=== PATIENT | female | born 1950 | race Caucasian/White ===

== ENCOUNTER 2020-12-17 08:43 | Emergency (ER) | payer MEDICARE, OTHER, SELFPAY ==
--- NOTE | 2020-12-17 | ECG_ITS ---
Test Reason : CP Blood Pressure : / mmHG Vent. Rate : 058 BPM Atrial Rate : 058 BPM P-R Int : 172 ms QRS Dur : 094 ms QT Int : 406 ms P-R-T Axes : 025 -59 -10 degrees QTc Int : 398 ms Sinus bradycardia Left axis deviation Nonspecific ST abnormality Abnormal ECG When compared with ECG of 24-FEB-2020 13:06, No significant change was found Referred By: Generic ED Physician Electronically Signed By:PAULINE CARLIN
--- NOTE | ~2020-12-17 | XR_ITS ---
EXAMINATION: XR CHEST CLINICAL INFORMATION: Chest pain. COMPARISON: Chest done on 02/24/2020. TECHNIQUE: Frontal view of the chest was obtained. FINDINGS: Previously documented suprahilar linear airspace disease within the right hemithorax and linear airspace disease at left lung base appear stable likely represent pleural parenchymal scar. No significant abnormality is noted involving the heart, lungs, mediastinum, bony thorax or soft tissues. XR/XR chest 1V IMPRESSION: Presumed right suprahilar and left lung base pleural parenchymal scar, unchanged since 02/24/2020.
[2020-12-17 08:47] VITALS: BP 1700/74; PULSE 64; RESP 20; TEMP 36.7; O2SAT 95; BMI 31.4
[2020-12-17 09:24] VITALS: BP 153/89; PULSE 58; PULSE 62; RESP 16; O2SAT 95
[2020-12-17] MEDS: Famotidine/PF 20 MG/2 ML VIAL IVPUSH (10:22)
[2020-12-17] MEDS: Lidocaine HCl Viscous 2 % 15 ML SOLUTION MUCOUS MEM (10:22)
[2020-12-17] MEDS: Magnesium Hydrox/Alum Hydrox 30 ML ORAL.SUSP PO (10:22)
[2020-12-17 10:50] LABS: MANUAL DIFF FLAG NO
[2020-12-17 10:52] LABS: Basophils Percent Auto 0.5 % (0-2); Eosinophils Absolute Auto 0.1 X10*3/uL (0.0-0.4); Hematocrit 41.3 % (37-47); Hemoglobin 13.7 g/dl (12.0-16.0); Imm Gran Abs Auto 0.01 X10*3/uL (0.00-0.03); Imm Gran Pct Auto 0.2 % (0.0-0.4); Lymphocytes Absolute Auto 1.4 X10*3/uL (1.2-4.9); Lymphocytes Percent Auto 21.5 % (20-40); Mean Corpuscular HGB Conc 33.2 g/dl (31.0-35.0); Mean Corpuscular Hemoglobin 30.4 pg (27.0-33.0); Mean Corpuscular Volume 91.6 fL (80-98); Mean Platelet Volume 11.6 fL (9.4-12.3); Monocytes Absolute Auto 0.5 X10*3/uL (0.1-1.2); Neutrophils Absolute Auto 4.5 X10*3/uL (2.0-8.3); Neutrophils Percent Auto 67.8 % (45-73); Platelet Count 207 X10*3/uL (160-400); Red Blood Count 4.51 X10*6/uL (4.20-5.50); Red Cell Distribution Width 12.8 % (11.0-16.0); White Blood Count 6.7 X10*3/uL (4.8-10.8)
[2020-12-17 11:01] LABS: INTERNATIONAL NORM RATIO 1.1 (0.9-1.1); Prothrombin Time 13.3 SEC (10.8-13.0)
[2020-12-17 11:04] LABS: Partial Thromboplastin Time 44.1 SEC (24.1-38.0)
[2020-12-17 11:22] LABS: Alanine Aminotransferase 18 U/L (0-31); Albumin Level 3.9 g/dL (3.5-5.0); Alkaline Phosphatase 83 U/L (39-117); Anion Gap 11 (12-20); Aspartate Amino Transferase 17 U/L (5-31); Bilirubin Direct 0.2 mg/dL (0.0-0.5); Bilirubin Total 0.5 mg/dL (0.0-1.0); Blood Urea Nitrogen 15 mg/dL (9-16); Calcium 8.9 mg/dL (8.4-10.2); Carbon Dioxide 29 mmol/L (22-29); Chloride 107 mmol/L (96-108); Creatinine Clr Calc Pharmacy 62.3; Estimated Glomerular Filt Rate > 60; Glucose Random 106 mg/dL (60-115); Potassium 4.7 mmol/L (3.3-5.1); Sodium 142 mmol/L (135-145); Total Protein 6.3 g/dL (6.5-8.0)
[2020-12-17 11:23] LABS: Lipase 14 U/L (8-78)
[2020-12-17 11:25] LABS: B Type Natriuretic Peptide 58 pg/mL (<100)
[2020-12-17 11:26] LABS: Troponin-I High Sensitivity < 3.5 ng/L (<3.5-17.0)
--- NOTE | 2020-12-17 11:56 | PC.NURSE ---
pt had arrived for mid sternal chest pain, she was medicated and states sx have improved. pt given a warm blanket and awaits further eval.
--- NOTE | 2020-12-17 11:56 | ED.CHESTPAIN ---
HPI - Chest Pain General Chief Complaint: Chest Pain Stated Complaint: CHEST PAIN Time Seen by Provider: 12/17/20 09:46 Source: patient Mode of arrival: ambulatory History of Present Illness HPI narrative: 70-year-old female with a past medical history of hypothyroid, IBS, vertigo, GERD, hypertension, presenting to the ED complaining of left-sided chest pain since last night with associated tingling in left arm. Admits pain has been persistent since onset, thought it was her GERD took her prescribed GERD medications without relief. Also reports taking ASA at home. Denies shortness of breath, LE edema, calf pain, history of blood clots, recent, abdominal pain, nausea/vomiting, weakness, trauma/falls or injury MD complaint: chest pain Related Data Home Medications Medication Instructions Recorded Confirmed levothyroxine 1 tab PO DAILY 12/17/20 12/17/20 venlafaxine 1 cap PO DAILY 12/17/20 12/17/20 zolpidem 1 tab PO BEDTIME 12/17/20 12/17/20 Previous Rx's Medication Instructions Recorded dexlansoprazole 60 mg 60 mg PO DAILY 30 Days #30 cap 08/17/20 capsule,biphase delayed release linaclotide 145 mcg capsule 145 mcg PO QAM #30 cap 09/18/20 lidocaine [Lidoderm] 1 patch TOPICAL DAILY PRN #30 ea 12/17/20 MDD remove after 12 hours Allergies Allergy/AdvReac Type Severity Reaction Status Date / Time bupropion [From WELLBUTRIN] Allergy Unknown UNKNOWN Unverified 06/29/20 15:44 esomeprazole [From NEXIUM] Allergy Unknown UNKNOWN Unverified 06/29/20 15:44 naproxen [From ALEVE] Allergy Unknown UNKNOWN Unverified 06/29/20 15:44 nitrofurantoin Allergy Unknown UNKNOWN Unverified 06/29/20 15:44 [NITROFURANTOIN] polyethylene glycol 3350 Allergy Unknown UNKNOWN Unverified 06/29/20 15:44 [From MIRALAX] pramipexole [From MIRAPEX] Allergy Unknown GENESIS SUNSHINE Unverified 06/29/20 15:44 ING Sulfa (Sulfonamide Allergy Unknown BLANCHE PEREZ Unverified 06/29/20 15:44 Antibiotics) NG [SULFA (SULFONAMIDE ANTIBIOTICS)] Avelox Allergy Unknown Uncoded 06/02/20 00:00 Wellbutrin Allergy Unknown Uncoded 06/02/20 00:00 Review of Systems Review of Systems: Constitutional: No Fever, No Chills Cardiovascular: + Chest Pain, No SOB, No Orthopnea, No Edema, No Palpitations Respiratory: +dry Cough, No Dyspnea Gastrointestinal: No Nausea, No Vomiting, No Diarrhea, No Abdominal pain Genitourinary: No irregular bleeding, No Dysuria, No Flank Pain Musculoskeletal: No joint pain, No Myalgias, No Joint Swelling Skin: No Skin Lesions, No rash Neuro: No Weakness, No Numbness, +Paresthesias, No Dizziness, No Headache Yes all other systems are reviewed and are negative [facility] Past Medical History Attestation statement: The following information was validated with the patient. Medical History (Updated 12/17/20 @ 12:06 by CARMELLA Holden) GERD (gastroesophageal reflux disease) HTN (hypertension) Hypothyroid IBS (irritable bowel syndrome) Vertigo Surgical History (Updated 12/17/20 @ 08:54 by Bg Mayes) H/O eye surgery H/O: hysterectomy Social History Social History Alcohol intake: never Smoking Status: Never smoker Use of substances other than those prescribed or required for medical reasons: No Advance Directives: No Advance Directives Information Provided: No Physical Exam Vital Signs: Vital Signs: Last Vital Signs Temp 98.0 F 12/17/20 08:47 Pulse 54 12/17/20 11:58 Resp 16 12/17/20 11:58 BP 157/76 H 12/17/20 11:58 Pulse Ox 96 12/17/20 11:58 Body Mass Index 31.4 Const: General: cooperative, healthy appearing, comfortable and no acute distress Orientation/consciousness: patient oriented x3 Limitations: no limitations HENMT: Head: Yes normal to inspection Ears: hearing grossly normal bilaterally General nose exam: Normal external nose present Face and sinus: Yes normal facial exam Eyes: General: appearance normal, both eyes and all related structures EOM: EOMs intact bilaterally Neck: Neck: Yes normal visual inspection and Yes no meningeal signs Chest: Chest palpation & inspection: normal inspection of the chest, no crepitus and tenderness (Left anterolateral chest wall reproducing subjective complaint) Resp: Effort & Inspection: normal respiratory effort Auscultation: clear to auscultation bilaterally, no rales, no rhonchi and no wheezes Cardio: Rate: regular rate Heart sounds: S1 normal heart sound present and S2 normal heart sound present Peripheral pulses: radial pulses present GI: Inspection: Yes normal to inspection Palpation (GI): Soft to palpation, nontender, no guarding and not rigid Skin: Rashes: no rashes Wounds: no wounds Neuro: General: patient oriented x3 and no meningeal signs Gait exam (Neuro): Normal gait present Extrem: General: Yes normal to inspection, Yes no pedal edema and Yes no calf tenderness Course Course Course Narrative: -labs unremarkable. Troponin negative XR chest 1V IMPRESSION: Presumed right suprahilar and left lung base pleural parenchymal scar, unchanged since 02/24/2020. >> results discussed with patient including worrisome signs and symptoms and strict return precautions. She verbalized understanding feel safe for discharge home MDM - Chest Pain MDM Narrative Medical decision making narrative: 70-year-old female with a past medical history of hypothyroid, IBS, vertigo, GERD, hypertension, presenting to the ED complaining of left-sided chest pain since last night with associated tingling in left arm. On exam VSS, NAD/well-appearing, lungs CTA, chest pain reproducible on exam. Concern for atypical ACS vs ?PNA. Unlikely PE/CHF Plan: EKG,labs, CXR, re-evaluate Medical Records Data Attestation: I reviewed the patient's medical records. Lab Data Attestation: I reviewed the patient's lab results. Result diagrams: 12/17/20 10:21 12/17/20 10:21 Labs: Lab Results 12/17/20 12/17/20 12/17/20 Range/Units 10:21 10:21 10:21 WBC 6.7 (4.8-10.8) X10*3/uL RBC 4.51 (4.20-5.50) X10*6/uL Hgb 13.7 (12.0-16.0) g/dl Hct 41.3 (37-47) % MCV 91.6 (80-98) fL MCH 30.4 (27.0-33.0) pg MCHC 33.2 (31.0-35.0) g/dl RDW 12.8 (11.0-16.0) % Plt Count 207 (160-400) X10*3/uL MPV 11.6 (9.4-12.3) fL Immature Gran % (Auto) 0.2 (0.0-0.4) % Neut % (Auto) 67.8 (45-73) % Lymph % (Auto) 21.5 (20-40) % Nelson % (Auto) 8.0 (2-11) % Eos % (Auto) 2.0 (0-4) % Baso % (Auto) 0.5 (0-2) % Lymph # (Auto) 1.4 (1.2-4.9) X10*3/uL Nelson # (Auto) 0.5 (0.1-1.2) X10*3/uL Eos # (Auto) 0.1 (0.0-0.4) X10*3/uL Baso # (Auto) 0.0 (0.0-0.2) X10*3/uL Abs Immat Gran (auto) 0.01 (0.00-0.03) X10*3/uL Absolute Neuts (auto) 4.5 (2.0-8.3) X10*3/uL Absolute Nucleated RBC 0.000 (0.0-0.012) X10*3/uL Nucleated RBC % (auto) 0.0 (0.0-0.2) /100WBC PT (10.8-13.0) SEC INR (0.9-1.1) APTT (24.1-38.0) SEC Sodium 142 (135-145) mmol/L Potassium 4.7 (3.3-5.1) mmol/L Chloride 107 (96-108) mmol/L Carbon Dioxide 29 (22-29) mmol/L Anion Gap 11 L (12-20) BUN 15 (9-16) mg/dL Creatinine 0.80 (0.5-1.4) mg/dL Estim Creat Clear Calc 62.3 Estimated GFR > 60 Random Glucose 106 (60-115) mg/dL Calcium 8.9 (8.4-10.2) mg/dL Magnesium 2.0 (1.6-2.6) mg/dL Total Bilirubin 0.5 (0.0-1.0) mg/dL Direct Bilirubin 0.2 (0.0-0.5) mg/dL AST 17 (5-31) U/L ALT 18 (0-31) U/L Alkaline Phosphatase 83 (39-117) U/L Troponin I High Sens < 3.5 (<3.5-17.0) ng/L B-Natriuretic Peptide (<100) pg/mL Total Protein 6.3 L (6.5-8.0) g/dL Albumin 3.9 (3.5-5.0) g/dL Lipase (8-78) U/L 12/17/20 12/17/20 12/17/20 Range/Units 10:21 10:21 10:21 WBC (4.8-10.8) X10*3/uL RBC (4.20-5.50) X10*6/uL Hgb (12.0-16.0) g/dl Hct (37-47) % MCV (80-98) fL MCH (27.0-33.0) pg MCHC (31.0-35.0) g/dl RDW (11.0-16.0) % Plt Count (160-400) X10*3/uL MPV (9.4-12.3) fL Immature Gran % (Auto) (0.0-0.4) % Neut % (Auto) (45-73) % Lymph % (Auto) (20-40) % Nelson % (Auto) (2-11) % Eos % (Auto) (0-4) % Baso % (Auto) (0-2) % Lymph # (Auto) (1.2-4.9) X10*3/uL Nelson # (Auto) (0.1-1.2) X10*3/uL Eos # (Auto) (0.0-0.4) X10*3/uL Baso # (Auto) (0.0-0.2) X10*3/uL Abs Immat Gran (auto) (0.00-0.03) X10*3/uL Absolute Neuts (auto) (2.0-8.3) X10*3/uL Absolute Nucleated RBC (0.0-0.012) X10*3/uL Nucleated RBC % (auto) (0.0-0.2) /100WBC PT 13.3 H (10.8-13.0) SEC INR 1.1 (0.9-1.1) APTT 44.1 H (24.1-38.0) SEC Sodium (135-145) mmol/L Potassium (3.3-5.1) mmol/L Chloride (96-108) mmol/L Carbon Dioxide (22-29) mmol/L Anion Gap (12-20) BUN (9-16) mg/dL Creatinine (0.5-1.4) mg/dL Estim Creat Clear Calc Estimated GFR Random Glucose (60-115) mg/dL Calcium (8.4-10.2) mg/dL Magnesium (1.6-2.6) mg/dL Total Bilirubin (0.0-1.0) mg/dL Direct Bilirubin (0.0-0.5) mg/dL AST (5-31) U/L ALT (0-31) U/L Alkaline Phosphatase (39-117) U/L Troponin I High Sens (<3.5-17.0) ng/L B-Natriuretic Peptide 58 (<100) pg/mL Total Protein (6.5-8.0) g/dL Albumin (3.5-5.0) g/dL Lipase 14 (8-78) U/L ECG Data ECG #1: ECG interpretation date: 12/17/20 ECG interpretation time: 09:13 Prior ECG tracings: available for review Interpretation: EKG sinus bradycardia with a rate of 58. Artifact present. No STEMI. Nonischemic Discharge Plan Discharge Clinical Impression: Atypical chest pain Patient Disposition: Home, Self-Care Instructions: Chest Pain (ED) Additional Instructions: Your blood work and heart enzyme/chest x-ray were reassuring today in the ED It is important that you follow-up with her primary care doctor as well as Cardiology If her symptoms persist or worsen, become more constant/intense, you have shortness of breath, fever, or weakness/swelling in her legs return to the ED immediately Apply Lidoderm patches to painful area Prescriptions: New lidocaine [Lidoderm] 5 % adhesive patch,medicated 1 patch topical DAILY MDD remove after 12 hours PRN (Reason: pain) Qty: 30 RF: 0 No Action Dexilant 60 mg capsule,biphase delayed releas 60 mg PO DAILY 30 Days Qty: 30 RF: 5 Linzess 145 mcg capsule 145 mcg PO QAM Qty: 30 RF: 4 venlafaxine 37.5 mg capsule,extended release 24hr 1 cap PO DAILY RF: 0 levothyroxine 100 mcg tablet 1 tab PO DAILY RF: 0 zolpidem 5 mg tablet 1 tab PO BEDTIME RF: 0 Referrals: Pk Hoyt MD [Primary Care Provider] - 2 days Jeff Mason MD [Physician] - 1 week
[2020-12-17 11:58] VITALS: BP 157/76; PULSE 54; RESP 16; O2SAT 96
== END 2020-12-17 12:40 | disposition home or self-care (01) ==
PROVIDERS: Physician Assistant; Emergency Provider Emergency Medicine; PCP Internal Medicine
DX: R07.89 Other chest pain (principal); I10 Essential (primary) hypertension
CPT/HCPCS: 36415; 71045; 80048; 80076; 83690; 83735; 83880; 84484; 85025; 85610; 85730; 93005; 96374; 99284; 99285

== ENCOUNTER → 2021-01-02 09:40 | Outpatient (BNVA) | payer MEDICARE, OTHER, SELFPAY | PROVIDERS: PCP Internal Medicine; Visit Provider Nurse Practitioner | DX: Z13.89 Encounter for screening for other disorder (principal) | CPT/HCPCS: 99212 ==

== ENCOUNTER → 2021-01-23 12:51 | Outpatient (BNVA) | payer MEDICARE, OTHER, SELFPAY | PROVIDERS: PCP Internal Medicine; Visit Provider Nurse Practitioner | DX: Z13.89 Encounter for screening for other disorder (principal) | CPT/HCPCS: Q3014 ==

== ENCOUNTER → 2021-02-07 09:28 | Outpatient (BNVA) | payer MEDICARE, MEDICAID, OTHER, SELFPAY | PROVIDERS: PCP Internal Medicine; Visit Provider Nurse Practitioner Family | DX: R07.89 Other chest pain (principal); I10 Essential (primary) hypertension; K21.9 Gastro-esophageal reflux disease without esophagitis | CPT/HCPCS: 93005; 99202 ==

== ENCOUNTER → 2021-02-16 09:01 | Outpatient (REF) | payer MEDICARE, OTHER, SELFPAY ==
--- NOTE | ~2021-02-16 | NM_ITS ---
Exercise Myocardial perfusion study Indication: Atypical chest pain to evaluate for myocardial ischemia Technique: The patient was brought in for an exercise perfusion study on 02/16/2021. Patient performed exercise as per Jn protocol and was injected 25 mCi of sestamibi was given intravenously one target HR was achieved. Images were obtained using the SPECT gamma camera interlaced with the gating device. Images were obtained in supine position. Resting perfusion study was performed on 02/19/2021. Patient was administered 25 mCi of sestamibi intravenously at rest. Images were then obtained in supine position. Images obtained with and without CT attenuation. Total DLP 89 mGy-cm. Images were processed with the software and compared side to side in short axis, horizontal long axis and vertical long axis views. Findings: The stress perfusion study showed non attenuated images showed normal uptake of radiotracer in all segments of LV myocardium. Attenuation corrected images show mildly reduced uptake in the septum and apex of the LV myocardium.. The gated study shows normal LV systolic function with calculated LVEF of 71%. LV cavity is normal in size. The gated study shows normal systolic wall thickening and contraction of all segments. There is no transient ischemic dilation. Resting study shows no change in perfusion pattern compared to stress perfusion study. Gating at rest reveals normal systolic wall motion with ejection fraction at 64%. The findings are consistent with normal myocardial perfusion. NM/NM cardiolite stress test Impression: 1. Normal myocardial perfusion 2. Gated LVEF is 71% 3. Transient ischemic dilatation not present Stress EKG is negative for ischemia
--- NOTE | 2021-02-16 09:30 | CA_ITS ---
Acquisition Time: 2021-02-16 09:39:22 Total Exercise Time: 00:05:30 Test Indications: CP Medications: SEE CHART Protocol: PEDRO Max HR: 127 BPM 85% of Pred: 149 BPM Max BP: 210/060 mmHG Max Work Load: 5.2 METS Exercise stress nuclear using Pedro protocol, total of 5 min 30 sec. Pt tolerated well, denies any anginal sx. EKG with PVC's, no ischemic changes seen during exercise or in recovery. Nuclear images to follow. Hypertensive response to exercise. Test reviewed with Dr. Mason. Referred By: Faiza Govea Overread By: Radha Garcia NP
== END ==
LOC: HO.CARD 09:01
PROVIDERS: PCP Internal Medicine; Visit Provider Nurse Practitioner Family
DX: R07.89 Other chest pain (principal); I10 Essential (primary) hypertension
CPT/HCPCS: 78452; 93016; 93017; 93018; A9500; J0280; J2785

== ENCOUNTER 2021-03-23 12:49 | Emergency (ER) | payer MEDICARE, OTHER, SELFPAY ==
--- NOTE | ~2021-03-23 | XR_ITS ---
EXAMINATION: XR CHEST CLINICAL INFORMATION: Near syncope COMPARISON: Previous chest x-ray most recent December 2020 TECHNIQUE: Frontal view of the chest was obtained. FINDINGS: The cardiac and mediastinal contours are stable. There is linear scarring or chronic subsegmental atelectasis in the right superior hilar region and at the left lung base that is stable. The lungs are otherwise clear. There is no pleural effusion or pneumothorax. There are degenerative changes of the spine. There are surgical clips in the left neck. XR/XR chest 1V IMPRESSION: No evidence for acute disease in the chest.
--- NOTE | ~2021-03-23 | US_ITS ---
EXAMINATION: US VENOUS ULTRASOUND WITH DOPPLER LOWER EXTREMITY, RIGHT CLINICAL INFORMATION: Pain. Patient states fell one month ago. COMPARISON: None TECHNIQUE: Ultrasound of the deep veins is performed from the hip to the calf with compression sonography and color and pulse Doppler assessment. Spectral analysis with color-flow imaging is performed. FINDINGS: There is normal venous compression and respiratory variation and augmented flow. The visualized common femoral vein, superficial femoral vein, profunda femoral vein, popliteal vein, and the trifurcation region shows no evidence of deep venous thrombosis. There is no significant popliteal fossa cyst. If the patient's symptoms persist, followup ultrasound in 5 days 7 days might be of value to exclude proximal propagation from a non-visualized calf vein. US/US venous duplex LE RT IMPRESSION: No DVT demonstrated in the right lower extremity.
[2021-03-23 13:00] VITALS: BP 107/62; PULSE 72; RESP 18; TEMP 37.3; O2SAT 95; BMI 30.4
--- NOTE | 2021-03-23 13:08 | ECG_ITS ---
Test Reason : RIGHT LEG PAIN Blood Pressure : / mmHG Vent. Rate : 063 BPM Atrial Rate : 063 BPM P-R Int : 166 ms QRS Dur : 102 ms QT Int : 410 ms P-R-T Axes : 029 -59 040 degrees QTc Int : 419 ms Normal sinus rhythm Incomplete right bundle branch block Left anterior fascicular block Septal infarct , age undetermined Abnormal ECG When compared with ECG of 17-DEC-2020 09:13, Incomplete right bundle branch block is now Present Septal infarct is now Present Referred By: Generic ED Physician Electronically Signed By:BRISA HUTTON MD
[2021-03-23 13:47] LABS: MANUAL DIFF FLAG NO
[2021-03-23 13:54] LABS: Basophils Absolute Auto 0.1 X10*3/uL (0.0-0.2); Basophils Percent Auto 0.7 % (0-2); Eosinophils Absolute Auto 0.1 X10*3/uL (0.0-0.4); Eosinophils Percent Auto 1.6 % (0-4); Hemoglobin 13.8 g/dl (12.0-16.0); Imm Gran Abs Auto 0.01 X10*3/uL (0.00-0.03); Imm Gran Pct Auto 0.1 % (0.0-0.4); Lymphocytes Absolute Auto 1.7 X10*3/uL (1.2-4.9); Mean Corpuscular HGB Conc 34.5 g/dl (31.0-35.0); Mean Corpuscular Hemoglobin 31.3 pg (27.0-33.0); Mean Corpuscular Volume 90.7 fL (80-98); Monocytes Absolute Auto 0.6 X10*3/uL (0.1-1.2); Monocytes Percent Auto 8.1 % (2-11); Neutrophils Absolute Auto 4.6 X10*3/uL (2.0-8.3); Neutrophils Percent Auto 65.5 % (45-73); Platelet Count 208 X10*3/uL (160-400); Red Blood Count 4.41 X10*6/uL (4.20-5.50)
[2021-03-23 14:03] LABS: D Dimer < 200 NG/ML
[2021-03-23 14:15] LABS: Troponin-I High Sensitivity < 3.5 ng/L (<3.5-17.0)
[2021-03-23 14:24] LABS: Anion Gap 9 (12-20); Blood Urea Nitrogen 18 mg/dL (9-16); Calcium 8.8 mg/dL (8.4-10.2); Carbon Dioxide 30 mmol/L (22-29); Chloride 106 mmol/L (96-108); Creatinine Clr Calc Pharmacy 54.2; Estimated Glomerular Filt Rate 59; Glucose Random 111 mg/dL (60-115); Potassium 3.9 mmol/L (3.3-5.1); Sodium 141 mmol/L (135-145)
[2021-03-23 16:25] VITALS: BP 174/64; PULSE 64; RESP 16; O2SAT 97
--- NOTE | 2021-03-23 16:26 | ED.LOWEXIN ---
HPI - Extremity Injury (Lower) General Chief Complaint: Extremity Injury, Lower Stated Complaint: fall 1 month ago - rt calf pain and cold Time Seen by Provider: 03/23/21 16:23 Source: patient Mode of arrival: ambulatory Limitations: no limitations History of Present Illness HPI Narrative: patient withHistory of anxiety hypothyroidism hypertension had a mechanical fall 4 weeks ago , since then complaining of cold feeling in the right leg feels off and on pain also specially in the calf area without any significant swelling no pain on ambulation or shortness of breath last night patient was sitting planning to go to bed and all of a sudden she felt near-syncope episode with abreu of blood from the head to 2 lasted for few minutes Related Data Home Medications Medication Instructions Recorded Confirmed levothyroxine 1 tab PO DAILY 12/17/20 02/07/21 zolpidem 1 tab PO BEDTIME 12/17/20 02/07/21 venlafaxine 37.5 mg 37.5 mg PO DAILY 01/23/21 02/07/21 capsule,extended release 24 hr Previous Rx's Medication Instructions Recorded dexlansoprazole 60 mg 60 mg PO DAILY 30 Days #30 cap 02/28/21 capsule,biphase delayed release Allergies Allergy/AdvReac Type Severity Reaction Status Date / Time bupropion [From WELLBUTRIN] Allergy Unknown UNKNOWN Verified 03/23/21 13:00 esomeprazole [From NEXIUM] Allergy Unknown UNKNOWN Verified 03/23/21 13:00 naproxen [From ALEVE] Allergy Unknown UNKNOWN Verified 03/23/21 13:00 nitrofurantoin Allergy Unknown UNKNOWN Verified 03/23/21 13:00 [NITROFURANTOIN] polyethylene glycol 3350 Allergy Unknown UNKNOWN Verified 03/23/21 13:00 [From MIRALAX] pramipexole [From MIRAPEX] Allergy Unknown GENESIS SUNSHINE Verified 03/23/21 13:00 ING Sulfa (Sulfonamide Allergy Unknown BLANCHE PEREZ Verified 03/23/21 13:00 Antibiotics) NG [SULFA (SULFONAMIDE ANTIBIOTICS)] Avelox Allergy Unknown panic Uncoded 02/07/21 10:05 Review of Systems Review of Systems: Constitutional : No Weight loss, No Fever, No Chills ENT/Mouth : No sore throat, No Rhinorrhea Eyes: No Eye Pain, No Swelling Cardiovascular : No Chest Pain, no palpitations Respiratory : No Cough, No Sputum, no shortness of breath Gastrointestinal : no Nausea, No Vomiting, No Diarrhea, No abdominal Pain, no black stools Genitourinary : No Dysuria, No Urinary Frequency Musculoskeletal : No joint pain, No Myalgias, No Joint Swelling Skin : No Skin Lesions, No rash Neuro : No Weakness, No Numbness, No Dizziness, No Headache Psych : No Anxiety/Panic, No Depression Heme/Lymph: No Bruising, No Lymphadenopathy Endocrine : No Polyuria, No Polydipsia All other systems reviewed and are negative [facility] Past Medical History Medical History GERD (gastroesophageal reflux disease) HTN (hypertension) Hypothyroid IBS (irritable bowel syndrome) Vertigo Surgical History H/O eye surgery H/O: hysterectomy History of esophagogastroduodenoscopy (EGD) Hx of colonoscopy Family History Family History Father Family history of heart disease Mother Family history of hypertension Family history of heart disease Sister Lung cancer Social History Social History (Updated 02/07/21 @ 13:59 by Faiza Govea NP-C) Alcohol intake: never Patient Tobacco Use Status: Former Tobacco user Years Smoked: Smoked 1 pack a day for 15-20 years, quit 30 years ago Physical Exam Vital Signs: Vital Signs: Last Vital Signs Temp 99.1 F 03/23/21 13:00 Pulse 59 03/23/21 18:39 Resp 16 03/23/21 18:39 BP 176/71 H 03/23/21 18:39 Pulse Ox 95 03/23/21 18:39 Body Mass Index 30.4 Appearance: Alert. Oriented X3. No acute distress. Eyes: PERRLA, No Nystagmus ENT: Pharynx normal. Oral Mucosa moist Neck: Normal inspection. Neck supple. CVS: Normal heart rate and rhythm. Pulses normal. Respiratory: No respiratory distress. Equal air entry bilateral, no wheezing/rales/rhonchi Abdomen: Soft and nontender. Bowel sounds are present, no mass palpable, no CVA tenderness Skin: Skin warm and dry. Normal skin color. Normal skin turgor. Extremities: No lower extremity edema. No calf tenderness Neuro: Oriented X 3. No motor deficit. No sensory deficit.No cerebellar signs , cranial nerves II-XII intact MDM - Extremity Injury (Lower) MDM Narrative Medical decision making narrative: Patient nonspecific complaints of right leg neurovascular intact no calf tenderness often tested negative D-dimer negative EKG and troponin also negative. Patient has good blood flow in the right lower extremity although still complaining of weak feeling will do venous Doppler Venous Doppler negative for DVT will discharge patient home Lab Data Attestation: I reviewed the patient's lab results. Result diagrams: 03/23/21 13:40 03/23/21 13:40 Labs: Lab Results 03/23/21 03/23/21 03/23/21 Range/Units 13:40 13:40 13:40 WBC 7.0 (4.8-10.8) X10*3/uL RBC 4.41 (4.20-5.50) X10*6/uL Hgb 13.8 (12.0-16.0) g/dl Hct 40.0 (37-47) % MCV 90.7 (80-98) fL MCH 31.3 (27.0-33.0) pg MCHC 34.5 (31.0-35.0) g/dl RDW 13.0 (11.0-16.0) % Plt Count 208 (160-400) X10*3/uL MPV 11.0 (9.4-12.3) fL Immature Gran % (Auto) 0.1 (0.0-0.4) % Neut % (Auto) 65.5 (45-73) % Lymph % (Auto) 24.0 (20-40) % Hamlin % (Auto) 8.1 (2-11) % Eos % (Auto) 1.6 (0-4) % Baso % (Auto) 0.7 (0-2) % Lymph # (Auto) 1.7 (1.2-4.9) X10*3/uL Hamlin # (Auto) 0.6 (0.1-1.2) X10*3/uL Eos # (Auto) 0.1 (0.0-0.4) X10*3/uL Baso # (Auto) 0.1 (0.0-0.2) X10*3/uL Abs Immat Gran (auto) 0.01 (0.00-0.03) X10*3/uL Absolute Neuts (auto) 4.6 (2.0-8.3) X10*3/uL Absolute Nucleated RBC 0.000 (0.0-0.012) X10*3/uL Nucleated RBC % (auto) 0.0 (0.0-0.2) /100WBC D-Dimer NG/ML Sodium 141 (135-145) mmol/L Potassium 3.9 (3.3-5.1) mmol/L Chloride 106 (96-108) mmol/L Carbon Dioxide 30 H (22-29) mmol/L Anion Gap 9 L (12-20) BUN 18 H (9-16) mg/dL Creatinine 0.94 (0.5-1.4) mg/dL Estim Creat Clear Calc 54.2 Estimated GFR 59 Random Glucose 111 (60-115) mg/dL Calcium 8.8 (8.4-10.2) mg/dL Troponin I High Sens < 3.5 (<3.5-17.0) ng/L 03/23/21 Range/Units 13:40 WBC (4.8-10.8) X10*3/uL RBC (4.20-5.50) X10*6/uL Hgb (12.0-16.0) g/dl Hct (37-47) % MCV (80-98) fL MCH (27.0-33.0) pg MCHC (31.0-35.0) g/dl RDW (11.0-16.0) % Plt Count (160-400) X10*3/uL MPV (9.4-12.3) fL Immature Gran % (Auto) (0.0-0.4) % Neut % (Auto) (45-73) % Lymph % (Auto) (20-40) % Hamlin % (Auto) (2-11) % Eos % (Auto) (0-4) % Baso % (Auto) (0-2) % Lymph # (Auto) (1.2-4.9) X10*3/uL Hamlin # (Auto) (0.1-1.2) X10*3/uL Eos # (Auto) (0.0-0.4) X10*3/uL Baso # (Auto) (0.0-0.2) X10*3/uL Abs Immat Gran (auto) (0.00-0.03) X10*3/uL Absolute Neuts (auto) (2.0-8.3) X10*3/uL Absolute Nucleated RBC (0.0-0.012) X10*3/uL Nucleated RBC % (auto) (0.0-0.2) /100WBC D-Dimer < 200 NG/ML Sodium (135-145) mmol/L Potassium (3.3-5.1) mmol/L Chloride (96-108) mmol/L Carbon Dioxide (22-29) mmol/L Anion Gap (12-20) BUN (9-16) mg/dL Creatinine (0.5-1.4) mg/dL Estim Creat Clear Calc Estimated GFR Random Glucose (60-115) mg/dL Calcium (8.4-10.2) mg/dL Troponin I High Sens (<3.5-17.0) ng/L Discharge Plan Discharge Clinical Impression: Leg pain, right Patient Disposition: Home, Self-Care Instructions: Leg Pain (ED) Additional Instructions: Your Doppler for blood clot is negative in right leg, Take Tylenol for pain Prescriptions: No Action Dexilant 60 mg capsule,biphase delayed releas 60 mg PO DAILY 30 Days Qty: 30 RF: 6 levothyroxine 100 mcg tablet 1 tab PO DAILY RF: 0 zolpidem 5 mg tablet 1 tab PO BEDTIME RF: 0 venlafaxine 37.5 mg capsule,extended release 24hr 37.5 mg PO DAILY RF: 0 Interventions: ED Discharge Assessment Last Done: 03/23/21 18:41 Discharge Date/Time: 03/23/21 18:53
[2021-03-23 18:39] VITALS: BP 176/71; PULSE 59; RESP 16; O2SAT 95
== END 2021-03-23 18:53 | disposition home or self-care (01) ==
PROVIDERS: Emergency Provider Internal Medicine; PCP Internal Medicine
DX: M79.661 Pain in right lower leg (principal); R55 Syncope and collapse; I45.2 Bifascicular block; I10 Essential (primary) hypertension; E03.9 Hypothyroidism, unspecified; Z91.81 History of falling
CPT/HCPCS: 36415; 71045; 80048; 84484; 85025; 85379; 93005; 93971; 99284

== ENCOUNTER → 2021-03-29 09:33 | Outpatient (REF) | payer MEDICARE, OTHER, SELFPAY ==
--- NOTE | 2021-03-29 09:38 | CA_ITS ---
Transthoracic Echocardiogram Patient (Last, First, Middle): Franny Tejeda M Gender: Female Date of : 1950 Age: 70 Procedure Date: 03/29/2021 Procedure Type: Transthoracic Echocardiogram Location: OP Height: 157.48 cm Weight: 77.11 kg BSA: 1.78 m2 Heart Rate: bpm BP: 142 / 68 mmHg Tobacco Baler: DSG Referring MD: Faiza Govea [employer]NAGER [employer] Symptoms: I10 - Essential (primary) hypertension Study Quality: Good ECG Rhythm: Sinus Conclusions: - The left ventricular systolic function is normal. The visually estimated ejection fraction is between 65-70%. - No obvious valvular pathology seen on this study. Findings Left Ventricle Normal left ventricular cavity size. There is normal left ventricular wall thickness. The left ventricular systolic function is normal. The visually estimated ejection fraction is between 65-70%. There is no evidence of regional wall motion abnormalities. Diastolic function is normal for age. Right Ventricle Normal right ventricular cavity size and systolic function. Atria Both atria are normal in size. Aortic Valve There is a normal trileaflet aortic valve. There is no aortic valve stenosis. There is no aortic valve regurgitation. Mitral Valve The mitral valve appears normal. There is trace mitral valve regurgitation. There is no mitral valve stenosis. Pulmonic Valve The pulmonic valve was not well visualized. There is trace pulmonic valve regurgitation. Tricuspid Valve Normal tricuspid valve structure. There is mild tricuspid valve regurgitation. The pulmonary artery systolic pressure is normal. Great Vessels The aortic annulus, sinuses of valsalva, and asc aorta are normal in size. Venous The inferior vena cava is normal in size and collapses greater than 50% with inspiration. Pericardium/Pleural There is no evidence of pericardial effusion. Prior Study Comparison No prior study available for comparison. Recommendations, Care & Conclusions No obvious valvular pathology seen on this study. Measurements 2D Linear Measurements IVSd: 0.81 0.6-0.9/0.6-1.0 cm LVIDd: 4.17 3.9-5.3/4.2-5.9 cm LVIDd Index: 2.34 2.4-3.2/2.2-3.1 cm/m2 LVIDs: 2.56 2.0-3.6 cm LVPWd: 1.04 0.7-1.1 cm Ao Root: 2.10 2.1-3.5 cm LA Diam: 4.00 2.7-3.8/3.0-4.0 cm LAIDs Index: 2.25 1.5-2.3 cm/m2 LV Mass: 151.59 67-162/88-224 g LV Mass Index: 85.17 43-95/49-115 g/m2 LVOT Diam: 1.90 3.0+(-)1.3 cm 2D Systolic Function EF 4C: 63.60 >55% EF 2C: 73.80 >55% EF BiP: 67.90 >55% Mitral Valve MV Pk E: 0.71 MV PK A: 0.60 MV Decel Time: 289.00 E/A: 1.20 E'Lateral: 7.40 E'Medial: 6.53 E/E' Med: 10.80 E/E' Lat: 9.60 PHT: 85.00 MVA PHT: 2.59 Decel Mclean: 2.45 Aortic Valve AoV Pk Jerrell: 1.29 AoV Pk Grad: 7.00 LVOT LVOT Pk Jerrell: 1.17 LVOT Mn Jerrell: 0.74 LVOT VTI: 0.25 LVOT Pk Grad: 5.00 LVOT Mn Grad: 3.00 LVOT Diam: 1.90 LVOT Area: 2.84 Diastolic Function MV Pk E: 0.71 MV Pk A: 0.60 E/A: 1.20 E'Medial: 6.53 E/E' Med: 10.80 E' Laterial: 7.40 E/E' Lat: 9.60 Tricuspid Valve TR Pk Jerrell: 2.70 TR Pk Grad: 29.00 RA Press: 3.00 RVSP: 34.00 Great Vessels Aorta Ao Root-2D: 2.10 2.0-3.7 cm Ao Asc: 3.00 2.1-3.4 cm Updated in Other Vendor System with Status of Final Jeff Mason MD electronically signed on 03/30/2021 1:55:59 PM with status of Final
== END ==
LOC: HO.CARD 09:33
PROVIDERS: Visit Provider Nurse Practitioner Family
DX: R07.89 Other chest pain (principal); I10 Essential (primary) hypertension
CPT/HCPCS: 93306

== ENCOUNTER → 2021-04-03 12:48 | Outpatient (BNVA) | payer MEDICARE, OTHER, SELFPAY | PROVIDERS: Referring Provider Internal Medicine; Visit Provider Nurse Practitioner Family | DX: K21.9 Gastro-esophageal reflux disease without esophagitis (principal); I10 Essential (primary) hypertension; R07.89 Other chest pain | CPT/HCPCS: 99212 ==

== ENCOUNTER 2021-04-14 14:52 | Emergency (ER) | payer MEDICARE, OTHER, SELFPAY ==
[2021-04-14 14:59] VITALS: BP 146/64; PULSE 60; RESP 18; TEMP 36.7; O2SAT 95; BMI 30.4
--- NOTE | 2021-04-14 16:10 | ED_ITS ---
HPI - Dental/Oral General Chief complaint: Dental/Oral Stated complaint: dental pain Time Seen by Provider: 04/14/21 15:40 History of Present Illness HPI Narrative: patient complains of left lower rear dental pain developing over past 2 days, no fever no drooling no swelling Review of systems is positive for left-sided dental pain Negatives are no fever no chills no dizziness no headache no earache no sore throat no difficulty breathing or swallowing no drooling no swelling under the tongue no rashes Related Data Home Medications Medication Instructions Recorded Confirmed levothyroxine 1 tab PO DAILY 12/17/20 04/03/21 zolpidem 1 tab PO BEDTIME 12/17/20 04/03/21 venlafaxine 37.5 mg 37.5 mg PO DAILY 01/23/21 04/03/21 capsule,extended release 24 hr losartan 25 mg tablet 25 mg PO DAILY 04/03/21 04/03/21 Previous Rx's Medication Instructions Recorded dexlansoprazole 60 mg 60 mg PO DAILY 30 Days #30 cap 04/11/21 capsule,biphase delayed release oxycodone 5 mg PO Q6H PRN #14 tab 04/14/21 penicillin V potassium 500 mg PO QID 7 Days #28 tab 04/14/21 Allergies Allergy/AdvReac Type Severity Reaction Status Date / Time bupropion [From WELLBUTRIN] Allergy Unknown UNKNOWN Verified 04/03/21 13:05 esomeprazole [From NEXIUM] Allergy Unknown UNKNOWN Verified 04/03/21 13:05 naproxen [From ALEVE] Allergy Unknown UNKNOWN Verified 04/03/21 13:05 nitrofurantoin Allergy Unknown UNKNOWN Verified 04/03/21 13:05 [NITROFURANTOIN] polyethylene glycol 3350 Allergy Unknown UNKNOWN Verified 04/03/21 13:05 [From MIRALAX] pramipexole [From MIRAPEX] Allergy Unknown GENESIS SUNSHINE Verified 04/03/21 13:05 ING Sulfa (Sulfonamide Allergy Unknown BLANCHE PEREZ Verified 04/03/21 13:05 Antibiotics) NG [SULFA (SULFONAMIDE ANTIBIOTICS)] Avelox Allergy Unknown panic Uncoded 04/03/21 13:05 [facility] Past Medical History Source: nursing notes reviewed Medical History GERD (gastroesophageal reflux disease) HTN (hypertension) Hypothyroid IBS (irritable bowel syndrome) Vertigo Surgical History H/O eye surgery H/O: hysterectomy History of esophagogastroduodenoscopy (EGD) Hx of colonoscopy Family History Family History Father Family history of heart disease Mother Family history of hypertension Family history of heart disease Sister Lung cancer Social History Social History Alcohol intake: never Patient Tobacco Use Status: Former Tobacco user Years Smoked: Smoked 1 pack a day for 15-20 years, quit 30 years ago Physical Exam Vital Signs: Vital Signs: Last Vital Signs Temp 98.0 F 04/14/21 14:59 Pulse 60 04/14/21 14:59 Resp 18 04/14/21 14:59 BP 146/64 H 04/14/21 14:59 Pulse Ox 95 04/14/21 14:59 Body Mass Index 30.4 General appearance no acute distress The tympanic membranes are normal with no swelling of canal, no redness of tympanic membranes The eyes are clear with no redness or discharge The pharynx is clear with no redness swelling or exudate, well-hydrated, voice is normal, no trismus Dental exam there is left lower molar dental tenderness and decay, no fluctuant abscess no swelling under the tongue Neck is supple Respiratory no distress Skin no rashes Course Course Course Narrative: Patient was treated with analgesics and antibiotic and has a dentist and she will follow up Discharge Plan Discharge Clinical Impression: Dental caries Patient Disposition: Home, Self-Care Additional Instructions: follow with dentist as soon as possible Return any time for worse swelling fever any worse condition or any concerns Prescriptions: New penicillin V potassium 500 mg tablet 500 mg PO QID 7 Days Qty: 28 RF: 0 oxycodone 5 mg tablet 5 mg PO Q6H PRN (Reason: pain) Qty: 14 RF: 0 No Action Dexilant 60 mg capsule,biphase delayed releas 60 mg PO DAILY 30 Days Qty: 30 RF: 6 levothyroxine 100 mcg tablet 1 tab PO DAILY RF: 0 zolpidem 5 mg tablet 1 tab PO BEDTIME RF: 0 venlafaxine 37.5 mg capsule,extended release 24hr 37.5 mg PO DAILY RF: 0 losartan 25 mg tablet 25 mg PO DAILY RF: 0 Interventions: ED Discharge Assessment Last Done: 04/14/21 16:25 Discharge Date/Time: 04/14/21 16:25
== END 2021-04-14 16:25 | disposition home or self-care (01) ==
PROVIDERS: Emergency Provider Internal Medicine; PCP Internal Medicine
DX: K02.9 Dental caries, unspecified (principal); I10 Essential (primary) hypertension; Z79.899 Other long term (current) drug therapy
CPT/HCPCS: 99283

== ENCOUNTER 2021-04-27 08:31 | Outpatient (REF) | payer MEDICARE, OTHER, SELFPAY ==
--- NOTE | ~2021-04-27 | MM_ITS ---
EXAMINATION: MM SCREENING DIGITAL BREAST TOMOSYNTHESIS, BILATERAL CLINICAL INFORMATION: Screening. Asymptomatic. The lifetime risk of breast cancer based on the Tyrer-Cuzick Model is 2%. COMPARISON: Mammography: 04/08/2020, 01/15/2019, 01/13/2018 TECHNIQUE: Digital breast tomosynthesis is performed in both the craniocaudal and mediolateral oblique views along with computer-aided detection (CAD). Synthesized 2D images are generated from the tomosynthesis. FINDINGS: There are scattered areas of fibroglandular density (ACR BI-RADS breast composition Category b). There are no significant masses, abnormal calcifications, or other abnormalities. There is biopsy clip marker again noted anterior 11:00 right breast. The axilla and skin contours are unremarkable. MM/MM tomosynthesis screening BI IMPRESSION: No mammographic evidence of malignancy. ASSESSMENT: BI-RADS 1: Negative RECOMMENDATION: Routine annual mammography screening. This patient's information was entered into a reminder system with a target due date for their next mammogram.
== END 2021-04-27 08:32 | disposition home or self-care (01) ==
LOC: HO.MAMMO 08:31
PROVIDERS: Visit Provider Internal Medicine
DX: Z12.31 Encounter for screening mammogram for malignant neoplasm of breast (principal)
CPT/HCPCS: 77063; 77067

== ENCOUNTER 2021-05-21 13:23 | Emergency (ER) | payer MEDICARE, OTHER, SELFPAY ==
--- NOTE | ~2021-05-21 | XR_ITS ---
EXAMINATION: XR CHEST CLINICAL INFORMATION: Fatigue, possible pneumonia COMPARISON: Chest radiographs 03/23/2021, 12/17/2020 TECHNIQUE: Frontal view of the chest was obtained. FINDINGS: There is fine linear scar left lateral base similar to prior studies. The lungs otherwise clear and there is no vascular congestion, infiltrate, groundglass opacity, or effusion. The heart is normal in size. The hilar and mediastinal contours are stable. No visible acute bony abnormality. Surgical clips overlying the neck left of midline are again noted. XR/XR chest 1V IMPRESSION: No acute intrathoracic disease.
[2021-05-21 13:43] VITALS: BP 182/59; PULSE 63; RESP 18; TEMP 36.8; O2SAT 94; BMI 31.1
--- NOTE | 2021-05-21 13:48 | ED.WEAKNESS ---
HPI - Weakness General Chief complaint: Weakness Stated complaint: not feeling too good Time Seen by Provider: 05/21/21 13:44 Related Data Home Medications Medication Instructions Recorded Confirmed levothyroxine 100 mcg tablet 1 tab PO DAILY 12/17/20 04/03/21 zolpidem 5 mg tablet 1 tab PO BEDTIME 12/17/20 04/03/21 venlafaxine 37.5 mg 37.5 mg PO DAILY 01/23/21 04/03/21 capsule,extended release 24 hr losartan 25 mg tablet 25 mg PO DAILY 04/03/21 04/03/21 Previous Rx's Medication Instructions Recorded dexlansoprazole 60 mg 60 mg PO DAILY 30 Days #30 cap 04/11/21 capsule,biphase delayed release (Dexilant) oxycodone 5 mg tablet 5 mg PO Q6H PRN #14 tab 04/14/21 penicillin V potassium 500 mg 500 mg PO QID 7 Days #28 tab 04/14/21 tablet Allergies Allergy/AdvReac Type Severity Reaction Status Date / Time bupropion [From WELLBUTRIN] Allergy Unknown UNKNOWN Verified 05/21/21 13:43 esomeprazole [From NEXIUM] Allergy Unknown UNKNOWN Verified 05/21/21 13:43 naproxen [From ALEVE] Allergy Unknown UNKNOWN Verified 05/21/21 13:43 nitrofurantoin Allergy Unknown UNKNOWN Verified 05/21/21 13:43 [NITROFURANTOIN] polyethylene glycol 3350 Allergy Unknown UNKNOWN Verified 05/21/21 13:43 [From MIRALAX] pramipexole [From MIRAPEX] Allergy Unknown GENESIS SUNSHINE Verified 05/21/21 13:43 ING Sulfa (Sulfonamide Allergy Unknown PANICBLANCHE Verified 05/21/21 13:43 Antibiotics) NG [SULFA (SULFONAMIDE ANTIBIOTICS)] Avelox Allergy Unknown panic Uncoded 04/03/21 13:05 [facility] Past Medical History Medical History GERD (gastroesophageal reflux disease) HTN (hypertension) Hypothyroid IBS (irritable bowel syndrome) Vertigo Surgical History H/O eye surgery H/O: hysterectomy History of esophagogastroduodenoscopy (EGD) Hx of colonoscopy Family History Family History Father Family history of heart disease Mother Family history of hypertension Family history of heart disease Sister Lung cancer Social History Social History Alcohol intake: never Patient Tobacco Use Status: Former Tobacco user Years Smoked: Smoked 1 pack a day for 15-20 years, quit 30 years ago Advance Directives: Yes Advance Directives Information Provided: Yes Advance Directives on File: No Physical Exam Vital Signs: Vital Signs: Last Vital Signs Temp 98.3 F 05/21/21 13:43 Pulse 63 05/21/21 13:43 Resp 18 05/21/21 13:43 BP 182/59 H 05/21/21 13:43 Pulse Ox 94 05/21/21 13:43 Body Mass Index 31.1 Course Course Course Narrative: Patient presents to the ED for muscle cramps, fatigue, and generlazied weakness for one week. patient does not not have any neuro deficit. THis is Rapid Medical Screening. labs and ekg ordered. Chest xray ordered Discharge Plan Discharge Clinical Impression: Fatigue Patient Disposition: Left Without Being Seen Interventions: LWBS Worksheet Last Done: 05/21/21 15:44 Discharge Date/Time: 05/21/21 15:03
== END 2021-05-21 15:03 | disposition left against medical advice (07) ==
PROVIDERS: Emergency Provider Emergency Medicine
DX: R53.83 Other fatigue (principal); I10 Essential (primary) hypertension; Z87.891 Personal history of nicotine dependence; Z79.899 Other long term (current) drug therapy
CPT/HCPCS: 71045; 99282; 99283

== ENCOUNTER → 2021-08-02 10:59 | Outpatient (BNVA) | payer MEDICARE, OTHER, SELFPAY | PROVIDERS: Referring Provider Internal Medicine; Visit Provider Nurse Practitioner | DX: Z12.11 Encounter for screening for malignant neoplasm of colon (principal); K59.04 Chronic idiopathic constipation; K21.9 Gastro-esophageal reflux disease without esophagitis; R14.0 Abdominal distension (gaseous); R13.14 Dysphagia, pharyngoesophageal phase | CPT/HCPCS: 99212 ==

== ENCOUNTER 2021-10-16 12:42 | Emergency (ER) | payer MEDICARE, OTHER, SELFPAY ==
[2021-10-16 12:48] VITALS: BP 143/61; PULSE 69; RESP 18; TEMP 36.8; O2SAT 99; BMI 31.1
--- NOTE | 2021-10-16 12:52 | ECG_ITS ---
Test Reason : dizziness Blood Pressure : / mmHG Vent. Rate : 062 BPM Atrial Rate : 062 BPM P-R Int : 140 ms QRS Dur : 084 ms QT Int : 406 ms P-R-T Axes : 070 -55 035 degrees QTc Int : 412 ms Normal sinus rhythm Left axis deviation Septal infarct (cited on or before 23-MAR-2021) Abnormal ECG When compared with ECG of 23-MAR-2021 13:33, Incomplete right bundle branch block is no longer Present Questionable change in initial forces of Septal leads Referred By: Generic ED Physician Electronically Signed By:BRISA HUTTON MD
[2021-10-16 13:23] LABS: MANUAL DIFF FLAG NO
[2021-10-16 13:25] LABS: Basophils Absolute Auto 0.1 X10*3/uL (0.0-0.2); Basophils Percent Auto 0.5 % (0-2); Eosinophils Absolute Auto 0.1 X10*3/uL (0.0-0.4); Hematocrit 43.1 % (37.0-47.0); Hemoglobin 14.6 g/dl (12.0-16.0); Imm Gran Abs Auto 0.03 X10*3/uL (0.00-0.03); Imm Gran Pct Auto 0.3 % (0.0-0.4); Lymphocytes Absolute Auto 2.4 X10*3/uL (1.2-4.9); Lymphocytes Percent Auto 24.5 % (20-40); Mean Corpuscular HGB Conc 33.9 g/dl (31.0-35.0); Mean Corpuscular Hemoglobin 31.2 pg (27.0-33.0); Mean Corpuscular Volume 92.1 fL (80.0-98.0); Mean Platelet Volume 11.1 fL (9.4-12.3); Monocytes Absolute Auto 0.8 X10*3/uL (0.1-1.2); Monocytes Percent Auto 8.4 % (2-11); Neutrophils Absolute Auto 6.5 x10*3/uL (2.0-8.3); Neutrophils Percent Auto 65.3 % (45-73); Platelet Count 270 X10*3/uL (160-400); Red Blood Count 4.68 X10*6/uL (4.20-5.50); Red Cell Distribution Width 12.7 % (11.0-16.0); White Blood Count 9.9 X10*3/uL (4.8-10.8)
[2021-10-16 13:41] LABS: Alanine Aminotransferase 19 U/L (0-31); Albumin Level 4.1 g/dL (3.5-5.0); Alkaline Phosphatase 78 U/L (39-117); Anion Gap 11 (12-20); Aspartate Amino Transferase 14 U/L (5-31); Bilirubin Total 0.5 mg/dL (0.0-1.0); Blood Urea Nitrogen 20 mg/dL (9-16); Calcium 9.8 mg/dL (8.4-10.2); Carbon Dioxide 30 mmol/L (22-29); Chloride 104 mmol/L (96-108); Creatinine Clr Calc Pharmacy 46.5; Estimated Glomerular Filt Rate 52; Glucose Random 114 mg/dL (60-115); Sodium 141 mmol/L (135-145); Total Protein 6.8 g/dL (6.5-8.0)
[2021-10-16 13:42] LABS: Appearance Urine CLEAR; Color Urine YELLOW; Glucose Urine UA NEG (NEG); Leukocyte Esterase Urine 1+ (NEG); Nitrite Urine NEG (NEG); UACC Culture Trigger YES; Urine Blood NEG (NEG); Urine Ketones 5 MG/DL (NEG); Urine Protein NEG (NEG-TRACE)
[2021-10-16 13:46] LABS: Troponin-I High Sensitivity < 3.5 ng/L (<3.5-17.0)
[2021-10-16 13:48] LABS: COVID-19 Test Negative (Negative); IDNOW Serial# 9DD0AD1C
[2021-10-16 13:56] LABS: Bacteria Urine TRACE /LPF; Squamous Epithelial Cell Urine 1+ /LPF
== END 2021-10-16 18:45 | disposition left against medical advice (07) ==
PROVIDERS: Emergency Provider Emergency Medicine; PCP Internal Medicine
DX: R42 Dizziness and giddiness (principal); Z20.822 Contact with and (suspected) exposure to COVID-19; I10 Essential (primary) hypertension
CPT/HCPCS: 80053; 81001; 84484; 85025; 87086; 87635; 93005; 99283

== ENCOUNTER 2021-10-31 10:20 | Outpatient (REF) | payer MEDICARE, OTHER, SELFPAY ==
--- NOTE | ~2021-10-31 | MR_ITS ---
EXAMINATION: MR BRAIN WITHOUT CONTRAST CLINICAL INFORMATION: Acute onset of ataxia and vertigo. Rule out cerebellar infarcts/stroke. COMPARISON: Head CT 03/24/2020. Brain MRI 08/16/2019. TECHNIQUE: Multiplanar, multisequence imaging of the brain was performed without intravenous contrast. FINDINGS: There is no acute infarction, mass, hemorrhage, or extra-axial collection. The ventricles, sulci, and basilar cisterns are normal in size and configuration. A few minimal nonspecific foci of T2/FLAIR hyperintensity are seen within the cerebral white matter without significant change or progression compared with 08/16/2019. The posterior fossa structures are unremarkable. There is no cerebellopontine angle lesion. The flow voids of the major intracranial arteries appear intact. The bones and extracranial soft tissues are unremarkable. The orbital contents appear normal. MR/MR head/brain wo con IMPRESSION: No acute or chronic infarct with special attention to the posterior fossa. Minimal nonspecific foci of T2/FLAIR hyperintensity in the cerebral white matter is nonspecific and without significant change since 2018.
== END 2021-10-31 10:21 | disposition home or self-care (01) ==
LOC: HO.MRI 10:20
PROVIDERS: Visit Provider Psychiatry & Neurology Neurology
DX: I63.9 Cerebral infarction, unspecified (principal)
CPT/HCPCS: 70551

== ENCOUNTER → 2022-02-12 08:02 | Outpatient (BNVA) | payer MEDICARE, MEDICAID, SELFPAY | PROVIDERS: PCP Internal Medicine; Referring Provider Internal Medicine; Visit Provider Nurse Practitioner | DX: K59.04 Chronic idiopathic constipation (principal); K21.9 Gastro-esophageal reflux disease without esophagitis; R14.0 Abdominal distension (gaseous) | CPT/HCPCS: 99212 ==

== ENCOUNTER → 2022-03-12 09:51 | Outpatient (BNVA) | payer MEDICARE, MEDICAID, SELFPAY | PROVIDERS: PCP Internal Medicine; Referring Provider Internal Medicine; Visit Provider Nurse Practitioner | DX: K59.04 Chronic idiopathic constipation (principal); K21.9 Gastro-esophageal reflux disease without esophagitis | CPT/HCPCS: 99212 ==

== ENCOUNTER 2022-04-29 08:43 | Outpatient (REF) | payer MEDICARE, MEDICAID, SELFPAY ==
--- NOTE | ~2022-04-29 | MM_ITS ---
EXAMINATION: MM SCREENING DIGITAL BREAST TOMOSYNTHESIS, BILATERAL CLINICAL INFORMATION: Screening. Asymptomatic. The lifetime risk of breast cancer based on the Tyrer-Cuzick Model is 4%. COMPARISON: Mammography: 04/27/2021, 2720, 01/15/2019 TECHNIQUE: Digital breast tomosynthesis is performed in both the craniocaudal and mediolateral oblique views along with computer-aided detection (CAD). Synthesized 2D images are generated from the tomosynthesis. FINDINGS: There are scattered areas of fibroglandular density (ACR BI-RADS breast composition Category b). There are no significant masses, abnormal calcifications, or other abnormalities. Parenchymal pattern is similar to prior studies. There is a biopsy clip marker again noted anterior 11:00 right breast. MM/MM tomosynthesis screening BI IMPRESSION: No mammographic evidence of malignancy. ASSESSMENT: BI-RADS 1: Negative RECOMMENDATION: Routine annual mammography screening. This patient's information was entered into a reminder system with a target due date for their next mammogram.
== END 2022-04-29 08:44 | disposition home or self-care (01) ==
LOC: HO.MAMMO 08:43
PROVIDERS: Visit Provider Internal Medicine
DX: Z12.31 Encounter for screening mammogram for malignant neoplasm of breast (principal)
CPT/HCPCS: 77063; 77067

== ENCOUNTER → 2022-08-15 14:27 | Outpatient (BNVA) | payer MEDICARE, MEDICAID, SELFPAY | PROVIDERS: PCP Internal Medicine; Visit Provider Nurse Practitioner | DX: K59.04 Chronic idiopathic constipation (principal); K21.9 Gastro-esophageal reflux disease without esophagitis; D64.9 Anemia, unspecified | CPT/HCPCS: 99212 ==

== ENCOUNTER → 2022-09-11 13:32 | Outpatient (BNVA) | payer MEDICARE, MEDICAID, SELFPAY | PROVIDERS: PCP Internal Medicine; Visit Provider Nurse Practitioner | DX: K59.04 Chronic idiopathic constipation (principal) | CPT/HCPCS: 99212 ==

== ENCOUNTER 2023-02-24 10:01 | Outpatient (REF) | payer MEDICARE, MEDICAID, SELFPAY ==
[2023-02-24 10:14] LABS: MANUAL DIFF FLAG NO
[2023-02-24 10:48] LABS: Basophils Absolute Auto 0.1 X10*3/uL (0.0-0.2); Basophils Percent Auto 0.6 % (0-2); Eosinophils Absolute Auto 0.1 X10*3/uL (0.0-0.4); Imm Gran Abs Auto 0.02 X10*3/uL (0.00-0.03); Imm Gran Pct Auto 0.3 % (0.0-0.4); Lymphocytes Absolute Auto 1.9 X10*3/uL (1.2-4.9); Mean Corpuscular HGB Conc 34.1 g/dl (31.0-35.0); Mean Corpuscular Hemoglobin 31.5 pg (27.0-33.0); Mean Corpuscular Volume 92.1 fL (80.0-98.0); Mean Platelet Volume 11.8 fL (9.4-12.3); Monocytes Absolute Auto 0.5 X10*3/uL (0.1-1.2); Monocytes Percent Auto 6.9 % (2-11); Neutrophils Absolute Auto 5.2 x10*3/uL (2.0-8.3); Neutrophils Percent Auto 67.2 % (45-73); Platelet Count 219 X10*3/uL (160-400); Red Blood Count 4.45 X10*6/uL (4.20-5.50); Red Cell Distribution Width 12.8 % (11.0-16.0); White Blood Count 7.7 X10*3/uL (4.8-10.8)
[2023-02-24 11:42] LABS: Erythrocyte Sedimentation Rate 7 MM/HR (0-20)
== END 2023-02-24 10:02 | disposition home or self-care (01) ==
LOC: HO.LAB 10:01
PROVIDERS: PCP Internal Medicine; Visit Provider Psychiatry & Neurology Neurology
DX: M31.6 Other giant cell arteritis (principal)
CPT/HCPCS: 36415; 85025; 85652

== ENCOUNTER → 2023-03-05 11:21 | Outpatient (BNVA) | payer MEDICARE, MEDICAID, SELFPAY | PROVIDERS: PCP Internal Medicine; Visit Provider Nurse Practitioner | DX: K59.04 Chronic idiopathic constipation (principal) | CPT/HCPCS: 99212 ==

== ENCOUNTER 2023-05-05 08:26 | Outpatient (REF) | payer MEDICARE, MEDICAID, SELFPAY ==
--- NOTE | ~2023-05-05 | MM_ITS ---
EXAMINATION: MM SCREENING DIGITAL BREAST TOMOSYNTHESIS, BILATERAL CLINICAL INFORMATION: Screening. Asymptomatic. The lifetime risk of breast cancer based on the Tyrer-Cuzick Model is 3.4%. COMPARISON: Mammography: This study is compared with prior exams dating back to 2018. TECHNIQUE: Digital breast tomosynthesis is performed in both the craniocaudal and mediolateral oblique views along with computer-aided detection (CAD). Synthesized 2D images are generated from the tomosynthesis. FINDINGS: There are scattered areas of fibroglandular density (ACR BI-RADS breast composition Category b). There are no significant masses, abnormal calcifications, or other abnormalities. There is tissue marker present in the right breast from prior benign percutaneous biopsy. MM/MM tomosynthesis screening BI IMPRESSION: No mammographic evidence of malignancy. ASSESSMENT: BI-RADS BI-RADS 2 - Benign Findings RECOMMENDATION: Routine annual mammography screening. 1 year F/U This examination should not preclude the clinical evaluation of a suspicious palpable abnormality. This patient's information was entered into a reminder system with a target due date for their next mammogram.
== END 2023-05-05 08:27 | disposition home or self-care (01) ==
LOC: HO.MAMMO 08:26
PROVIDERS: PCP Internal Medicine; Visit Provider Internal Medicine
DX: Z12.31 Encounter for screening mammogram for malignant neoplasm of breast (principal)
CPT/HCPCS: 77063; 77067

== ENCOUNTER → 2023-05-05 08:45 | Outpatient (BNV) | payer MEDICARE, MEDICAID, SELFPAY | PROVIDERS: PCP Internal Medicine; Visit Provider Radiology Diagnostic Radiology | DX: Z12.31 Encounter for screening mammogram for malignant neoplasm of breast (principal) | CPT/HCPCS: 77063; 77067 ==

== ENCOUNTER 2023-07-28 16:41 | Outpatient (REF) | payer MEDICARE, MEDICAID, SELFPAY | END 2023-07-28 16:42 | disposition home or self-care (01) | LOC: HO.CHCLNP 16:41 | PROVIDERS: Visit Provider Internal Medicine | DX: R30.0 Dysuria (principal) | CPT/HCPCS: 87086; 87088; 87186 ==

== ENCOUNTER 2023-09-10 08:04 | Outpatient (AMB) | payer MEDICARE, MEDICAID, SELFPAY ==
--- NOTE | 2023-09-10 08:07 | MHC.OFFVIS ---
Intake Vital Signs 09/10/23 08:37 Height 5 ft 2.5 in Weight 148 lb BMI 26.6 BP 163/70 H Blood Pressure Location Rt brachial Position Sitting Pulse 71 Intake Visit Reasons: 6 month fu Intake Note: Patient presents to in office visit today in 6 months f/u of CIC, and GERD. CC: Patient reports doing well and denies having any GI symptoms today. Non Food Receiving Clerk Required: No Accompanied by: Self / Same As Patient Allergies bupropion [From WELLBUTRIN] Allergy (Intermediate, Verified 09/10/23 08:39) panic attack, shaking esomeprazole [From NEXIUM] Allergy (Intermediate, Verified 09/10/23 08:39) panic attack, shaking naproxen [From ALEVE] Allergy (Intermediate, Verified 09/10/23 08:39) panic attack, shaking nitrofurantoin [NITROFURANTOIN] Allergy (Intermediate, Verified 09/10/23 08:39) panic attack shaking polyethylene glycol 3350 [From MIRALAX] Allergy (Intermediate, Verified 09/10/23 08:39) panic attack, shaking pramipexole [From MIRAPEX] Allergy (Intermediate, Verified 09/10/23 08:39) panic attack, shaking Sulfa (Sulfonamide Antibiotics) [SULFA (SULFONAMIDE ANTIBIOTICS)] Allergy (Intermediate, Verified 09/10/23 08:39) panic attack, shaking latex Allergy (Verified 09/10/23 08:39) Unknown Avelox Allergy (Intermediate, Uncoded 03/12/22 09:56) panic attack, shaking HPI 6 month fu HPI Details Assessment & Plan (1) Chronic idiopathic constipation: Code(s): K59.04 - Chronic idiopathic constipation Plan: She continues to do well on her Linzess 145mcg and is moving her bowels well. She has lost a couple of lbs, she is exercising portion control - as she does not want health problems such as NIDDM. She is having an EMG for her RLS and general gait imbalance. She also finds that when her balance is off she will have a wave of nausea. ROV 6 mos TODAY'S VISIT She continues to do well on her LInzess and would like to change to 1 year follow ups. THis is fine. ROV 1 years. [facility] Medical History Ataxia GERD (gastroesophageal reflux disease) GERD (gastroesophageal reflux disease) HTN (hypertension) Hypothyroid IBS (irritable bowel syndrome) Pharyngoesophageal dysphagia Vertigo Surgical History H/O eye surgery H/O: hysterectomy History of esophagogastroduodenoscopy (EGD) History of pubovaginal sling Hx of blepharoplasty Hx of colonoscopy Hx of parotidectomy Family History Father Family history of heart disease Mother Family history of hypertension Family history of heart disease Sister Lung cancer Social History Alcohol intake: never Patient Tobacco Use Status: Former Tobacco user Quit Date: Years Smoked: Smoked 1 pack a day for 15-20 years, quit 30 years ago Review of Systems Const Denies fatigue, Denies fever(s), Denies night sweats, Denies poor appetite and Denies weight loss Eyes Details: glasses Reports requires corrective lenses ENT Reports Normal hearing present, Denies dental pain, Denies dysphagia, Denies hearing loss, Denies mouth pain, Denies odynophagia, Denies throat swelling, Denies tongue swelling and Reports other (Dentition adequate) Card Reports no additional complaints Resp Reports no additional complaints GI Denies abdominal pain, Denies melena, Denies bloating, Denies hematochezia, Reports constipation, Denies GI cramping, Denies dysphagia, Denies excessive flatus, Denies early satiety, Denies heartburn, Denies diarrhea, Denies nausea, Denies odynophagia, Denies vomiting and Denies hematemesis Skin/Breast Denies pruritus, Denies lesions, Denies rash and Denies jaundice Neuro Reports Normal hearing present and Denies Abnormal speech present Endo Denies fatigue Aller/Immun Denies throat swelling and Denies tongue swelling Physical Exam Vital Signs: Last Vital Signs Pulse 71 09/10/23 08:37 BP 163/70 H 09/10/23 08:37 BMI result Body Mass Index 26.6 Const General: cooperative, no acute distress, well developed and well groomed Nutritional Appearance: average body habitus and well nourished Orientation/consciousness: oriented to person, oriented to place and oriented to time Limitations: No language barrier HEENT Head: Yes normocephalic and Yes atraumatic Eyes General: appearance normal, both eyes and all related structures Pupils: Equal, round and reactive pupils present Neck Neck: Yes normal visual inspection and Yes no lymphadenopathy Thyroid: Thyroid normal Resp Effort & Inspection: normal respiratory effort and able to speak in complete sentences Auscultation: clear to auscultation bilaterally Cardio Rate: regular rate Rhythm: regular rhythm Heart sounds: Normal, physiologic split S2 sound present Peripheral pulses: radial pulses present and posterior tibial pulses present GI Inspection: No distended and No Abdominal panniculus present Palpation (GI): Soft to palpation, nontender, no guarding, not rigid and No hepatosplenomegaly present Percussion: Yes normal to percussion Auscultation: normal bowel sounds Rectal Exam - Female: deferred Skin General skin exam: no rashes or lesions noted, turgor normal, skin not dry, no jaundice, No spider nevi and no striae Rashes: no rashes Nails: normal Neuro General: oriented to person, oriented to place and oriented to time Cranial nerves: Yes Equal, round and reactive pupils present and Yes Normal hearing present Speech: No Abnormal speech present Extrem General: Yes normal to inspection, No clubbing, No cyanosis and No edema Psych Appearance: grossly normal and well kempt Mental Status: mental status grossly normal Speech and movement: Normal speech and movement present Affect: normal affect Attitude: cooperative Thought process: Normal thought process present and not confabulating Thought content: Normal thought content present Insight: Fair insight present (Psych) Judgement: Fair judgement present (Psych) Assessment & Plan Assessment & Plan (1) Chronic idiopathic constipation: Code(s): K59.04 - Chronic idiopathic constipation Plan: She continues to do well on her LInzess and would like to change to 1 year follow ups. THis is fine. ROV 1 years. (2) Abdominal bloating: Code(s): R14.0 - Abdominal distension (gaseous) Medications: Discontinued bisacodyl (Dulcolax (bisacodyl)) Discontinued Reason: Doctor's Order 10 mg (2 x 5 mg) PO BEDTIME 30 days 60 tabs 3RF K59.04 - Chronic idiopathic constipation Coding Level of Care Code Est Pt Level 3 (80255) Diagnoses Chronic idiopathic constipation K59.04 Abdominal bloating R14.0
[2023-09-10 08:37] VITALS: BP 163/70; PULSE 71; BMI 26.6
== END 2023-09-10 08:50 | disposition home or self-care (01) ==
PROVIDERS: Visit Provider Nurse Practitioner
DX: K59.04 Chronic idiopathic constipation (principal); R14.0 Abdominal distension (gaseous)
CPT/HCPCS: 99213

== ENCOUNTER → 2023-09-10 08:04 | Outpatient (BNVA) | payer MEDICARE, MEDICAID, SELFPAY | PROVIDERS: Visit Provider Nurse Practitioner | DX: K59.04 Chronic idiopathic constipation (principal); R14.0 Abdominal distension (gaseous) | CPT/HCPCS: 99212 ==

== ENCOUNTER 2023-11-03 09:31 | Outpatient (REF) | payer MEDICARE, MEDICAID, SELFPAY ==
[2023-11-03 14:12] LABS: MANUAL DIFF FLAG NO
[2023-11-03 14:21] LABS: Basophils Absolute Auto 0.1 X10*3/uL (0.0-0.2); Eosinophils Absolute Auto 0.1 X10*3/uL (0.0-0.4); Eosinophils Percent Auto 1.1 % (0-4); Hematocrit 43.3 % (37.0-47.0); Hemoglobin 14.2 g/dl (12.0-16.0); Imm Gran Abs Auto 0.07 X10*3/uL (0.00-0.03); Imm Gran Pct Auto 0.8 % (0.0-0.4); Lymphocytes Absolute Auto 2.2 X10*3/uL (1.2-4.9); Lymphocytes Percent Auto 23.6 % (20-40); Mean Corpuscular HGB Conc 32.8 g/dl (31.0-35.0); Mean Corpuscular Hemoglobin 30.9 pg (27.0-33.0); Mean Corpuscular Volume 94.3 fL (80.0-98.0); Monocytes Absolute Auto 0.7 X10*3/uL (0.1-1.2); Monocytes Percent Auto 7.4 % (2-11); Neutrophils Absolute Auto 6.1 x10*3/uL (2.0-8.3); Neutrophils Percent Auto 66.1 % (45-73); Platelet Count 239 X10*3/uL (160-400); Red Blood Count 4.59 X10*6/uL (4.20-5.50); Red Cell Distribution Width 12.7 % (11.0-16.0); White Blood Count 9.2 X10*3/uL (4.8-10.8)
[2023-11-03 15:43] LABS: Alanine Aminotransferase 17 U/L (0-31); Albumin Level 4.2 g/dL (3.5-5.0); Alkaline Phosphatase 72 U/L (39-117); Anion Gap 12 (12-20); Aspartate Amino Transferase 15 U/L (5-31); Bilirubin Total 0.6 mg/dL (0.0-1.0); Blood Urea Nitrogen 24 mg/dL (9-16); Calcium 9.4 mg/dL (8.4-10.2); Carbon Dioxide 29 mmol/L (22-29); Chloride 104 mmol/L (96-108); Cholesterol 163 mg/dL (<200); Estimated Glomerular Filt Rate > 60; Glucose Random 66 mg/dL (60-115); HDL Cholesterol 61 mg/dL (>40); LDL Cholesterol Calculated 88 mg/dL (<100); Potassium 3.8 mmol/L (3.3-5.1); Sodium 141 mmol/L (135-145); Total Protein 6.8 g/dL (6.5-8.0); Triglycerides 71 mg/dL (<150)
== END 2023-11-03 09:32 | disposition home or self-care (01) ==
LOC: HO.CHCLDS 09:31
PROVIDERS: Visit Provider Internal Medicine
DX: I10 Essential (primary) hypertension (principal)
CPT/HCPCS: 36415; 80053; 80061; 84443; 85025

== ENCOUNTER 2023-11-10 09:12 | Outpatient (REF) | payer MEDICARE, MEDICAID, SELFPAY ==
--- NOTE | ~2023-11-10 | CT_ITS ---
EXAMINATION: CT HEAD WITHOUT CONTRAST CLINICAL INFORMATION: Worsening headaches. COMPARISON: Head CT from 03/24/2020 and brain MRI dated 10/31/2021. TECHNIQUE: Contiguous axial imaging was performed from the skullbase to vertex without intravenous administration of contrast. This CT examination was performed using dose optimization techniques as appropriate, variously including the following: *Automated exposure control *Adjustment of mA and/or kV according to patient size (this includes techniques or standardized protocols for targeted exams where dose is matched to indication/reason for exam; i.e. extremities or head) *Use of iterative reconstruction technique DLP: 663 mGy-cm. FINDINGS: There is no evidence of acute intracranial hemorrhage or territorial infarction. No abnormal mass effect or midline shift is seen. Sanderson to white matter differentiation is well preserved. No extra-axial fluid collections are identified. The ventricles are normal in size. Mild scattered low-density white matter changes, as on prior MR imaging. The osseous structures and soft tissues are normal. The mastoid air cells and visualized portions of the paranasal sinuses are well aerated. 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 Large defect in the nasal septum of indeterminate etiology. CT/CT head/brain wo IV con IMPRESSION: No acute intracranial pathology.
== END 2023-11-10 09:13 | disposition home or self-care (01) ==
LOC: HO.CT 09:12
PROVIDERS: PCP Internal Medicine; Visit Provider Internal Medicine
DX: G43.009 Migraine without aura, not intractable, without status migrainosus (principal)
CPT/HCPCS: 70450

== ENCOUNTER 2023-11-25 09:10 | Outpatient (REF) | payer MEDICARE, MEDICAID, SELFPAY ==
[2023-11-25 10:45] LABS: Erythrocyte Sedimentation Rate 6 MM/HR (0-20)
== END 2023-11-25 09:11 | disposition home or self-care (01) ==
LOC: HO.LAB 09:10
PROVIDERS: PCP Internal Medicine; Visit Provider Registered Nurse
DX: G43.909 Migraine, unspecified, not intractable, without status migrainosus (principal)
CPT/HCPCS: 36415; 82550; 85652

== ENCOUNTER 2024-05-03 17:41 | Outpatient (REF) | payer MEDICARE, MEDICAID, SELFPAY | END 2024-05-03 17:42 | disposition home or self-care (01) | LOC: HO.HHCLNP 17:41 | PROVIDERS: Visit Provider Internal Medicine | DX: N30.01 Acute cystitis with hematuria (principal) | CPT/HCPCS: 87086; 87088; 87186 ==

== ENCOUNTER 2024-05-06 07:48 | Outpatient (REF) | payer MEDICARE, MEDICAID, SELFPAY ==
--- NOTE | ~2024-05-06 | MM_ITS ---
EXAMINATION: MM SCREENING DIGITAL BREAST TOMOSYNTHESIS, BILATERAL CLINICAL INFORMATION: Screening. Asymptomatic. COMPARISON: Mammography: This study is compared with prior exams dating back to 2019. TECHNIQUE: Digital breast tomosynthesis is performed in both the craniocaudal and mediolateral oblique views along with computer-aided detection (CAD). Synthesized 2D images are generated from the tomosynthesis. FINDINGS: There are scattered areas of fibroglandular density (ACR BI-RADS breast composition Category b). There are no significant masses, abnormal calcifications, or other abnormalities. There is a biopsy tissue marker in the superior aspect of the right breast. MM/MM tomosynthesis screening BI IMPRESSION: No mammographic evidence of malignancy. ASSESSMENT: BI-RADS BI-RADS 2 - Benign Findings RECOMMENDATION: Routine annual mammography screening. 1 year F/U This examination should not preclude the clinical evaluation of a suspicious palpable abnormality. This patient's information was entered into a reminder system with a target due date for their next mammogram.
--- NOTE | ~2024-05-06 | MM_ITS ---
EXAMINATION: BONE DENSITOMETRY CLINICAL INDICATION: Other osteoporosis without current pathological fracture. COMPARISON: Baseline BD dated 11/02/2007. TECHNIQUE: Using a [employer] DXA System (software version: 13.1) manufactured by [employer], dual-energy x-ray absorptiometry was performed of the lumbar spine and left hip. The images are of good technical quality. Summary results are attached. FINDINGS: LEFT FEMUR, NECK: Current: BMD 0.594 g/cm2, Z-score -1.4, T-score -3.2, osteoporosis. Baseline: BMD 0.733 g/cm2. LEFT FEMUR, TOTAL: Current: BMD 0.717 g/cm2, Z-score -0.7, T-score -2.3, osteopenia, 12.9% decrease from baseline (<5% change is not significant). Baseline: BMD 0.823 g/cm2. AP SPINE L1-L4 (excluding L3): The data of L1-L4 has been changed to exclude the L3 vertebral body, because degenerative sclerosis at this level may cause overestimation of lumbar spine density. Current: BMD 1.239 g/cm2, Z-score 2.1, T-score 0.6, normal, 8.8% increase from baseline (<5% change is not significant). Baseline: BMD 1.139 g/cm2. IDENTIFIED RISK FACTORS: Menopause, hysterectomy, height loss, bilateral oophorectomy. HISTORY OF FRACTURE: None listed. MEDICATIONS: None listed. MM/XR DEXA axial skeleton IMPRESSION: 1. DIAGNOSIS: Osteoporosis based on the lowest T-score value of -3.2 in the femoral neck applying World Health Organization criteria. 2. 10-YEAR FRACTURE RISK PREDICTION, FRAX: According to the guidelines, FRAX calculation should only be performed on patients in the osteopenia bone density category. Therefore, FRAX was not performed on this patient. 3. Treatment Recommendations: NOF guidelines recommend consideration for treatment in postmenopausal women and men age 50 and older presenting with the following: -A hip or vertebral (clinical or morphometric) fracture. -T-score less than or equal to -2.5 at the femoral neck or spine after appropriate evaluation to exclude secondary causes. -Low bone mass at the hip or spine and a 10-year fracture probability by FRAX of greater than or equal to 3% for hip fracture or greater than or equal to 20% for major osteoporotic fracture based on the [place] adapted WHO algorithm. 4. Other Recommendations: All treatment decisions require clinical judgment and consideration of individual patient factors, including patient preferences, comorbidities, previous drug use, risk factors not captured in the FRAX model (e.g. frailty, falls, vitamin D deficiency, increased bone turnover, interval significant decline in bone density) and possible under or overestimation of fracture risk by FRAX. Additional medical evaluation for secondary cause of low bone mineral density may be appropriate. FUTURE SCAN RECOMMENDATION: People with diagnosed cases of osteoporosis or at high risk for fracture should have regular bone mineral density tests. For patients eligible for Medicare, routine testing is allowed once every 2 years. The testing frequency can be increased to one year for patients who have rapidly progressing disease, those who are receiving or discontinuing medical therapy to restore bone mass, or have additional risk factors.
== END 2024-05-06 07:49 | disposition home or self-care (01) ==
LOC: HO.MAMMO 07:48
PROVIDERS: PCP Internal Medicine; Visit Provider Internal Medicine
DX: Z12.31 Encounter for screening mammogram for malignant neoplasm of breast (principal); Z13.820 Encounter for screening for osteoporosis; M81.8 Other osteoporosis without current pathological fracture; Z78.0 Asymptomatic menopausal state
CPT/HCPCS: 77063; 77067; 77080

== ENCOUNTER → 2024-05-06 08:15 | Outpatient (BNV) | payer MEDICARE, MEDICAID, SELFPAY | PROVIDERS: PCP Internal Medicine; Visit Provider Radiology Diagnostic Radiology | DX: Z12.31 Encounter for screening mammogram for malignant neoplasm of breast (principal) | CPT/HCPCS: 77063; 77067 ==

== ENCOUNTER 2024-06-10 10:50 | Outpatient (REF) | payer MEDICARE, MEDICAID, SELFPAY ==
[2024-06-10 14:18] LABS: Appearance Urine Clear; Color Urine Yellow; Glucose Urine UA Negative (Negative); Leukocyte Esterase Urine Trace (Negative); Nitrite Urine Negative (Negative); UMIC TRIGGER UACC YES; Urine Blood Negative (Negative); Urine Ketones Negative (Negative); Urine Protein Negative (Neg-Trace)
[2024-06-10 14:20] LABS: Bacteria Urine None Seen (None Seen); Hyaline Casts Urine 0-2 /LPF (0-2); RBC Urine 0-2 /HPF (0-2); Squamous Epithelial Cell Urine 0-2 /HPF (0-2); WBC Urine 0-5 /HPF (0-5)
== END 2024-06-10 10:51 | disposition home or self-care (01) ==
LOC: HO.CHCLDS 10:50
PROVIDERS: Visit Provider Internal Medicine
DX: N39.46 Mixed incontinence (principal)
CPT/HCPCS: 81001

== ENCOUNTER 2024-07-21 12:15 | Outpatient (REF) | payer MEDICARE, MEDICAID, SELFPAY ==
[2024-07-21 14:39] LABS: C Reactive Protein 0.12 mg/dL (< or = 0.50)
[2024-07-21 14:40] LABS: Rheumatoid Factor < 13.0 IU/mL (<15.0)
[2024-07-21 15:14] LABS: Erythrocyte Sedimentation Rate 10 MM/HR (0-20)
[2024-07-26 11:18] LABS: Anti Nuclear Antibody Pattern Nuclear, Homogeneous; Anti Nuclear Antibody Screen POSITIVE (NEGATIVE)
== END 2024-07-21 12:16 | disposition home or self-care (01) ==
LOC: HO.CHCLDS 12:15
PROVIDERS: Visit Provider Internal Medicine
DX: R52 Pain, unspecified (principal)
CPT/HCPCS: 36415; 85652; 86038; 86039; 86140; 86431

== ENCOUNTER 2024-08-04 10:35 | Outpatient (AMB) | payer MEDICARE, MEDICAID, SELFPAY ==
--- NOTE | 2024-08-04 10:37 | A.OFFVIS_ITS ---
Vital Signs 08/04/24 10:38 Height 5 ft 2 in Weight 167 lb 8.821 oz BMI 30.6 BP 130/64 Blood Pressure Location Lt brachial Position Sitting Pulse 65 Pulse Source Pulse Oximeter Intake Visit Reasons: Osteoporosis Intake Note: Patient present today for Osteoporosis follow up visit. Rn Bone Marrow Transplant Required: No Accompanied by: Self / Same As Patient Allergies bupropion [From WELLBUTRIN] Allergy (Intermediate, Verified 08/04/24 10:43) panic attack, shaking esomeprazole [From NEXIUM] Allergy (Intermediate, Verified 08/04/24 10:43) panic attack, shaking naproxen [From ALEVE] Allergy (Intermediate, Verified 08/04/24 10:43) panic attack, shaking nitrofurantoin [NITROFURANTOIN] Allergy (Intermediate, Verified 08/04/24 10:43) panic attack shaking polyethylene glycol 3350 [From MIRALAX] Allergy (Intermediate, Verified 08/04/24 10:43) panic attack, shaking pramipexole [From MIRAPEX] Allergy (Intermediate, Verified 08/04/24 10:43) panic attack, shaking Sulfa (Sulfonamide Antibiotics) [SULFA (SULFONAMIDE ANTIBIOTICS)] Allergy (Intermediate, Verified 08/04/24 10:43) panic attack, shaking latex Allergy (Verified 08/04/24 10:43) Unknown Avelox Allergy (Intermediate, Uncoded 08/04/24 10:43) panic attack, shaking Medication List - Last Reconciled 08/04/24 by Tunde Brizuela MD celecoxib 200 mg PO DAILY PRN levothyroxine 1 tab PO DAILY linaclotide (Linzess) 145 mcg PO QAM 90 days losartan 50 mg PO DAILY ropinirole 1 mg PO BEDTIME simvastatin (Zocor) 40 mg PO BEDTIME venlafaxine ER 37.5 mg PO DAILY HPI Comments Details: 73 YO Female with is seen in consultation at the request of PCP for Osteoporosis. First diagnosed in recently . Received treatment in the past with alendronate , from April 2024 to May 2024 . Not Tolerated treatment well felt rigid and nauseated No history of pathologic fracture or ONJ. Has several servings of dietary calcium per day in the form of milk, broccoli , yogurt . Takes Calcium supplement ? mg daily in divided doses. Takes ? IU of Vitamin D daily since recently . Denies ever using PPI, anticoagulant, antiepileptic or glucocorticoid medication. Does weight bearing exercise 7 days per week in the form of weight lifting . 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 Mother and sisters - mother fx a hip UTD on dental cleanings and sees dentist every 6 months. No planned upcoming dental work or extractions. DXA dated : 05/06/24 FINDINGS: LEFT FEMUR, NECK: Current: BMD 0.594 g/cm2, Z-score -1.4, T-score -3.2, osteoporosis. Baseline: BMD 0.733 g/cm2. LEFT FEMUR, TOTAL: Current: BMD 0.717 g/cm2, Z-score -0.7, T-score -2.3, osteopenia, 12.9% decrease from baseline (<5% change is not significant). Baseline: BMD 0.823 g/cm2. AP SPINE L1-L4 (excluding L3): The data of L1-L4 has been changed to exclude the L3 vertebral body, because degenerative sclerosis at this level may cause overestimation of lumbar spine density. Current: BMD 1.239 g/cm2, Z-score 2.1, T-score 0.6, normal, 8.8% increase from baseline (<5% change is not significant). Baseline: BMD 1.139 g/cm2. IDENTIFIED RISK FACTORS: Menopause, hysterectomy, height loss, bilateral oophorectomy. HISTORY OF FRACTURE: None listed. MEDICATIONS: None listed. MM/XR DEXA axial skeleton IMPRESSION: 1. DIAGNOSIS: Osteoporosis based on the lowest T-score value of -3.2 in the femoral neck applying World Health Organization criteria. Labs: COUNTS INCLUDE 234 BEDS AT THE [facility] Medical History Ataxia GERD (gastroesophageal reflux disease) GERD (gastroesophageal reflux disease) HTN (hypertension) Hypothyroid IBS (irritable bowel syndrome) Pharyngoesophageal dysphagia Vertigo Surgical History H/O eye surgery H/O: hysterectomy History of esophagogastroduodenoscopy (EGD) History of pubovaginal sling Hx of blepharoplasty Hx of colonoscopy Hx of parotidectomy Family History Father Family history of heart disease Mother Family history of hypertension Family history of heart disease Sister Lung cancer Social History Alcohol intake: never Patient Tobacco Use Status: Former Tobacco user Years Smoked: Smoked 1 pack a day for 15-20 years, quit 30 years ago Physical Exam Vital Signs: Last Vital Signs Pulse 65 08/04/24 10:38 BP 130/64 08/04/24 10:38 BMI result Body Mass Index 30.6 There are no Cushingoid features. Absence of blue sclera. Absence of kyphosis. Thyroid gland is of nl size and weighs 15 gms. There are no thyroid nodules palpated. Lungs CTA. Heart S1 S2 Reg R/R Abdominal exam benign. Muscle strength 5/5 . Examination of spine reveals absence of tenderness on palpation Assessment & Plan Assessment & Plan (1) Osteoporosis: Code(s): M81.0 - Age-related osteoporosis without current pathological fracture Category: Medical Plan: 73-year-old white female with a history of osteoporosis. Will out secondary causes Plan is to check a 25 hydroxy vitamin-D, phosphorus, SPEP, urine immunofixation, 24 hour urine for calcium and creatinine. Will ensure 1200 mg of calcium as well as 2000 IU of vitamin D3. Assuming secondary workup is negative would strongly consider use of anabolic agent initially proceeded by an anti resorptive agent considering patient has very low bone density this is a very high risk for fracture Orders: Orders Vitamin D 25-OH Total Today M81.0 - Age-related osteoporosis without current pathological fracture Phosphorus Today M81.0 - Age-related osteoporosis without current pathological fracture Protein Electrophoresis, Serum Today M81.0 - Age-related osteoporosis without current pathological fracture Immunofixation, Random Urine Today M81.0 - Age-related osteoporosis without current pathological fracture Calcium, 24 Hr Ur Today M81.0 - Age-related osteoporosis without current pathological fracture Creatinine, 24 Hr Group Today M81.0 - Age-related osteoporosis without current pathological fracture Coding Level of Care Code New Pt Level 4 (74619) Diagnoses Osteoporosis M81.0
[2024-08-04 10:38] VITALS: BP 130/64; PULSE 65; BMI 30.6
== END 2024-08-04 11:28 | disposition home or self-care (01) ==
PROVIDERS: PCP Internal Medicine; Visit Provider Internal Medicine Endocrinology, Diabetes & Metabolism
DX: M81.0 Age-related osteoporosis without current pathological fracture (principal)
CPT/HCPCS: 99204

== ENCOUNTER 2024-08-04 10:35 | Outpatient (REF) | payer MEDICARE, MEDICAID, SELFPAY ==
[2024-08-04 13:30] LABS: Phosphorus 3.5 mg/dL (2.7-4.5)
[2024-08-06 09:09] LABS: Prot Elec - Albumin 3.8 g/dL (3.8-4.8); Prot Elec - Alpha1 0.3 g/dL (0.2-0.3); Prot Elec - Alpha2 0.5 g/dL (0.5-0.9); Prot Elec - Beta 1 0.4 g/dL (0.4-0.6); Prot Elec - Beta 2 0.3 g/dL (0.2-0.5); Prot Elec - Gamma 0.8 g/dL (0.8-1.7)
== END 2024-08-04 10:36 | disposition home or self-care (01) ==
LOC: HO.LAB 10:35
PROVIDERS: PCP Internal Medicine; Visit Provider Internal Medicine Endocrinology, Diabetes & Metabolism
DX: M81.0 Age-related osteoporosis without current pathological fracture (principal)
CPT/HCPCS: 82306; 84100; 84165; 86335; 99202

== ENCOUNTER 2024-08-06 11:20 | Outpatient (REF) | payer MEDICARE, MEDICAID, SELFPAY ==
[2024-08-06 12:30] LABS: Creatinine, mg/dL 63.91
[2024-08-06 12:40] LABS: Creatinine, 24Hr Urine 1.2 G/Day (1.0-2.0); Total Volume 24 Hour Urine 1850 mL
[2024-08-09 16:13] LABS: Calcium, 24 Hr Urine 189 mg/24 h; Calcium/Creatinine Ratio 157 mg/g creat (30-275)
== END 2024-08-06 11:21 | disposition home or self-care (01) ==
LOC: HO.LNP 11:20
PROVIDERS: Visit Provider Internal Medicine Endocrinology, Diabetes & Metabolism
DX: M81.0 Age-related osteoporosis without current pathological fracture (principal)
CPT/HCPCS: 82340; 82570

== ENCOUNTER 2024-12-06 10:42 | Outpatient (AMB) | payer MEDICARE, MEDICAID, SELFPAY ==
--- NOTE | 2024-12-06 10:52 | A.OFFVIS_ITS ---
Vital Signs 12/06/24 10:54 Height 5 ft 2.2 in Weight 165 lb 5.547 oz BMI 30.0 BP 160/80 H Blood Pressure Location Lt brachial Position Sitting Pulse 69 Pulse Source Pulse Oximeter Pulse Oximetry (%) 93 Oxygen Delivery Method Room Air Intake Visit Reasons: f/u osteoporosis Intake Note: Patient present today for Osteoporosis follow up visit. Salt Lifter Required: No Accompanied by: Self / Same As Patient Allergies bupropion [From WELLBUTRIN] Allergy (Intermediate, Verified 12/06/24 10:55) panic attack, shaking esomeprazole [From NEXIUM] Allergy (Intermediate, Verified 12/06/24 10:55) panic attack, shaking naproxen [From ALEVE] Allergy (Intermediate, Verified 12/06/24 10:55) panic attack, shaking nitrofurantoin [NITROFURANTOIN] Allergy (Intermediate, Verified 12/06/24 10:55) panic attack shaking polyethylene glycol 3350 [From MIRALAX] Allergy (Intermediate, Verified 12/06/24 10:55) panic attack, shaking pramipexole [From MIRAPEX] Allergy (Intermediate, Verified 12/06/24 10:55) panic attack, shaking Sulfa (Sulfonamide Antibiotics) [SULFA (SULFONAMIDE ANTIBIOTICS)] Allergy (Intermediate, Verified 12/06/24 10:55) panic attack, shaking latex Allergy (Verified 12/06/24 10:55) Unknown Avelox Allergy (Intermediate, Uncoded 12/06/24 10:55) panic attack, shaking Medication List - Last Reviewed 12/06/24 by Abi Ferguson, THAO calcium citrate 200 mg PO DAILY celecoxib 200 mg PO DAILY PRN cholecalciferol (vitamin D3) 25 mcg PO DAILY levothyroxine 1 tab PO DAILY linaclotide (Linzess) 145 mcg PO QAM 90 days losartan 50 mg PO DAILY ropinirole 1 mg PO BEDTIME simvastatin (Zocor) 40 mg PO BEDTIME tramadol mg PO Q8H venlafaxine 37.5 mg PO DAILY venlafaxine ER 37.5 mg PO DAILY HPI Comments Details: 74 YO Female with is seen in consultation at the request of PCP for Osteoporosis. First diagnosed in recently . Received treatment in the past with alendronate , from April 2024 to May 2024 . Not Tolerated treatment well felt rigid and nauseated No history of pathologic fracture or ONJ. Has several servings of dietary calcium per day in the form of milk, broccoli , yogurt . Takes Calcium supplement ? mg daily in divided doses. Takes ? IU of Vitamin D daily since recently . Denies ever using PPI, anticoagulant, antiepileptic or glucocorticoid medication. Does weight bearing exercise 7 days per week in the form of weight lifting . 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 Mother and sisters - mother fx a hip UTD on dental cleanings and sees dentist every 6 months. No planned upcoming de ntal work or extractions. DXA dated : 05/06/24 FINDINGS: LEFT FEMUR, NECK: Current: BMD 0.594 g/cm2, Z-score -1.4, T-score -3.2, osteoporosis. Baseline: BMD 0.733 g/cm2. LEFT FEMUR, TOTAL: Current: BMD 0.717 g/cm2, Z-score -0.7, T-score -2.3, osteopenia, 12.9% decrease from baseline (<5% change is not significant). Baseline: BMD 0.823 g/cm2. AP SPINE L1-L4 (excluding L3): The data of L1-L4 has been changed to exclude the L3 vertebral body, because degenerative sclerosis at this level may cause overestimation of lumbar spine density. Current: BMD 1.239 g/cm2, Z-score 2.1, T-score 0.6, normal, 8.8% increase from baseline (<5% change is not significant). Baseline: BMD 1.139 g/cm2. IDENTIFIED RISK FACTORS: Menopause, hysterectomy, height loss, bilateral oophorectomy. HISTORY OF FRACTURE: None listed. MEDICATIONS: None listed. MM/XR DEXA axial skeleton IMPRESSION: 1. DIAGNOSIS: Osteoporosis based on the lowest T-score value of -3.2 in the femoral neck applying World Health Organization criteria. Labs: [facility] Medical History (Updated 08/04/24 @ 10:47 by Tunde Brizuela MD) Osteoporosis Ataxia GERD (gastroesophageal reflux disease) Pharyngoesophageal dysphagia Hypothyroid HTN (hypertension) GERD (gastroesophageal reflux disease) IBS (irritable bowel syndrome) Vertigo Surgical History History of pubovaginal sling Hx of blepharoplasty Hx of parotidectomy History of esophagogastroduodenoscopy (EGD) Hx of colonoscopy H/O: hysterectomy H/O eye surgery Family History Father Family history of heart disease Mother Family history of hypertension Family history of heart disease Sister Lung cancer Social History Alcohol intake: never Patient Tobacco Use Status: Former Tobacco user Years Smoked: Smoked 1 pack a day for 15-20 years, quit 30 years ago Physical Exam Vital Signs: Last Vital Signs Pulse 69 12/06/24 10:54 BP 160/80 H 12/06/24 10:54 Pulse Ox 93 12/06/24 10:54 Oxygen Delivery Method Room Air 12/06/24 10:54 BMI result Body Mass Index 30.0 Assessment & Plan Assessment & Plan (1) Osteoporosis: Code(s): M81.0 - Age-related osteoporosis without current pathological fracture Category: Medical Plan: 73-year-old white female with a history of osteoporosis. secondary causes have been ruled out Plan is to talk to pt about initiating Anabolic therapy like Evenity or Tymlos or Forteo considering pt has very low bone density and is at very high risk of fracture . she is somewhat reluctant to inject Tymlos or Forteo and prefers to take Evenity once a month in the office if insurance approves Medications: New romosozumab-aqqg (Evenity) 210 mg (2.34 mL) subcut .q monthly 2.34 mL 11RF Coding Level of Care Code Est Pt Level 3 (65845) Diagnoses Osteoporosis M81.0
[2024-12-06 10:54] VITALS: BP 160/80; PULSE 69; O2SAT 93
--- OUTSIDE RECORDS SUMMARY | 2024-12-06 12:06 | XMS_ITS | Encounter Summary ---
Author Organization [employer] Address [address] [place] [address] [address] [place] [address] Care Team Providers Care Dietetics Director Name Role Phone Janett Hoyt MD Primary Care Provider [phone] Reason for Visit * Reason Comments Med Refill Encounter Details Date Type Department Care Team (Late Contact Info) Description 04/08/2023 Refill [facility] [address] [place], [place] [phone] Janett Hoyt MD [address] [place] [address] Social History Tobacco Use Types Packs/Day Years Used Date Smoking Tobacco: Never Passive Smoke Exposure: Never Smokeless Tobacco: Never Alcohol Use Standard Drinks/Week Comments Never 0 (1 standard drink = 0.6 oz pur e alcohol) Depression Answer Date Recorded Patient Health Questionnaire-9 Score 0 12/03/2022 Depression Answer Date Recorded Patient Health Questionnaire-2 Score 0 12/03/2022 Comments Unknown Sex and Gender Information Value Date Recorded Sex Assigned at Female 08/12/2022 10:18 AM EDT Legal Sex Female 10:18 AM EDT Gender Identity Choose not to disclose 10:18 AM EDT Sexual Orientation Choose not to disclose 2021 10:18 AM EDT COVID-19 Exposure Response Date Recorded In the last 10 days, have yo u been in contact with someone who was confirmed or suspected to have Coronavirus/COVID-19? No / Unsure 03/24/2023 11:07 AM EDT documented as of this encounter Plan of Treatment Upcoming Encounters Date Type Department Care Team (Late Contact Info) Description 12/22/2024 11:00 AM EDT Clinical Support [facility] [address] [place] [address] Kaylen Townsend, RN [address] [place] [address] 01/24/2025 11:00 AM EDT Office Visit [facility] [address] [place] [address] Janett Hoyt MD [address] [place] [address] documented as of this encounter Visit Diagnoses Not on filedocumented in this encounter Additional Health Concerns Assessment Noted Time PHQ-9 Depression Total Score: 0 12/03/19 23 9:31 AM EST documented as of this encounter Care Teams Dietetics Director Relationship Specialty Start Date End Date Janett Hoyt MD [address] [place] [address] PCP - General Internal Medicine 02/26/19 documented as of this encounter
--- OUTSIDE RECORDS SUMMARY | 2024-12-06 12:06 | XMS_ITS | Clinical Summary ---
Author Organization [employer] Address [address] [facility] [address] [place] [address] Care Team Providers Care Cage Fighter Name Role Phone Janett Hoyt MD Primary Care Provider [phone] Allergies Active Allergy Reactions Criticality Noted Date Comments Nitrofurantoin Other Low 09/30/2022 Panic attack Sulfa Antibiotics Other Low 09/30/2022 anxiety Medications Calcium-Vitamin D-Vitamin K 500-100-40 MG-UNT-MCG chewable tablet Chew. Acti ve Linzess 145 MCG capsule Take 145 mcg by mouth in the morning. 023 Active methocarbamol (Robaxin) 500 MG tablet TAKE 1 TABLET BY MOUTH 4 TIMES A DAY NEEDED FOR SPASM *NC NON FORMULARY* 023 Active Elastic Bandages & Supports (Medical Compression Stockings) miscIndications:V enous insufficiency 15-20 mm/Hg. Knee high. Dx : venous insufficiency ( Toe less please ) 1 each 023 Active nortriptyline (Pamelor) 25 MG capsuleIndication s:Adjustment insomnia Take 1 capsule (25 mg) by mouth at bedtime. 30 capsule 11 023 Active venlafaxine XR (Effexor XR) 37.5 MG 24 hr capsule TAKE ONE CAPSULE BY MOUTH EVERY MORNING 90 capsule 3 024 Active losartan (Cozaar) 100 MG tabletIndications :Primary hypertension Take 1 tablet (100 mg) by mouth Once per day. 30 tablet 11 024 2024 Active dilTIAZem SR (Cardizem SR) 60 MG 12 hr capsuleIndication s:Primary hypertension Take 1 capsule (60 mg) by mouth 2 times daily. 60 capsule 11 024 2024 Active rosuvastatin (Crestor) 20 MG tabletIndications :Primary hypertension Take 1 tablet (20 mg) by mouth Once per day. 30 tablet 11 024 2024 Active cholecalciferol (Vitamin D-3) 25 MCG (1000 UT) tabletIndications :Other osteoporosis, unspecified pathological fracture presence Take 1 tablet (25 mcg) by mouth Once per day. 30 tablet 11 024 Active DULoxetine (Cymbalta) [address] capsuleIndication s:Body aches Take 1 capsule (20 mg) by mouth 2 times daily. Do not crush or chew. 60 capsule 11 024 2024 Active levothyroxine (Synthroid, Levoxyl) 100 MCG tabletIndications :Other specified hypothyroidism TAKE ONE TABLET EVERY MORNING 30 tablet 5 024 Active meclizine (Antivert) 25 MG tabletIndications :Vertigo TAKE ONE TABLET AT BEDTIME 40 tablet 3 024 Active celecoxib (CeleBREX) 200 MG capsuleIndication s:Right upper quadrant pain TAKE ONE CAPSULE BY MOUTH EVERY MORNING 30 capsule 3 025 Active traMADol (Ultram) 50 MG tabletIndications :Multiple joint pain Take 1 tablet (50 mg) by mouth every 8 (eight) hours if needed for severe pain. 30 tablet 025 Active celecoxib (CeleBREX) 200 MG capsuleIndication s:Right upper quadrant pain TAKE ONE CAPSULE EVERY MORNING 30 capsule 3 024 2024 Discontinued amoxicillin-clavu lanate (Augmentin) 875-125 MG tabletIndications :Recurrent sinus infections Take 1 tablet by mouth 2 times daily for 10 days. 20 tablet 025 2024 traMADol (Ultram) 50 MG tabletIndications :Multiple joint pain Take 1 tablet (50 mg) by mouth every 8 (eight) hours if needed for severe pain. 30 tablet 025 2024 Discontinued(R eorder (will not trigger notification to Pharmacy)) Active Problems Problem Noted Date Diagnosed Date Anxiety 12/20/2022 COVID-19 12/20/2022 Migraine 12/20/2022 Vertigo 12/20/2022 Hypertension 09/30/2022 Hypercholesterolemia 09/30/2022 Insomnia 09/30/2022 Hypothyroid 09/30/2022 IBS (irritable bowel syndrome) 09/30/2022 GERD (gastroesophageal reflux disease) Multiple joint pain 11/02/2019 Overview (12/20/2022): Seeing Dr. Laurie Orozco ([facility] [place]). Inflammatory labs 10/19/19 negative. 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 Osteoporosis 10/17/2014 History of partial thyroidectomy 10/15/2012 Encounters Date Type Department Care Team Description 12/01/2024 Refill [facility] [address] [place] [address] Janett Hoyt MD Multiple joint pain 11/11/2024 Telephone [facility] [address] [place] [address] Janett Hoyt MD Referral 11/08/2024 Refill [facility] [address] [place] [address] Janett Hoyt MD Right upper quadrant pain 11/02/2024 Refill [facility] [address] [place] [address] Janett Hoyt MD Multiple joint pain 10/27/2024 2:15 PM EST Office Visit [facility] [address] [place] [address] Janett Hoyt MD Recurrent sinus infections (Primary Dx); Primary hypertension 10/27/2024 Travel 10/26/2024 Telephone [facility] [address] [place] [address] Janett Hoyt MD Chart Prep 10/26/2024 Telephone [facility] [address] [place] [address] Janett Hoyt MD triage 10/19/2024 Travel 09/29/2024 Telephone [facility] [address] [place] [address] Janett Hoyt MD Medication 09/28/2024 Refill [facility] [address] [place] [address] Airam Britton MD Vertigo 09/22/2024 11:00 AM EST Clinical Support [facility] [address] [place] [address] Kaylen Townsend, KENISHA Multiple joint pain 09/22/2024 Refill [facility] [address] [place] [address] Kaylen Townsend, KENISHA Multiple joint pain 09/22/2024 Telephone [facility] [address] [place] [address] Kaylen Townsend, RN 09/22/2024 Travel from Last 3 Months Immunizations Name Administration Dates Next Due Influenza High-dose Quadriva lent Preservative Free 07/08/2022,06/08/2021 Influenza Quadrivalent Adjuvanted 06/30/2023, Influenza injectable quadriv alent IIV4 with preservative 06/28/2019 Influenza, High Dose Seasona l, Preservative Free 07/05/2024,06/28/2018,06/29/2017,07/04,07/06/2015 Influenza, IIV3, injectable 07/21/2014, 3 Pfizer Covid-19 Vaccine 12+ 07/21/2024 Pneumococcal Conjugate PCV 20 03/04/2022 Pneumococcal Polysaccharide PPSV23 09/28/2014 RSV Bivalent 08/10/2024 Tdap 06/28/2019,12/21/2012 Zoster, Recombinant 09/21/2021,07/20/2021 Family History Medical History Relation Name Comments Schizophrenia Father Suicidality Father Arthritis Mother COPD Mother Heart attack Mother Relation Name Status Comments Father Mother Social History Tobacco Use Types Packs/Day Years Used Date Smoking Tobacco: Never Passive Smoke Exposure: Never Smokeless Tobacco: Never Tobacco Cessation:Counseling Given: Not Answered Alcohol Use Standard Drinks/Week Comments Never 0 (1 standard drink = 0.6 oz pur e alcohol) Depression Answer Date Recorded Patient Health Questionnaire-9 Score 0 10/27/2024 Patient Health Questionnaire-9 Score 0 10/27/2024 Last PHQ-9: Questionnaire Data Not on file 0 10/27/2024 Housing Stability Answer Date Recorded What is your housing situation today? I have [address] 06/02/[address] you li ve. Do you have problems with any of the following? None of the above 06/02/2024 Food Insecurity Answer Date Recorded Within the past 12 months, y ou worried that your food would run out before you got money to buy more: Never True 06/02/2024 Within the past 12 months,th e food you bought just didn't last and you didn't have enough money to get more: Never True Transportation Answer Date Recorded In the past 12 months, has l ack of transportation kept you from medical appts, meetings, work or from getting things needed for daily living? No 06/02/2024 Utilities Answer Date Recorded In the past 12 months, has t he electric, gas, oil or water company threatened to shut off services in your home? No 06/02/2024 Depression Answer Date Recorded Patient Health Questionnaire-2 Score 0 10/27/2024 Internet Access Answer Date Recorded Internet Access Q1 Yes 06/14/2024 Internet Access Q2 Not on file 06/14/2024 Comments No Sex and Gender Information Value Date Recorded Sex Assigned at Female 08/12/2022 10:18 AM EDT Legal Sex Female 10:18 AM EDT Gender Identity Choose not to disclose 10:18 AM EDT Sexual Orientation Choose not to disclose 2021 10:18 AM EDT Last Filed Vital Signs Vital Sign Reading Time Taken Comments Blood Pressure 142/62 10/27/2024 2:24 PM EST Pulse 61 10/27/2024 2:24 PM EST Temperature 36.7 ??C (98 ??F) 10/27/2024 2:24 PM EST Respiratory Rate 20 10/27/2024 2:24 PM EST Oxygen Saturation 97% 10/27/2024 2:24 PM EST Inhaled Oxygen Concentration - - Weight 76.2 kg (168 lb) 10/27/2024 2:24 PM EST Height 152.4 cm (5') 10/27/2024 2:24 PM EST Body Mass Index 32.81 10/27/2024 2:24 PM EST Plan of Treatment Upcoming Encounters Date Type Department Care Team (Late st Contact Info) Description 12/22/2024 11:00 AM EDT Clinical Support [facility] [address] [place] [address] Kaylen Townsend, KENISHA [address] [place] [address] 01/24/2025 11:00 AM EDT Office Visit [facility] [address] [place] [address] Janett Hoyt MD [address] [place] [address] Health Maintenance Due Date Last Done Comments CT Colonography 1949 FIT DNA/Cologuard 1949 FIT 1949 FOBT 1949 Sigmoidoscopy 1949 Alcohol/Substance Use Screening 1961 Hepatitis C Screening 1967 SDOH Screening 06/02/2025 06/02/2024 Depression Screening 10/27/2025 10/27/2024, 10/27/19 25 Tobacco Screening 10/27/2025 10/27/2024 Lipid Panel 11/03/2028 11/03/2023, 11/14, 02/08/2022, Additional history exists DTaP/Tdap/Td Vaccines (3 - Td or Tdap) 06/28/2029 06/28/2019, 12/21/2012 Colonoscopy 01/02/2030 Colorectal Cancer Screening 01/02/2030 Zoster Vaccines Completed 09/21/2021, 07/20/2021 Pneumococcal Vaccine: 50+ Years Completed 03/04/2022, 09/28/2014 Influenza Vaccine Completed 07/05/2024, , 07/08/2022, Additional history exists COVID-19 Vaccine Completed 07/21/2024, , 07/12/2022, Additional history exists RSV Patients and Patients Aged 60 years or older Completed 08/10/2024 HIB Vaccines Aged Out No longer eligi ble based on patient's age to complete this topic HPV Vaccines Aged Out No longer eligi ble based on patient's age to complete this topic Hepatitis A Vaccines Aged Out No long er eligible based on patient's age to complete this topic Hepatitis B Vaccines Aged Out No long er eligible based on patient's age to complete this topic IPV Vaccines Aged Out No longer eligi ble based on patient's age to complete this topic Meningococcal Vaccine Aged Out No lew godfrey eligible based on patient's age to complete this topic RSV under 20 months Aged Out No longe r eligible based on patient's age to complete this topic Rotavirus Vaccines Aged Out No longer eligible based on patient's age to complete this topic Procedures Procedure Name Priority Date/Time Associated Diagnosis Comments POCT YVETTE-14 URINE DRUG SCREEN Routine 09/22/2024 11:09 AM EST Multiple joint pain LIPID PANEL, STANDARD Routine 11/03/2023 9:33 AM EST Primary hypertension from Last 3 Months or Most Recently Relevant to Health Maintenance Results * POCT YVETTE-14 Urine Drug Screen (09/22/2024 11:09 AM EST) Urine Urine specimen obtained by clean catch procedure / Unknown 09/22/2024 11:09 AM EST Narrative Kaylen Townsend RN - 09/22/2024 11:09 AM EST negative for THC, MOP, OXY, CHRISTINA, MET, AMP, BZO, BAR, MTD, BUPG, TCA, MDMA, PCP, PPX. Lot# [id number] Exp: 09-18-25 us Thevenin Beauzile MD POINT OF CARE TEST ENTER/ED IT ORDERABLES Final Result * Lipid Panel, Standard (11/03/2023 9:33 AM EST) Triglycerides 71 <150 mg/dL [facility] Comment:Desirable Triglyceri de: less than 150 mg/dLBorderline High Triglyceride 150-199 mg/dLHigh Triglyceride: 200-499 mg/dLVery High Triglyceride: greater than or equal to 5OO mg/dL Cholesterol 163 <200 mg/dL [facility] Comment:Desirable Cholestero l: less than 200 mg/dLBorderline High Cholesterol: 200-239 mg/dLHigh Cholesterol: greater than 239 mg/dL LDL Cholesterol Calculated 88 <100 mg/dL [facility] Comment:Desirable LDL: less than 100 mg/dLNear Optimal/Above Optimal LDL: 110- 129 mg/dLBorderline High LDL: 130-159 mg/dLHigh LDL: 160-189 mg/dLVery High LDL: greater than or equal to 190 mg/dL HDL Cholesterol 61 >40 mg/dL [facility] Comment:Desirable HDL: great er than 40 mg/dL Note: This HDL assay may give artificially low results in patients with liver disease. Blood Venous blood specimen / Unknown 11/03/2023 9:33 AM EST 11/03/2023 2:26 PM EST us Janett Hoyt MD LAB BLOOD ORDERABLES Final Result Performing Organization Address City/State/[facility] Co de Phone Number [facility] [address] [place] [phone] from Last 3 Months or Most Recently Relevant to Health Maintenance Insurance MEDICARE [facility] [place] [id number] [place] [id number] [address] [id number] Care Teams Cage Fighter Relationship Specialty Start Date End Date Janett Hoyt MD [address] [place] [address] [place] [phone] PCP - General Internal Medicine 02/26/19
--- OUTSIDE RECORDS SUMMARY | 2024-12-06 12:06 | XMS_ITS | Encounter Summary ---
Author Organization [employer] Address [address] [facility] [address] [place] [address] Care Team Providers Care Director Report Name Role Phone Janett Hoyt MD Primary Care Provider [phone] Encounter Details Date Type Department Care Team ([facility] st Contact Info) Description 06/28/2024 Orders Only [facility] [address] [place], [place] [phone] Janett Hoyt MD [address] [place], [place] [id number] Social History Tobacco Use Types Packs/Day Years Used Date Smoking Tobacco: Never Passive Smoke Exposure: Never Smokeless Tobacco: Never Alcohol Use Standard Drinks/Week Comments Never 0 (1 standard drink = 0.6 oz pur e alcohol) Depression Answer Date Recorded Patient Health Questionnaire-9 Score 0 12/03/2022 Housing Stability Answer Date Recorded What is your housing situation today? I have [address] 06/02/[address] you [...] Recorded Patient Health Questionnaire-2 Score 0 12/03/2022 Internet Access Answer Date Recorded Internet Access Q1 Yes 06/14/2024 Internet Access Q2 Not on file 06/14/2024 Comments Unknown Sex and Gender Information Value Date Recorded Sex Assigned at Female 08/12/2022 10:18 AM EDT Legal Sex Female 10:18 AM EDT Gender Identity Choose not to disclose 10:18 AM EDT Sexual Orientation Choose not to disclose 2021 10:18 AM EDT documented as of this encounter Plan of Treatment Upcoming Encounters Date Type Department Care Team (Late st Contact Info) Description 12/22/2024 11:00 AM EDT Clinical Support [facility] [address] [place] [address] Kaylen Townsend RN [address] [place] [address] 01/24/2025 11:00 AM EDT Office Visit [facility] [address] [place] [address] Janett Hoyt MD [address] [place] [address] documented as of this encounter Visit Diagnoses Not on filedocumented in this encounter Additional Health Concerns Assessment Noted Time PHQ-9 Depression Total Score: 0 12/03/19 23 9:31 AM EST documented as of this encounter Care Teams Director Report Relationship Specialty Start Date End Date Janett Hoyt MD [address] [place] [address] PCP - General Internal Medicine 02/26/19 documented as of this encounter
--- OUTSIDE RECORDS SUMMARY | 2024-12-06 12:06 | XMS_ITS | Clinical Summary ---
Author Organization [facility] Address [address] [place] [address] Care Team Providers Care Intervention Specialist Name Role Phone Janett Hoyt MD Primary Care Provider [phone] [phone] Surgical History Surgery Date Site/Laterality Comments BLADDER SUSPENSION PROCEDURE: HISTORICAL BLADDER SUSPENSION OTHER SURGICAL HISTORY PROCEDURE: NH STAB PHLEBT VARICOSE VEINS 1 XTR 10-20 STAB INCS EYE SURGERY PROCEDURE: HISTORICAL EYE SURGERY; COMMENT: starbismus OTHER SURGICAL HISTORY PROCEDURE: NH RHINOPLASTY PRIMARY W/MAJOR SEPTAL REPAIR OTHER SURGICAL HISTORY PROCEDURE: HISTORICAL SUPRACERVICAL HYSTERECTOMY WITH BSO; COMMENT: BSO, fibroid uterus OTHER SURGICAL HISTORY 08/18/2002 PROCEDURE: (UGI) CONTRAST X-RAY OF UPPER GI TRACT; COMMENT: Normal COLONOSCOPY 12/04/2009 PROCEDURE: HISTORICAL COLONOSCOPY; COMMENT: Dr Stanley - normal colon to cecum. Repeat colonoscopy in 10 years. OTHER SURGICAL HISTORY 1982 PROCEDURE: NH PRTL THYROID LOBECTOMY UNI W/WO ISTHMUSECTOMY; COMMENT: left side - due to recurrent cysts EYE SURGERY 08/05/2014 PROCEDURE: NH TRABECULOPLASTY BY LASER SURGERY; COMMENT: right eye; iridotomy EYE SURGERY 08/19/2014 PROCEDURE: NH TRABECULOPLASTY BY LASER SURGERY; COMMENT: left eye OTHER SURGICAL HISTORY Right PROCEDURE: HISTORY OTHER; COMMENT: surgery for ptosis, [facility] VARICOSE VEIN SURGERY 2010 PROCEDURE: NH LIGJ DIVJ &/EXCJ VARICOSE VEIN CLUSTER 1 LEG; COMMENT: laser surgery; Dr. Ernandez BREAST BIOPSY Right PROCEDURE: BX BREAST; PERC NEEDLE CORE W/IMAG GUID; COMMENT: benign UPPER GASTROINTESTINAL ENDOSCOPY 06/16/2018 PROCEDURE: NH UPPER GI ENDOSCOPY PERFORMED; COMMENT: normal on PPI rx. 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 DX:Parotid mass Hypothyroidism DX:Hypothyroidis m Hypertension DX:Hypertension Osteoarthritis of knees, bilateral DX:Osteoarthritis of knees, bilateral Umbilical hernia without obs truction and without gangrene 08/14/2018 DX:Umbilical hernia without obstruction and without gangrene Family History Medical History Relation Name Comments COPD Brother Suicide Attempts Father 46 Heart attack Mother smoker Heart failure Mother 76 Lung cancer Mother Other cancer Mother's side Aunt, brain ca ncer Hypertension Sister 1 Lung cancer Sister 2 Lung cancer Sister 3 Breast cancer Neg Hx Colon cancer Neg Hx Relation Name Status Comments Brother Father 49yo suicide Mother [place], lung cancer , ulcers Mother's side Sister 1 Sister 2 Sister 3 Social History Tobacco Use Types Packs/Day Years Used Date Smoking Tobacco: Former Cigarettes 1 24.1 1 11/04/1962 - 10/13/1987 Smokeless Tobacco: Never Alcohol Use Standard Drinks/Week Comments No 0 (1 standard drink = 0.6 oz pur e alcohol) Comments Unknown Sex and Gender Information Value Date Recorded Sex Assigned at Not on file Legal Sex Female 10:30 PM EST Gender Identity Not on file Sexual Orientation Not on file Obstetrics History Plan of Treatment Health Maintenance Due Date Last Done Comments Zoster Vaccines (1 of 2) 1999 Pneumococcal Vaccine: 50+ Years (2 of 2 - PCV) 09/28/2015 09/28/2014 Cholesterol Screening (Lipid Panel) 09/15/2022 Colorectal Cancer Screening: Colonoscopy 09/15/2022 Depression Screening 09/15/2022 Falls Risk Assessment 09/15/2022 Hepatitis C Screening 09/15/2022 Social Influencers of Health Screening 09/15/2022 DTaP,Tdap,and Td Vaccines (2 - Td or Tdap) 12/21/2022 12/21/2012 COVID-19 Vaccine ( - season) 2024 Influenza Vaccine (#1) 2024 8, 06/29/2017, 07/04/2016, Additional history exists RSV Immunization Patients 60+ Years Old (1 - 1-dose 75+ series) 2024 Osteoporosis Screening (Bone Density Screening) 08/12/2027 08/12/2017 Breast Cancer Screening Discontinued 01/16/20 19, 01/13/2018, 01/09/2017 HIB Vaccines Aged Out No longer eligi [...] on patient's age to complete this topic MMR Vaccines Aged Out No longer eligi ble based on patient's age to complete this topic Meningococcal ACWY Vaccine Aged Out N o longer eligible based on patient's age to complete this topic Meningococcal B Vacine Aged Out No lo nger eligible based on patient's age to complete this topic RSV Immunization Patients Under 20 months Aged Out No longer eligible based on patient's age to complete this topic Varicella Vaccines Aged Out No longer eligible based on patient's age to complete this topic Procedures Procedure Name Priority Date/Time Associated Diagnosis Comments SCR MAMMO BI INCL CAD Routine 01/15/2019 9:40 AM EDT Encounter for screening mammogram for malignant neoplasm of breast DXA BONE DENSITY STUDY 1+ SITS AXIAL SKEL Routine 08/12/2017 10:29 AM EDT Age-related osteoporosis without current pathological fracture from Last 3 Months or Most Recently Relevant to Health Maintenance Results * SCR MAMMO BI INCL CAD (01/15/2019 9:40 AM EDT) Anatomical Region Laterality Modality Radiographic Abigail ging 01/13/2018 1:48 PM EDT Narrative 01/15/2019 12:13 PM EDT This is a summary report. The complete report is available in the patient's medical record. If you cannot access the medical record, please contact the sending organization for a detailed fax or copy. Full field digital screening mammography, reviewed with CAD and compared to previous. ??The breasts are composed of fatty and fibroglandular tissue. ??Small metallic biopsy clip is stable in position at the anterior one third of the superolateral right breast. Stable patchy and nodular bilateral parenchymal pattern. No new suspicious mass, architectural distortion or suspicious calcifications are identified. IMPRESSION: : No mammographic evidence of malignancy. BI-RADS 2-benign. 5 year breast cancer risk assessment 2.3 % Lifetime breast cancer risk assessment 6.9 % Breast cancer risk category Low (<15%) Procedure Note Vanessa Packer, DO - 10/01/2022 This is a summary report. The complete report is available in thepatient's medical record. If you cannot access the medical record, pleasecontact the sending organization for a detailed fax or copy. Full field digital screening mammography, reviewed with CAD and comparedto previous. The breasts are composed of fatty and fibroglandular tissue.Small metallic biopsy clip is stable in position at the anterior onethird of the superolateral right breast. Stable patchy and nodularbilateral parenchymal pattern. No new suspicious mass, architecturaldistortion or suspicious calcifications are identified. IMPRESSION: : No mammographic evidence of malignancy. BI-RADS 2-benign. 5 year breast cancer risk assessment 2.3 % Lifetime breast cancer risk assessment 6.9 % Breast cancer risk category Low (<15%) us Sammie Hardin MD IMG XR PROCEDURES Final Resu lt * DXA BONE DENSITY STUDY 1+ SITS AXIAL SKEL (08/12/2017 10:29 AM EDT) Anatomical Region Laterality Modality Bone Densitometr y 07/07/2017 10:2 5 AM EDT Narrative 08/12/2017 10:54 AM EDT DEXA SCAN: Lumbar Spine T-score is 0.3. ?? (SD relative to 20-29 y/o adult) Z-score is 2.3. ??(SD relative to age matched peers) This is considered normal by WHO criteria. Left Hip T-score is -2.4. Z-score is - 0.7. This is considered osteopenia by WHO criteria. Comparison exam(s): Compared with 08/10/2014 left hip bone mineral density has increased 6.5% and lumbar spine bone mineral density is unchanged. IMPRESSION: Osteopenia by WHO criteria. This patient has a 21% risk of major osteoporotic fracture and a 3.9% risk of hip fracture over the next 10 years. (World Health Organization Fracture Risk Assessment) [facility] Department of Internal Medicine recommends using National Osteoporosis Foundation (NOF) guidelines in treatment decisions related to osteoporosis. NOF guidelines suggest considering treatment for postmenopausal women and men aged 50 or older presenting with the following: History of hip or vertebral fracture. T-score = -2.5 (DXA) at the femoral neck, total hip, or spine, after appropriate evaluation to exclude secondary causes. Low bone mass (T-score between -1.0 and -2.5 at the femoral neck or spine) AND a 10-year probability of a hip fracture = 3% OR a 10-year probability of a major osteoporosis-related fracture = 20% based on the [place]-adapted WHO algorithm Please note that all treatment decisions require clinical judgment and consideration of individual patient factors, including patient preferences, co-morbidities, previous drug use, risk factors not captured in the FRAX model (e.g., frailty, falls, vitamin D deficiency, increased bone turnover, interval significant decline in bone density) and possible under- or over-estimation of fracture risk by FRAX. Optional alternative screening schedule based on mary Lui., [facility] October 31, 2011 for patients with osteopenia (based on hip BMD T-score) is as follows: * ??advanced osteopenia (T scores -2.00 to -2.49), BMD testing every year * ??moderate osteopenia (T scores -1.50 to -1.99), BMD testing every 5 years mild osteopenia or normal BMD (T scores -1.50 and higher), BMD testing every 15 years Procedure Note Chris Mendoza MD - 11/14/2023 DEXA SCAN: Lumbar Spine T-score is 0.3. (SD relative to 20-29 y/o adult) Z-score is 2.3. (SD relative to age matched peers) This is considered normal by WHO criteria. Left Hip T-score is -2.4. Z-score is - 0.7. This is considered osteopenia by WHO criteria. Comparison exam(s): Compared with 08/10/2014 left hip bone mineral densityhas increased 6.5% and lumbar spine bone mineral density is unchanged. IMPRESSION: Osteopenia by WHO criteria. This patient has a 21% risk of majorosteoporotic fracture and a 3.9% risk of hip fracture over the next 10 years. (WorldHealth Organization Fracture Risk Assessment) The [facility] Department of Internal Medicine recommendsusing National Osteoporosis Foundation (NOF) guidelines in treatment decisions related toosteoporosis. NOF guidelines suggest considering treatment for postmenopausal women and menaged 50 or older presenting with the following: History of hip or vertebral fracture. T-score = -2.5 (DXA) at the femoral neck, total hip, or spine, afterappropriate evaluation to exclude secondary causes. Low bone mass (T-score between -1.0 and -2.5 at the femoral neck or spine)AND a 10-year probability of a hip fracture = 3% OR a 10-year probability of a majorosteoporosis-related fracture = 20% based on the [place]-adapted WHO algorithm Please note that all treatment decisions require clinical judgment andconsideration of individual patient factors, including patient preferences, co- morbidities,previous drug use, risk factors not captured in the FRAX model (e.g., frailty, falls, vitaminD deficiency, increased bone turnover, interval significant decline in bone density) andpossible under- or over-estimation of fracture risk by FRAX. Optional alternative screening schedule based on m[facility] Lui., [facility] for patients with osteopenia (based on hip BMD T-score) is as follows: * advanced osteopenia (T scores -2.00 to -2.49), BMD testing every year * moderate osteopenia (T scores -1.50 to -1.99), BMD testing every 5years mild osteopenia or normal BMD (T scores -1.50 and higher), BMD testingevery 15 years Bambi WEIR Jorge DXA PROCEDURES Final Result from Last 3 Months or Most Recently Relevant to Health Maintenance Advance Directives Documents on File Type Date Recorded Patient Informatics Coordinator Expl anation Health Care Decision (hx) 05/13/2019 AD CACERES DIRECTIVE Health Care Decision (hx) 05/13/2019 AD CACERES DIRECTIVE Health Care Decision (hx) 05/13/2019 AD CACERES DIRECTIVE Health Care Decision (hx) 05/13/2019 AD CACERES DIRECTIVE Health Care Decision (hx) 05/13/2019 AD CACERES DIRECTIVE Health Care Decision (hx) 05/13/2019 AD NICKI DIRECTIVE Care Teams Intervention Specialist Relationship Specialty Start Date End Date Janett Hoyt MD [address] [place] [address] PCP - General Internal Medicine 05/31/21
--- OUTSIDE RECORDS SUMMARY | 2024-12-06 12:06 | XMS_ITS | Encounter Summary ---
Author Organization [employer] Address [address] [facility] 7t [place] [address] Care Team Providers Care Paraprofessional Education Assistant Name Role Phone Janett Hoyt MD Primary Care Provider [phone] Reason for Visit * Reason Comments Med Refill Encounter Details Date Type Department Care Team ([facility] st Contact Info) Description 11/08/2024 Refill [facility] MED & PEDS [address] [place], [place] [phone] Janett Hoyt MD [address] [place], [place] [phone] Right upper quadrant pain Social History Tobacco Use Types Packs/Day Years [...] Description 12/22/2024 11:00 AM EDT Clinical Support [facility] MED & PEDS [address] [place] [address] Kaylen Townsend, KENISHA [address] [place] [address] 01/24/2025 11:00 AM EDT Office Visit [facility] MED & PEDS [address] [place] [address] Janett Hoyt MD [address] [place] [address] documented as of this encounter Visit Diagnoses Diagnosis Right upper quadrant pain Abdominal pain, right upper quadrant documented in this encounter Additional Health Concerns Assessment Noted Time PHQ-9 Depression Total Score: 0 10/27/19 25 2:31 PM EST documented as of this encounter Care Teams Paraprofessional Education Assistant Relationship Specialty Start Date End Date Janett Hoyt MD [address] [place] [address] PCP - General Internal Medicine 02/26/19 documented as of this encounter
--- OUTSIDE RECORDS SUMMARY | 2024-12-06 12:06 | XMS_ITS | Encounter Summary ---
Author Organization [employer] Address [address] [facility] 7[address] [place] [address] Care Team Providers Care Assistant Grocery Name Role Phone Janett Hoyt MD Primary Care Provider [phone] Encounter Details Date Type Department Care Team ([facility] st Contact Info) Description 04/14/2024 Orders Only [facility] CHC MED & PEDS [address] [place], [place] [phone] Janett Hoyt MD [address] [place], [place] [phone] Primary hypertension (Primary Dx) Social History Tobacco Use Types Packs/Day Years Used Date Smoking Tobacco: Never Passive Smoke Exposure: Never Smokeless Tobacco: Never Alcohol Use Standard Drinks/Week Comments Never 0 (1 standard drink = 0.6 oz pur e alcohol) Depression Answer Date Recorded Patient Health Questionnaire-9 Score 0 12/03/2022 Housing Stability Answer Date Recorded What is your housing situation today? I have [address] 07/28/[address] you li ve. Do you have problems with any of the following? None of the above 07/28/2023 Food Insecurity Answer Date Recorded Within the past 12 months, y ou worried that your food would run out before you got money to buy more: Never True 07/28/2023 Within the past 12 months,th e food you bought just didn't last and you didn't have enough money to get more: Never True Transportation Answer Date Recorded In the past 12 months, has l ack of transportation kept you from medical appts, meetings, work or from getting things needed for daily living? No 07/28/2023 Utilities Answer Date Recorded In the past 12 months, has t he electric, gas, oil or water company threatened to shut off services in your home? No 07/28/2023 Depression Answer Date Recorded Patient Health Questionnaire-2 [...] Description 12/22/2024 11:00 AM EDT Clinical Support [facility] MED & PEDS [address] [place] [address] Kaylen Townsend RN [address] [place] [address] 01/24/2025 11:00 AM EDT Office Visit [facility] MED & PEDS [address] [place] [address] Janett Hoyt MD [address] [place] [address] documented as of this encounter Visit Diagnoses Diagnosis Primary hypertension- Primary Unspecified essential hypertension documented in this encounter Additional Health Concerns Assessment Noted Time PHQ-9 Depression Total Score: 0 12/03/19 23 9:31 AM EST documented as of this encounter Care Teams Assistant Grocery Relationship Specialty Start Date End Date Janett Hoyt MD [address] [place] [address] PCP - General Internal Medicine 02/26/19 documented as of this encounter
--- OUTSIDE RECORDS SUMMARY | 2024-12-06 12:06 | XMS_ITS | Encounter Summary ---
Author Organization [employer] Address [address] [facility] [address]t [place] [address] Care Team Providers Care Roller Picker Name Role Phone Janett Hoyt MD Primary Care Provider [phone] Encounter Details Date Type Department Care Team ([facility] st Contact Info) Description 03/30/2024 Orders Only [facility] CHC MED & PEDS [address] [place], [place] [phone] Janett Hoyt MD [address] [place], [place] [phone] Social History Tobacco Use Types Packs/Day Years Used Date Smoking Tobacco: Never Passive Smoke Exposure: Never Smokeless Tobacco: Never Alcohol Use Standard Drinks/Week Comments Never 0 (1 standard drink = 0.6 oz pur e alcohol) Depression Answer Date Recorded Patient Health Questionnaire-9 Score 0 12/03/2022 Housing Stability Answer Date Recorded What is your housing situation today? I have [address] 07/28/[address] you [...] Description 12/22/2024 11:00 AM EDT Clinical Support [facility] MED & PEDS [address] [place] [address] Kaylen Townsend RN [address] [place] [address] 01/24/2025 11:00 AM EDT Office Visit [facility] MED & PEDS [address] [place] [address] Janett Hoyt MD [address] [place] [address] documented as of this encounter Visit Diagnoses Not on filedocumented in this encounter Additional Health Concerns Assessment Noted Time PHQ-9 Depression Total Score: 0 12/03/19 23 9:31 AM EST documented as of this encounter Care Teams Roller Picker Relationship Specialty Start Date End Date Janett Hoyt MD [address] [place] [address] PCP - General Internal Medicine 02/26/19 documented as of this encounter
--- OUTSIDE RECORDS SUMMARY | 2024-12-06 12:06 | XMS_ITS | Encounter Summary ---
Author Organization [employer] Address [address] [facility] 7t [place] [address] Care Team Providers Care Editor Producer Name Role Phone Janett Hoyt MD Primary Care Provider [phone] Reason for Visit * Reason Onset Date Comments Med Refill 12/01/2024 Encounter Details Date Type Department Care Team ([facility] st Contact Info) Description 12/01/2024 Refill [facility] CHC MED & PEDS [address] [place], [place] [phone] Janett Hoyt MD [address] [place] [address] Multiple joint pain Social History Tobacco Use Types Packs/Day [...] AM EDT documented as of this encounter Miscellaneous Notes * Telephone Encounter - Bolivar Sampson - 12/01/2024 10:49 AM EST Pt walked in requesting the following med refills: Tramadol 50 mg tab documented in this encounter Plan of Treatment Upcoming Encounters Date Type Department Care Team ([facility] st Contact Info) Description 12/22/2024 11:00 AM EDT Clinical Support [facility] MED & PEDS [address] [place] [address] Kaylen Townsend RN [address] [place] [address] 01/24/2025 11:00 AM EDT Office Visit [facility] MED & PEDS [address] [place] [address] Janett Hoyt MD [address] [place] [address] documented as of this encounter Visit Diagnoses Diagnosis Multiple joint pain Pain in joint, multiple sites documented in this encounter Additional Health Concerns Assessment Noted Time PHQ-9 Depression Total Score: 0 10/27/19 25 2:31 PM EST documented as of this encounter Care Teams Editor Producer Relationship Specialty Start Date End Date Janett Hoyt MD [address] [place] [address] PCP - General Internal Medicine 02/26/19 documented as of this encounter
--- OUTSIDE RECORDS SUMMARY | 2024-12-06 12:06 | XMS_ITS | Encounter Summary ---
Author Organization [employer] Address [address] [facility] [address] [place] [address] Care Team Providers Care Machine Adjuster Leader Name Role Phone Janett Hoyt MD Primary Care Provider [phone] [phone] Encounter Details Date Type Department Care Team ([facility] st Contact Info) Description 04/29/2024 Orders Only [facility] CHC MED & PEDS [address] [place], [place] [phone] Janett Hoyt MD [address] [place], [place] [phone] Primary hypertension (Primary Dx); Other osteoporosis without current pathological fracture Social History Tobacco Use Types Packs/Day Years [...] Description 12/22/2024 11:00 AM EDT Clinical Support [facility] MED & PEDS [address] [place] [address] Kaylen Townsend RN [address] [place] [address] 01/24/2025 11:00 AM EDT Office Visit [facility] MED & PEDS [address] [place] [address] Janett Hoyt MD [address] [place] [address] documented as of this encounter Visit Diagnoses Diagnosis Primary hypertension- Primary Unspecified essential hypertension Other osteoporosis without current pathological fracture documented in this encounter Additional Health Concerns Assessment Noted Time PHQ-9 Depression Total Score: 0 12/03/19 23 9:31 AM EST documented as of this encounter Care Teams Machine Adjuster Leader Relationship Specialty Start Date End Date Janett Hoyt MD [address] [place] [address] PCP - General Internal Medicine 02/26/19 documented as of this encounter
--- OUTSIDE RECORDS SUMMARY | 2024-12-06 12:06 | XMS_ITS | Encounter Summary ---
Author Organization [employer] Address [address] [facility] [address] [place] [address] Care Team Providers Care Respiratory Physician Name Role Phone Janett Hoyt MD Primary Care Provider [phone] Reason for Visit * Reason Onset Date Comments Referral 11/11/2024 Encounter Details Date Type Department Care Team ([facility] Contact Info) Description 11/11/2024 Telephone [facility] CHC MED & PEDS [address] [place] [address] Janett Hoyt MD [address] [place] [address] Referral Social History Tobacco Use Types Packs/Day Years [...] encounter Miscellaneous Notes * Telephone Encounter - Mansi Baker RN - 11/12/2024 10:34 AM EST TC to patient x 2. No answer and unable to leave message. * Telephone Encounter - Bolivar Sampson - 11/11/2024 12:21 PM EST Pt walked in requesting a referral to see casino supervisor mentioned she was seeing one but has now retired. documented in this encounter Plan of Treatment Upcoming Encounters Date Type Department Care Team ([facility] st Contact Info) Description 12/22/2024 11:00 AM EDT Clinical Support [facility] MED & PEDS [address] [place] [address] Kaylen Townsend, KENISHA [address] [place] [address] 01/24/2025 11:00 AM EDT Office Visit [facility] MED & PEDS [address] [place] [address] Janett Hoyt MD [address] [place] [address] documented as of this encounter Visit Diagnoses Not on filedocumented in this encounter Additional Health Concerns Assessment Noted Time PHQ-9 Depression Total Score: 0 10/27/19 25 2:31 PM EST documented as of this encounter Care Teams Respiratory Physician Relationship Specialty Start Date End Date Janett Hoyt MD [address] [place] [address] PCP - General Internal Medicine 02/26/19 documented as of this encounter
--- OUTSIDE RECORDS SUMMARY | 2024-12-06 12:06 | XMS_ITS | Encounter Summary ---
Author Organization [employer] Address 75 [facility] 7t [place] [address] Care Team Providers Care Bilingual Counter Sales Retail Name Role Phone Janett Hoyt MD Primary Care Provider [phone] Encounter Details Date Type Department Care Team ([facility] st Contact Info) Description 07/28/2023 Orders Only [facility] CHC MED & PEDS [address] [place], [place] [phone] Janett Hoyt MD 505 [place], [place] [phone] Social History Tobacco Use Types Packs/Day Years [...] Upcoming Encounters Date Type Department Care Team ([facility] st Contact Info) Description 12/22/2024 11:00 AM EDT Clinical Support [facility] MED & PEDS 505 [place] [address] Kaylen Townsend RN 505 [place] [address] 01/24/2025 11:00 AM EDT Office Visit [facility] MED & PEDS [address] [place] [address] Janett Hoyt MD 505 [place] [address] documented as of this encounter Procedures Procedure Name Priority Date/Time Associated Diagnosis Comments CULTURE, URINE, ROUTINE Routine 07/28/2023 10:15 AM EDT documented in this encounter Results * Culture, Urine, Routine (07/28/2023 10:15 AM EDT) Urine Urine specimen obtained by clean catch procedure / Unknown 07/28/2023 10:15 AM EDT 07/28/2023 5:45 PM EDT Comment:[facility] - 07/30/2023 7:42 AM EDT Klebsiella pneumoniae Quant > 100,000 cfu/mL Klebsiella pneumoniae: Ampicillin >=32(R) Klebsiella pneumoniae: Ceftriaxone <=0.25(S) Klebsiella pneumoniae: Gentamicin <=1(S) Klebsiella pneumoniae: Levofloxacin <=0.12(S) Klebsiella pneumoniae: Nitrofurantoin 64(I) Klebsiella pneumoniae: Trimethoprim/Sulfamethoxazole <=20(S) Specimen Source: Urine clean catch us Anabelle Larose MD LAB MICROBIOLOGY - GENERAL OR DERABLES Final Result [facility] [address] [place] [address] [phone] documented in this encounter Visit Diagnoses Not on filedocumented in this encounter Additional Health Concerns Assessment Noted Time PHQ-9 Depression Total Score: 0 12/03/19 23 9:31 AM EST documented as of this encounter Care Teams Bilingual Counter Sales Retail Relationship Specialty Start Date End Date Janett Hoyt MD [address] [place] [address] PCP - General Internal Medicine 02/26/19 documented as of this encounter
== END 2024-12-06 11:22 | disposition home or self-care (01) ==
PROVIDERS: PCP Internal Medicine; Visit Provider Internal Medicine Endocrinology, Diabetes & Metabolism
DX: M81.0 Age-related osteoporosis without current pathological fracture (principal)
CPT/HCPCS: 99213

== ENCOUNTER → 2024-12-06 10:42 | Outpatient (BNVA) | payer MEDICARE, MEDICAID, SELFPAY | PROVIDERS: PCP Internal Medicine; Visit Provider Internal Medicine Endocrinology, Diabetes & Metabolism | DX: M81.0 Age-related osteoporosis without current pathological fracture (principal); Z78.0 Asymptomatic menopausal state; Z90.722 Acquired absence of ovaries, bilateral | CPT/HCPCS: 99212 ==

== ENCOUNTER 2024-12-14 13:00 | Outpatient (REF) | payer MEDICARE, MEDICAID, SELFPAY ==
[2024-12-14 13:23] LABS: MANUAL DIFF FLAG NO
[2024-12-14 13:58] LABS: Basophils Absolute Auto 0.1 X10*3/uL (0.0-0.2); Basophils Percent Auto 0.9 % (0-2); Eosinophils Absolute Auto 0.2 X10*3/uL (0.0-0.4); Eosinophils Percent Auto 2.7 % (0-4); Hematocrit 39.1 % (37.0-47.0); Hemoglobin 13.3 g/dl (12.0-16.0); Imm Gran Abs Auto 0.02 X10*3/uL (0.00-0.03); Imm Gran Pct Auto 0.3 % (0.0-0.4); Lymphocytes Absolute Auto 2.5 X10*3/uL (1.2-4.9); Lymphocytes Percent Auto 31.5 % (20-40); Mean Corpuscular Hemoglobin 30.6 pg (27.0-33.0); Mean Corpuscular Volume 90.1 fL (80.0-98.0); Mean Platelet Volume 12.3 fL (9.4-12.3); Monocytes Absolute Auto 0.7 X10*3/uL (0.1-1.2); Monocytes Percent Auto 8.3 % (2-11); Neutrophils Absolute Auto 4.4 x10*3/uL (2.0-8.3); Neutrophils Percent Auto 56.3 % (45-73); Platelet Count 190 X10*3/uL (160-400); Red Blood Count 4.34 X10*6/uL (4.20-5.50); Red Cell Distribution Width 13.2 % (11.0-16.0); White Blood Count 7.9 X10*3/uL (4.8-10.8)
[2024-12-14 14:36] LABS: C Reactive Protein 0.13 mg/dL (< or = 0.50)
[2024-12-14 14:40] LABS: Erythrocyte Sedimentation Rate 9 MM/HR (0-20)
--- OUTSIDE RECORDS SUMMARY | 2024-12-14 16:11 | XMS_ITS | Encounter Summary ---
Author Organization [employer] Address 75 [facility] 7t [place] [address] Care Team Providers Care Caustic Operator Name Role Phone Janett Hoyt MD Primary Care Provider [phone] Encounter Details Date Type Department Care Team ([facility] st Contact Info) Description 04/14/2024 Orders Only [facility] CHC MED & PEDS [address] [place], [place] [phone] Janett Hoyt MD 505 [place], [place] [phone] Primary hypertension (Primary Dx) Social History Tobacco [...] Description 12/22/2024 11:00 AM EDT Clinical Support [facility] MED & PEDS [address] [place] [address] Kaylen Townsend RN 505 [place] [address] 01/24/2025 11:00 AM EDT Office Visit [facility] MED & PEDS [address] [place] [address] Janett Hoyt MD 505 [place] [address] documented as of this encounter Visit Diagnoses Diagnosis Primary hypertension- Primary Unspecified essential hypertension documented in this encounter Additional Health Concerns Assessment Noted Time PHQ-9 Depression Total Score: 0 12/03/19 23 9:31 AM EST documented as of this encounter Care Teams Caustic Operator Relationship Specialty Start Date End Date Janett Hoyt MD 505 [place] [address] PCP - General Internal Medicine 02/26/19 documented as of this encounter
--- OUTSIDE RECORDS SUMMARY | 2024-12-14 16:11 | XMS_ITS | Encounter Summary ---
Author Organization [employer] Address [address] [place] [address] 7t [place] [address] Care Team Providers Care Hull And Deck Remover Name Role Phone Janett Hoyt MD Primary Care Provider [phone] Reason for Visit * Reason Comments Med Refill Encounter Details Date Type Department Care Team (Late Contact Info) Description 04/08/2023 Refill [facility] CHC MED & PEDS 505 [place], [place] [phone] Janett Hoyt MD 505 [place] [address] Social History Tobacco Use Types Packs/Day Years [...] Description 12/22/2024 11:00 AM EDT Clinical Support [facility] MED & PEDS 505 [place] [address] Kaylen Townsend, RN 505 [place] [address] 01/24/2025 11:00 AM EDT Office Visit [facility] MED & PEDS 505 [place] [address] Janett Hoyt MD 505 [place] [address] documented as of this encounter Visit Diagnoses Not on filedocumented in this encounter Additional Health Concerns Assessment Noted Time PHQ-9 Depression Total Score: 0 12/03/19 23 9:31 AM EST documented as of this encounter Care Teams Hull And Deck Remover Relationship Specialty Start Date End Date Janett Hoyt MD 505 [place] [address] PCP - General Internal Medicine 02/26/19 documented as of this encounter
--- OUTSIDE RECORDS SUMMARY | 2024-12-14 16:11 | XMS_ITS | Clinical Summary ---
Author Organization [employer] Address 75 [facility] 7t [place] [address] Care Team Providers Care Framing And Hanging Name Role Phone Janett Hoyt MD Primary Care Provider [phone] Allergies Active Allergy Reactions Criticality Noted Date [...] for severe pain. 30 tablet 025 Active traMADol (Ultram) 50 MG tabletIndications [...] 11/02/2019 Overview (12/20/2022): Seeing Dr. Laurie Orozco (rheum - [place]). Inflammatory labs 10/19/19 negative. 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/2018 [...] Encounters Date Type Department Care Team Description 12/06/2024 Telephone [facility] MED & PEDS [address] [place] [address] Janett Hoyt MD Medication Question 12/01/2024 Refill [facility] MED & PEDS [address] [place] [address] Janett Cano MD Multiple joint pain 11/11/2024 Telephone [facility] MED & PEDS [address] [place] [address] Janett Quintana MD Referral 11/08/2024 Refill [facility] MED & PEDS [address] [place] [address] Janett Quintana MD Right upper quadrant pain 11/02/2024 Refill [facility] MED & PEDS [address] [place] [address] Janett Cano MD Multiple joint pain 10/27/2024 2:15 PM EST Office Visit [facility] MED & PEDS [address] [place] [address] Janett Hoyt MD Recurrent sinus infections (Primary Dx); Primary hypertension 10/27/2024 Travel 10/26/2024 Telephone [facility] MED & PEDS [address] [place] [address] Janett Hoyt MD Chart Prep 10/26/2024 Telephone [facility] MED & PEDS [address] [place] [address] Janett Hoyt MD triage 10/19/2024 Travel 09/29/2024 Telephone [facility] MED & PEDS [address] [place] [address] Janett Hoyt MD Medication 09/28/2024 Refill [facility] MED & PEDS [address] [place] [address] Airam Britton MD Vertigo 09/22/2024 11:00 AM EST Clinical Support [facility] MED & PEDS [address] [place] [address] Kaylen Townsend, KENISHA Multiple joint pain 09/22/2024 Refill [facility] MED & PEDS [address] [place] [address] Kaylen Townsend, KENISHA Multiple joint pain 09/22/2024 Telephone [facility] MED & PEDS [address] [place] [address] Kaylen Townsend, KENISHA 09/22/2024 Travel from Last 3 Months Immunizations [...] [facility] [address] [place] [address] Kaylen Townsend RN [address] [place] [address] 01/24/2025 11:00 AM EDT Office Visit [facility] MED & PEDS [address] [place] [address] Janett Hoyt MD 505 [place] [address] Health Maintenance Due Date Last Done Comments [...] Unknown 09/22/2024 11:09 AM EST Narrative Kaylen Townsend, KENISHA - 09/22/2024 11:09 AM EST negative for THC, MOP, OXY, CHRISTINA, MET, AMP, BZO, BAR, MTD, BUPG, TCA, MDMA, PCP, PPX. Lot# [id number] Exp: 09-18-25 us Janett Hoyt MD POINT OF CARE TEST ENTER/ED IT ORDERABLES Final Result * Lipid Panel, Standard (11/03/2023 9:33 AM EST) Triglycerides 71 <150 mg/dL [facility] Comment:Desirable Triglyceri de: less than 150 mg/dLBorderline High Triglyceride 150-199 mg/dLHigh Triglyceride: 200-499 mg/dLVery High Triglyceride: greater than or equal to 5OO mg/dL Cholesterol 163 <200 mg/dL [facility] Comment:Desirable Cholestero l: less than 200 mg/dLBorderline High Cholesterol: 200-239 mg/dLHigh Cholesterol: greater than 239 mg/dL LDL Cholesterol Calculated 88 <100 mg/dL [facility] Comment:Desirable LDL: less than 100 mg/dLNear Optimal/Above Optimal LDL: 110- 129 mg/dLBorderline High LDL: 130-159 mg/dLHigh LDL: 160-189 mg/dLVery High LDL: greater than or equal to 190 mg/dL HDL Cholesterol 61 >40 mg/dL [facility] Comment:Desirable HDL: great er than 40 mg/dL Note: This HDL assay may give artificially low results in patients with liver disease. Blood Venous blood specimen / Unknown 11/03/2023 9:33 AM EST 11/03/2023 2:26 PM EST Janett Hoyt MD LAB BLOOD ORDERABLES Final Result [facility] [address] [place] [address] [phone] from Last 3 Months or Most Recently Relevant to Health Maintenance Insurance MEDICARE [facility] [id number] Care Teams Framing And Hanging Relationship Specialty Start Date End Date Janett Hoyt MD [address] [place] [address] [place] [address] PCP - General Internal Medicine 02/26/19
--- OUTSIDE RECORDS SUMMARY | 2024-12-14 16:11 | XMS_ITS | Encounter Summary ---
Author Organization [employer] Address 75 [facility] 7t [place] [address] Care Team Providers Care Sole Leveler Name Role Phone Janett Hoyt MD Primary Care Provider [phone] Reason for Visit * Reason Onset Date Comments Med Refill 12/01/2024 Encounter Details Date Type Department Care Team ([facility] st Contact Info) Description 12/01/2024 Refill [facility] CHC MED & PEDS [address] [place], [place] [phone] Janett Hoyt MD 505 [place] [address] Multiple joint pain Social History Tobacco Use [...] Upcoming Encounters Date Type Department Care Team ([facility] st Contact Info) Description 12/22/2024 11:00 AM EDT Clinical Support [facility] MED & PEDS [address] [place] [address] Kaylen Townsend RN 505 [place] [address] 01/24/2025 11:00 AM EDT Office Visit [facility] MED & PEDS [address] [place] [address] Janett Hoyt MD [address] [place] [address] documented as of this encounter Visit Diagnoses Diagnosis Multiple joint pain Pain in joint, multiple sites documented in this encounter Additional Health Concerns Assessment Noted Time PHQ-9 Depression Total Score: 0 10/27/19 25 2:31 PM EST documented as of this encounter Care Teams Sole Leveler Relationship Specialty Start Date End Date Janett Hoyt MD [address] [place] [address] PCP - General Internal Medicine 02/26/19 documented as of this encounter
--- OUTSIDE RECORDS SUMMARY | 2024-12-14 16:11 | XMS_ITS | Clinical Summary ---
Author Organization [facility] Address [address] [place] [address] Care Team Providers Care Network Cable Installer Name Role Phone Janett Hoyt MD Primary Care Provider [phone] Surgical History Surgery Date Site/Laterality Comments BLADDER SUSPENSION PROCEDURE: HISTORICAL BLADDER SUSPENSION OTHER SURGICAL HISTORY PROCEDURE: MS STAB PHLEBT VARICOSE VEINS 1 XTR 10-20 STAB INCS EYE SURGERY PROCEDURE: HISTORICAL EYE SURGERY; COMMENT: starbismus OTHER SURGICAL HISTORY PROCEDURE: MS RHINOPLASTY PRIMARY W/MAJOR SEPTAL REPAIR OTHER SURGICAL HISTORY PROCEDURE: HISTORICAL SUPRACERVICAL HYSTERECTOMY WITH BSO; COMMENT: BSO, fibroid uterus OTHER SURGICAL HISTORY 08/18/2002 PROCEDURE: (UGI) CONTRAST X-RAY OF UPPER GI TRACT; COMMENT: Normal COLONOSCOPY 12/04/2009 PROCEDURE: HISTORICAL COLONOSCOPY; COMMENT: Dr Stanley - normal colon to cecum. Repeat colonoscopy in 10 years. OTHER SURGICAL HISTORY 1982 PROCEDURE: MS PRTL THYROID LOBECTOMY UNI W/WO ISTHMUSECTOMY; COMMENT: left side - due to recurrent cysts EYE SURGERY 08/05/2014 PROCEDURE: MS TRABECULOPLASTY BY LASER SURGERY; COMMENT: right eye; iridotomy EYE SURGERY 08/19/2014 PROCEDURE: MS TRABECULOPLASTY BY LASER SURGERY; COMMENT: left eye OTHER SURGICAL HISTORY Right PROCEDURE: HISTORY OTHER; COMMENT: surgery for ptosis, [facility] VARICOSE VEIN SURGERY 2010 PROCEDURE: MS LIGJ DIVJ &/EXCJ VARICOSE VEIN CLUSTER 1 LEG; COMMENT: laser surgery; Dr. Ernandez BREAST BIOPSY Right PROCEDURE: BX BREAST; PERC NEEDLE CORE W/IMAG GUID; COMMENT: benign UPPER GASTROINTESTINAL ENDOSCOPY 06/16/2018 PROCEDURE: MS UPPER GI ENDOSCOPY PERFORMED; COMMENT: normal on PPI rx. UPPER GASTROINTESTINAL ENDOSCOPY 04/03/2015 PROCEDURE: MS UPPER GI ENDOSCOPY PERFORMED; COMMENT: normal Medical [...] Status Comments Brother Father 49yo suicide Mother [place], lung cancer , ulcers Mother's side Sister [...] (World Health Organization Fracture Risk Assessment) [facility] Department of Internal Medicine recommends using [...] alternative screening schedule based on mary Lui., [facility] October 31, 2011 for patients [...] years. (WorldHealth Organization Fracture Risk Assessment) [facility] Department of Internal Medicine recommendsusing National [...] alternative screening schedule based on mary Lui., [facility] for patients with osteopenia [...] Documents on File Type Date Recorded Patient Manufacturing Industrial Engineer Expl anation Health Care Decision (hx) 05/13/2019 AD CACERES DIRECTIVE Health Care Decision (hx) 05/13/2019 AD CACERES DIRECTIVE Health Care Decision (hx) 05/13/2019 AD CACERES DIRECTIVE Health Care Decision (hx) 05/13/2019 AD CACERES DIRECTIVE Health Care Decision (hx) 05/13/2019 AD CACERES DIRECTIVE Health Care Decision (hx) 05/13/2019 AD NICKI DIRECTIVE Care Teams Network Cable Installer Relationship Specialty Start Date End Date Janett Hoyt MD [address] [place] [address] PCP - General Internal Medicine 05/31/21
--- OUTSIDE RECORDS SUMMARY | 2024-12-14 16:11 | XMS_ITS | Encounter Summary ---
Author Organization [employer] Address 75 [facility] 7t [place] [address] Care Team Providers Care Stockroom Worker Name Role Phone Janett Hoyt MD Primary Care Provider [phone] Encounter Details Date Type Department Care Team ([facility] st Contact Info) Description 07/28/2023 Orders Only [facility] CHC MED & PEDS [address] [place], [place] [phone] Janett Hoyt MD [address] [place], [place] [phone] Social History Tobacco Use Types Packs/Day Years [...] Upcoming Encounters Date Type Department Care Team ([facility] st Contact Info) Description 12/22/2024 11:00 AM EDT Clinical Support [facility] MED & PEDS [address] [place] [address] Kaylen Townsend RN 505 [place] [address] 01/24/2025 11:00 AM EDT Office Visit [facility] MED & PEDS [address] [place] [address] Janett Hoyt MD [address] [place] [address] documented as of this encounter Procedures Procedure Name Priority Date/Time Associated Diagnosis Comments CULTURE, URINE, ROUTINE Routine 07/28/2023 10:15 AM EDT documented in this encounter Results * Culture, Urine, Routine (07/28/2023 10:15 AM EDT) Urine Urine specimen obtained by clean catch procedure / Unknown 07/28/2023 10:15 AM EDT 07/28/2023 5:45 PM EDT Comment:[facility] - 07/30/2023 7:42 AM EDT Klebsiella pneumoniae Quant > 100,000 cfu/mL Klebsiella pneumoniae: Ampicillin >=32(R) Klebsiella pneumoniae: Ceftriaxone <=0.25(S) Klebsiella pneumoniae: Gentamicin <=1(S) Klebsiella pneumoniae: Levofloxacin <=0.12(S) Klebsiella pneumoniae: Nitrofurantoin 64(I) Klebsiella pneumoniae: Trimethoprim/Sulfamethoxazole <=20(S) Specimen Source: Urine clean catch us Anabelle Larose MD LAB MICROBIOLOGY - GENERAL OR DERABLES Final Result [facility] [address] [place] [address] [phone] documented in this encounter Visit Diagnoses Not on filedocumented in this encounter Additional Health Concerns Assessment Noted Time PHQ-9 Depression Total Score: 0 12/03/19 23 9:31 AM EST documented as of this encounter Care Teams Stockroom Worker Relationship Specialty Start Date End Date Janett Hoyt MD [address] [place] [address] PCP - General Internal Medicine 02/26/19 documented as of this encounter
--- OUTSIDE RECORDS SUMMARY | 2024-12-14 16:11 | XMS_ITS | Encounter Summary ---
Author Organization [employer] Address 75 [facility] 7t [place] [address] Care Team Providers Care Fire Fighting Equipment Specialist Name Role Phone Janett Hoyt MD Primary Care Provider [phone] Encounter Details Date Type Department Care Team ([facility] st Contact Info) Description 04/29/2024 Orders Only [facility] CHC MED & PEDS [address] [place], [place] [phone] Janett Hoyt MD 505 [place], [place] [phone] Primary hypertension (Primary Dx); Other osteoporosis without [...] 11:00 AM EDT Clinical Support [facility] MED & PEDS [address] [place] [address] Kaylen Townsend RN 505 [place] [address] 01/24/2025 11:00 AM EDT Office Visit [facility] MED & PEDS [address] [place] [address] Janett Hoyt MD 505 [place] [address] documented as of this encounter Visit Diagnoses Diagnosis Primary hypertension- Primary Unspecified essential hypertension Other osteoporosis without current pathological fracture documented in this encounter Additional Health Concerns Assessment Noted Time PHQ-9 Depression Total Score: 0 12/03/19 23 9:31 AM EST documented as of this encounter Care Teams Fire Fighting Equipment Specialist Relationship Specialty Start Date End Date Janett Hoyt MD [address] [place] [address] PCP - General Internal Medicine 02/26/19 documented as of this encounter
--- OUTSIDE RECORDS SUMMARY | 2024-12-14 16:11 | XMS_ITS | Encounter Summary ---
Author Organization [employer] Address 75 [facility] 7t [place] [address] Care Team Providers Care Beauty Director Name Role Phone Janett Hoyt MD Primary Care Provider [phone] Encounter Details Date Type Department Care Team ([facility] st Contact Info) Description 06/28/2024 Orders Only [facility] CHC MED & PEDS [address] [place], [place] [phone] Janett Hoyt MD 505 [place], [place] [phone] Social History Tobacco Use Types Packs/Day Years [...] Description 12/22/2024 11:00 AM EDT Clinical Support [facility] MED & PEDS [address] [place] [address] Kaylen Townsend RN 505 [place] [address] 01/24/2025 11:00 AM EDT Office Visit [facility] MED & PEDS [address] [place] [address] Janett Hoyt MD 505 [place] [address] documented as of this encounter Visit Diagnoses Not on filedocumented in this encounter Additional Health Concerns Assessment Noted Time PHQ-9 Depression Total Score: 0 12/03/19 23 9:31 AM EST documented as of this encounter Care Teams Beauty Director Relationship Specialty Start Date End Date Janett Hoyt MD [address] [place] [address] PCP - General Internal Medicine 02/26/19 documented as of this encounter
--- OUTSIDE RECORDS SUMMARY | 2024-12-14 16:11 | XMS_ITS | Encounter Summary ---
Author Organization [employer] Address 75 [facility] 7t [place] [address] Care Team Providers Care Automotive Engineering Technician Name Role Phone Janett Hoyt MD Primary Care Provider [phone] Encounter Details Date Type Department Care Team ([facility] st Contact Info) Description 03/30/2024 Orders Only [facility] CHC MED & PEDS [address] [place], [place] [phone] Janett Hoyt MD 505 [place], [place] [phone] Social History Tobacco Use Types Packs/Day Years [...] 12/22/2024 11:00 AM EDT Clinical Support [facility] MED & PEDS [address] [place] [address] Kaylen Townsend RN 505 [place] [address] 01/24/2025 11:00 AM EDT Office Visit [facility] MED & PEDS [address] [place] [address] Janett Hoyt MD [address] [place] [address] documented as of this encounter Visit Diagnoses Not on filedocumented in this encounter Additional Health Concerns Assessment Noted Time PHQ-9 Depression Total Score: 0 12/03/19 23 9:31 AM EST documented as of this encounter Care Teams Automotive Engineering Technician Relationship Specialty Start Date End Date Janett Hoyt MD [address] [place] [address] PCP - General Internal Medicine 02/26/19 documented as of this encounter
--- OUTSIDE RECORDS SUMMARY | 2024-12-14 16:11 | XMS_ITS | Encounter Summary ---
Author Organization [employer] Address 75 [facility] 7t [place] [address] Care Team Providers Care Hvac Residential Service Technician Name Role Phone Janett Hoyt MD Primary Care Provider [phone] Reason for Visit * Reason Onset Date Comments Medication Question 12/06/2024 Encounter Details Date Type Department Care Team ([facility] Contact Info) Description 12/06/2024 Telephone [facility] CHC MED & PEDS [address] [place] [address] Janett Hoyt MD [address] [place] [address] Medication Question Social History Tobacco Use Types Packs/Day Years [...] encounter Miscellaneous Notes * Telephone Encounter - Delmi Randolph - 12/06/2024 12:44 PM EST Pt requesting to discontinue vitamin d3 25 mcg tabs. States its cheaper over the counter documented in this encounter Plan of Treatment Upcoming Encounters Date Type Department Care Team (Late st Contact Info) Description 12/22/2024 11:00 AM EDT Clinical Support [facility] MED & PEDS [address] [place] [address] Kaylen Townsend, KENISHA [address] [place] [address] 01/24/2025 11:00 AM EDT Office Visit [facility] MED & PEDS [address] [place] [address] Janett Hoyt MD [address] [place] [address] documented as of this encounter Visit Diagnoses Not on filedocumented in this encounter Additional Health Concerns Assessment Noted Time PHQ-9 Depression Total Score: 0 10/27/19 25 2:31 PM EST documented as of this encounter Care Teams Hvac Residential Service Technician Relationship Specialty Start Date End Date Janett Hoyt MD [address] [place] [address] PCP - General Internal Medicine 02/26/19 documented as of this encounter
== END 2024-12-14 13:01 | disposition home or self-care (01) ==
LOC: HO.LAB 13:00
PROVIDERS: PCP Internal Medicine; Visit Provider Registered Nurse
DX: G43.909 Migraine, unspecified, not intractable, without status migrainosus (principal)
CPT/HCPCS: 36415; 85025; 85652; 86140

== ENCOUNTER 2024-12-20 13:36 | Outpatient (REF) | payer MEDICARE, MEDICAID, SELFPAY ==
[2024-12-20 14:51] LABS: Albumin Level 3.9 g/dL (3.5-5.0); Anion Gap 11 (12-20); Blood Urea Nitrogen 20 mg/dL (9-16); Calcium 9.7 mg/dL (8.4-10.2); Carbon Dioxide 27 mmol/L (22-29); Chloride 108 mmol/L (96-108); Estimated Glomerular Filt Rate > 60; Glucose Random 108 mg/dL (60-115); Potassium 4.1 mmol/L (3.3-5.1); Sodium 142 mmol/L (135-145)
--- OUTSIDE RECORDS SUMMARY | 2024-12-20 15:22 | XMS_ITS | Encounter Summary ---
Author Organization [employer] Address [address] [facility] 7t [place] [address] Care Team Providers Care Computer Systems Engineer Name Role Phone Janett Hoyt MD Primary Care Provider [phone] Encounter Details Date Type Department Care Team (Late st Contact Info) Description 12/20/2024 Orders Only GENERIC EXTERNAL DATA DEPARTMENT Provider, Generic External Data Social History Tobacco Use Types Packs/Day Years [...] Upcoming Encounters Date Type Department Care Team ([facility] st Contact Info) Description 12/22/2024 11:00 AM EDT Clinical Support [facility] MED & PEDS [address] [place] [address] Kaylen Townsend RN 505 [place], [place] [phone] 01/24/2025 11:00 AM EDT Office Visit [facility] MED & PEDS [address] [place], [place] [phone] Janett Hoyt MD [address] [place] [address] documented as of this encounter Procedures Procedure Name Priority Date/Time Associated Diagnosis Comments ALBUMIN Routine 12/20/2024 1:49 PM EDT BASIC METABOLIC PANEL Routine 12/20/2024 1:49 PM EDT documented in this encounter Results * Albumin (12/20/2024 1:49 PM EDT) Albumin Level 3.9 3.5 - 5.0 g/dL [facility] 12/20/2024 1:49 PM EDT 12/20/2024 1:49 PM EDT us Generic External Data Provider LAB BLOOD ORDERAB LES Final Result [facility] [address] [place] [address] [phone] * (ABNORMAL) Basic Metabolic Panel (12/20/2024 1:49 PM EDT) Sodium 142 135 - 145 mmol/L [facility] Potassium 4.1 3.3 - 5.1 mmol/L [facility] Chloride 108 96 - 108 mmol/L [facility] Carbon Dioxide 27 22 - 29 mmol/L [facility] Anion Gap 11(L) 12 - 20 [facility] Urea Nitrogen (BUN) 20(H) 9 - 16 mg/dL [facility] Creatinine, Serum 0.77 0.5 - 1.4 mg/dL [facility] Estimated Glomerular Filt Rate >60 [facility] Comment:Chronic Kidney Disea se: Estimated GFR < 60 mL/min/[id number] Kidney Disease: Estimated GFR < 15 mL/min/1.73m2 Glucose 108 60 - 115 mg/dL [facility] Calcium 9.7 8.4 - 10.2 mg/dL [facility] 12/20/2024 1:4 9 PM EDT 12/20/2024 1:49 PM EDT us Generic External Data Provider LAB BLOOD ORDERAB LES Final Result [facility] [address] [place] [address] [phone] documented in this encounter Visit Diagnoses Not on filedocumented in this encounter Additional Health Concerns Assessment Noted Time PHQ-9 Depression Total Score: 0 10/27/19 25 2:31 PM EST documented as of this encounter Care Teams Computer Systems Engineer Relationship Specialty Start Date End Date Janett Hoyt MD [address] [place] [phone] PCP - General Internal Medicine 02/26/19 documented as of this encounter
--- OUTSIDE RECORDS SUMMARY | 2024-12-20 15:22 | XMS_ITS | Encounter Summary ---
Author Organization [employer] Address [address] [facility] 7t [place] [address] Care Team Providers Care Baler Name Role Phone Janett Hoyt MD Primary Care Provider [phone] Reason for Visit * Reason Onset Date Comments Med Refill 12/01/2024 Encounter Details Date Type Department Care Team ([facility] st Contact Info) Description 12/01/2024 Refill [facility] MED & PEDS [address] [place], [place] [phone] Janett Hoyt MD [address] [place] [address] Multiple joint pain Social History Tobacco Use [...] Upcoming Encounters Date Type Department Care Team ([facility] st Contact Info) Description 12/22/2024 11:00 AM EDT Clinical Support [facility] MED & PEDS [address] [place] [address] Kaylen Townsend RN [address] [place] [address] 01/24/2025 11:00 AM EDT Office Visit [facility] MED & PEDS [address] [place] [address] Janett Hoyt MD 505 [place] [address] documented as of this encounter Visit Diagnoses Diagnosis Multiple joint pain Pain in joint, multiple sites documented in this encounter Additional Health Concerns Assessment Noted Time PHQ-9 Depression Total Score: 0 10/27/19 25 2:31 PM EST documented as of this encounter Care Teams Baler Relationship Specialty Start Date End Date Janett Hoyt MD [address] [place] [phone] PCP - General Internal Medicine 02/26/19 documented as of this encounter
--- OUTSIDE RECORDS SUMMARY | 2024-12-20 15:22 | XMS_ITS | Encounter Summary ---
Author Organization [id number] Address [address] [facility] 7t [place] [address] Care Team Providers Care Social Work Professor Name Role Phone Janett Hoyt MD Primary Care Provider [phone] Encounter Details Date Type Department Care Team ([facility] st Contact Info) Description 04/14/2024 Orders Only [facility] CH[facility] MED & PEDS [address] [place], [place] [phone] Janett Hoyt MD 505 [place], [place] [phone] Primary hypertension (Primary Dx) Social History Tobacco [...] 11:00 AM EDT Clinical Support [facility] MED & PEDS [address] [place] [address] Kaylen Townsend RN [address] [place] [address] 01/24/2025 11:00 AM EDT Office Visit [facility] MED & PEDS [address] [place] [address] Janett Hoyt MD 505 [place] [address] documented as of this encounter Visit Diagnoses Diagnosis Primary hypertension- Primary Unspecified essential hypertension documented in this encounter Additional Health Concerns Assessment Noted Time PHQ-9 Depression Total Score: 0 12/03/19 23 9:31 AM EST documented as of this encounter Care Teams Social Work Professor Relationship Specialty Start Date End Date Janett Hoyt MD 505 [place] [address] PCP - General Internal Medicine 02/26/19 documented as of this encounter
--- OUTSIDE RECORDS SUMMARY | 2024-12-20 15:22 | XMS_ITS | Encounter Summary ---
Author Organization [employer] Address [address] [facility] 7t [place] [address] Care Team Providers Care Chief Of Police Name Role Phone Janett Hoyt MD Primary Care Provider [phone] Reason for Visit * Reason Onset Date Comments Medication Question 12/06/2024 Encounter Details Date Type Department Care Team ([facility] Contact Info) Description 12/06/2024 Telephone [facility] MED & PEDS [address] [place] [address] Janett Hoyt MD 505 [place] [address] Medication Question Social History Tobacco Use Types [...] [facility] [address] [place] [address] Kaylen Townsend, KENISHA 505 [place] [address] 01/24/2025 11:00 AM EDT Office Visit [facility] MED & PEDS [address] [place] [address] Janett Hoyt MD [address] [place] [address] documented as of this encounter Visit Diagnoses Not on filedocumented in this encounter Additional Health Concerns Assessment Noted Time PHQ-9 Depression Total Score: 0 10/27/19 25 2:31 PM EST documented as of this encounter Care Teams Chief Of Police Relationship Specialty Start Date End Date Janett Hoyt MD [address] [place] [address] PCP - General Internal Medicine 02/26/19 documented as of this encounter
--- OUTSIDE RECORDS SUMMARY | 2024-12-20 15:22 | XMS_ITS | Encounter Summary ---
Author Organization [employer] Address [address] [facility] 7t [place] [address] Care Team Providers Care Supervisor Cloth Winding Name Role Phone Janett Hoyt MD Primary Care Provider [phone] Encounter Details Date Type Department Care Team ([facility] st Contact Info) Description 03/30/2024 Orders Only [facility] CHC MED & PEDS [address] [place], [place] [phone] Janett Hoyt MD [address] [place], [place] [phone] Social History Tobacco Use Types Packs/Day Years [...] Description 12/22/2024 11:00 AM EDT Clinical Support [facility] MED & PEDS [address] [place] [address] Kaylen Townsend RN 505 [place] [address] 01/24/2025 11:00 AM EDT Office Visit [facility] MED & PEDS [address] [place] [address] Janett Hoyt MD [address] [place] [address] documented as of this encounter Visit Diagnoses Not on filedocumented in this encounter Additional Health Concerns Assessment Noted Time PHQ-9 Depression Total Score: 0 12/03/19 23 9:31 AM EST documented as of this encounter Care Teams Supervisor Cloth Winding Relationship Specialty Start Date End Date Janett Hoyt MD [address] [place] [address] PCP - General Internal Medicine 02/26/19 documented as of this encounter
--- OUTSIDE RECORDS SUMMARY | 2024-12-20 15:22 | XMS_ITS | Encounter Summary ---
Author Organization [employer] Address [address] [facility] 7t [place] [address] Care Team Providers Care Child Care Associate Name Role Phone Janett Hoyt MD Primary Care Provider [phone] Encounter Details Date Type Department Care Team ([facility] st Contact Info) Description 06/28/2024 Orders Only [facility] CHC MED & PEDS [address] [place], [place] [phone] Janett Hoyt MD [address] [place], [place] [phone] Social History Tobacco Use Types Packs/Day Years [...] Description 12/22/2024 11:00 AM EDT Clinical Support [facility] MED & PEDS [address] [place] [address] Kaylen Townsend RN 505 [place] [address] 01/24/2025 11:00 AM EDT Office Visit [facility] MED & PEDS [address] [place] [address] Janett Hoyt MD [address] [place] [address] documented as of this encounter Visit Diagnoses Not on filedocumented in this encounter Additional Health Concerns Assessment Noted Time PHQ-9 Depression Total Score: 0 12/03/19 23 9:31 AM EST documented as of this encounter Care Teams Child Care Associate Relationship Specialty Start Date End Date Janett Hoyt MD [address] [place] [address] PCP - General Internal Medicine 02/26/19 documented as of this encounter
--- OUTSIDE RECORDS SUMMARY | 2024-12-20 15:22 | XMS_ITS | Encounter Summary ---
Author Organization [email or web address] Address [address] [facility] 7t [place] [address] Care Team Providers Care Abrasive Sawyer Name Role Phone Janett Hoyt MD Primary Care Provider [phone] Encounter Details Date Type Department Care Team ([facility] st Contact Info) Description 04/29/2024 Orders Only [facility] CHC MED & PEDS [address] [place], [place] [phone] Janett Hoyt MD 505 [place], [place] [phone] Primary hypertension (Primary Dx); Other osteoporosis without [...] Description 12/22/2024 11:00 AM EDT Clinical Support [facility] MED & PEDS [address] [place] [address] Kaylen Townsend RN 505 [place] [address] 01/24/2025 11:00 AM EDT Office Visit [facility] MED & PEDS [address] [place] [address] Janett Hoyt MD [address] [place] [address] documented as of this encounter Visit Diagnoses Diagnosis Primary hypertension- Primary Unspecified essential hypertension Other osteoporosis without current pathological fracture documented in this encounter Additional Health Concerns Assessment Noted Time PHQ-9 Depression Total Score: 0 12/03/19 23 9:31 AM EST documented as of this encounter Care Teams Abrasive Sawyer Relationship Specialty Start Date End Date Janett Hoyt MD [address] [place] [address] PCP - General Internal Medicine 02/26/19 documented as of this encounter
--- OUTSIDE RECORDS SUMMARY | 2024-12-20 15:22 | XMS_ITS | Encounter Summary ---
Author Organization [email or web address] Address [address] [facility] 7t [place] [address] Care Team Providers Care Cesspool Cleaner Name Role Phone Janett Hoyt MD Primary Care Provider [phone] Encounter Details Date Type Department Care Team ([facility] st Contact Info) Description 07/28/2023 Orders Only [facility] CHC MED & PEDS [address] [place], [place] [phone] Janett Hoyt MD [address] [place], [place] [phone] Social History Tobacco Use Types Packs/Day Years [...] Upcoming Encounters Date Type Department Care Team ([facility] st Contact Info) Description 12/22/2024 11:00 AM EDT Clinical Support [facility] MED & PEDS [address] [place] [address] Kaylen Townsend RN [address] [place] [address] 01/24/2025 11:00 AM EDT Office Visit [facility] MED & PEDS [address] [place] [address] Janett Hoyt MD [address] [place] [address] documented as of this encounter Procedures Procedure Name Priority Date/Time Associated Diagnosis Comments CULTURE, URINE, ROUTINE Routine 07/28/2023 10:15 AM EDT documented in this encounter Results * Culture, Urine, Routine (07/28/2023 10:15 AM EDT) Urine Urine specimen obtained by clean catch procedure / Unknown 07/28/2023 10:15 AM EDT 07/28/2023 5:45 PM EDT Comment:[facility] - 07/30/2023 7:42 AM EDT Klebsiella pneumoniae Quant > 100,000 cfu/mL Klebsiella pneumoniae: Ampicillin >=32(R) Klebsiella pneumoniae: Ceftriaxone <=0.25(S) Klebsiella pneumoniae: Gentamicin <=1(S) Klebsiella pneumoniae: Levofloxacin <=0.12(S) Klebsiella pneumoniae: Nitrofurantoin 64(I) Klebsiella pneumoniae: Trimethoprim/Sulfamethoxazole <=20(S) Specimen Source: Urine clean catch us Anabelle Larose MD LAB MICROBIOLOGY - GENERAL OR DERABLES Final Result [facility] [address] [place] [address] [phone] documented in this encounter Visit Diagnoses Not on filedocumented in this encounter Additional Health Concerns Assessment Noted Time PHQ-9 Depression Total Score: 0 12/03/19 23 9:31 AM EST documented as of this encounter Care Teams Cesspool Cleaner Relationship Specialty Start Date End Date Janett Hoyt MD [address] [place] [address] PCP - General Internal Medicine 02/26/19 documented as of this encounter
--- OUTSIDE RECORDS SUMMARY | 2024-12-20 15:22 | XMS_ITS | Clinical Summary ---
Author Organization [employer] Address [address] [facility] 7t [place] [address] Care Team Providers Care Cleaning Attendant Name Role Phone Janett Hoyt MD Primary Care Provider [phone] Allergies Active Allergy Reactions Criticality Noted Date [...] (12/20/2022): Seeing Dr. Laurie Orozco (rheum - [place]). Inflammatory labs 10/19/19 negative. 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/2018 [...] Encounters Date Type Department Care Team Description 12/20/2024 Orders Only GENERIC EXTERNAL DATA DEPARTMENT Provider, Generic External Data 12/06/[address] [facility] MED & PEDS [address] [place] [address] Janett Hoyt MD Medication Question 12/01/[address] [facility] & PEDS [address] [place] [address] Janett Cano MD Multiple joint pain 11/11/[address] [facility] & PEDS [address] [place] [address] Janett Cano MD Referral 11/08/[address] [facility] & PEDS [address] [place] [address] Janett Cano MD Right upper quadrant pain 11/02/[address] [facility] PEDS [address] [place] [address] Janett Quintana MD Multiple joint pain 10/27/2024 2:15 PM EST Office Visit [facility] MED & PEDS [address] [place] [address] Janett Cano MD Recurrent sinus infections (Primary Dx); Primary hypertension 10/27/2024 Travel 10/26/[address] [facility] MED & PEDS 505 [place] [address] Janett Hoyt MD Chart Prep 10/26/[address] [facility] PEDS [address] [place] [address] Janett Hoyt MD triage 10/19/2024 Travel 09/29/[address] [facility] PEDS [address] [place] [address] Janett Hoyt MD Medication 09/28/[address] [facility] & PEDS [address] [place] [address] Airam Britton MD Vertigo 09/22/2024 11:00 AM EST Clinical Support [facility] MED & PEDS [address] [place] [address] Kaylen Townsend, KENISHA Multiple joint pain 09/22/[address] [facility] & PEDS [address] [place] [address] Kaylen Townsend, KENISHA Multiple joint pain 09/22/[address] [facility] MED & PEDS [address] [place] [address] Kaylen Townsend, RN 09/22/2024 Travel from Last [...] [facility] [address] [place] [address] Kaylen Townsend, KENISHA [address] [place] [address] 01/24/2025 11:00 AM EDT Office Visit [facility] MED & PEDS [address] [place] [address] Janett Hoyt MD 505 [place] [address] Health Maintenance Due Date Last Done Comments [...] METABOLIC PANEL Routine 12/20/2024 1:49 PM EDT POCT YVETTE-14 URINE DRUG SCREEN Routine 09/22/2024 11:09 AM EST Multiple joint pain LIPID PANEL, STANDARD Routine 11/03/2023 9:33 AM EST Primary hypertension from Last 3 Months or Most Recently Relevant to Health Maintenance Results * Albumin (12/20/2024 1:49 PM EDT) Albumin Level 3.9 3.5 - 5.0 g/dL [facility] 12/20/2024 1:49 PM EDT 12/20/2024 1:49 PM EDT us Generic External Data Provider LAB BLOOD ORDERAB LES Final Result Performing Organization Address City/[facility] de Phone Number [facility] [address] [place] [address] [phone] * (ABNORMAL) Basic Metabolic Panel (12/20/2024 1:49 PM EDT) Sodium 142 135 - 145 mmol/L [facility] Potassium 4.1 3.3 - 5.1 mmol/L [facility] Chloride 108 96 - 108 mmol/L [facility] Carbon Dioxide 27 22 - 29 mmol/L [facility] Anion Gap 11(L) 12 - 20 [facility] Urea Nitrogen (BUN) 20(H) 9 - 16 mg/dL [facility] Creatinine, Serum 0.77 0.5 - 1.4 mg/dL [facility] Estimated Glomerular Filt Rate >60 [facility] Comment:Chronic Kidney Disea se: Estimated GFR < 60 mL/min/[id number] Kidney Disease: Estimated GFR < 15 mL/min/1.73m2 Glucose 108 60 - 115 mg/dL [facility] Calcium 9.7 8.4 - 10.2 mg/dL [facility] 12/20/2024 1:49 PM EDT 12/20/2024 1:49 PM EDT us Generic External Data Provider LAB BLOOD ORDERAB LES Final Result Performing Organization Address [facility] de Phone Number [facility] [address] [place] [phone] * POCT YVETTE-14 Urine Drug Screen (09/22/2024 11:09 AM EST) Urine Urine specimen obtained by clean catch procedure / Unknown 09/22/2024 11:09 AM EST Narrative Kaylen Townsend RN - 09/22/2024 11:09 AM EST negative for THC, MOP, OXY, CHRISTINA, MET, AMP, BZO, BAR, MTD, BUPG, TCA, MDMA, PCP, PPX. Lot# [id number] Exp: 09-18-25 us Janett Hoyt MD POINT OF CARE TEST ENTER/ED IT ORDERABLES Final Result * Lipid Panel, Standard (11/03/2023 9:33 AM EST) Triglycerides 71 <150 mg/dL [facility] Comment:Desirable Triglyceri de: less than 150 mg/dLBorderline High Triglyceride 150-199 mg/dLHigh Triglyceride: 200-499 mg/dLVery High Triglyceride: greater than or equal to 5OO mg/dL Cholesterol 163 <200 mg/dL [facility] Comment:Desirable Cholestero l: less than 200 mg/dLBorderline High Cholesterol: 200-239 mg/dLHigh Cholesterol: greater than 239 mg/dL LDL Cholesterol Calculated 88 <100 mg/dL [facility] Comment:Desirable LDL: less than 100 mg/dLNear Optimal/Above Optimal LDL: 110- 129 mg/dLBorderline High LDL: 130-159 mg/dLHigh LDL: 160-189 mg/dLVery High LDL: greater than or equal to 190 mg/dL HDL Cholesterol 61 >40 mg/dL [facility] Comment:Desirable HDL: great er than 40 mg/dL Note: This HDL assay may give artificially low results in patients with liver disease. Blood Venous blood specimen / Unknown 11/03/2023 9:33 AM EST 11/03/2023 2:26 PM EST us Janett Hoyt MD LAB BLOOD ORDERABLES Final Result [facility] [address] [place] [phone] from Last 3 Months or Most Recently Relevant to Health Maintenance Insurance [place] [phone] [place] [id number] [place] [id number] [place] [id number] Care Teams Cleaning Attendant Relationship Specialty Start Date End Date Janett Hoyt MD [address] [place] [address] [place] [address] PCP - General Internal Medicine 02/26/19
--- OUTSIDE RECORDS SUMMARY | 2024-12-20 15:22 | XMS_ITS | Clinical Summary ---
Author Organization [facility] Address [address] [place] [address] Care Team Providers Care Associate Counsel Name Role Phone Janett Hoyt MD Primary Care Provider [phone] Surgical History Surgery Date Site/Laterality Comments BLADDER SUSPENSION PROCEDURE: HISTORICAL BLADDER SUSPENSION OTHER SURGICAL HISTORY PROCEDURE: HI STAB PHLEBT VARICOSE VEINS 1 XTR 10-20 STAB INCS EYE SURGERY PROCEDURE: HISTORICAL EYE SURGERY; COMMENT: starbismus OTHER SURGICAL HISTORY PROCEDURE: HI RHINOPLASTY PRIMARY W/MAJOR SEPTAL REPAIR OTHER SURGICAL HISTORY PROCEDURE: HISTORICAL SUPRACERVICAL HYSTERECTOMY WITH BSO; COMMENT: BSO, fibroid uterus OTHER SURGICAL HISTORY 08/18/2002 PROCEDURE: (UGI) CONTRAST X-RAY OF UPPER GI TRACT; COMMENT: Normal COLONOSCOPY 12/04/2009 PROCEDURE: HISTORICAL COLONOSCOPY; COMMENT: Dr Stanley - normal colon to cecum. Repeat colonoscopy in 10 years. OTHER SURGICAL HISTORY 1982 PROCEDURE: HI PRTL THYROID LOBECTOMY UNI W/WO ISTHMUSECTOMY; COMMENT: left side - due to recurrent cysts EYE SURGERY 08/05/2014 PROCEDURE: HI TRABECULOPLASTY BY LASER SURGERY; COMMENT: right eye; iridotomy EYE SURGERY 08/19/2014 PROCEDURE: HI TRABECULOPLASTY BY LASER SURGERY; COMMENT: left eye OTHER SURGICAL HISTORY Right PROCEDURE: HISTORY OTHER; COMMENT: surgery for ptosis, [facility] VARICOSE VEIN SURGERY 2010 PROCEDURE: HI LIGJ DIVJ &/EXCJ VARICOSE VEIN CLUSTER 1 LEG; COMMENT: laser surgery; Dr. Ernandez BREAST BIOPSY Right PROCEDURE: BX BREAST; PERC NEEDLE CORE W/IMAG GUID; COMMENT: benign UPPER GASTROINTESTINAL ENDOSCOPY 06/16/2018 PROCEDURE: HI UPPER GI ENDOSCOPY PERFORMED; COMMENT: normal on PPI rx. UPPER GASTROINTESTINAL ENDOSCOPY 04/03/2015 PROCEDURE: HI UPPER GI ENDOSCOPY PERFORMED; COMMENT: normal Medical [...] Status Comments Brother Father 49yo suicide Mother ID, lung cancer , ulcers Mother's side Sister [...] (World Health Organization Fracture Risk Assessment) [facility] Department of Internal Medicine recommends using [...] alternative screening schedule based on mary Lui., [facility] October 31, 2011 for patients with osteopenia [...] years. (WorldHealth Organization Fracture Risk Assessment) [facility] Department of Internal Medicine recommendsusing National [...] alternative screening schedule based on mary Lui., [facility] for patients with osteopenia (based on [...] Documents on File Type Date Recorded Patient Channel Business Manager Expl anation Health Care Decision (hx) 05/13/2019 AD CACERES DIRECTIVE Health Care Decision (hx) 05/13/2019 AD CACERES DIRECTIVE Health Care Decision (hx) 05/13/2019 AD CACERES DIRECTIVE Health Care Decision (hx) 05/13/2019 AD CACERES DIRECTIVE Health Care Decision (hx) 05/13/2019 AD CACERES DIRECTIVE Health Care Decision (hx) 05/13/2019 AD NICKI DIRECTIVE Care Teams Associate Counsel Relationship Specialty Start Date End Date Janett Hoyt MD [address] [place] [address] PCP - General Internal Medicine 05/31/21
--- OUTSIDE RECORDS SUMMARY | 2024-12-20 15:22 | XMS_ITS | Encounter Summary ---
Author Organization [employer] Address [address] [place] [address] 7t [place] [address] Care Team Providers Care Grain Loader Name Role Phone Janett Hoyt MD Primary Care Provider [phone] Reason for Visit * Reason Comments Med Refill Encounter Details Date Type Department Care Team (Late Contact Info) Description 04/08/2023 Refill [facility] MED & PEDS [address] [place], [place] [phone] Janett Hoyt MD 505 [place] [address] Social History Tobacco Use Types Packs/Day Years [...] 11:00 AM EDT Clinical Support [facility] MED & PEDS 505 [place] [address] Kaylen Townsend, RN 505 [place] [address] 01/24/2025 11:00 AM EDT Office Visit [facility] MED [facility] P[facility] [address] [place] [address] Janett Hoyt MD 505 [place] [address] documented as of this encounter Visit Diagnoses Not on filedocumented in this encounter Additional Health Concerns Assessment Noted Time PHQ-9 Depression Total Score: 0 12/03/19 23 9:31 AM EST documented as of this encounter Care Teams Grain Loader Relationship Specialty Start Date End Date Janett Hoyt MD 505 [place] [address] PCP - General Internal Medicine 02/26/19 documented as of this encounter
== END 2024-12-20 13:37 | disposition home or self-care (01) ==
LOC: HO.LAB 13:36
PROVIDERS: PCP Internal Medicine; Visit Provider Internal Medicine Endocrinology, Diabetes & Metabolism
DX: M81.0 Age-related osteoporosis without current pathological fracture (principal)
CPT/HCPCS: 36415; 80048; 82040

== ENCOUNTER 2024-12-24 08:36 | Outpatient (AMB) | payer MEDICARE, MEDICAID, SELFPAY ==
--- OUTSIDE RECORDS SUMMARY | 2024-12-24 08:51 | XMS_ITS | Encounter Summary ---
Author Organization [employer] Address [address] [place] [address] 7t [place] [address] Care Team Providers Care Pss Delivery Professional Name Role Phone Janett Hoyt MD Primary Care Provider [phone] Reason for Visit * Reason Comments Med Refill Encounter Details Date Type Department Care Team (Late Contact Info) Description 04/08/2023 Refill [facility] MED & PEDS 505 [place], [place] [phone] Janett Hoyt MD 505 [place] [address] Social History Tobacco Use Types Packs/Day Years [...] Department Care Team (Late Contact Info) Description 01/24/2025 11:00 AM EDT Office Visit [facility] MED & PEDS 505 [place] [address] Janett Hoyt MD 505 [place] [address] 04/06/2025 9:00 AM EDT Clinical Support [facility] MED & PEDS 505 [place] [address] Kaylen Townsend, KENISHA 505 [place] [address] documented as of this encounter Visit Diagnoses Not on filedocumented in this encounter Additional Health Concerns Assessment Noted Time PHQ-9 Depression Total Score: 0 12/03/19 23 9:31 AM EST documented as of this encounter Care Teams Pss Delivery Professional Relationship Specialty Start Date End Date Janett Hoyt MD [address] [place] [address] PCP - General Internal Medicine 02/26/19 documented as of this encounter
--- OUTSIDE RECORDS SUMMARY | 2024-12-24 08:51 | XMS_ITS | Encounter Summary ---
Author Organization [email or web address] Address [address] 7t [place] [address] Care Team Providers Care Gardener Florist Name Role Phone Janett Hoyt MD Primary Care Provider [phone] Encounter Details Date Type Department Care Team (Latest Contact Info) Description 12/22/2024 Travel Social History Tobacco Use Types Packs/Day Years [...] Care Team (Late st Contact Info) Description 01/24/2025 11:00 AM EDT Office Visit [facility] MED & PEDS [address] [place] [address] Janett Hoyt MD 505 [place] [address] 04/06/2025 9:00 AM EDT Clinical Support [facility] MED & PEDS [address] [place] [address] Kaylen Townsend, KENISHA 505 [place] [address] documented as of this encounter Visit Diagnoses Not on filedocumented in this encounter Additional Health Concerns Assessment Noted Time PHQ-9 Depression Total Score: 0 10/27/19 25 2:31 PM EST documented as of this encounter Care Teams Gardener Florist Relationship Specialty Start Date End Date Janett Hoyt MD 505 [place] [address] PCP - General Internal Medicine 02/26/19 documented as of this encounter
--- OUTSIDE RECORDS SUMMARY | 2024-12-24 08:51 | XMS_ITS | Encounter Summary ---
Author Organization [employer] Address [address] [facility] 7t [place] [address] Care Team Providers Care Music Store Manager Name Role Phone Janett Hoyt MD Primary Care Provider [phone] Encounter Details Date Type Department Care Team ([facility] st Contact Info) Description 06/28/2024 Orders Only [facility] CHC MED & PEDS 505 [place], [place] [phone] Janett Hoyt MD 505 [place], [place] [phone] Social History Tobacco Use Types Packs/Day Years [...] 01/24/2025 11:00 AM EDT Office Visit [facility] MED & PEDS 505 [place] [address] Janett Hoyt MD 505 [place] [address] 04/06/2025 9:00 AM EDT Clinical Support [facility] MED & PEDS [address] [place] [address] Kaylen Townsend RN 505 [place] [address] documented as of this encounter Visit Diagnoses Not on filedocumented in this encounter Additional Health Concerns Assessment Noted Time PHQ-9 Depression Total Score: 0 12/03/19 23 9:31 AM EST documented as of this encounter Care Teams Music Store Manager Relationship Specialty Start Date End Date Janett Hoyt MD 505 [place] [address] PCP - General Internal Medicine 02/26/19 documented as of this encounter
--- OUTSIDE RECORDS SUMMARY | 2024-12-24 08:51 | XMS_ITS | Encounter Summary ---
Author Organization [email or web address] Address [address] [facility] 7t [place] [address] Care Team Providers Care Vault Manager Name Role Phone Janett Hoyt MD Primary Care Provider [phone] Encounter Details Date Type Department Care Team ([facility] st Contact Info) Description 07/28/2023 Orders Only [facility] CHC MED & PEDS 505 [place], [place] [phone] Janett Hoyt MD 505 [place], [place] [phone] Social History Tobacco Use Types Packs/Day Years [...] EDT Office Visit [facility] MED & PEDS [address] [place] [address] Janett Hoyt MD 505 [place] [address] 04/06/2025 9:00 AM EDT Clinical Support [facility] MED & PEDS [address] [place] [address] Kaylen Townsend RN 505 [place], [place] [phone] documented as of this encounter Procedures Procedure Name Priority Date/Time Associated Diagnosis Comments CULTURE, URINE, ROUTINE Routine 07/28/2023 10:15 AM EDT documented in this encounter Results * Culture, Urine, Routine (07/28/2023 10:15 AM EDT) Urine Urine specimen obtained by clean catch procedure / Unknown 07/28/2023 10:15 AM EDT 07/28/2023 5:45 PM EDT Comment:[facility] - 07/30/2023 7:42 AM EDT Klebsiella pneumoniae Quant > 100,000 cfu/mL Klebsiella pneumoniae: Ampicillin >=32(R) Klebsiella pneumoniae: Ceftriaxone <=0.25(S) Klebsiella pneumoniae: Gentamicin <=1(S) Klebsiella pneumoniae: Levofloxacin <=0.12(S) Klebsiella pneumoniae: Nitrofurantoin 64(I) Klebsiella pneumoniae: Trimethoprim/Sulfamethoxazole <=20(S) Specimen Source: Urine clean catch us Anabelle Larose MD LAB MICROBIOLOGY - GENERAL OR DERABLES Final Result [facility] [address] [place] [address] [phone] documented in this encounter Visit Diagnoses Not on filedocumented in this encounter Additional Health Concerns Assessment Noted Time PHQ-9 Depression Total Score: 0 12/03/19 23 9:31 AM EST documented as of this encounter Care Teams Vault Manager Relationship Specialty Start Date End Date Janett Hoyt MD [address] [place] [address] PCP - General Internal Medicine 02/26/19 documented as of this encounter
--- OUTSIDE RECORDS SUMMARY | 2024-12-24 08:51 | XMS_ITS | Encounter Summary ---
Author Organization [employer] Address [address] [facility] 7t [place] [address] Care Team Providers Care Toy Consultant Name Role Phone Janett Hoyt MD Primary Care Provider [phone] Encounter Details Date Type Department Care Team ([facility] st Contact Info) Description 04/29/2024 Orders Only [facility] CHC MED & PEDS [address] [place], [place] [phone] Janett Hoty MD 505 [place], [place] [phone] Primary hypertension (Primary Dx); Other osteoporosis without [...] AM EDT Office Visit [facility] MED & PEDS 505 [place] [address] Janett Hoyt MD 505 [place] [address] 04/06/2025 9:00 AM EDT Clinical Support [facility] & PEDS [address] [place] [address] Kaylen Townsend, KENISHA 505 [place] [address] documented as of this encounter Visit Diagnoses Diagnosis Primary hypertension- Primary Unspecified essential hypertension Other osteoporosis without current pathological fracture documented in this encounter Additional Health Concerns Assessment Noted Time PHQ-9 Depression Total Score: 0 12/03/19 23 9:31 AM EST documented as of this encounter Care Teams Toy Consultant Relationship Specialty Start Date End Date Janett Hoyt MD 505 [place] [address] PCP - General Internal Medicine 02/26/19 documented as of this encounter
--- OUTSIDE RECORDS SUMMARY | 2024-12-24 08:51 | XMS_ITS | Encounter Summary ---
Author Organization [employer] Address [address] [facility] 7t [place] [address] Care Team Providers Care Commercial Title Examiner Name Role Phone Janett Hoyt MD Primary Care Provider [phone] Encounter Details Date Type Department Care Team ([facility] st Contact Info) Description 04/14/[address] [facility] CHC MED & PEDS 505 [place], [place] [phone] Janett Hoyt MD 505 [place], [place] [phone] Primary hypertension (Primary Dx) Social History Tobacco [...] 11:00 AM EDT Office Visit [facility] MED & PEDS 505 [place] [address] Janett Hoyt MD 505 [place] [address] 04/06/2025 9:00 AM EDT Clinical Support [facility] MED & PEDS [address] [place] [address] Kaylen Townsend, KENISHA 505 [place] [address] documented as of this encounter Visit Diagnoses Diagnosis Primary hypertension- Primary Unspecified essential hypertension documented in this encounter Additional Health Concerns Assessment Noted Time PHQ-9 Depression Total Score: 0 12/03/19 23 9:31 AM EST documented as of this encounter Care Teams Commercial Title Examiner Relationship Specialty Start Date End Date Janett Hoyt MD [address] [place] [address] PCP - General Internal Medicine 02/26/19 documented as of this encounter
--- OUTSIDE RECORDS SUMMARY | 2024-12-24 08:51 | XMS_ITS | Encounter Summary ---
Author Organization [employer] Address [address] [facility] 7t [place] [address] Care Team Providers Care Private Advisor Name Role Phone Janett Hoyt MD Primary Care Provider [phone] Reason for Visit * Reason Onset Date Comments Med Refill 12/01/2024 Encounter Details Date Type Department Care Team ([facility] st Contact Info) Description 12/01/2024 Refill [facility] MED & PEDS 505 [place], [place] [phone] Janett Hoyt MD 505 [place] [address] Multiple joint pain Social History Tobacco Use [...] Description 01/24/2025 11:00 AM EDT Office Visit [facility] MED & PEDS 505 [place] [address] Janett Hoyt MD 505 [place] [address] 04/06/2025 9:00 AM EDT Clinical Support [facility] MED & PEDS 505 [place] [address] Kaylen Townsend RN 505 [place] [address] documented as of this encounter Visit Diagnoses Diagnosis Multiple joint pain Pain in joint, multiple sites documented in this encounter Additional Health Concerns Assessment Noted Time PHQ-9 Depression Total Score: 0 10/27/19 25 2:31 PM EST documented as of this encounter Care Teams Private Advisor Relationship Specialty Start Date End Date Janett Hoyt MD [address] [place] [address] PCP - General Internal Medicine 02/26/19 documented as of this encounter
--- OUTSIDE RECORDS SUMMARY | 2024-12-24 08:51 | XMS_ITS | Encounter Summary ---
Author Organization [employer] Address [address] [facility] 7t [place] [address] Care Team Providers Care Stretcher Helper Name Role Phone Janett Hoyt MD Primary Care Provider [phone] Encounter Details Date Type Department Care Team [...] Upcoming Encounters Date Type Department Care Team ([facility] st Contact Info) Description 01/24/2025 11:00 AM EDT Office Visit [facility] MED & PEDS [address] [place] [address] Janett Hoyt MD 505 [place] [address] 04/06/2025 9:00 AM EDT Clinical Support [facility] MED & PEDS [address] [place] [address] Kaylen Townsend RN 505 [place], [place] [phone] documented as of this encounter Procedures Procedure Name Priority Date/Time Associated Diagnosis Comments ALBUMIN Routine 12/20/2024 1:49 PM EDT BASIC METABOLIC PANEL Routine 12/20/2024 1:49 PM EDT documented in this encounter Results * Albumin (12/20/2024 1:49 PM EDT) Albumin Level 3.9 3.5 - 5.0 g/dL [facility] 12/20/2024 1:49 PM EDT 12/20/2024 1:49 PM EDT us Generic External Data Provider LAB BLOOD ORDERAB LES Final Result [facility] [address] [place] [address] [phone] * (ABNORMAL) Basic Metabolic Panel (12/20/2024 1:49 PM EDT) Sodium 142 135 - 145 mmol/L [facility] Potassium 4.1 3.3 - 5.1 mmol/L [facility] Chloride 108 96 - 108 mmol/L [facility] Carbon Dioxide 27 22 - 29 mmol/L [facility] Anion Gap 11(L) 12 - 20 [facility] Urea Nitrogen (BUN) 20(H) 9 - 16 mg/dL [facility] Creatinine, Serum 0.77 0.5 - 1.4 mg/dL [facility] Estimated Glomerular Filt Rate >60 [facility] Comment:Chronic Kidney Disea se: Estimated GFR < 60 mL/min/1.66w9Hnihcl Kidney Disease: Estimated GFR < 15 mL/min/1.73m2 Glucose 108 60 - 115 mg/dL [facility] Calcium 9.7 8.4 - 10.2 mg/dL [facility] 12/20/2024 1:4 9 PM EDT 12/20/2024 1:49 PM EDT us Generic External Data Provider LAB BLOOD ORDERAB LES Final Result [facility] [address] [place] [address] [phone] documented in this encounter Visit Diagnoses Not on filedocumented in this encounter Additional Health Concerns Assessment Noted Time PHQ-9 Depression Total Score: 0 10/27/19 25 2:31 PM EST documented as of this encounter Care Teams Stretcher Helper Relationship Specialty Start Date End Date Janett Hoyt MD [address] [place] [phone] PCP - General Internal Medicine 02/26/19 documented as of this encounter
--- OUTSIDE RECORDS SUMMARY | 2024-12-24 08:51 | XMS_ITS | Encounter Summary ---
Author Organization [employer] Address [address] [facility] 7t [place] [address] Care Team Providers Care Taping Foreman Name Role Phone Janett Hoyt MD Primary Care Provider [phone] Encounter Details Date Type Department Care Team ([facility] st Contact Info) Description 03/30/2024 Orders Only [facility] MED & PEDS [address] [place], [place] [phone] Janett Hoyt MD [address] [place], [place] [phone] Social History Tobacco Use Types Packs/Day Years [...] 01/24/2025 11:00 AM EDT Office Visit [facility] MED & PEDS [address] [place] [address] Janett Hoyt MD 505 [place] [address] 04/06/2025 9:00 AM EDT Clinical Support [facility] MED & PEDS [address] [place] [address] Kaylen Townsend, KENISHA [address] [place] [address] documented as of this encounter Visit Diagnoses Not on filedocumented in this encounter Additional Health Concerns Assessment Noted Time PHQ-9 Depression Total Score: 0 12/03/19 23 9:31 AM EST documented as of this encounter Care Teams Taping Foreman Relationship Specialty Start Date End Date Janett Hoyt MD [address] [place] [address] PCP - General Internal Medicine 02/26/19 documented as of this encounter
--- OUTSIDE RECORDS SUMMARY | 2024-12-24 08:51 | XMS_ITS | Encounter Summary ---
Author Organization [employer] Address [address] [facility] 7t [place] [address] Care Team Providers Care Mule Driver Name Role Phone Janett Hoyt MD Primary Care Provider [phone] Reason for Visit * Reason Onset Date Comments Med Refill 12/22/2024 Encounter Details Date Type Department Care Team ([facility] st Contact Info) Description 12/22/2024 Refill [facility] CHC MED & PEDS [address] [place], [place] [phone] Kaylen Townsend, KENISHA 505 [place], [place] [phone] Multiple joint pain Social History Tobacco Use [...] Description 01/24/2025 11:00 AM EDT Office Visit [facility] MED & PEDS [address] [place] [address] Janett Hoyt MD [address] [place] [address] 04/06/2025 9:00 AM EDT Clinical Support [facility] MED & PEDS [address] [place] [address] Kaylen Townsend, KENISHA [address] [place] [address] documented as of this encounter Visit Diagnoses Diagnosis Multiple joint pain Pain in joint, multiple sites documented in this encounter Additional Health Concerns Assessment Noted Time PHQ-9 Depression Total Score: 0 10/27/19 25 2:31 PM EST documented as of this encounter Care Teams Mule Driver Relationship Specialty Start Date End Date Janett Hoyt MD [address] [place] [address] PCP - General Internal Medicine 02/26/19 documented as of this encounter
--- OUTSIDE RECORDS SUMMARY | 2024-12-24 08:51 | XMS_ITS | Clinical Summary ---
Author Organization [employer] Address [address] [facility] 7t [place] [address] Care Team Providers Care Curtain Stitcher Name Role Phone Janett Hoyt MD Primary Care Provider [phone] Allergies Active Allergy Reactions Criticality Noted Date [...] eorder (will not trigger notification to Pharmacy)) traMADol (Ultram) 50 MG tabletIndications :Multiple joint pain Take 1 tablet (50 mg) by mouth every 8 (eight) hours if needed for severe pain. 30 tablet 025 2024 Discontinued(R eorder (will not trigger notification to Pharmacy)) Active Problems Problem Noted Date Diagnosed Date Long-term current use of opiate analgesic 2024 Anxiety 12/20/2022 COVID-19 12/20/2022 Migraine 12/20/2022 Vertigo 12/20/2022 Hypertension 09/30/2022 Hypercholesterolemia 09/30/2022 Insomnia 09/30/2022 Hypothyroid 09/30/2022 IBS (irritable bowel syndrome) 09/30/2022 GERD (gastroesophageal reflux disease) Multiple joint pain 11/02/2019 Overview (12/20/2022): Seeing Dr. Laurie Orozco ([facility] [place]). Inflammatory labs 10/19/19 negative. 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/2018 [...] Encounters Date Type Department Care Team Description 12/22/2024 11:00 AM EDT Clinical Support [facility] [address] [place] [address] Kaylen Townsend, RN petroleum terminal plant operator (current) use of opiate analgesic; Multiple joint pain; Long-term current use of opiate analgesic 12/22/2024 Refill [facility] [address] [place] [address] Kaylen Townsend, RN Multiple joint pain 12/22/2024 Travel 12/20/2024 Orders Only GENERIC EXTERNAL DATA DEPARTMENT Provider, Generic External Data 12/06/2024 Telephone [facility] [address] [place] [address] Janett Hoyt MD Medication Question 12/01/2024 Refill [facility] [address] [place] [address] Janett Hoyt MD Multiple joint pain 11/11/2024 Telephone [facility] [address] [place] [address] Janett Hoyt MD Referral 11/08/2024 Refill [facility] [address] [place] [address] Janett Hoyt MD Right upper quadrant pain 11/02/2024 Refill [facility] [address] [place] [address] Janett Hoyt MD Multiple joint pain 10/27/2024 2:15 PM EST Office Visit [facility] [address] [place] [address] Janett Hoyt MD Recurrent sinus infections (Primary Dx); Primary hypertension 10/27/2024 Travel 10/26/2024 Telephone [facility] [address] [place] [address] Janett Hoyt MD Chart Prep 10/26/2024 Telephone [facility] [address] [place] [address] Janett Hoyt MD triage 10/19/2024 Travel 09/29/2024 Telephone [facility] [address] [place] [address] Janett Hoyt MD Medication 09/28/2024 Refill [facility] [address] [place] [address] Airam Britton MD Vertigo from Last 3 Months Immunizations Name Administration [...] 01/24/2025 11:00 AM EDT Office Visit [facility] [address] [place] [address] Janett Hoyt MD [address] [place] [address] 04/06/2025 9:00 AM EDT Clinical Support [facility] [address] [place] [address] Kaylen Townsend, KENISHA [address] [place] [address] Health Maintenance Due Date Last Done Comments CT Colonography 1949 FIT DNA/Cologuard 1949 FIT 1949 FOBT 1949 Sigmoidoscopy 1949 Alcohol/Substance Use Screening 1961 Hepatitis C Screening 1967 SDOH Screening 06/02/2025 06/02/2024 Depression Screening 10/27/2025 10/27/2024, 10/27/19 Tobacco Screening 10/27/2025 10/27/2024 Lipid Panel 11/03/2028 11/03/2023, 02/2 10/2022, 02/08/2022, Additional history exists DTaP/Tdap/Td Vaccines (3 [...] Comments POCT YVETTE-14 URINE DRUG SCREEN Routine 12/22/2024 11:27 AM EDT [facility] (current) use of opiate analgesic Multiple joint pain ALBUMIN Routine 12/20/2024 1:49 PM EDT BASIC METABOLIC PANEL Routine 12/20/2024 1:49 PM EDT LIPID PANEL, STANDARD Routine 11/03/2023 9:33 AM EST Primary hypertension from Last 3 Months or Most Recently Relevant to Health Maintenance Results * POCT YVETTE-14 Urine Drug Screen (12/22/2024 11:27 AM EDT) Urine Urine specimen obtained by clean catch procedure / Unknown 12/22/2024 11:27 AM EDT Narrative Kaylen Townsend RN - 12/22/2024 11:27 AM EDT negative AMP, BAR, BUP, BZO, CHRISTINA, FTY, MDMA, MET, MOP, MTD, OXY, PCP, TCA, THC. Lot# [id number] Exp: 06-01-26 Janett Hoyt MD POINT OF CARE TEST ENTER/ED IT ORDERABLES Final Result * Albumin (12/20/2024 1:49 PM EDT) Pathologist [facility] [place] Albumin Level 3.9 3.5 - 5.0 g/dL [facility] 12/20/2024 1:49 PM EDT 12/20/2024 1:49 PM EDT Generic External Data Provider LAB BLOOD ORDERAB LES Final Result [facility] [address] [place] [phone] * (ABNORMAL) Basic Metabolic Panel (12/20/2024 1:49 PM EDT) Pathologist [facility] [place] Sodium 142 135 - 145 mmol/L [facility] Potassium 4.1 3.3 - 5.1 mmol/L [facility] Chloride 108 96 - 108 mmol/L [facility] Carbon Dioxide 27 22 - 29 mmol/L [facility] Anion Gap 11(L) 12 - 20 [facility] Urea Nitrogen (BUN) 20(H) 9 - 16 mg/dL [facility] Creatinine, Serum 0.77 0.5 - 1.4 mg/dL [facility] Estimated Glomerular Filt Rate >60 [facility] Comment:Chronic Kidney Disea se: Estimated GFR < 60 mL/min/1.97e5Tykrxu Kidney Disease: Estimated GFR < 15 mL/min/1.73m2 Glucose 108 60 - 115 mg/dL [facility] Calcium 9.7 8.4 - 10.2 mg/dL [facility] 12/20/2024 1:49 PM EDT 12/20/2024 1:49 PM EDT us Generic External Data Provider LAB BLOOD ORDERAB LES Final Result Performing Organization Address [facility]/ZIP Co de Phone Number [facility] [address] [place] [address] [phone] * Lipid Panel, Standard (11/03/2023 9:33 AM EST) Triglycerides 71 <150 mg/dL [facility] Comment:Desirable Triglyceri de: less than 150 mg/dLBorderline High Triglyceride 150-199 mg/dLHigh Triglyceride: 200-499 mg/dLVery High Triglyceride: greater than or equal to 5OO mg/dL Cholesterol 163 <200 mg/dL [facility] Comment:Desirable Cholestero l: less than 200 mg/dLBorderline High Cholesterol: 200-239 mg/dLHigh Cholesterol: greater than 239 mg/dL LDL Cholesterol Calculated 88 <100 mg/dL [facility] Comment:Desirable LDL: less than 100 mg/dLNear Optimal/Above Optimal LDL: 110- 129 mg/dLBorderline High LDL: 130-159 mg/dLHigh LDL: 160-189 mg/dLVery High LDL: greater than or equal to 190 mg/dL HDL Cholesterol 61 >40 mg/dL [facility] Comment:Desirable HDL: great er than 40 mg/dL Note: This HDL assay may give artificially low results in patients with liver disease. Blood Venous blood specimen / Unknown 11/03/2023 9:33 AM EST 11/03/2023 2:26 PM EST us Janett Hoyt MD LAB BLOOD ORDERABLES Final Result Performing Organization Address City/[facility]/ZIP Co de Phone Number [facility] [address] [place] [address] [phone] from Last 3 Months or Most Recently Relevant to Health [place] [id number] MEDICARE [facility] [place] [id number] [place] [id number] [place] [id number] Care Teams Curtain Stitcher Relationship Specialty Start Date End Date Janett Hoyt MD [address] [place] [address] [place] [address] PCP - General Internal Medicine 02/26/19
--- OUTSIDE RECORDS SUMMARY | 2024-12-24 08:51 | XMS_ITS | Clinical Summary ---
Author Organization [facility] Address [address] [place] [address] Care Team Providers Care Hydraulic Controls Technician Name Role Phone Janett Hoyt MD Primary Care Provider [phone] Surgical History Surgery Date Site/Laterality Comments BLADDER SUSPENSION PROCEDURE: HISTORICAL BLADDER SUSPENSION OTHER SURGICAL HISTORY PROCEDURE: ME STAB PHLEBT VARICOSE VEINS 1 XTR 10-20 STAB INCS EYE SURGERY PROCEDURE: HISTORICAL EYE SURGERY; COMMENT: starbismus OTHER SURGICAL HISTORY PROCEDURE: ME RHINOPLASTY PRIMARY W/MAJOR SEPTAL REPAIR OTHER SURGICAL HISTORY PROCEDURE: HISTORICAL SUPRACERVICAL HYSTERECTOMY WITH BSO; COMMENT: BSO, fibroid uterus OTHER SURGICAL HISTORY 08/18/2002 PROCEDURE: (UGI) CONTRAST X-RAY OF UPPER GI TRACT; COMMENT: Normal COLONOSCOPY 12/04/2009 PROCEDURE: HISTORICAL COLONOSCOPY; COMMENT: Dr Stanley - normal colon to cecum. Repeat colonoscopy in 10 years. OTHER SURGICAL HISTORY 1982 PROCEDURE: ME PRTL THYROID LOBECTOMY UNI W/WO ISTHMUSECTOMY; COMMENT: left side - due to recurrent cysts EYE SURGERY 08/05/2014 PROCEDURE: ME TRABECULOPLASTY BY LASER SURGERY; COMMENT: right eye; iridotomy EYE SURGERY 08/19/2014 PROCEDURE: ME TRABECULOPLASTY BY LASER SURGERY; COMMENT: left eye OTHER SURGICAL HISTORY Right PROCEDURE: HISTORY OTHER; COMMENT: surgery for ptosis, [facility] VARICOSE VEIN SURGERY 2010 PROCEDURE: ME LIGJ DIVJ &/EXCJ VARICOSE VEIN CLUSTER 1 LEG; COMMENT: laser surgery; Dr. Ernandez BREAST BIOPSY Right PROCEDURE: BX BREAST; PERC NEEDLE CORE W/IMAG GUID; COMMENT: benign UPPER GASTROINTESTINAL ENDOSCOPY 06/16/2018 PROCEDURE: ME UPPER GI ENDOSCOPY PERFORMED; COMMENT: normal on PPI rx. UPPER GASTROINTESTINAL ENDOSCOPY 04/03/2015 PROCEDURE: ME UPPER GI ENDOSCOPY PERFORMED; COMMENT: normal Medical [...] Status Comments Brother Father 49yo suicide Mother [place], lung cancer , ulcers Mother's side Sister [...] (World Health Organization Fracture Risk Assessment) [facility] Department of Internal Medicine recommends using National [...] alternative screening schedule based on mary Lui., [facility] October 31, 2011 for patients with osteopenia [...] years. (WorldHealth Organization Fracture Risk Assessment) [facility] Department of Internal Medicine recommendsusing National Osteoporosis [...] alternative screening schedule based on mary Lui., [facility] for patients with osteopenia (based on [...] Documents on File Type Date Recorded Patient Supervisor Printing Shop Expl anation Health Care Decision (hx) 05/13/2019 AD CACERES DIRECTIVE Health Care Decision (hx) 05/13/2019 AD CACERES DIRECTIVE Health Care Decision (hx) 05/13/2019 AD CACERES DIRECTIVE Health Care Decision (hx) 05/13/2019 AD CACERES DIRECTIVE Health Care Decision (hx) 05/13/2019 AD CACERES DIRECTIVE Health Care Decision (hx) 05/13/2019 AD NICKI DIRECTIVE Care Teams Hydraulic Controls Technician Relationship Specialty Start Date End Date Janett Hoyt MD [address] [place] [address] PCP - General Internal Medicine 05/31/21
--- OUTSIDE RECORDS SUMMARY | 2024-12-24 08:51 | XMS_ITS | Encounter Summary ---
Author Organization 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 Patient is prescribed Tramadol 50mg Q 8 hrs PRN for joint pain. Patient states takes medonly as prescribed, only prn, sometimes 1/2 pill. Denies any adverse reactions. Patient denies ETOH, smoking cigarettes or illicit drugs use. Tylenol PRN. Current pain level 7/10. Last PCP f/u was on10/27/24, no changes in pain med. management. .Chronic pain group pamphlet given, patient not interested at this time. No questions/ concerns at this time. 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 No discrepancies noted. Pill count performed, patient has 8 pills left, 0 expected. utox performed, negative for all tested substances, as expected. A: Chronic opioid use r/t chronic pain. P: Patient to cont. with current pain medication regimen as needed and take medication only as directed. Next WAD BLANKING PRESS ADJUSTER NV scheduled for 04/06/25 @9am. PCP f/u 01/24/25. Reminder slip given. f/u PRN. Patientverbalized understanding and agreed to plan. 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 Lot# [id number] Exp: 06-01-26 Janett Hoyt MD POINT OF CARE TEST ENTER/ED IT ORDERABLES Final Result documented in this encounter Visit Diagnoses Diagnosis jail (current) use of opiate analgesic Multiple joint pain Pain in joint, multiple sites Long-term current use of opiate analgesic Encounter for long-term (current) use of other medications documented in this encounter Additional Health Concerns Assessment Noted Time PHQ-9 Depression Total Score: 0 10/27/19 25 2:31 PM EST documented as of this encounter Care Teams Furnace Room Supervisor Relationship Specialty Start Date End Date Janett Hoyt MD [address] [place] [phone] PCP - General Internal Medicine 02/26/19 documented as of this encounter
--- OUTSIDE RECORDS SUMMARY | 2024-12-24 08:51 | XMS_ITS | Encounter Summary ---
Author Organization [employer] Address [address] [facility] 7[address] [place] [address] Care Team Providers Care Site Safety Manager Name Role Phone Janett Hoyt MD Primary Care Provider [phone] Reason for Visit * Reason Onset Date Comments Medication Question 12/06/2024 Encounter Details Date Type Department Care Team ([facility] Contact Info) Description 12/06/2024 Telephone [facility] [address] [place] [address] Janett Hoyt MD [address] [place] [address] Medication Question Social History Tobacco Use Types [...] 11:00 AM EDT Office Visit [facility] [address] [place] [address] Janett Hoyt MD [address] [place] [address] 04/06/2025 9:00 AM EDT Clinical Support [facility] [address] [place] [address] Kaylen Townsend, KENISHA [address] [place] [address] documented as of this encounter Visit Diagnoses Not on filedocumented in this encounter Additional Health Concerns Assessment Noted Time PHQ-9 Depression Total Score: 0 10/27/19 25 2:31 PM EST documented as of this encounter Care Teams Site Safety Manager Relationship Specialty Start Date End Date Janett Hoyt MD [address] [place] [address] PCP - General Internal Medicine 02/26/19 documented as of this encounter
--- NOTE | 2024-12-24 09:26 | AM.OFFVISNUR ---
Intake Visit Reasons: Prolia #1 Allergies bupropion [From WELLBUTRIN] Allergy (Intermediate, Verified 12/06/24 10:55) panic attack, shaking esomeprazole [From NEXIUM] Allergy (Intermediate, Verified 12/06/24 10:55) panic attack, shaking naproxen [From ALEVE] Allergy (Intermediate, Verified 12/06/24 10:55) panic attack, shaking nitrofurantoin [NITROFURANTOIN] Allergy (Intermediate, Verified 12/06/24 10:55) panic attack shaking polyethylene glycol 3350 [From MIRALAX] Allergy (Intermediate, Verified 12/06/24 10:55) panic attack, shaking pramipexole [From MIRAPEX] Allergy (Intermediate, Verified 12/06/24 10:55) panic attack, shaking Sulfa (Sulfonamide Antibiotics) [SULFA (SULFONAMIDE ANTIBIOTICS)] Allergy (Intermediate, Verified 12/06/24 10:55) panic attack, shaking latex Allergy (Verified 12/06/24 10:55) Unknown Avelox Allergy (Intermediate, Uncoded 12/06/24 10:55) panic attack, shaking Office Meds Prolia 60 mg/mL subcutaneous syringe Performing Provider: Tunde Brizuela MD Performing Location[place] [facility] Administered by: Sherri Ho RN on 12/24/24 09:26 Dose Route Admin Location Dispensed Lot Number Expiration Date [facility] Analytical Data Miner 60 mg subcut Left upper extremitiy 1 mL [id number] 05/12/27 90127-640-39 AMGEN Comments: Consent form signed by patient. Pt tolerated injection well. Pt was observed for 15 minutes following injection without any signs or symptoms of adverse reaction. Pt aware to watch for any site reactions such as redness or warmth and to call the office if these were to develop. No further questions or concerns at this time. Pt booked for f/u with Dr. Brizuela and for prolia injeciton. Assessment & Plan Assessment & Plan Orders: Orders AMB Denosumab Injection Practice Supplied Today M81.0 - Age-related osteoporosis without current pathological fracture Medications: New Prolia (denosumab) 60 mg subcut ONCE 1 mL 0RF NS M81.0 - Age-related osteoporosis without current pathological fracture Coding
== END 2024-12-24 09:24 | disposition home or self-care (01) ==
LOC: HO.ENCR 08:37
PROVIDERS: PCP Internal Medicine; Visit Provider Internal Medicine Endocrinology, Diabetes & Metabolism
DX: M81.0 Age-related osteoporosis without current pathological fracture (principal)

== ENCOUNTER → 2024-12-24 08:36 | Outpatient (BNVA) | payer MEDICARE, MEDICAID, SELFPAY | PROVIDERS: PCP Internal Medicine; Visit Provider Internal Medicine Endocrinology, Diabetes & Metabolism | DX: M81.0 Age-related osteoporosis without current pathological fracture (principal) | CPT/HCPCS: 96372; J0897 ==

== ENCOUNTER 2025-01-10 14:24 | Outpatient (REF) | payer MEDICARE, MEDICAID, SELFPAY ==
--- NOTE | ~2025-01-10 | XR_ITS ---
CLINICAL HISTORY: RT ANKLE PAIN 3 view right ankle Comparison: None Findings: Bones intact. No dislocations. Calcaneal spurring. No ankle effusion. No radiopaque foreign body. IMPRESSION: 1. No acute findings. This document has been electronically signed by: Lambert Chavez MD on 01/11/2025 13:39:12
--- OUTSIDE RECORDS SUMMARY | 2025-01-10 16:20 | XMS_ITS | Encounter Summary ---
Author Organization [employer] Address [address] [facility] [address] [place] [address] Care Team Providers Care Manager It Security Name Role Phone Janett Hoyt MD Primary Care Provider [phone] Encounter Details Date Type Department Care Team (Latest Contact Info) Description 01/10/2025 Travel Social History Tobacco Use Types Packs/Day [...] Care Team (Late st Contact Info) Description 04/06/2025 9:00 AM EDT Clinical Support [facility] [address] [place] [address] Kaylen Townsend RN [address] [place] [address] 04/13/2025 10:30 AM EDT Office Visit [facility] [address] [place] [address] Janett Hoyt MD [address] [place] [address] documented as of this encounter Visit Diagnoses Not on filedocumented in this encounter Additional Health Concerns Assessment Noted Time PHQ-9 Depression Total Score: 0 10/27/19 25 2:31 PM EST documented as of this encounter Care Teams Manager It Security Relationship Specialty Start Date End Date Janett Hoyt MD [address] [place] [address] PCP - General Internal Medicine 02/26/19 documented as of this encounter
--- OUTSIDE RECORDS SUMMARY | 2025-01-10 16:20 | XMS_ITS | Encounter Summary ---
Author Organization [employer] Address [address] [facility] [address] [place] [address] Care Team Providers Care Label Sewer Name Role Phone Janett Hoyt MD Primary Care Provider [phone] Encounter Details Date Type Department Care Team ([facility] st Contact Info) Description 03/30/2024 Orders Only [facility] MED & PEDS [address] [place], [place] [phone] Janett Hoyt MD [address] [place], [place] [phone] Social History Tobacco Use Types Packs/Day Years [...] Description 04/06/2025 9:00 AM EDT Clinical Support [facility] MED [facility] P[facility] [address] [place] [address] Kaylen Townsend RN [address] [place] [address] 04/13/2025 10:30 AM EDT Office Visit [facility] [address] [place] [address] Janett Hoyt MD [address] [place] [address] documented as of this encounter Visit Diagnoses Not on filedocumented in this encounter Additional Health Concerns Assessment Noted Time PHQ-9 Depression Total Score: 0 12/03/19 23 9:31 AM EST documented as of this encounter Care Teams Label Sewer Relationship Specialty Start Date End Date Janett Hoyt MD [address] [place] [address] PCP - General Internal Medicine 02/26/19 documented as of this encounter
--- OUTSIDE RECORDS SUMMARY | 2025-01-10 16:20 | XMS_ITS | Encounter Summary ---
Author Organization [employer] Address [address] [facility] [address] [place] [address] Care Team Providers Care Chronic Manager Name Role Phone Janett Hoyt MD Primary Care Provider [phone] Encounter Details Date Type Department Care Team ([facility] st Contact Info) Description 07/28/2023 Orders Only [facility] MED [facility] PEDS [address] [place], [place] [phone] Janett Hoyt MD [address] [place], [place] [phone] Social History Tobacco Use Types Packs/Day Years [...] Upcoming Encounters Date Type Department Care Team ([facility] st Contact Info) Description 04/06/2025 9:00 AM EDT Clinical Support [facility] [address] [place] [address] Kaylen Townsend RN [address] [place] [address] 04/13/2025 10:30 AM EDT Office Visit [facility] MED [facility] PED[facility] [address] [place] [address] Jantet Hoyt MD [address] [place] [address] documented as of this encounter Procedures Procedure Name Priority Date/Time Associated Diagnosis Comments CULTURE, URINE, ROUTINE Routine 07/28/2023 10:15 AM EDT documented in this encounter Results * Culture, Urine, Routine (07/28/2023 10:15 AM EDT) Urine Urine specimen obtained by clean catch procedure / Unknown 07/28/2023 10:15 AM EDT 07/28/2023 5:45 PM EDT Comment:[facility] - 07/30/2023 7:42 AM EDT Klebsiella pneumoniae Quant > 100,000 cfu/mL Klebsiella pneumoniae: Ampicillin >=32(R) Klebsiella pneumoniae: Ceftriaxone <=0.25(S) Klebsiella pneumoniae: Gentamicin <=1(S) Klebsiella pneumoniae: Levofloxacin <=0.12(S) Klebsiella pneumoniae: Nitrofurantoin 64(I) Klebsiella pneumoniae: Trimethoprim/Sulfamethoxazole <=20(S) Specimen Source: Urine clean catch us Anabelle Larose MD LAB MICROBIOLOGY - GENERAL OR DERABLES Final Result [facility] [address] [place] [address] [phone] documented in this encounter Visit Diagnoses Not on filedocumented in this encounter Additional Health Concerns Assessment Noted Time PHQ-9 Depression Total Score: 0 12/03/19 23 9:31 AM EST documented as of this encounter Care Teams Chronic Manager Relationship Specialty Start Date End Date Janett Hoyt MD [address] [place] [phone] PCP - General Internal Medicine 02/26/19 documented as of this encounter
--- OUTSIDE RECORDS SUMMARY | 2025-01-10 16:20 | XMS_ITS | Encounter Summary ---
Author Organization [employer] Address [address] [place] [address] 7t [place] [address] Care Team Providers Care Deputy Fire Marshal Name Role Phone Janett Hoyt MD Primary Care Provider [phone] Reason for Visit * Reason Comments Med Refill Encounter Details Date Type Department Care Team (Late Contact Info) Description 04/08/2023 Refill [facility] MED & PEDS [address] [place], [place] [phone] Janett Hoyt MD 505 [place] [address] Social History Tobacco Use Types Packs/Day Years [...] Department Care Team (Late Contact Info) Description 04/06/2025 9:00 AM EDT Clinical Support [facility] MED & PEDS [address] [place] [address] Kaylen Townsend, KENISHA 505 [place] [address] 04/13/2025 10:30 AM EDT Office Visit [facility] MED & PEDS [address] [place] [address] Janett Hoyt MD 505 [place] [address] documented as of this encounter Visit Diagnoses Not on filedocumented in this encounter Additional Health Concerns Assessment Noted Time PHQ-9 Depression Total Score: 0 12/03/19 23 9:31 AM EST documented as of this encounter Care Teams Deputy Fire Marshal Relationship Specialty Start Date End Date Janett Hoyt MD 505 [place] [address] PCP - General Internal Medicine 02/26/19 documented as of this encounter
--- OUTSIDE RECORDS SUMMARY | 2025-01-10 16:20 | XMS_ITS | Clinical Summary ---
Author Organization [employer] Address [address] [facility] 7t [place] [address] Care Team Providers Care Destaticizer Feeder Name Role Phone Janett Hoyt MD Primary Care Provider [phone]- [phone] Allergies Active Allergy Reactions Criticality Noted Date [...] for severe pain. 30 tablet 025 Active Diclofenac Sodium 1 % gelIndications:Ac [place] right ankle pain To apply to the affected area 3 times a day 100 g 1 025 Active traMADol (Ultram) 50 MG tabletIndications [...] bowel syndrome) 09/30/2022 GERD (gastroesophageal reflux disease) 2 Multiple joint pain 11/02/2019 Overview (12/20/2022): Seeing Dr. Laurie Orozco (rheum - [place]). Inflammatory labs 10/19/19 negative. 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/2018 [...] Encounters Date Type Department Care Team Description 01/10/2025 1:20 PM EDT Office Visit [facility] MED & PEDS [address] [place] [address] Janett Hoyt MD Acute right ankle pain (Primary Dx); Dietary counseling; Exercise counseling; Class 1 obesity due to excess calories with serious comorbidity and body mass index (BMI) of 33.0 to 33.9 in adult; Primary hypertension 01/10/2025 Travel 12/22/2024 11:00 AM EDT Clinical Support [facility] MED & PEDS [address] [place] [address] Kaylen Townsend, KENISHA assisted (current) use of opiate analgesic; Multiple joint pain; Long-term current use of opiate analgesic 12/22/2024 Refill [facility] MED & PEDS [address] [place] [address] Kaylen Townsend, RN Multiple joint pain 12/22/2024 Travel 12/20/2024 Orders Only GENERIC EXTERNAL DATA DEPARTMENT Provider, Generic External Data 12/06/2024 Telephone [facility] MED & PEDS [address] [place] [address] Janett Hoyt MD Medication Question 12/01/2024 Refill [facility]ED[facility] [address] [place] [address] Janett Hoyt MD Multiple joint pain 11/11/2024 Telephone [facility] [address] [place] [address] Janett Hoyt MD Referral 11/08/2024 Refill [facility] PED[facility] [address] [place] [address] Janett Hoyt MD Right upper quadrant pain 11/02/2024 Refill [facility] & PEDS [address] [place] [address] Janett Hoty MD Multiple joint pain 10/27/2024 2:15 PM EST Office Visit [facility] MED & PEDS [address] [place] [address] Janett Hoyt MD Recurrent sinus infections (Primary Dx); Primary hypertension 10/27/2024 Travel 10/26/2024 Telephone [facility] [address] [place] [address] Janett Hoyt MD Chart Prep 10/26/2024 Telephone [facility] [address] [place] [address] Janett Hoyt MD triage 10/19/2024 Travel from Last 3 Months Immunizations Name [...] Sign Reading Time Taken Comments Blood Pressure 132/71 01/10/2025 1:22 PM EDT Pulse 67 01/10/2025 1:22 PM EDT Temperature 36.7 ??C (98 ??F) 01/10/2025 1:22 PM EDT Respiratory Rate 20 01/10/2025 1:22 PM EDT Oxygen Saturation 95% 01/10/2025 1:22 PM EDT Inhaled Oxygen Concentration - - Weight 76.7 kg (169 lb) 01/10/2025 1:22 PM EDT Height 152.4 cm (5') 01/10/2025 1:22 PM EDT Body Mass Index 33.01 01/10/2025 1:22 PM EDT Plan of Treatment Upcoming Encounters Date Type Department Care Team ([facility] st Contact Info) Description 04/06/2025 9:00 AM EDT Clinical Support [facility] MED & PEDS [address] [place] [address] Kaylen Townsend, KENISHA 505 [place] [address] 04/13/2025 10:30 AM EDT Office Visit [facility] MED & PEDS [address] [place] [address] Janett Hoyt MD 505 [place] [address] Health Maintenance Due Date Last Done Comments CT Colonography 1949 FIT DNA/Cologuard 1949 FIT 1949 FOBT 1949 Sigmoidoscopy 1949 Alcohol/Substance Use Screening 1961 Hepatitis C Screening 1967 SDOH Screening 06/02/2025 06/02/2024 Depression Screening 10/27/2025 10/27/2024, 10/27/19 25 Tobacco Screening 01/10/2026 01/10/2025 Lipid Panel 11/03/2028 11/03/2023, 11/14, 02/08/2022, Additional [...] DRUG SCREEN Routine 12/22/2024 11:27 AM EDT assisted (current) use of opiate analgesic Multiple joint [...] MOP, MTD, OXY, PCP, TCA, THC. Lot# [id number] Exp: 06-01-26 us Janett Hoyt MD POINT OF CARE TEST ENTER/ED IT ORDERABLES Final Result * Albumin (12/20/2024 1:49 PM EDT) Albumin Level 3.9 3.5 - 5.0 g/dL [facility] 12/20/2024 1:49 PM EDT 12/20/2024 1:49 PM EDT us Generic External Data Provider LAB BLOOD ORDERAB LES Final Result Performing Organization Address City/State/[facility] Co de Phone Number [facility] [address] [place] [phone] * (ABNORMAL) Basic Metabolic Panel (12/20/2024 1:49 PM EDT) Sodium 142 135 - 145 mmol/L [facility] Potassium 4.1 3.3 - 5.1 mmol/L [facility] Chloride 108 96 - 108 mmol/L [facility] Carbon Dioxide 27 22 - 29 mmol/L [facility] Anion Gap 11(L) 12 - 20 [facility] Urea Nitrogen (BUN) 20(H) 9 - 16 mg/dL [facility] Creatinine, Serum 0.77 0.5 - 1.4 mg/dL [facility] Estimated Glomerular Filt Rate >60 [facility] Comment:Chronic Kidney Disea se: Estimated GFR < 60 mL/min/1.79h6Leuejh Kidney Disease: Estimated GFR < 15 mL/min/1.73m2 Glucose 108 60 - 115 mg/dL [facility] Calcium 9.7 8.4 - 10.2 mg/dL [facility] 12/20/2024 1:49 PM EDT 12/20/2024 1:49 PM EDT us Generic External Data Provider LAB BLOOD ORDERAB LES Final Result Performing Organization Address [facility]/ZIP Co de Phone Number [facility] [address] [place] [phone] * Lipid Panel, Standard (11/03/2023 9:33 AM EST) Triglycerides 71 <150 mg/dL [facility] Comment:Desirable Triglyceri de: less than 150 mg/dLBorderline High Triglyceride 150-199 mg/dLHigh Triglyceride: 200-499 mg/dLVery High Triglyceride: greater than or equal to 5OO mg/dL Cholesterol 163 <200 mg/dL [facility] Comment:Desirable Cholestero l: less than 200 mg/dLBorderline High Cholesterol: 200-239 mg/dLHigh Cholesterol: greater than 239 mg/dL LDL Cholesterol Calculated 88 <100 mg/dL [facility] Comment:Desirable LDL: less than 100 mg/dLNear Optimal/Above Optimal LDL: 110- 129 mg/dLBorderline High LDL: 130-159 mg/dLHigh LDL: 160-189 mg/dLVery High LDL: greater than or equal to 190 mg/dL HDL Cholesterol 61 >40 mg/dL [facility] Comment:Desirable HDL: great er than 40 mg/dL Note: This HDL assay may give artificially low results in patients with liver disease. Blood Venous blood specimen / Unknown 11/03/2023 9:33 AM EST 11/03/2023 2:26 PM EST us Janett Hoyt MD LAB BLOOD ORDERABLES Final Result Performing Organization Address [facility]/ZIP Co de Phone Number [facility] [address] [place] [address] [phone] from Last 3 Months or Most Recently Relevant to [place] [id number] [place] [phone] [facility] [place] [id number] [place] [id number] [place] [id number] Care Teams Destaticizer Feeder Relationship Specialty Start Date End Date Janett Hoyt MD [address] [place] [address] [place] [phone] PCP - General Internal Medicine 02/26/19
--- OUTSIDE RECORDS SUMMARY | 2025-01-10 16:20 | XMS_ITS | Clinical Summary ---
Author Organization [facility] Address [address] [place] [address] Care Team Providers Care Director Religious Education Name Role Phone Janett Hoyt MD Primary Care Provider [phone] Surgical History Surgery Date Site/Laterality Comments BLADDER SUSPENSION PROCEDURE: HISTORICAL BLADDER SUSPENSION OTHER SURGICAL HISTORY PROCEDURE: CO STAB PHLEBT VARICOSE VEINS 1 XTR 10-20 STAB INCS EYE SURGERY PROCEDURE: HISTORICAL EYE SURGERY; COMMENT: starbismus OTHER SURGICAL HISTORY PROCEDURE: CO RHINOPLASTY PRIMARY W/MAJOR SEPTAL REPAIR OTHER SURGICAL HISTORY PROCEDURE: HISTORICAL SUPRACERVICAL HYSTERECTOMY WITH BSO; COMMENT: BSO, fibroid uterus OTHER SURGICAL HISTORY 08/18/2002 PROCEDURE: (UGI) CONTRAST X-RAY OF UPPER GI TRACT; COMMENT: Normal COLONOSCOPY 12/04/2009 PROCEDURE: HISTORICAL COLONOSCOPY; COMMENT: Dr Stanley - normal colon to cecum. Repeat colonoscopy in 10 years. OTHER SURGICAL HISTORY 1982 PROCEDURE: CO PRTL THYROID LOBECTOMY UNI W/WO ISTHMUSECTOMY; COMMENT: left side - due to recurrent cysts EYE SURGERY 08/05/2014 PROCEDURE: CO TRABECULOPLASTY BY LASER SURGERY; COMMENT: right eye; iridotomy EYE SURGERY 08/19/2014 PROCEDURE: CO TRABECULOPLASTY BY LASER SURGERY; COMMENT: left eye OTHER SURGICAL HISTORY Right PROCEDURE: HISTORY OTHER; COMMENT: surgery for ptosis, [facility] VARICOSE VEIN SURGERY 2010 PROCEDURE: CO LIGJ DIVJ &/EXCJ VARICOSE VEIN CLUSTER 1 LEG; COMMENT: laser surgery; Dr. Ernandez BREAST BIOPSY Right PROCEDURE: BX BREAST; PERC NEEDLE CORE W/IMAG GUID; COMMENT: benign UPPER GASTROINTESTINAL ENDOSCOPY 06/16/2018 PROCEDURE: CO UPPER GI ENDOSCOPY PERFORMED; COMMENT: normal on PPI rx. UPPER GASTROINTESTINAL ENDOSCOPY 04/03/2015 PROCEDURE: CO UPPER GI ENDOSCOPY PERFORMED; COMMENT: normal Medical [...] Status Comments Brother Father [address] Mother [address], lung cancer , ulcers Mother's side Sister [...] (World Health Organization Fracture Risk Assessment) [facility] Department of Internal Medicine recommends using National [...] alternative screening schedule based on mary Lui., [facility] October 31, 2011 for patients with [...] years. (WorldHealth Organization Fracture Risk Assessment) [facility] Department of Internal Medicine recommendsusing National Osteoporosis [...] alternative screening schedule based on [facility] Lui., [facility] for patients with osteopenia (based [...] Documents on File Type Date Recorded Patient Oil Pit Attendant Expl anation Health Care Decision (hx) 05/13/2019 AD CACERES DIRECTIVE Health Care Decision (hx) 05/13/2019 AD CACERES DIRECTIVE Health Care Decision (hx) 05/13/2019 AD CACERES DIRECTIVE Health Care Decision (hx) 05/13/2019 AD CACERES DIRECTIVE Health Care Decision (hx) 05/13/2019 AD CACERES DIRECTIVE Health Care Decision (hx) 05/13/2019 AD NICKI DIRECTIVE Care Teams Director Religious Education Relationship Specialty Start Date End Date Janett Hoyt MD [address] [place] [address] PCP - General Internal Medicine 05/31/21
--- OUTSIDE RECORDS SUMMARY | 2025-01-10 16:20 | XMS_ITS | Encounter Summary ---
Author Organization [employer] Address [address] [facility] 7t [place] [address] Care Team Providers Care Manager Sustainability Name Role Phone Janett Hoyt MD Primary Care Provider [phone] Encounter Details Date Type Department Care Team ([facility] st Contact Info) Description 04/14/2024 Orders Only [facility] MED & PEDS [address] [place], [place] [phone] Janett Hoyt MD 505 [place], [place] [phone] Primary hypertension (Primary Dx) Social History Tobacco [...] Description 04/06/2025 9:00 AM EDT Clinical Support [facility] PEDS [address] [place] [address] Kaylen Townsend RN 505 [place] [address] 04/13/2025 10:30 AM EDT Office Visit [facility] PED[facility] [address] [place] [address] Janett Hoyt MD [address] [place] [address] documented as of this encounter Visit Diagnoses Diagnosis Primary hypertension- Primary Unspecified essential hypertension documented in this encounter Additional Health Concerns Assessment Noted Time PHQ-9 Depression Total Score: 0 12/03/19 23 9:31 AM EST documented as of this encounter Care Teams Manager Sustainability Relationship Specialty Start Date End Date Janett Hoyt MD 505 [place] [address] PCP - General Internal Medicine 02/26/19 documented as of this encounter
--- OUTSIDE RECORDS SUMMARY | 2025-01-10 16:20 | XMS_ITS | Encounter Summary ---
Author Organization [email or web address] Address [address] [facility] 7t [place] [address] Care Team Providers Care Natural Science Curator Name Role Phone Janett Hoyt MD Primary Care Provider [phone]- [phone] Reason for Visit * Reason Comments Ankle Pain Encounter Details Date Type Department Care Team ([facility] st Contact Info) Description 01/10/2025 1:20 PM EDT Office Visit [facility] MED & PEDS [address] [place], [place] [phone] Janett Hoyt MD [address] [place] [address] Acute right ankle pain (Primary Dx); Dietary counseling; Exercise counseling; Class 1 obesity due to excess calories with serious comorbidity and body mass index (BMI) of 33.0 to 33.9 in adult; Primary hypertension Social History Tobacco Use Types Packs/Day Years [...] AM EDT documented as of this encounter Last Filed Vital Signs Vital Sign Reading [...] Mass Index 33.01 01/10/2025 1:22 PM EDT documented in this encounter Progress Notes * Janett Hoyt MD - 01/10/2025 1:20 PM EDT Subjective Patient ID: Franny Tejeda is a 74 y.o. adult who presents for Ankle Pain. Ankle Pain History of right ankle pain with swelling for the last 2 months. Patient reports that she slipped on ice in the beginning of October about 2-1/2 months ago and since then she has been experiencing pain of the right ankle exacerbated by standing and walking. She has not been able to exercise doing her regular walks since then. She has used ice on it and has been using an Iglesia bandage to wrap the ankle without significant improvement. Patient Active Problem List Diagnosis Hypertension Hypercholesterolemia Insomnia Hypothyroid IBS (irritable bowel syndrome) GERD (gastroesophageal reflux disease) Anxiety COVID-19 Dilated bile duct ETD (Eustachian tube dysfunction), bilateral History of partial thyroidectomy Migraine Multiple joint pain Obese Osteoporosis Parotid mass PND (post-nasal drip) Primary osteoarthritis of right knee Rathke's cleft cyst (CMS/HCC) Umbilical hernia without obstruction and without gangrene Vertigo Long-term current use of opiate analgesic Allergies Allergen Reactions Nitrofurantoin Other Panic attack Sulfa Antibiotics Other anxiety Current Outpatient Medications on File Prior to Visit Medication Sig Dispense Refill Calcium-Vitamin D-Vitamin K 500-100-40 MG-UNT-MCG chewable tablet Chew. celecoxib (CeleBREX) 200 MG capsule TAKE ONE CAPSULE BY MOUTH EVERY MORNING 30 capsule 3 cholecalciferol (Vitamin D-3) 25 MCG (1000 UT) tablet Take 1 tablet (25 mcg) by mouth Once per day.30 tablet 11 dilTIAZem SR (Cardizem SR) 60 MG 12 hr capsule Take 1 capsule (60 mg) by mouth 2 times daily. 60 capsule 11 DULoxetine (Cymbalta) [address] capsule Take 1 capsule (20 mg) by mouth 2 times daily. Do not crush or chew. 60 capsule 11 Elastic Bandages & Supports (Medical Compression Stockings) misc 15-20 mm/Hg. Knee high. Dx : venous insufficiency ( Toe less please ) 1 each 0 levothyroxine (Synthroid, Levoxyl) 100 MCG tablet TAKE ONE TABLET EVERY MORNING 30 tablet 5 Linzess 145 MCG capsule Take 145 mcg by mouth in the morning. losartan (Cozaar) 100 MG tablet Take 1 tablet (100 mg) by mouth Once per day. 30 tablet 11 meclizine (Antivert) 25 MG tablet TAKE ONE TABLET AT BEDTIME 40 tablet 3 methocarbamol (Robaxin) 500 MG tablet TAKE 1 TABLET BY MOUTH 4 TIMES A DAY NEEDED FOR SPASM *NC NON FORMULARY* nortriptyline (Pamelor) 25 MG capsule Take 1 capsule (25 mg) by mouth at bedtime. 30 capsule 11 rosuvastatin (Crestor) 20 MG tablet Take 1 tablet (20 mg) by mouth Once per day. 30 tablet 11 traMADol (Ultram) 50 MG tablet Take 1 tablet (50 mg) by mouth every 8 (eight) hours if needed for severe pain. 30 tablet 0 venlafaxine XR (Effexor XR) 37.5 MG 24 hr capsule TAKE ONE CAPSULE BY MOUTH EVERY MORNING 90 capsule 3 No current facility-administered medications on file prior to visit. Review of Systems Constitutional: Negative for appetite change, chills and diaphoresis. Respiratory: Negative for cough, choking and shortness of breath. Genitourinary: Negative for enuresis, flank pain and frequency. Musculoskeletal: Right ankle pain. Skin: Negative for rash and wound. Objective Physical Exam Constitutional: General: Franny is not in acute distress. Appearance: Normal appearance. Franny is obese. Franny is not ill-appearing, toxic-appearing or diaphoretic. Pulmonary: Effort: Pulmonary effort is normal. Musculoskeletal: Right ankle: Tenderness present over the medial malleolus. Decreased range of motion. Left ankle: Normal. Skin: General: Skin is warm. Neurological: Mental Status: Franny is alert. Assessment/Plan Diagnoses and all orders for this visit: Acute right ankle pain Comments: Moist heat to the area Ankle support Diclofenac gel 3-4 times a day Orders: - XR Ankle 3+ Views Right; Future - Diclofenac Sodium 1 % gel; To apply to the affected area 3 times a day Dietary counseling Exercise counseling Class 1 obesity due to excess calories with serious comorbidity and body mass index (BMI) of 33.0 to 33.9 in adult Dietary Recommendations: Fruits, vegetables, whole grains, protein foods, and fat-free or low-fat dairy products are healthychoices. Eat different types of protein foods in your diet. This can include seafood, lean meats, poultry, beans, peas, lentils, nuts, seeds, soy products, and eggs. Limit foods and beverages higher in added sugars, saturated fat, and sodium. Exercise Recommendations: At least 150 minutes of moderate-intensity physical activity per week, or an equivalent combinationof moderate- and vigorous-intensity activity Primary hypertension Comments: Controlled. DASH diet No change in medication. documented in this encounter Plan of Treatment Upcoming Encounters Date Type Department Care Team (Late st Contact Info) Description 04/06/2025 9:00 AM EDT Clinical Support [facility] MED & PEDS [address] [place] [address] Kaylen Townsend, RN [address] [place] [address] 04/13/2025 10:30 AM EDT Office Visit [facility] MED & PEDS [address] [place] [address] Janett Hoyt MD [address] [place] [address] Scheduled Orders Name Type Priority Associated Diagnoses Orde r Schedule XR Ankle 3+ Views Right Imaging Routine Acute right ankle pain Expected: 01/10/2025, Expires: 01/10/2026 documented as of this encounter Visit Diagnoses Diagnosis Acute right ankle pain- Primary Dietary counseling Dietary surveillance and counseling Exercise counseling Class 1 obesity due to excess calories with serious comorbidity and body mass index (BMI) of 33.0 to 33.9 in adult Primary hypertension Unspecified essential hypertension documented in this encounter Additional Health Concerns Assessment Noted Time PHQ-9 Depression Total Score: 0 10/27/19 25 2:31 PM EST documented as of this encounter Care Teams Natural Science Curator Relationship Specialty Start Date End Date Janett Hoyt MD [address] [place] [address] PCP - General Internal Medicine 02/26/19 documented as of this encounter
--- OUTSIDE RECORDS SUMMARY | 2025-01-10 16:21 | XMS_ITS | Encounter Summary ---
Author Organization [employer] Address [address] [facility] 7t [place] [address] Care Team Providers Care Stone Layout Marker Name Role Phone Janett Hoyt MD Primary Care Provider [phone] Encounter Details Date Type Department Care Team ([facility] st Contact Info) Description 06/28/2024 Orders Only [facility] MED [facility] PEDS [address] [place], [place] [phone] Janett Hoyt MD [address] [place], [place] [phone] Social History Tobacco Use Types Packs/Day Years [...] Description 04/06/2025 9:00 AM EDT Clinical Support [facility] MED & PEDS [address] [place] [address] Kaylen Townsend RN [address] [place] [address] 04/13/2025 10:30 AM EDT Office Visit [facility] MED & PEDS [address] [place] [address] Janett Hoyt MD [address] [place] [address] documented as of this encounter Visit Diagnoses Not on filedocumented in this encounter Additional Health Concerns Assessment Noted Time PHQ-9 Depression Total Score: 0 12/03/19 23 9:31 AM EST documented as of this encounter Care Teams Stone Layout Marker Relationship Specialty Start Date End Date Janett Hoyt MD [address] [place] [address] PCP - General Internal Medicine 02/26/19 documented as of this encounter
--- OUTSIDE RECORDS SUMMARY | 2025-01-10 16:21 | XMS_ITS | Encounter Summary ---
Author Organization [employer] Address [address] [facility] 7t [place] [address] Care Team Providers Care Putty Remover Name Role Phone Janett Hoyt MD Primary Care Provider [phone] Encounter Details Date Type Department Care Team ([facility] st Contact Info) Description 04/29/2024 Orders Only [facility] MED & PEDS [address] [place], [place] [phone] Janett Hoyt MD [address] [place], [place] [phone] Primary hypertension (Primary Dx); Other osteoporosis without [...] 04/06/2025 9:00 AM EDT Clinical Support [facility] MED [facility] PEDS [address] [place] [address] Kaylen Townsend RN [address] [place] [address] 04/13/2025 10:30 AM EDT Office Visit [facility] [address] [place] [address] Janett Hoyt MD [address] [place] [address] documented as of this encounter Visit Diagnoses Diagnosis Primary hypertension- Primary Unspecified essential hypertension Other osteoporosis without current pathological fracture documented in this encounter Additional Health Concerns Assessment Noted Time PHQ-9 Depression Total Score: 0 12/03/19 23 9:31 AM EST documented as of this encounter Care Teams Putty Remover Relationship Specialty Start Date End Date Janett Hoyt MD [address] [place] [address] PCP - General Internal Medicine 02/26/19 documented as of this encounter
== END 2025-01-10 14:25 | disposition home or self-care (01) ==
LOC: HO.XRAY 14:24
PROVIDERS: PCP Internal Medicine; Visit Provider Internal Medicine
DX: M25.571 Pain in right ankle and joints of right foot (principal)
CPT/HCPCS: 73610

== ENCOUNTER → 2025-01-10 15:08 | Outpatient (BNV) | payer MEDICARE, MEDICAID, SELFPAY | PROVIDERS: PCP Internal Medicine; Visit Provider Radiology Diagnostic Radiology | DX: M25.571 Pain in right ankle and joints of right foot (principal) | CPT/HCPCS: 73610 ==

== ENCOUNTER 2025-04-05 10:29 | Outpatient (AMB) | payer MEDICARE, MEDICAID, SELFPAY ==
--- NOTE | 2025-04-05 10:33 | MHC.OFFVIS ---
Vital Signs 04/05/25 11:03 Height 5 ft 2 in Weight 168 lb BMI 30.7 BP 150/72 H Blood Pressure Location Rt brachial Position Sitting Pulse 88 Pulse Source Pulse Oximeter Pulse Oximetry (%) 93 Oxygen Delivery Method Room Air Intake Visit Reasons: 1 yr f/u DON'T CANCEL. Intake Note: Est pt for [facility]IC + GERD mgmt. SHEYLA 2022. CC: C.O. GERD persistence w/o dysphagia. Pt states that their linzess still works OK for them. No lower GI sx at this time. Form Setter Steel Forms Required: No Accompanied by: Self / Same As Patient Allergies bupropion (From WELLBUTRIN) Allergy (Intermediate, Verified 04/05/25 10:52) panic attack, shaking esomeprazole (From NEXIUM) Allergy (Intermediate, Verified 04/05/25 10:52) panic attack, shaking naproxen (From ALEVE) Allergy (Intermediate, Verified 04/05/25 10:52) panic attack, shaking nitrofurantoin (NITROFURANTOIN) Allergy (Intermediate, Verified 04/05/25 10:52) panic attack shaking polyethylene glycol 3350 (From MIRALAX) Allergy (Intermediate, Verified 04/05/25 10:52) panic attack, shaking pramipexole (From MIRAPEX) Allergy (Intermediate, Verified 04/05/25 10:52) panic attack, shaking Sulfa (Sulfonamide Antibiotics) (SULFA (SULFONAMIDE ANTIBIOTICS)) Allergy (Intermediate, Verified 04/05/25 10:52) panic attack, shaking latex Allergy (Verified 04/05/25 10:52) Unknown moxifloxacin (From Avelox) Adverse Reaction (Severe, Verified 04/05/25 10:52) Anxiety HPI HPI 1 yr f/u DON'T CANCEL.: Details: Assessment & Plan (1) Chronic idiopathic constipation: Code(s): K59.04 - Chronic idiopathic constipation Plan: She continues to do well on her LInzess and would like to change to 1 year follow ups. THis is fine. ROV 1 years. (2) Abdominal bloating: Code(s): R14.0 - Abdominal distension (gaseous) Medications: Discontinued bisacodyl (Dulcolax (bisacodyl)) Discontinued Reason: Doctor's Order 10 mg (2 x 5 mg) PO BEDTIME 30 days 60 tabs 3RF K59.04 - Chronic idiopathic constipation TODAYS VISIT She continues to do well on the Linzess. She has a new problems of pain if she hits her BB on anything. I examine and there appears to be a hernia just superior to the umbilcus. It is painful with palpation, but not with eating or moving bowels. WIll get US to evaluate. ROV after US. PFSH Medical History Osteoporosis Ataxia GERD (gastroesophageal reflux disease) Pharyngoesophageal dysphagia Hypothyroid HTN (hypertension) GERD (gastroesophageal reflux disease) IBS (irritable bowel syndrome) Vertigo Surgical History History of pubovaginal sling Hx of blepharoplasty Hx of parotidectomy History of esophagogastroduodenoscopy (EGD) Hx of colonoscopy H/O: hysterectomy H/O eye surgery Family History Father Family history of heart disease Mother Family history of hypertension Family history of heart disease Sister Lung cancer Social History Alcohol intake: never Patient Tobacco Use Status: Former Tobacco user Years Smoked: Smoked 1 pack a day for 15-20 years, quit 30 years ago Review of Systems Const Denies fatigue, Denies fever(s), Denies night sweats, Denies poor appetite, Reports weight gain and Denies weight loss Eyes Details: glasses Reports requires corrective lenses ENT Reports Normal hearing present, Denies dental pain, Denies dysphagia, Reports vertigo, Reports dizziness, Denies hearing loss, Denies mouth pain, Denies odynophagia, Denies throat swelling, Denies tongue swelling and Reports other (Dentition adequate) Card Reports no additional complaints Resp Reports no additional complaints GI Details: Denies abdominal pain, Denies melena, Denies bloating, Denies hematochezia, Reports constipation, Denies GI cramping, Denies dysphagia, Denies excessive flatus, Denies early satiety, Denies heartburn, Denies diarrhea, Denies nausea, Denies odynophagia, Denies vomiting and Denies hematemesis Musc Reports back pain and Reports arthralgias Skin/Breast Denies pruritus, Denies lesions, Denies rash and Denies jaundice Neuro Reports Normal hearing present, Denies Abnormal speech present, Reports vertigo, Reports dizziness and Reports paresthesias Endo Denies fatigue Aller/Immun Denies throat swelling and Denies tongue swelling Physical Exam Vital Signs: Last Vital Signs Pulse 88 04/05/25 11:03 BP 150/72 H 04/05/25 11:03 Pulse Ox 93 04/05/25 11:03 Oxygen Delivery Method Room Air 04/05/25 11:03 BMI result Body Mass Index 30.7 Const General: cooperative, no acute distress, well developed and well groomed Nutritional Appearance: well nourished and obese Orientation/consciousness: oriented to person, oriented to place and oriented to time Limitations: No language barrier HEENT Head: Yes normocephalic and Yes atraumatic Eyes General: appearance normal, both eyes and all related structures Pupils: Equal, round and reactive pupils present Neck Neck: Yes normal visual inspection and Yes no lymphadenopathy Thyroid: Thyroid normal Resp Effort & Inspection: normal respiratory effort and able to speak in complete sentences Auscultation: clear to auscultation bilaterally Cardio Rate: regular rate Rhythm: regular rhythm Heart sounds: Normal, physiologic split S2 sound present Peripheral pulses: radial pulses present and posterior tibial pulses present GI Inspection: No distended, Yes Abdominal panniculus present, Yes obesity and Yes visible herniation Palpation (GI): Soft to palpation, nontender, no guarding, not rigid and No hepatosplenomegaly present Percussion: Yes normal to percussion Auscultation: normal bowel sounds Rectal Exam - Female: deferred Skin General skin exam: no rashes or lesions noted, turgor normal, skin not dry, no jaundice, No spider nevi and no striae Rashes: no rashes Nails: normal Neuro General: oriented to person, oriented to place and oriented to time Cranial nerves: Yes Equal, round and reactive pupils present and Yes Normal hearing present Speech: No Abnormal speech present Extrem General: Yes normal to inspection, No clubbing, No cyanosis and No edema Psych Appearance: grossly normal and well kempt Mental Status: mental status grossly normal Speech and movement: Normal speech and movement present Affect: normal affect Attitude: cooperative Thought process: Normal thought process present and not confabulating Thought content: Normal thought content present Insight: Good insight present (Psych) Judgement: Good judgement present (Psych) Assessment & Plan Assessment & Plan (1) Chronic idiopathic constipation: Code(s): K59.04 - Chronic idiopathic constipation Category: Medical (2) Umbilical pain: Code(s): R10.33 - Periumbilical pain Category: Medical Plan She continues to do well on the Linzess. She has a new problems of pain if she hits her BB on anything. I examine and there appears to be a hernia just superior to the umbilcus. It is painful with palpation, but not with eating or moving bowels. WIll get US to evaluate. ROV after US. Orders: Orders US abdomen limited Today R10.33 - Periumbilical pain Medications: Refilled linaclotide (Linzess) 145 mcg PO QAM 90 caps 3RF 90 days K59.04 - Chronic idiopathic constipation Coding Level of Care Code Est Pt Level 3 (67681) Diagnoses Chronic idiopathic constipation K59.04 Umbilical pain R10.33
[2025-04-05 11:03] VITALS: BP 150/72; PULSE 88; O2SAT 93; BMI 30.7
--- OUTSIDE RECORDS SUMMARY | 2025-04-05 11:43 | XMS_ITS | Encounter Summary ---
Author Organization [employer] Address [address] [facility] [address] [place] [address] Care Team Providers Care Assistant Softball Coach Name Role Phone Janett Hoyt MD Primary Care Provider [phone]- [phone] Encounter Details Date Type Department Care Team ([facility] st Contact Info) Description 02/02/2025 Orders Only [facility] MED & PEDS [address] [place] [address] Janett Hoyt MD [address] [place], [place] [phone] Primary hypertension (Primary Dx) Social History Tobacco [...] Upcoming Encounters Date Type Department Care Team ([facility] st Contact Info) Description 04/13/2025 11:00 AM EDT Clinical Support [facility] MED & PEDS [address] [place] [address] Kaylen Townsend, KENISHA [address] [place] [address] documented as of this encounter Visit Diagnoses Diagnosis Primary hypertension- Primary Unspecified essential hypertension documented in this encounter Additional Health Concerns Assessment Noted Time PHQ-9 Depression Total Score: 0 10/27/19 25 2:31 PM EST documented as of this encounter Care Teams Assistant Softball Coach Relationship Specialty Start Date End Date Janett Hoyt MD [address] [place] [address] PCP - General Internal Medicine 02/26/19 documented as of this encounter
== END 2025-04-05 11:47 | disposition home or self-care (01) ==
LOC: HO.HGI 10:29
PROVIDERS: PCP Internal Medicine; Visit Provider Nurse Practitioner
DX: K59.04 Chronic idiopathic constipation (principal); R10.33 Periumbilical pain
CPT/HCPCS: 99213

== ENCOUNTER → 2025-04-05 10:29 | Outpatient (BNVA) | payer MEDICARE, MEDICAID, SELFPAY | PROVIDERS: PCP Internal Medicine; Visit Provider Nurse Practitioner | DX: K59.04 Chronic idiopathic constipation (principal); R10.33 Periumbilical pain | CPT/HCPCS: 99212 ==

== ENCOUNTER 2025-04-06 08:32 | Outpatient (AMB) | payer MEDICARE, MEDICAID, SELFPAY ==
--- OUTSIDE RECORDS SUMMARY | 2025-04-06 08:51 | XMS_ITS | Encounter Summary ---
Author Organization [employer] Address [address] [facility] [address] [place] [address] Care Team Providers Care Account Strategist Name Role Phone Janett Hoyt MD Primary Care Provider [phone]- [phone] Encounter Details Date Type Department Care Team ([facility] st Contact Info) Description 02/02/2025 Orders Only [facility] CHC MED & PEDS [address] [place] [address] Janett Hoyt MD [address] [place], [place] [phone] Primary hypertension (Primary Dx) Social History Tobacco [...] Upcoming Encounters Date Type Department Care Team ([facility] st Contact Info) Description 04/13/2025 11:00 AM EDT Clinical Support [facility] MED & PEDS [address] [place] [address] Kaylen Townsend, KENISHA [address] [place] [address] documented as of this encounter Visit Diagnoses Diagnosis Primary hypertension- Primary Unspecified essential hypertension documented in this encounter Additional Health Concerns Assessment Noted Time PHQ-9 Depression Total Score: 0 10/27/19 25 2:31 PM EST documented as of this encounter Care Teams Account Strategist Relationship Specialty Start Date End Date Janett Hoyt MD [address] [place] [address] PCP - General Internal Medicine 02/26/19 documented as of this encounter
--- NOTE | 2025-04-06 08:52 | A.OFFVIS_ITS ---
Vital Signs 04/06/25 08:54 Height 5 ft 2.05 in Weight 171 lb 1.259 oz BMI 31.2 BP 126/64 Blood Pressure Location Rt brachial Position Sitting Pulse 86 Pulse Source Pulse Oximeter Pulse Oximetry (%) 94 Oxygen Delivery Method Room Air Intake Visit Reasons: Osteoporosis Intake Note: Patient present today for Osteoporosis follow up visit. Design Studio Consultant Required: No Accompanied by: Self / Same As Patient Allergies bupropion (From WELLBUTRIN) Allergy (Intermediate, Verified 04/06/25 08:54) panic attack, shaking esomeprazole (From NEXIUM) Allergy (Intermediate, Verified 04/06/25 08:54) panic attack, shaking naproxen (From ALEVE) Allergy (Intermediate, Verified 04/06/25 08:54) panic attack, shaking nitrofurantoin (NITROFURANTOIN) Allergy (Intermediate, Verified 04/06/25 08:54) panic attack shaking polyethylene glycol 3350 (From MIRALAX) Allergy (Intermediate, Verified 04/06/25 08:54) panic attack, shaking pramipexole (From MIRAPEX) Allergy (Intermediate, Verified 04/06/25 08:54) panic attack, shaking Sulfa (Sulfonamide Antibiotics) (SULFA (SULFONAMIDE ANTIBIOTICS)) Allergy (In termediate, Verified 04/06/25 08:54) panic attack, shaking latex Allergy (Verified 04/06/25 08:54) Unknown moxifloxacin (From Avelox) Adverse Reaction (Severe, Verified 04/06/25 08:54) Anxiety Medication List - Last Reconciled 04/06/25 by Tunde Brizuela MD amlodipine 5 mg PO DAILY calcium citrate 200 mg PO DAILY celecoxib 200 mg PO DAILY PRN cholecalciferol (vitamin D3) 25 mcg PO DAILY clonazepam 0.5 mg PO DAILY diltiazem HCl ER 60 mg PO BID levothyroxine 1 tab PO DAILY linaclotide (Linzess) 145 mcg PO QAM 90 days losartan 100 mg PO DAILY ropinirole 2 mg PO DAILY rosuvastatin 20 mg PO DAILY tramadol mg PO Q8H venlafaxine 37.5 mg PO DAILY HPI Comments Details: 74 YO Female with is seen in consultation at the request of PCP for Osteoporosis. First diagnosed in recently . Received treatment in the past with alendronate , from April 2024 to May 2024 . Not Tolerated treatment well felt rigid and nauseated No history of pathologic fracture or ONJ. Has several servings of dietary calcium per day in the form of milk, broccoli , yogurt . Takes Calcium supplement ? mg daily in divided doses. Takes ? IU of Vitamin D daily since recently . Denies ever using PPI, anticoagulant, antiepileptic or glucocorticoid medication. Does weight bearing exercise 7 days per week in the form of weight lifting . 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 Mother and sisters - mother fx a hip UTD on dental cleanings and sees dentist every 6 months. No planned upcoming dental work or extractions. DXA dated : 05/06/24 FINDINGS: LEFT FEMUR, NECK: Current: BMD 0.594 g/cm2, Z-score -1.4, T-score -3.2, osteoporosis. Baseline: BMD 0.733 g/cm2. LEFT FEMUR, TOTAL: Current: BMD 0.717 g/cm2, Z-score -0.7, T-score -2.3, osteopenia, 12.9% decrease from baseline (<5% change is not significant). Baseline: BMD 0.823 g/cm2. AP SPINE L1-L4 (excluding L3): The data of L1-L4 has been changed to exclude the L3 vertebral body, because degenerative sclerosis at this level may cause overestimation of lumbar spine density. Current: BMD 1.239 g/cm2, Z-score 2.1, T-score 0.6, normal, 8.8% increase from baseline (<5% change is not significant). Baseline: BMD 1.139 g/cm2. IDENTIFIED RISK FACTORS: Menopause, hysterectomy, height loss, bilateral oophorectomy. HISTORY OF FRACTURE: None listed. MEDICATIONS: None listed. MM/XR DEXA axial skeleton IMPRESSION: 1. DIAGNOSIS: Osteoporosis based on the lowest T-score value of -3.2 in the femoral neck applying World Health Organization criteria. Decided to start on Prolia and received 1st dose of Prolia 12/2024 The patient is a 74-year-old female presenting with osteoporosis management. She received her first Prolia injection in December after Evenity was denied by insurance. The patient tolerated the injection well without any adverse effects and is scheduled for her next injection in June. Preventative measures include calcium and vitamin D supplementation, as well as engaging in weightbearing exercises. The patient has not experienced any fractures or falls since her last visit. The patient engages in weightbearing exercises as part of her osteoporosis management plan. [facility] Medical History Osteoporosis Ataxia GERD (gastroesophageal reflux disease) Pharyngoesophageal dysphagia Hypothyroid HTN (hypertension) GERD (gastroesophageal reflux disease) IBS (irritable bowel syndrome) Vertigo Surgical History History of pubovaginal sling Hx of blepharoplasty Hx of parotidectomy History of esophagogastroduodenoscopy (EGD) Hx of colonoscopy H/O: hysterectomy H/O eye surgery Family History Father Family history of heart disease Mother Family history of hypertension Family history of heart disease Sister Lung cancer Social History Alcohol intake: never Patient Tobacco Use Status: Former Tobacco user Years Smoked: Smoked 1 pack a day for 15-20 years, quit 30 years ago Physical Exam Vital Signs: Last Vital Signs Pulse 94 04/06/25 08:54 BP 126/64 04/06/25 08:54 Pulse Ox 68 L 04/06/25 08:54 Oxygen Delivery Method Room Air 04/06/25 08:54 BMI result Body Mass Index 31.2 Assessment & Plan Assessment & Plan (1) Osteoporosis: Code(s): M81.0 - Age-related osteoporosis without current pathological fracture Category: Medical Plan: 73-year-old white female with a history of osteoporosis. secondary causes have been ruled out . Started on Prolia 12/2024 Plan is to continue the Prolia. 1. Osteoporosis The patient is currently on Prolia injections, with the first dose administered in December and the next scheduled for June. She has tolerated the treatment well without adverse effects. Preventative measures include calcium and vitamin D supplementation and weightbearing exercises. Follow-up is planned for nine months after the second injection to assess treatment efficacy and plan further management. During the visit, we discussed the patient's osteoporosis management plan, including the use of Prolia injections and the importance of calcium and vitamin D supplementation. We also emphasized the role of weightbearing exercises in maintaining bone health. The patient was advised to coordinate her follow-up appointments with her injection schedule to minimize visits. - Continue Prolia injections as scheduled. - Take calcium and vitamin D supplements daily. - Engage in regular weightbearing exercises. - Coordinate follow-up appointments with injection schedule. The patient had an opportunity to ask questions regarding treatment plan. The patient expressed understanding and agreement with the above treatment plan. Patient was informed and verbally consented to the use of an ambient scribe for clinic note documentation during this visit. Coding Level of Care Code Est Pt Level 3 (59272) Diagnoses Osteoporosis M81.0
[2025-04-06 08:54] VITALS: BP 126/64; PULSE 86; O2SAT 94; BMI 31.2
== END 2025-04-06 09:10 | disposition home or self-care (01) ==
LOC: HO.ENCR 08:32
PROVIDERS: PCP Internal Medicine; Visit Provider Internal Medicine Endocrinology, Diabetes & Metabolism
DX: M81.0 Age-related osteoporosis without current pathological fracture (principal)
CPT/HCPCS: 99213

== ENCOUNTER → 2025-04-06 08:32 | Outpatient (BNVA) | payer MEDICARE, MEDICAID, SELFPAY | PROVIDERS: PCP Internal Medicine; Visit Provider Internal Medicine Endocrinology, Diabetes & Metabolism | DX: M81.0 Age-related osteoporosis without current pathological fracture (principal) | CPT/HCPCS: 99212 ==

== ENCOUNTER 2025-05-04 14:50 | Outpatient (REF) | payer MEDICARE, MEDICAID, SELFPAY ==
--- NOTE | ~2025-05-04 | US_ITS ---
CLINICAL HISTORY: R10.33 - Periumbilical pain --- Additional Notes or Special Instructions: evaluate for possible hernia Ultrasound abdominal wall Comparison: None provided Findings: Small midline periumbilical ventral hernia. This contains fat with heterogeneous signal. Incarceration would not be excludable. Please correlate with physical exam. Impression: Small periumbilical ventral hernia containing heterogeneous fat Incarceration is not excludable, correlate with exam This document has been electronically signed by: Ahsan Meek MD on 05/04/2025 21:55:15
--- OUTSIDE RECORDS SUMMARY | 2025-05-04 15:25 | XMS_ITS | Clinical Summary ---
Author Organization [facility] Address [address] [place] [address] Care Team Providers Care Track Mechanic Name Role Phone Janett Hoyt MD Primary Care Provider [phone] Surgical History Surgery Date Site/Laterality Comments BLADDER SUSPENSION PROCEDURE: HISTORICAL BLADDER SUSPENSION OTHER SURGICAL HISTORY PROCEDURE: NC STAB PHLEBT VARICOSE VEINS 1 XTR 10-20 STAB INCS EYE SURGERY PROCEDURE: HISTORICAL EYE SURGERY; COMMENT: starbismus OTHER SURGICAL HISTORY PROCEDURE: NC RHINOPLASTY PRIMARY W/MAJOR SEPTAL REPAIR OTHER SURGICAL HISTORY PROCEDURE: HISTORICAL SUPRACERVICAL HYSTERECTOMY WITH BSO; COMMENT: BSO, fibroid uterus OTHER SURGICAL HISTORY 08/18/2002 PROCEDURE: (UGI) CONTRAST X-RAY OF UPPER GI TRACT; COMMENT: Normal COLONOSCOPY 12/04/2009 PROCEDURE: HISTORICAL COLONOSCOPY; COMMENT: Dr Stanley - normal colon to cecum. Repeat colonoscopy in 10 years. OTHER SURGICAL HISTORY 1982 PROCEDURE: NC PRTL THYROID LOBECTOMY UNI W/WO ISTHMUSECTOMY; COMMENT: left side - due to recurrent cysts EYE SURGERY 08/05/2014 PROCEDURE: NC TRABECULOPLASTY BY LASER SURGERY; COMMENT: right eye; iridotomy EYE SURGERY 08/19/2014 PROCEDURE: NC TRABECULOPLASTY BY LASER SURGERY; COMMENT: left eye OTHER SURGICAL HISTORY Right PROCEDURE: HISTORY OTHER; COMMENT: surgery for ptosis, [facility] VARICOSE VEIN SURGERY 2010 PROCEDURE: NC LIGJ DIVJ &/EXCJ VARICOSE VEIN CLUSTER 1 LEG; COMMENT: laser surgery; Dr. Ernandez BREAST BIOPSY Right PROCEDURE: BX BREAST; PERC NEEDLE CORE W/IMAG GUID; COMMENT: benign UPPER GASTROINTESTINAL ENDOSCOPY 06/16/2018 PROCEDURE: NC UPPER GI ENDOSCOPY PERFORMED; COMMENT: normal on PPI rx. UPPER GASTROINTESTINAL ENDOSCOPY 04/03/2015 PROCEDURE: NC UPPER GI ENDOSCOPY PERFORMED; COMMENT: normal Medical [...] Status Comments Brother Father 49yo suicide Mother [place], lung cancer , ulcers Mother's side Sister [...] Panel) 09/15/2022 Colorectal Cancer Screening: Colonoscopy 09/15/2022 Falls Risk Assessment 09/15/2022 Hepatitis C Screening 09/15/2022 Social Influencers of Health Screening 09/15/2022 DTaP,Tdap,and Td Vaccines (2 - Td or Tdap) 12/21/2022 12/21/2012 COVID-19 Vaccine ( - 2023- season) 2024 RSV Immunization Adult Patients (1 - 1-dose 75+ series) 2024 Depression Screening 10/13/2024 Influenza Vaccine (#1) 2025 8, 06/29/2017, 07/04/2016, Additional history exists Osteoporosis Screening (Bone Density Screening) 08/12/2027 08/12/2017 [...] age to complete this topic Meningococcal B Vaccine Aged Out No l onger eligible based on patient's age to complete [...] reviewed with CAD and compared to previous. The breasts are composed of fatty and fibroglandular tissue. Small metallic biopsy clip is stable in position [...] (World Health Organization Fracture Risk Assessment) The [facility] Department of Internal Medicine recommends [...] alternative screening schedule based on mary Lui., [facility] October 31, 2011 for patients with [...] years. (WorldHealth Organization Fracture Risk Assessment) [facility] Department of Internal Medicine recommendsusing [...] alternative screening schedule based on mary Lui., [facility] for patients with osteopenia (based [...] Documents on File Type Date Recorded Patient Receivable Manager Expl anation Health Care Decision (hx) 05/13/2019 AD CACERES DIRECTIVE Health Care Decision (hx) 05/13/2019 AD CACERES DIRECTIVE Health Care Decision (hx) 05/13/2019 AD CACERES DIRECTIVE Health Care Decision (hx) 05/13/2019 AD CACERES DIRECTIVE Health Care Decision (hx) 05/13/2019 AD CACERES DIRECTIVE Health Care Decision (hx) 05/13/2019 MICHELLE CACERES DIRECTIVE Care Teams Track Mechanic Relationship Specialty Start Date End Date Janett Hoyt MD [address] [place] [address] PCP - General Internal Medicine 05/31/21
--- OUTSIDE RECORDS SUMMARY | 2025-05-04 15:25 | XMS_ITS | Encounter Summary ---
Author Organization [employer] Address [address] [facility] [address] [place] [address] Care Team Providers Care Circuit Court Magistrate Name Role Phone Janett Hoyt MD Primary Care Provider [phone]- [phone] Encounter Details Date Type Department Care Team ([facility] st Contact Info) Description 02/02/2025 Orders Only [facility] CHC MED & PEDS [address] [place] [address] Janett Hoyt MD [address] [place], [place] [phone] Primary hypertension (Primary Dx) Social History Tobacco [...] Upcoming Encounters Date Type Department Care Team ([facility] st Contact Info) Description 08/16/2025 11:00 AM EST Clinical Support [facility] MED & PEDS [address] [place] [address] Kaylen Townsend, KENISHA [address] [place] [address] documented as of this encounter Visit Diagnoses Diagnosis Primary hypertension- Primary Unspecified essential hypertension documented in this encounter Additional Health Concerns Assessment Noted Time PHQ-9 Depression Total Score: 0 10/27/19 25 2:31 PM EST documented as of this encounter Care Teams Circuit Court Magistrate Relationship Specialty Start Date End Date Janett Hoyt MD [address] [place] [address] PCP - General Internal Medicine 02/26/19 documented as of this encounter
--- OUTSIDE RECORDS SUMMARY | 2025-05-04 15:25 | XMS_ITS | Clinical Summary ---
Author Organization [facility] Address [address] [facility] [address] [place] [phone] Phone Care Team Providers Care Fire Investigator Name Role Phone Sammie Hardin MD Primary Care Provide r Social History Tobacco Use Types Packs/Day Years Used Date Smoking Tobacco: Never Assessed Education Answer Date Recorded Are you interested in more education? Not on shivam e 02/07/2023 Are you concerned about learning? Not on file 02/07/2023 No 02/07/2023 No 02/07/2023 Digital Access Answer Date Recorded No 03/10/2023 No 03/10/2023 No 03/10/2023 Reliable internet access at home? Not on file 03/10/2023 Device with a working camera? Not on file Comments Unknown Sex and Gender Information Value Date Recorded Sex Assigned at Not on file Legal Sex Female 2:50 PM EST Gender Identity Not on file Sexual Orientation Not on file Plan of Treatment Health Maintenance Due Date Last Done Comments LIPID PANEL 1949 DEPRESSION SCREENING 1961 SMOKING Hx and SMOKELESS TOBACCO SCREENING 1962 HEPATITIS C SCREENING 1967 COLOGUARD 1994 COLONOSCOPY 1994 COLORECTAL CANCER SCREENING 1994 FIT TEST 1994 FOBT 1994 SIGMOIDOSCOPY 1994 VIRTUAL COLONOSCOPY 1994 ZOSTER VACCINES (1 of 2) 1999 OSTEOPOROSIS SCREENING INITI AL (ONE-TIME) 2014 PNEUMOCOCCAL VACCINES (50+ years) (2 of 2 - PCV) 09/28/2015 09/28/2014 COVID-19 VACCINE (2 - 2023-2 5 season) 2024 12/07/2020 RSV VACCINE (1 - 1-dose 75+ series) 2024 Adult Td,Tdap Booster 06/28/2029 06/28/2019 , 12/21/2012 HEPATITIS A VACCINES Aged Out No long er eligible based on patient's age to complete this topic HIB VACCINES Aged Out No longer eligi ble based on patient's age to complete this topic MENINGOCOCCAL VACCINES (ACWY) Aged Out No longer eligible based on patient's age to complete this topic MENINGOCOCCAL VACCINES (B) Aged Out N o longer eligible based on patient's age to complete this topic Medical Devices Not on file Insurance MEDICARE PART A & B [employer] MEDICARE PART A & B [employer] LIMITED MEDICARE PART A & B [employer] MEDICARE PART A & B [employer] MEDICARE PART A & B [employer] MEDICARE PART A & B [employer] MEDICARE PART A & B [employer] MEDICARE PART A & B Member Subscriber Plan / Payer (Ef fective 2014-Present) Name:Franny Tejeda Member ID:[id number] Relation to Subscriber:Self Name:Franny Tejeda Subscriber ID:[id number] Payer ID:[id number] Group ID:Not on file Type:Medicare Address: [employer] [address] [employer] MEDICARE PART A & B [employer] Care Teams Fire Investigator Relationship Specialty Start Date End Date Sammie Hardin MD [address] [place] [address] PCP - General 12/12/15 Additional Source Comments The information contained in this document represents components of the legal health record. It is not the complete legal health record.[facility]
== END 2025-05-04 14:51 | disposition home or self-care (01) ==
LOC: HO.HMGCX 14:50
PROVIDERS: PCP Internal Medicine; Visit Provider Nurse Practitioner
DX: R10.33 Periumbilical pain (principal)
CPT/HCPCS: 76705

== ENCOUNTER → 2025-05-04 15:02 | Outpatient (BNV) | payer MEDICARE, MEDICAID, SELFPAY | PROVIDERS: PCP Internal Medicine; Visit Provider Radiology Diagnostic Radiology | DX: K43.9 Ventral hernia without obstruction or gangrene (principal) | CPT/HCPCS: 76705 ==

== ENCOUNTER 2025-05-12 07:27 | Outpatient (REF) | payer MEDICARE, MEDICAID, SELFPAY ==
--- NOTE | ~2025-05-12 | MM_ITS ---
EXAMINATION: MM SCREENING DIGITAL BREAST TOMOSYNTHESIS, BILATERAL CLINICAL INFORMATION: Screening. Asymptomatic. COMPARISON: Mammography: Comparison is made with available priors TECHNIQUE: Digital breast mammography with tomosynthesis is performed in both the craniocaudal and mediolateral oblique views along with computer-aided detection (CAD). FINDINGS: There are scattered areas of fibroglandular density (ACR BI-RADS breast composition Category b). Right marker clip. There are no significant masses, abnormal calcifications, or other abnormalities. MM/MM tomosynthesis screening BI IMPRESSION: No mammographic evidence of malignancy. ASSESSMENT: BI-RADS BI-RADS 2 - Benign Findings RECOMMENDATION: Routine annual mammography screening. 1 year F/U This examination should not preclude the clinical evaluation of a suspicious palpable abnormality. This patient's information was entered into a reminder system with a target due date for their next mammogram. Electronically signed by: Tamara Dasilva DO 05/23/2025 11:04 AM EDT
--- OUTSIDE RECORDS SUMMARY | 2025-05-12 07:29 | XMS_ITS | Encounter Summary ---
Author Organization [employer] Address [address] [facility] 7[address] [place] [address] Care Team Providers Care Delivery And Installation Subcontractor Name Role Phone Janett Hoyt MD Primary Care Provider [phone]- [phone] Encounter Details Date Type Department Care Team ([facility] st Contact Info) Description 02/02/2025 Orders Only [facility] MED & PEDS [address] [place] [address] Janett Hoyt MD [address] [place], [place] [phone] Primary hypertension (Primary Dx) Social History Tobacco [...] Upcoming Encounters Date Type Department Care Team ([facility] st Contact Info) Description 08/16/2025 11:00 AM EST Clinical Support [facility] MED & PEDS [address] [place] [address] Kaylen Townsend, KENISHA [address] [place] [address] documented as of this encounter Visit Diagnoses Diagnosis Primary hypertension- Primary Unspecified essential hypertension documented in this encounter Additional Health Concerns Assessment Noted Time PHQ-9 Depression Total Score: 0 10/27/19 25 2:31 PM EST documented as of this encounter Care Teams Delivery And Installation Subcontractor Relationship Specialty Start Date End Date Janett Hoyt MD [address] [place] [address] PCP - General Internal Medicine 02/26/19 documented as of this encounter
--- OUTSIDE RECORDS SUMMARY | 2025-05-12 07:29 | XMS_ITS | Clinical Summary ---
Author Organization [email or web address] Address [address] [place] [address] Care Team Providers Care Instrument Lens Inspector Name Role Phone Janett Hoyt MD Primary Care Provider [phone] Surgical History Surgery Date Site/Laterality Comments BLADDER SUSPENSION PROCEDURE: HISTORICAL BLADDER SUSPENSION OTHER SURGICAL HISTORY PROCEDURE: UT STAB PHLEBT VARICOSE VEINS 1 XTR 10-20 STAB INCS EYE SURGERY PROCEDURE: HISTORICAL EYE SURGERY; COMMENT: starbismus OTHER SURGICAL HISTORY PROCEDURE: UT RHINOPLASTY PRIMARY W/MAJOR SEPTAL REPAIR OTHER SURGICAL HISTORY PROCEDURE: HISTORICAL SUPRACERVICAL HYSTERECTOMY WITH BSO; COMMENT: BSO, fibroid uterus OTHER SURGICAL HISTORY 08/18/2002 PROCEDURE: (UGI) CONTRAST X-RAY OF UPPER GI TRACT; COMMENT: Normal COLONOSCOPY 12/04/2009 PROCEDURE: HISTORICAL COLONOSCOPY; COMMENT: Dr Stanley - normal colon to cecum. Repeat colonoscopy in 10 years. OTHER SURGICAL HISTORY 1982 PROCEDURE: UT PRTL THYROID LOBECTOMY UNI W/WO ISTHMUSECTOMY; COMMENT: left side - due to recurrent cysts EYE SURGERY 08/05/2014 PROCEDURE: UT TRABECULOPLASTY BY LASER SURGERY; COMMENT: right eye; iridotomy EYE SURGERY 08/19/2014 PROCEDURE: UT TRABECULOPLASTY BY LASER SURGERY; COMMENT: left eye OTHER SURGICAL HISTORY Right PROCEDURE: HISTORY OTHER; COMMENT: surgery for ptosis, [facility] VARICOSE VEIN SURGERY 2010 PROCEDURE: UT LIGJ DIVJ &/EXCJ VARICOSE VEIN CLUSTER 1 LEG; COMMENT: laser surgery; Dr. Ernandez BREAST BIOPSY Right PROCEDURE: BX BREAST; PERC NEEDLE CORE W/IMAG GUID; COMMENT: benign UPPER GASTROINTESTINAL ENDOSCOPY 06/16/2018 PROCEDURE: UT UPPER GI ENDOSCOPY PERFORMED; COMMENT: normal on PPI rx. UPPER GASTROINTESTINAL ENDOSCOPY 04/03/2015 PROCEDURE: UT UPPER GI ENDOSCOPY PERFORMED; COMMENT: normal Medical [...] Status Comments Brother Father 49yo suicide Mother [place], lung cancer , ulcers Mother's side Sister [...] (World Health Organization Fracture Risk Assessment) [facility] Department of Internal Medicine recommends using [...] screening schedule based on mary Lui., [facility] October 31, 2011 for patients [...] years. (WorldHealth Organization Fracture Risk Assessment) [facility] Department of Internal Medicine recommendsusing National [...] screening schedule based on mary Lui., [facility] for patients with osteopenia [...] Documents on File Type Date Recorded Patient Oracle Reports Developer Expl anation Health Care Decision (hx) 05/13/2019 AD CACERES DIRECTIVE Health Care Decision (hx) 05/13/2019 AD CACERES DIRECTIVE Health Care Decision (hx) 05/13/2019 AD CACERES DIRECTIVE Health Care Decision (hx) 05/13/2019 AD CACERES DIRECTIVE Health Care Decision (hx) 05/13/2019 AD CACERES DIRECTIVE Health Care Decision (hx) 05/13/2019 MICHELLE CACERES DIRECTIVE Care Teams Instrument Lens Inspector Relationship Specialty Start Date End Date Janett Hoyt MD [address] [place] [address] PCP - General Internal Medicine 05/31/21
--- OUTSIDE RECORDS SUMMARY | 2025-05-12 07:29 | XMS_ITS | Clinical Summary ---
Author Organization [facility] Address [address] [facility] [address] [place] [address] Phone Care Team Providers Care Dope And Fabric Worker Name Role Phone Sammie Hardin MD Primary [...] file Insurance MEDICARE PART A & B [employer] MEDICARE PART A & B [employer] MEDICARE PART A & B [employer] MEDICARE PART A & B [employer] MEDICARE PART A & B [employer] MEDICARE PART A & B [employer] MEDICARE PART A & B [employer] MEDICARE PART A & B Member Subscriber Plan / Payer (Ef fective 2014-Present) Name:Franny Tejeda Member ID:[id number] Relation to Subscriber:Self Name:Franny Tejeda Subscriber ID:[id number] Payer ID:[id number] Group ID:Not on file Type:Medicare Address: [employer] [address] [employer] MEDICARE PART A & B [employer] Care Teams Dope And Fabric Worker Relationship Specialty Start Date End Date Sammie Hardin MD [address] [place] [address] PCP - General 12/12/15 Additional Source Comments The information contained in this document represents components of the legal health record. It is not the complete legal health record.[facility]
== END 2025-05-12 07:28 | disposition home or self-care (01) ==
LOC: HO.MAMMO 07:27
PROVIDERS: PCP Internal Medicine; Visit Provider Internal Medicine
DX: Z12.31 Encounter for screening mammogram for malignant neoplasm of breast (principal); K59.04 Chronic idiopathic constipation; K42.9 Umbilical hernia without obstruction or gangrene
CPT/HCPCS: 77063; 77067; 99212

== ENCOUNTER → 2025-05-12 07:45 | Outpatient (BNV) | payer MEDICARE, MEDICAID, SELFPAY | PROVIDERS: PCP Internal Medicine; Visit Provider Internal Medicine | DX: Z12.31 Encounter for screening mammogram for malignant neoplasm of breast (principal) | CPT/HCPCS: 77063; 77067 ==

== ENCOUNTER 2025-05-12 14:02 | Outpatient (AMB) | payer MEDICARE, MEDICAID, SELFPAY ==
--- NOTE | 2025-05-12 14:13 | A.OFFVIS_ITS ---
Vital Signs 05/12/25 14:15 Height 5 ft 2 in Weight 167 lb BMI 30.5 BP 142/68 H Blood Pressure Location Lt brachial Position Sitting Pulse 60 Pulse Source Pulse Oximeter Pulse Oximetry (%) 96 Oxygen Delivery Method Room Air Intake Visit Reasons: F/U Ultrasound Intake Note: Franny presents to in office follow up for US results. CC: Patient reports doing well and having regular BMs. Punch Finisher Required: No Accompanied by: Self / Same As Patient Allergies bupropion (From WELLBUTRIN) Allergy (Intermediate, Verified 05/12/25 14:28) panic attack, shaking esomeprazole (From NEXIUM) Allergy (Intermediate, Verified 05/12/25 14:28) panic attack, shaking naproxen (From ALEVE) Allergy (Intermediate, Verified 05/12/25 14:28) panic attack, shaking nitrofurantoin (NITROFURANTOIN) Allergy (Intermediate, Verified 05/12/25 14:28) panic attack shaking polyethylene glycol 3350 (From MIRALAX) Allergy (Intermediate, Verified 05/12/25 14:28) panic attack, shaking pramipexole (From MIRAPEX) Allergy (Intermediate, Verified 05/12/25 14:28) panic attack, shaking Sulfa (Sulfonamide Antibiotics) (SULFA (SULFONAMIDE ANTIBIOTICS)) Allergy (Intermediate, Verified 05/12/25 14:28) panic attack, shaking latex Allergy (Verified 05/12/25 14:28) Unknown moxifloxacin (From Avelox) Adverse Reaction (Severe, Verified 05/12/25 14:28) Anxiety HPI HPI F/U Ultrasound: Details: Assessment & Plan (1) Chronic idiopathic constipation: Code(s): K59.04 - Chronic idiopathic constipation Category: Medical (2) Umbilical pain: Code(s): R10.33 - Periumbilical pain Category: Medical Plan She continues to do well on the Linzess. She has a new problems of pain if she hits her BB on anything. I examine and there appears to be a hernia just superior to the umbilcus. It is painful with palpation, but not with eating or moving bowels. WIll get US to evaluate. ROV after US. Orders: Orders US abdomen limited Today R10.33 - Periumbilical pain Medications: Refilled linaclotide (Linzess) 145 mcg PO QAM 90 caps 3RF 90 days K59.04 - Chronic idiopathic constipation US OF ABDOMEN 05/04/2025 Findings: Small midline periumbilical ventral hernia. This contains fat with heterogeneous signal. Incarceration would not be excludable. Please correlate with physical exam. Impression: Small periumbilical ventral hernia containing heterogeneous fat Incarceration is not excludable, correlate with exam TODAYS VISIT I let her know that she does seem to have a small ventral to umbilical hernia. At this point she says the pain has decreased and she just wanted to make sure it was nothing ominous. I think it would be too soon to consider surgical intervention as it is fairly small in size and she likely would need to lose weight before it would be likely to heal properly without pressure from adipose tissue. She is in agreement about this. We did discuss alarm signs and symptoms that could represent entrapment of colon that would require presentation immediately to an emergency department. She continues to do well on her Linzess. Return office visit in 6 months [facility] Medical History Osteoporosis Ataxia GERD (gastroesophageal reflux disease) Pharyngoesophageal dysphagia Hypothyroid HTN (hypertension) GERD (gastroesophageal reflux disease) IBS (irritable bowel syndrome) Vertigo Surgical History History of pubovaginal sling Hx of blepharoplasty Hx of parotidectomy History of esophagogastroduodenoscopy (EGD) Hx of colonoscopy H/O: hysterectomy H/O eye surgery Family History Father Family history of heart disease Mother Family history of hypertension Family history of heart disease Sister Lung cancer Social History Alcohol intake: never Patient Tobacco Use Status: Former Tobacco user Years Smoked: Smoked 1 pack a day for 15-20 years, quit 30 years ago Review of Systems Const Denies fatigue, Denies fever(s), Denies night sweats, Denies poor appetite and Denies weight loss Eyes Details: glasses Reports requires corrective lenses ENT Reports Normal hearing present, Denies dental pain, Denies dysphagia, Denies hearing loss, Denies mouth pain, Denies odynophagia, Denies throat swelling, Denies tongue swelling and Reports other (Dentition adequate) Card Reports no additional complaints Resp Reports no additional complaints GI Details: Denies abdominal pain, Denies melena, Denies bloating, Denies hematochezia, Reports constipation, Denies GI cramping, Denies dysphagia, Denies excessive flatus, Denies early satiety, Denies heartburn, Denies diarrhea, Denies nausea, Denies odynophagia, Denies vomiting and Denies hematemesis Skin/Breast Denies pruritus, Denies lesions, Denies rash and Denies jaundice Neuro Reports Normal hearing present and Denies Abnormal speech present Endo Denies fatigue Aller/Immun Denies throat swelling and Denies tongue swelling Physical Exam Vital Signs: Last Vital Signs Pulse 60 05/12/25 14:15 BP 142/68 H 05/12/25 14:15 Pulse Ox 96 05/12/25 14:15 Oxygen Delivery Method Room Air 05/12/25 14:15 BMI result Body Mass Index 30.5 Const General: cooperative, no acute distress, well developed and well groomed Nutritional Appearance: well nourished and obese Orientation/consciousness: oriented to person, oriented to place and oriented to time Limitations: No language barrier HEENT Head: Yes normocephalic and Yes atraumatic Eyes General: appearance normal, both eyes and all related structures Pupils: Equal, round and reactive pupils present Neck Neck: Yes normal visual inspection and Yes no lymphadenopathy Thyroid: Thyroid normal Resp Effort & Inspection: normal respiratory effort and able to speak in complete sentences Auscultation: clear to auscultation bilaterally Cardio Rate: regular rate Rhythm: regular rhythm Heart sounds: Normal, physiologic split S2 sound present Peripheral pulses: radial pulses present and posterior tibial pulses present GI Inspection: No distended, Yes Abdominal panniculus present and Yes obesity Palpation (GI): Soft to palpation, nontender, no guarding, not rigid, No hepatosplenomegaly present and Hernia present Percussion: Yes normal to percussion Auscultation: normal bowel sounds Rectal Exam - Female: deferred Skin General skin exam: no rashes or lesions noted, turgor normal, skin not dry, no jaundice, No spider nevi and no striae Rashes: no rashes Nails: normal Neuro General: oriented to person, oriented to place and oriented to time Cranial nerves: Yes Equal, round and reactive pupils present and Yes Normal hearing present Speech: No Abnormal speech present Extrem General: Yes normal to inspection, No clubbing, No cyanosis and No edema Psych Appearance: grossly normal and well kempt Mental Status: mental status grossly normal Speech and movement: Normal speech and movement present Affect: normal affect Attitude: cooperative Thought process: Normal thought process present and not confabulating Thought content: Normal thought content present Insight: Good insight present (Psych) Judgement: Good judgement present (Psych) Assessment & Plan Assessment & Plan (1) Chronic idiopathic constipation: Code(s): K59.04 - Chronic idiopathic constipation Category: Medical (2) Umbilical hernia: Code(s): K42.9 - Umbilical hernia without obstruction or gangrene Category: Medical Plan I let her know that she does seem to have a small ventral to umbilical hernia. At this point she says the pain has decreased and she just wanted to make sure it was nothing ominous. I think it would be too soon to consider surgical intervention as it is fairly small in size and she likely would need to lose weight before it would be likely to heal properly without pressure from adipose tissue. She is in agreement about this. We did discuss alarm signs and symptoms that could represent entrapment of colon that would require presentati on immediately to an emergency department. She continues to do well on her Linzess. Return office visit in 6 months Coding Level of Care Code Est Pt Level 3 (46921) Diagnoses Chronic idiopathic constipation K59.04 Umbilical hernia K42.9
[2025-05-12 14:15] VITALS: BP 142/68; PULSE 60; O2SAT 96; BMI 30.5
== END 2025-05-12 14:37 | disposition home or self-care (01) ==
LOC: HO.HGI 14:03
PROVIDERS: PCP Internal Medicine; Visit Provider Nurse Practitioner
DX: K59.04 Chronic idiopathic constipation (principal); K42.9 Umbilical hernia without obstruction or gangrene
CPT/HCPCS: 99213

== ENCOUNTER 2025-06-09 11:50 | Outpatient (REF) | payer MEDICARE, MEDICAID, SELFPAY ==
[2025-06-09 12:55] LABS: Anion Gap 11 (12-20); Blood Urea Nitrogen 19 mg/dL (9-16); Calcium 9.1 mg/dL (8.4-10.2); Carbon Dioxide 27 mmol/L (22-29); Chloride 106 mmol/L (96-108); Estimated Glomerular Filt Rate > 60; Potassium 4.2 mmol/L (3.3-5.1); Sodium 140 mmol/L (135-145)
--- OUTSIDE RECORDS SUMMARY | 2025-06-09 13:00 | XMS_ITS | Encounter Summary ---
Author Organization [employer] Address [address] [facility] 7t [place] [address] Care Team Providers Care Math Specialist Name Role Phone Janett Hoyt MD Primary Care Provider [phone]- [phone] Encounter Details Date Type Department Care Team (Late st Contact Info) Description 04/14/2024 Orders Only [facility] CHC MED & PEDS [address] [place], [place] [phone] Janett Hoyt MD [address] [place], [place] [phone] Primary hypertension (Primary Dx) Social History Tobacco [...] the past 12 months, has t he [employer], gas, oil or water company threatened to [...] Care Team (Late st Contact Info) Description 07/14/2025 10:45 AM EDT Office Visit [facility] MED & PEDS [address] [place] [address] Janett Hoyt MD [address] [place] [address] 08/16/2025 11:00 AM EST Clinical Support [facility] MED & PEDS [address] [place] [address] Kaylen Townsend, KENISHA [address] [place] [address] documented as of this encounter Visit Diagnoses Diagnosis Primary hypertension- Primary Unspecified essential hypertension documented in this encounter Additional Health Concerns Assessment Noted Time PHQ-9 Depression Total Score: 0 12/03/19 23 9:31 AM EST documented as of this encounter Care Teams Math Specialist Relationship Specialty Start Date End Date Janett Hoyt MD [address] [place] [address] PCP - General Internal Medicine 02/26/19 documented as of this encounter
--- OUTSIDE RECORDS SUMMARY | 2025-06-09 13:00 | XMS_ITS | Encounter Summary ---
Author Organization [employer] Address [address] [facility] 7t [place] [address] Care Team Providers Care Medical Imaging Specialist Name Role Phone Janett Hoyt MD Primary Care Provider [phone]- [phone] Encounter Details Date Type Department Care Team (Late st Contact Info) Description 04/29/2024 Orders Only [facility] CHC MED & PEDS [address] [place], [place] [phone] Janett Hoyt MD [address] [place], [place] [phone] Primary hypertension (Primary Dx); Other osteoporosis without [...] Description 07/14/2025 10:45 AM EDT Office Visit [facility] MED & PEDS [address] [place] [address] Janett Hoyt MD [address] [place] [address] 08/16/2025 11:00 AM EST Clinical Support [facility] MED & PEDS [address] [place] [address] Kaylen Townsend, RN [address] [place] [address] documented as of this encounter Visit Diagnoses Diagnosis Primary hypertension- Primary Unspecified essential hypertension Other osteoporosis without current pathological fracture documented in this encounter Additional Health Concerns Assessment Noted Time PHQ-9 Depression Total Score: 0 12/03/19 23 9:31 AM EST documented as of this encounter Care Teams Medical Imaging Specialist Relationship Specialty Start Date End Date Janett Hoyt MD [address] [place] [address] PCP - General Internal Medicine 02/26/19 documented as of this encounter
--- OUTSIDE RECORDS SUMMARY | 2025-06-09 13:00 | XMS_ITS | Clinical Summary ---
Author Organization [facility] Address [address] [facility] [address] [place] [address] Phone Care Team Providers Care Lithostripper Name Role Phone Sammie Hardin MD Primary [...] file Insurance MEDICARE PART A & B [employer] MEDICARE PART A & B [employer] MEDICARE PART A & B [employer] MEDICARE PART A & B [employer] MEDICARE PART A & B [employer] MEDICARE PART A & B [employer] LIMITED MEDICARE PART A & B [employer] MEDICARE PART A & B Member Subscriber Plan / Payer (Ef fective 2014-Present) Name:Franny Tejeda Member ID:[id number] Relation to Subscriber:Self Name:Franny Tejeda Subscriber ID:[id number] Payer ID:[id number] Group ID:Not on file Type:Medicare Address: [employer] [address] [employer] MEDICARE PART A & B [employer] Care Teams Lithostripper Relationship Specialty Start Date End Date Sammie Hardin MD [address] [place] [id number] PCP - General 12/12/15 Additional Source Comments The information contained in this document represents components of the legal health record. It is not the complete legal health record.[facility]
--- OUTSIDE RECORDS SUMMARY | 2025-06-09 13:00 | XMS_ITS | Clinical Summary ---
Author Organization [employer] Address [address] [facility] 7[address] [place] [address] Care Team Providers Care Regional Sales Executive Name Role Phone Janett Hoyt MD Primary Care Provider Allergies Active Allergy Reactions Criticality Noted Date Comments Amlodipine Dizziness 02/24/2025 Nitrofurantoin Other Low 09/30/2022 Panic attack Sulfa [...] at bedtime. 30 capsule 11 023 Active cholecalciferol (Vitamin D-3) 25 MCG (1000 UT) tabletIndications :Other osteoporosis, unspecified pathological fracture presence Take 1 tablet (25 mcg) by mouth Once per day. 30 tablet 11 024 Active DULoxetine (Cymbalta) [address] capsuleIndication s:Body aches Take 1 capsule (20 mg) by mouth 2 times daily. Do not crush or chew. 60 capsule 11 024 2024 Active meclizine (Antivert) 25 MG tabletIndications :Vertigo TAKE ONE TABLET AT BEDTIME 40 tablet 3 024 Active levothyroxine (Synthroid, Levoxyl) 100 MCG tabletIndications :Other specified hypothyroidism TAKE ONE TABLET BY MOUTH EVERY MORNING 30 tablet 5 025 Active amLODIPine (Norvasc) 5 MG tabletIndications :Primary hypertension Take 1 tablet (5 mg) by mouth Once per day. 30 tablet 11 025 2025 Active Diclofenac Sodium 1 % gelIndications:Ac chito right ankle pain APPLY 2 GRAM'S TO AFFECTED AREA(s) THREE TIMES DAILY NEEDED 100 g 1 025 Active celecoxib (CeleBREX) 200 MG capsuleIndication s:Right upper quadrant pain TAKE ONE CAPSULE BY MOUTH EVERY MORNING 30 capsule 3 025 Active guaiFENesin (Mucinex) 600 MG 12 hr tabletIndications :Acute recurrent frontal sinusitis Take 2 tablets (1,200 mg) by mouth 2 times daily. Do not crush, chew, or split. 120 tablet 025 2025 Active losartan (Cozaar) 100 MG tabletIndications :Primary hypertension TAKE ONE TABLET DAILY 30 tablet 11 025 Active venlafaxine XR (Effexor XR) 37.5 MG 24 hr capsule TAKE ONE CAPSULE BY MOUTH EVERY MORNING 90 capsule 3 025 Active rosuvastatin (Crestor) 20 MG tabletIndications :Primary hypertension TAKE ONE TABLET DAILY 30 tablet 11 Active naloxone (Narcan) 4 mg/0.1 mL nasal spray Administer 1 spray (4 mg) into affected nostril(s) if needed for opioid reversal. May repeat every 2-3 minutes if needed, alternating nostrils, until medical assistance becomes available. 2 each 2 025 2025 Active traMADol (Ultram) 50 MG tabletIndications :Multiple joint pain Take 1 tablet (50 mg) by mouth every 8 (eight) hours if needed for severe pain. 30 tablet 025 Active dilTIAZem SR (Cardizem SR) 60 MG 12 hr capsuleIndication s:Primary hypertension TAKE ONE CAPSULE BY MOUTH TWICE DAILY 60 capsule 2 025 Active traMADol (Ultram) 50 MG tabletIndications :Multiple joint pain Take 1 tablet (50 mg) by mouth every 8 (eight) hours if needed for severe pain. 30 tablet 025 2024 Discontinued(R eorder (will not trigger notification to Pharmacy)) dilTIAZem SR (Cardizem SR) 60 MG 12 hr capsuleIndication s:Primary hypertension TAKE ONE CAPSULE TWICE DAILY 60 capsule 025 2024 Discontinued(R eorder (will not trigger notification to Pharmacy)) Active Problems Problem Noted Date Diagnosed Date Long-term current use of opiate analgesic 2024 Anxiety 12/20/2022 COVID-19 12/20/2022 Migraine 12/20/2022 Vertigo 12/20/2022 Hypertension 09/30/2022 Hypercholesterolemia 09/30/2022 Insomnia 09/30/2022 Hypothyroid 09/30/2022 IBS (irritable bowel syndrome) 09/30/2022 GERD (gastroesophageal reflux disease) Multiple joint pain 11/02/2019 Overview (12/20/2022): Seeing Dr. Laurie Orozco (rheum - [place]). Inflammatory labs 10/19/19 negative. 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/2018 [...] Encounters Date Type Department Care Team Description 06/09/2025 Orders Only GENERIC EXTERNAL DATA DEPARTMENT Provider, Generic External Data 05/26/2025 Refill [facility] [address] [place] [address] Jaentt Hoyt MD Primary hypertension 05/23/2025 Refill [facility] [address] [place] [address] Janett Hoyt MD Multiple joint pain 05/04/2025 Orders Only [facility] External Provider, [facility] 04/22/2025 Refill [facility] [address] [place] [address] Janett Hoyt MD Primary hypertension 04/18/2025 Refill [facility] [address] [place] [address] Janett Hoyt MD Multiple joint pain 04/13/2025 11:00 AM EDT Clinical Support [facility] [address] [place] [address] Kaylen Townsend, KENISHA snf (current) use of opiate analgesic 04/13/2025 Refill [facility] [address] [place] [address] Kaylen Townsend RN Multiple joint pain 04/13/2025 Travel 04/12/2025 Refill [facility] [address] [place] [address] Janett Hoyt MD Primary hypertension 03/30/2025 Telephone [facility] [address] [place] [address] Janett Hoyt MD Med Refill 03/28/2025 Refill [facility] [address] [place] [address] Janett Hoyt MD 03/21/2025 Refill [facility] [address] [place] [address] Janett Hoyt MD Primary hypertension 03/16/2025 11:15 AM EDT Office Visit [facility] [address] [place] [address] Janett Hoyt MD Acute recurrent frontal sinusitis (Primary Dx); Multiple joint pain 03/16/2025 Travel 03/14/2025 Telephone [facility] [address] [facility] [place] [address] Kaylen Townsend RN CLINICAL TRIALS NURSE 03/14/2025 Travel 03/14/2025 Telephone [facility] [address] [facility] [place] [facility] [place] [address] Janett Hoyt MD Walk-In from Last 3 Months Immunizations Immunization Administration Dates Next Due Influenza High-dose Quadriva [...] the past 12 months, has t he Invoiceable, gas, oil or water company threatened to [...] Sign Reading Time Taken Comments Blood Pressure 161/77 03/16/2025 11:24 AM EDT Pulse 67 03/16/2025 11:24 AM EDT Temperature 37.1 C (98.8 F) 03/16/2025 11:24 AM EDT Respiratory Rate 20 03/16/2025 11:24 AM EDT Oxygen Saturation 94% 03/16/2025 11:24 AM EDT Inhaled Oxygen Concentration - - Weight 73.9 kg (163 lb) 02/24/2025 11:13 AM EDT Height 152.4 cm (5') 02/24/2025 11:13 AM EDT Body Mass Index 31.83 02/24/2025 11:13 AM EDT Plan of Treatment Upcoming Encounters Date Type Department Care Team ([facility] st Contact Info) Description 07/14/2025 10:45 AM EDT Office Visit [facility] [address] [place] [address] Janett Hoyt MD [address] [place], [place] [phone] 08/16/2025 11:00 AM EST Clinical Support [facility] [address] [place] [address] Kaylen Townsend, RN [address] [place] [address] Health Maintenance Due Date Last Done Comments CT Colonography 1950 FIT DNA/Cologuard 1950 FIT 1950 FOBT 1950 Sigmoidoscopy 1950 Alcohol/Substance Use Screening 1961 Hepatitis C Screening 1967 COVID-19 Vaccine ( season) 2025 07/21/2024, 08/09/2023, 07/12/2022, Additional history exists SDOH Screening 06/02/2025 06/02/2024 Influenza Vaccine (#1) 2025 , 06/30/2023, 07/08/2022, Additional history exists Depression Screening 10/27/2025 10/27/2024, 10/27/19 25 Tobacco Screening 03/16/2026 03/16/2025 Lipid Panel 11/03/2028 11/03/2023, 11/14, 02/08/2022, Additional history exists DTaP/Tdap/Td Vaccines (3 - Td or Tdap) 06/28/2029 06/28/2019, 12/21/2012 Colonoscopy 01/02/2030 Colorectal Cancer Screening 01/02/2030 Zoster Vaccines Completed 09/21/2021, 07/20/2021 Pneumococcal Vaccine: 50+ Years Completed 03/04/2022, 09/28/2014 RSV Patients and Patients Aged 60 years [...] Procedure Name Priority Date/Time Associated Diagnosis Comments BASIC METABOLIC PANEL Routine 06/09/2025 12:15 PM EDT BI MAMMOGRAM SCREENING TOMOSYNTHESIS BILATERAL Routine 05/12/2025 7:45 AM EDT US ABDOMEN LIMITED Routine 05/04/2025 9: 55 PM EDT POCT YVETTE-14 URINE DRUG SCREEN Routine 04/13/2025 11:21 AM EDT 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 POCT RAPID COVID ANTIGEN Routine 03/16/2025 3:39 PM EDT Acute recurrent frontal sinusitis POCT INFLUENZA A Routine 03/16/2025 3:38 PM EDT Acute recurrent frontal sinusitis POCT INFLUENZA B Routine 03/16/2025 3:37 PM EDT Acute recurrent frontal sinusitis LIPID PANEL, STANDARD Routine 11/03/2023 9:33 AM EST Primary hypertension from Last 3 Months or Most Recently Relevant to Health Maintenance Results * (ABNORMAL) Basic Metabolic Panel (06/09/2025 12:15 PM EDT) Sodium 140 135 - 145 mmol/L [facility] Potassium 4.2 3.3 - 5.1 mmol/L [facility] Chloride 106 96 - 108 mmol/L [facility] Carbon Dioxide 27 22 - 29 mmol/L [facility] Anion Gap 11(L) 12 - 20 [facility] Urea Nitrogen (BUN) 19(H) 9 - 16 mg/dL [facility] Creatinine, Serum 0.88 0.5 - 1.4 mg/dL [facility] Estimated Glomerular Filt Rate >60 [facility] Comment:Chronic Kidney Disea se: Estimated GFR < 60 mL/min/1.21g2Tzdkmn Kidney Disease: Estimated GFR < 15 mL/min/1.73m2 Glucose 90 60 - 115 mg/dL [facility] Calcium 9.1 8.4 - 10.2 mg/dL [facility] 06/09/2025 12:1 5 PM EDT 06/09/2025 12:15 PM EDT us Generic External Data Provider LAB BLOOD ORDERAB LES Final Result Performing Organization Address City/State/[facility] Co de Phone Number [facility] [address] [place] [address] [phone] * BI Mammogram Screening Tomosynthesis Bilateral (05/12/2025 7:45 AM EDT) Anatomical Region Laterality Modality Breast Bilateral Mammography 05/12/2025 7:45 AM EDT Narrative 05/23/2025 11:06 AM EDT [facility] [address] [place] [address] Mammography Report Signed Patient: Franny Tejeda MR#: [id number] 84 : 1950 Acct:[id number] Age/Sex: 74 / F ADM Date: 05/12/25 Loc: HO.MAMMO Attending Dr: Janett Hoyt MD Ordering Physician: Janett Hoyt MD Results: 2 Benign Findings Date of Service: 05/12/25 Follow Up: 1 Year From [facility] Mammogram Procedure(s): MM tomosynthesis screening BI Accession Number(s): [id number] cc: Janett Hoyt MD EXAMINATION: MM SCREENING DIGITAL BREAST TOMOSYNTHESIS, BILATERAL CLINICAL INFORMATION: Screening. Asymptomatic. COMPARISON: Mammography: Comparison is made with available priors TECHNIQUE: Digital breast mammography with tomosynthesis is performed in both the craniocaudal and mediolateral oblique views along with computer-aided detection (CAD). FINDINGS: There are scattered areas of fibroglandular density (ACR BI-RADS breast composition Category b). Right marker clip. There are no significant masses, abnormal calcifications, or other abnormalities. MM/MM tomosynthesis screening BI IMPRESSION: No mammographic evidence of malignancy. ASSESSMENT: BI-RADS BI-RADS 2 - Benign Findings RECOMMENDATION: Routine annual mammography screening. 1 year F/U This examination should not preclude the clinical evaluation of a suspicious palpable abnormality. This patient's information was entered into a reminder system with a target due date for their next mammogram. Electronically signed by: Tamara Dasilva DO 05/23/2025 11:04 AM EDT Dictated By: Tamara Dasilva DO Signed By: <Electronically signed by Tamara Dasilva DO in OV> 05/23/25 1104 DD/ 0745 TD/TT: 05/12/25 0755 Data Typist: Procedure Note Donotuseinterpreter, Image - 05/23/2025 [facility] [address] [place] [address] Mammography Report Signed Patient: Franny Tejeda MMR#: [id number] [birth year] : 9Acct:[id number] Age/Sex: 74 / FADM Date: 05/12/25 Loc: .MAMMO Attending Dr: Janett Hoyt MD Ordering Physician: Janett Hoyt MDResults: 2 Benign Findings Date of Service: 05/12/25Follow Up: 1 Year From [facility] Mammogram Procedure(s): MM tomosynthesis screening BI Accession Number(s): [id number] cc: Janett Hoyt MD EXAMINATION: MM SCREENING DIGITAL BREAST TOMOSYNTHESIS, BILATERAL CLINICAL INFORMATION: Screening. Asymptomatic. COMPARISON: Mammography: Comparison is made with available priors TECHNIQUE: Digital breast mammography with tomosynthesis is performed in both the craniocaudal and mediolateral oblique views along with computer-aided detection (CAD). FINDINGS: There are scattered areas of fibroglandular density (ACR BI-RADS breast composition Category b). Right marker clip. There are no significant masses, abnormal calcifications, or other abnormalities. MM/MM tomosynthesis screening BI IMPRESSION: No mammographic evidence of malignancy. ASSESSMENT: BI-RADS BI-RADS 2 - Benign Findings RECOMMENDATION: Routine annual mammography screening. 1 year F/U This examination should not preclude the clinical evaluation of a suspicious palpable abnormality. This patient's information was entered into a reminder system with a target due date for their next mammogram. Electronically signed by: Tamara Dasilva DO 05/23/2025 11:04 AM EDT RP Dictated By: Tamara Dasilva DO Signed By: <Electronically signed by Tamara Dasilva DO in OV> 05/23/25 1104 DD/ 0745 TD/TT: 05/12/25 0755 Data Typist: us Janett Hoyt MD IMG BI PROCEDURES Final Res ult * US Abdomen Limited (05/04/2025 9:55 PM EDT) Anatomical Region Laterality Modality Abdomen Ultrasound 05/04/2025 9:55 PM EDT Narrative 05/04/2025 9:56 PM EDT [facility] [address] [place] [address] [place] [address] Ultrasound Report Signed Patient: Franny Tejeda MR#: [id number] [birth year] : 1950 Acct:[id number] Age/Sex: 74 / F ADM Date: 05/04/25 Loc: HO.HMGCX Attending Dr: Valerie PATTON Ordering Physician: Valerie Miller Date of Service: 05/04/25 Procedure(s): US abdomen limited Accession Number(s): [id number] cc: Janett Hoyt MD; Valerie Miller CLINICAL HISTORY: R10.33 - Periumbilical pain --- Additional Notes or Special Instructions: evaluate for possible hernia Ultrasound abdominal wall Comparison: None provided Findings: Small midline periumbilical ventral hernia. This contains fat with heterogeneous signal. Incarceration would not be excludable. Please correlate with physical exam. Impression: Small periumbilical ventral hernia containing heterogeneous fat Incarceration is not excludable, correlate with exam This document has been electronically signed by: Ahsan Meek MD on 05/04/2025 21:55:15 Dictated By: Ahsan Meek MD Signed By: <Electronically signed by Ahsan Meek MD in OV> 05/04/252155 DD/ 54 TD/TT: 05/04/252154 Data Typist: Procedure Note Donjeanieter, Image - 05/04/2025 [facility] [place] [address] Ultrasound Report Signed Patient: Franny Tejeda [facility]#: [id number] [birth year] : 9Acct:[id number] Age/Sex: 74 / FADM Date: 05/04/25 [facility] Attending Dr: Valerie PATTON Ordering Physician: Valerie Miller Date of Service: 05/04/25 Procedure(s): US abdomen limited Accession Number(s): [id number] cc: Janett Hoyt MD; Valerie Miller CLINICAL HISTORY: R10.33 - Periumbilical pain --- Additional Notes orSpecial Instructions: evaluate for possible hernia Ultrasound abdominal wall Comparison: None provided Findings: Small midline periumbilical ventral hernia. This contains fat with heterogeneous signal. Incarceration would not be excludable. Please correlate with physical exam. Impression: Small periumbilical ventral hernia containing heterogeneous fat Incarceration is not excludable, correlate with exam This document has been electronically signed by: Ahsan Meek MD on 05/04/2025 21:55:15 Dictated By: Ahsan Meek MD Signed By: <Electronically signed by Ahsan Meek MD in OV> 05/04/252155 DD/ 54 TD/TT: 05/04/252154 Data Typist: us [facility] External Provider IMG US PROCEDURES Edited Result - Final * POCT YVETTE-14 Urine Drug Screen (04/13/2025 11:21 AM EDT) THC Negative Negative Cocaine Screen, Urine Negative Negative Opiate Screen, Urine Negative Negative Methamphetamine Screen Urine Negative Negative Amphetamine Screen, Urine Negative Negative Benzodiazepines Screen, Urine Negative Negative Barbiturate Screen, Urine Negative Negative Methadone Screen, Urine Negative Negative Buprenophine Screen, Urine Negative Negative TCA, Urine Negative Negative MDMA Urine Negative Negative ng/mL Oxycodone Screen, Urine Negative Negative Phencyclidine (PCP), Urine Negative Negative Propoxyphene, Urine Negative Negative Fentanyl, Urine Negative Negative Urine Urine specimen obtained by clean catch procedure / Unknown 04/13/2025 11:21 AM EDT Narrative Kaylen Townsend RN - 04/13/2025 11:21 AM EDT Internal Pass Control Lot# [id number] Exp: 08-12-26 Janett Hoyt MD POINT OF CARE TEST ENTER/ED IT ORDERABLES Final Result * POCT Rapid Covid-19 BinaxNOW (03/16/2025 3:39 PM EDT) Rapid COVID Ag Negative QC Media Lot # [id number] Lot# Expiration Date [id number] Comment:controls passed Swab 03/16/2025 3:39 PM EDT Janett Hoyt MD POINT OF CARE TEST ENTER/ED IT ORDERABLES Final Result * POCT Rapid Influenza A OSOM (03/16/2025 3:38 PM EDT) Rapid Influenza A Ag Negative Negative, Indeterminate QC Media Lot # [id number] Lot# Expiration Date [id number] Comment:control passed Swab Nasopharyngeal structure / Unknown 03/16/2025 3:38 PM EDT Janett Hoyt MD POINT OF CARE TEST ENTER/ED IT ORDERABLES Final Result * POCT Rapid Influenza B OSOM (03/16/2025 3:37 PM EDT) Rapid Influenza B Ag Negative Negative, Indeterminate QC Media Lot # [id number] Lot# Expiration Date [id number] Comment:controls passed Swab 03/16/2025 3:37 PM EDT us Janett Hoyt MD POINT OF CARE TEST ENTER/ED IT ORDERABLES Final Result * Lipid Panel, Standard (11/03/2023 9:33 AM EST) Triglycerides 71 <150 mg/dL [facility] Comment:Desirable Triglyceri de: less than 150 mg/dLBorderline High Triglyceride 150-199 mg/dLHigh Triglyceride: 200-499 mg/dLVery High Triglyceride: greater than or equal to 5OO mg/dL Cholesterol 163 <200 mg/dL [facility] Comment:Desirable Cholestero l: less than 200 mg/dLBorderline High Cholesterol: 200-239 mg/dLHigh Cholesterol: greater than 239 mg/dL LDL Cholesterol Calculated 88 <100 mg/dL [facility] Comment:Desirable LDL: less than 100 mg/dLNear Optimal/Above Optimal LDL: 110- 129 mg/dLBorderline High LDL: 130-159 mg/dLHigh LDL: 160-189 mg/dLVery High LDL: greater than or equal to 190 mg/dL HDL Cholesterol 61 >40 mg/dL [facility] Comment:Desirable HDL: great er than 40 mg/dL Note: This HDL assay may give artificially low results in patients with liver disease. Blood Venous blood specimen / Unknown 11/03/2023 9:33 AM EST 11/03/2023 2:26 PM EST us Janett Hoyt MD LAB BLOOD ORDERABLES Final Result [facility] [address] [place] [phone] from Last 3 Months or Most Recently Relevant to Health Maintenance [place] [id number] [facility] Care Teams Regional Sales Executive Relationship Specialty Start Date End Date Janett Hoyt MD [address] [place] [address] [place] [address] PCP - General Internal Medicine 02/26/19
--- OUTSIDE RECORDS SUMMARY | 2025-06-09 13:00 | XMS_ITS | Encounter Summary ---
Author Organization [employer] Address [address] [facility] 7t [place] [address] Care Team Providers Care Vocational Training Teacher Name Role Phone Janett Hoyt MD Primary Care Provider [phone] Encounter Details Date Type Department Care Team ([facility] st Contact Info) Description 02/02/2025 Orders Only [facility] [address] [place] [address] Jnaett Hoyt MD [address] [place], [place] [phone] Primary hypertension (Primary Dx) Social History Tobacco [...] Description 07/14/2025 10:45 AM EDT Office Visit [facility] MED & PEDS [address] [place] [address] Janett Hoyt MD [address] [place] [address] 08/16/2025 11:00 AM EST Clinical Support [facility] [address] [place] [address] Kaylen Townsend, KENISHA [address] [place] [address] documented as of this encounter Visit Diagnoses Diagnosis Primary hypertension- Primary Unspecified essential hypertension documented in this encounter Additional Health Concerns Assessment Noted Time PHQ-9 Depression Total Score: 0 10/27/19 25 2:31 PM EST documented as of this encounter Care Teams Vocational Training Teacher Relationship Specialty Start Date End Date Janett Hoyt MD [address] [place] [address] PCP - General Internal Medicine 02/26/19 documented as of this encounter
--- OUTSIDE RECORDS SUMMARY | 2025-06-09 13:00 | XMS_ITS | Encounter Summary ---
Author Organization [employer] Address [address] [facility] 7t [place] [address] Care Team Providers Care Meter Supervisor Name Role Phone Janett Hoyt MD Primary Care Provider [phone]- [phone] Encounter Details Date Type Department Care Team (Late st Contact Info) Description 06/28/2024 Orders Only [facility] [address] [place] [address] Janett Hoyt MD [address] [place] [address] Social History Tobacco Use Types Packs/Day Years [...] Description 07/14/2025 10:45 AM EDT Office Visit [facility] MED & PEDS [address] [place] [address] Janett Hoyt MD [address] [place] [address] 08/16/2025 11:00 AM EST Clinical Support [facility] [address] [place] [address] Kaylen Townsend, KENISHA [address] [place] [address] documented as of this encounter Visit Diagnoses Not on filedocumented in this encounter Additional Health Concerns Assessment Noted Time PHQ-9 Depression Total Score: 0 12/03/19 23 9:31 AM EST documented as of this encounter Care Teams Meter Supervisor Relationship Specialty Start Date End Date Janett Hoyt MD [address] [place] [address] PCP - General Internal Medicine 02/26/19 documented as of this encounter
--- OUTSIDE RECORDS SUMMARY | 2025-06-09 13:00 | XMS_ITS | Encounter Summary ---
Author Organization [employer] Address [address] [facility] 7t [place] [address] Care Team Providers Care 4Th Grade Teacher Name Role Phone Janett Hoyt MD Primary Care Provider [phone]- [phone] Encounter Details Date Type Department Care Team ([facility] st Contact Info) Description 07/28/2023 Orders Only [facility] [address] [place] [address] Janett Hoyt MD [address] [place] [address] Social History Tobacco Use Types Packs/Day Years [...] Description 07/14/2025 10:45 AM EDT Office Visit [facility] MED & PEDS [address] [place] [address] Janett Hoyt MD [address] [place] [address] 08/16/2025 11:00 AM EST Clinical Support [facility] [address] [place] [address] Kaylen Townsend RN [address] [place] [address] documented as of this encounter Procedures Procedure Name Priority Date/Time Associated Diagnosis Comments CULTURE, URINE, ROUTINE Routine 07/28/2023 10:15 AM EDT documented in this encounter Results * Culture, Urine, Routine (07/28/2023 10:15 AM EDT) Urine Urine specimen obtained by clean catch procedure / Unknown 07/28/2023 10:15 AM EDT 07/28/2023 5:45 PM EDT Comment:[facility] - 07/30/2023 7:42 AM EDT Klebsiella pneumoniae Quant > 100,000 cfu/mL Klebsiella pneumoniae: Ampicillin >=32(R) Klebsiella pneumoniae: Ceftriaxone <=0.25(S) Klebsiella pneumoniae: Gentamicin <=1(S) Klebsiella pneumoniae: Levofloxacin <=0.12(S) Klebsiella pneumoniae: Nitrofurantoin 64(I) Klebsiella pneumoniae: Trimethoprim/Sulfamethoxazole <=20(S) Specimen Source: Urine clean catch us Anabelle Larose MD LAB MICROBIOLOGY - GENERAL OR DERABLES Final Result [facility] [address] [place] [phone] [phone] documented in this encounter Visit Diagnoses Not on filedocumented in this encounter Additional Health Concerns Assessment Noted Time PHQ-9 Depression Total Score: 0 12/03/19 23 9:31 AM EST documented as of this encounter Care Teams 4Th Grade Teacher Relationship Specialty Start Date End Date Janett Hoyt MD [address] [place] [phone] PCP - General Internal Medicine 02/26/19 documented as of this encounter
--- OUTSIDE RECORDS SUMMARY | 2025-06-09 13:00 | XMS_ITS | Clinical Summary ---
Author Organization [facility] Address [address] [place] [address] Care Team Providers Care Enterprise Software Engineer Name Role Phone Janett Hoyt MD Primary Care Provider +1 -[phone] Surgical History Surgery Date Site/Laterality Comments BLADDER SUSPENSION PROCEDURE: HISTORICAL BLADDER SUSPENSION OTHER SURGICAL HISTORY PROCEDURE: CA STAB PHLEBT VARICOSE VEINS 1 XTR 10-20 STAB INCS EYE SURGERY PROCEDURE: HISTORICAL EYE SURGERY; COMMENT: starbismus OTHER SURGICAL HISTORY PROCEDURE: CA RHINOPLASTY PRIMARY W/MAJOR SEPTAL REPAIR OTHER SURGICAL HISTORY PROCEDURE: HISTORICAL SUPRACERVICAL HYSTERECTOMY WITH BSO; COMMENT: BSO, fibroid uterus OTHER SURGICAL HISTORY 08/18/2002 PROCEDURE: (UGI) CONTRAST X-RAY OF UPPER GI TRACT; COMMENT: Normal COLONOSCOPY 12/04/2009 PROCEDURE: HISTORICAL COLONOSCOPY; COMMENT: Dr Stanley - normal colon to cecum. Repeat colonoscopy in 10 years. OTHER SURGICAL HISTORY 1982 PROCEDURE: CA PRTL THYROID LOBECTOMY UNI W/WO ISTHMUSECTOMY; COMMENT: left side - due to recurrent cysts EYE SURGERY 08/05/2014 PROCEDURE: CA TRABECULOPLASTY BY LASER SURGERY; COMMENT: right eye; iridotomy EYE SURGERY 08/19/2014 PROCEDURE: CA TRABECULOPLASTY BY LASER SURGERY; COMMENT: left eye OTHER SURGICAL HISTORY Right PROCEDURE: HISTORY OTHER; COMMENT: surgery for ptosis, [facility] VARICOSE VEIN SURGERY 2010 PROCEDURE: CA LIGJ DIVJ &/EXCJ VARICOSE VEIN CLUSTER 1 LEG; COMMENT: laser surgery; Dr. Ernandez BREAST BIOPSY Right PROCEDURE: BX BREAST; PERC NEEDLE CORE W/IMAG GUID; COMMENT: benign UPPER GASTROINTESTINAL ENDOSCOPY 06/16/2018 PROCEDURE: CA UPPER GI ENDOSCOPY PERFORMED; COMMENT: normal on PPI rx. UPPER GASTROINTESTINAL ENDOSCOPY 04/03/2015 PROCEDURE: CA UPPER GI ENDOSCOPY PERFORMED; COMMENT: normal Medical [...] Status Comments Brother Father 49yo suicide Mother [place], lung cancer , ulcers Mother's side Sister [...] (World Health Organization Fracture Risk Assessment) [facility] Department of Internal Medicine recommends using [...] alternative screening schedule based on mary Lui., [facility] October 31, 2011 for [...] years. (WorldHealth Organization Fracture Risk Assessment) [facility] Department of Internal Medicine recommendsusing National [...] alternative screening schedule based on mary Lui., [facility] for patients with [...] Documents on File Type Date Recorded Patient Insole Doubler Expl anation Health Care Decision (hx) 05/13/2019 AD CACERES DIRECTIVE Health Care Decision (hx) 05/13/2019 AD CACERES DIRECTIVE Health Care Decision (hx) 05/13/2019 AD CACERES DIRECTIVE Health Care Decision (hx) 05/13/2019 AD CACERES DIRECTIVE Health Care Decision (hx) 05/13/2019 AD CACERES DIRECTIVE Health Care Decision (hx) 05/13/2019 MICHELLE CACERES DIRECTIVE Care Teams Enterprise Software Engineer Relationship Specialty Start Date End Date Janett Hoyt MD [address] [place] [address] PCP - General Internal Medicine 05/31/21
--- OUTSIDE RECORDS SUMMARY | 2025-06-09 13:00 | XMS_ITS | Encounter Summary ---
Author Organization [employer] Address [address] [facility] 7t [place] [address] Care Team Providers Care Research Program Manager Name Role Phone Janett Hoyt MD Primary Care Provider +1- [phone] Encounter Details Date Type Department Care Team (Late st Contact Info) Description 03/30/2024 Orders Only [facility] CHC MED & PEDS [address] [place] [address] Janett Hoyt MD [address] [place] [address] Social History Tobacco Use Types Packs/Day Years [...] Description 07/14/2025 10:45 AM EDT Office Visit [facility] MED & PEDS [address] [place] [address] Janett Hoyt MD [address] [place] [address] 08/16/2025 11:00 AM EST Clinical Support [facility] MED & PEDS [address] [place] [address] Kaylen Townsend RN [address] [place] [address] documented as of this encounter Visit Diagnoses Not on filedocumented in this encounter Additional Health Concerns Assessment Noted Time PHQ-9 Depression Total Score: 0 12/03/19 23 9:31 AM EST documented as of this encounter Care Teams Research Program Manager Relationship Specialty Start Date End Date Janett Hoyt MD [address] [place] [address] PCP - General Internal Medicine 02/26/19 documented as of this encounter
--- OUTSIDE RECORDS SUMMARY | 2025-06-09 13:00 | XMS_ITS | Encounter Summary ---
Author Organization [employer] Address [address] [facility] 7t [place] [address] Care Team Providers Care Drainage Inspector Name Role Phone Janett Hoyt MD Primary Care Provider +1- [phone] Reason for Visit * Reason Comments Med Refill Encounter Details Date Type Department Care Team (Late Contact Info) Description 04/08/2023 Refill [facility] MED & PEDS [address] [place] [address] Janett Hoyt MD [address] [place] [address] Social History Tobacco Use Types Packs/Day Years [...] Department Care Team (Late Contact Info) Description 07/14/2025 10:45 AM EDT Office Visit [facility] MED & PEDS [address] [place] [address] Janett Hoyt MD [address] [place] [address] 08/16/2025 11:00 AM EST Clinical Support [facility] MED & PEDS [address] [place] [address] Kaylen Townsend, KENISHA [address] [place] [address] documented as of this encounter Visit Diagnoses Not on filedocumented in this encounter Additional Health Concerns Assessment Noted Time PHQ-9 Depression Total Score: 0 12/03/19 23 9:31 AM EST documented as of this encounter Care Teams Drainage Inspector Relationship Specialty Start Date End Date Janett Hoyt MD [address] [place] [address] PCP - General Internal Medicine 02/26/19 documented as of this encounter
== END 2025-06-09 11:51 | disposition home or self-care (01) ==
LOC: HO.LAB 11:50
PROVIDERS: PCP Internal Medicine; Visit Provider Internal Medicine Endocrinology, Diabetes & Metabolism
DX: M81.0 Age-related osteoporosis without current pathological fracture (principal)
CPT/HCPCS: 36415; 80048

== ENCOUNTER 2025-06-28 08:31 | Outpatient (AMB) | payer MEDICARE, MEDICAID, SELFPAY ==
[2025-06-28 08:35] VITALS: BP 152/72; PULSE 60; O2SAT 93; BMI 31.3
--- NOTE | 2025-06-28 08:35 | A.OFFVIS_ITS ---
Vital Signs 06/28/25 08:35 Height 5 ft 2.05 in Weight 171 lb 4.787 oz BMI 31.3 BP 152/72 H Blood Pressure Location Lt brachial Position Sitting Pulse 60 Pulse Source Pulse Oximeter Pulse Oximetry (%) 93 Oxygen Delivery Method Room Air Intake Visit Reasons: f/u osteoporosis/ prolia injection Intake Note: Patient present today for Osteoporosis follow up and Prolia injection. Bowling Pin Refinisher Required: No Accompanied by: Self / Same As Patient Allergies bupropion (From WELLBUTRIN) Allergy (Intermediate, Verified 06/28/25 08:36) panic attack, shaking esomeprazole (From NEXIUM) Allergy (Intermediate, Verified 06/28/25 08:36) panic attack, shaking naproxen (From ALEVE) Allergy (Intermediate, Verified 06/28/25 08:36) panic attack, shaking nitrofurantoin (NITROFURANTOIN) Allergy (Intermediate, Verified 06/28/25 08:36) panic attack shaking polyethylene glycol 3350 (From MIRALAX) Allergy (Intermediate, Verified 06/28/25 08:36) panic attack, shaking pramipexole (From MIRAPEX) Allergy (Intermediate, Verified 06/28/25 08:36) panic attack, shaking Sulfa (Sulfonamide Antibiotics) (SULFA (SULFONAMIDE ANTIBIOTICS)) Allergy (Intermediate, Verified 06/28/25 08:36) panic attack, shaking latex Allergy (Verified 06/28/25 08:36) Unknown moxifloxacin (From Avelox) Adverse Reaction (Severe, Verified 06/28/25 08:36) Anxiety Medication List - Last Reconciled 06/28/25 by Tunde Brizuela MD calcium carbonate-vitamin D3 600 mg-10 mcg (400 unit) 1 cap PO DAILY calcium citrate 200 mg PO DAILY celecoxib 200 mg PO DAILY PRN denosumab (Prolia) 60 mg subcut [id number] diltiazem HCl ER 60 mg PO BID levothyroxine 1 tab PO DAILY linaclotide (Linzess) 145 mcg PO QAM 90 days losartan 100 mg PO DAILY ropinirole 2 mg PO DAILY rosuvastatin 20 mg PO DAILY tramadol mg PO Q8H venlafaxine 37.5 mg PO DAILY HPI Comments Details: 74 YO Female with is seen in consultation at the request of PCP for Osteoporosis. First diagnosed in recently . Received treatment in the past with alendronate , from April 2024 to May 2024 . Not Tolerated treatment well felt rigid and nauseated No history of pathologic fracture or ONJ. Has several servings of dietary calcium per day in the form of milk, broccoli , yogurt . Takes Calcium supplement ? mg daily in divided doses. Takes ? IU of Vitamin D daily since recently . Denies ever using PPI, anticoagulant, antiepileptic or glucocorticoid medication. Does weight bearing exercise 7 days per week in the form of weight lifting . Fracture history: No Height loss: Yes [employer] history: Menarche at age 11 - Hysterectomy in 1999- age 49 - nl menses Denies history of Kidney stones: Has family history of Osteoporosis or hip fracture. Mother and sisters - mother fx a hip UTD on dental cleanings and sees dentist every 6 months. No planned upcoming dental work or extractions. DXA dated : 05/06/24 FINDINGS: LEFT FEMUR, NECK: Current: BMD 0.594 g/cm2, Z-score -1.4, T-score -3.2, osteoporosis. Baseline: BMD 0.733 g/cm2. LEFT FEMUR, TOTAL: Current: BMD 0.717 g/cm2, Z-score -0.7, T-score -2.3, osteopenia, 12.9% decrease from baseline (<5% change is not significant). Baseline: BMD 0.823 g/cm2. AP SPINE L1-L4 (excluding L3): The data of L1-L4 has been changed to exclude the L3 vertebral body, because degenerative sclerosis at this level may cause overestimation of lumbar spine density. Current: BMD 1.239 g/cm2, Z-score 2.1, T-score 0.6, normal, 8.8% increase from baseline (<5% change is not significant). Baseline: BMD 1.139 g/cm2. IDENTIFIED RISK FACTORS: Menopause, hysterectomy, height loss, bilateral oophorectomy. HISTORY OF FRACTURE: None listed. MEDICATIONS: None listed. MM/XR DEXA axial skeleton IMPRESSION: 1. DIAGNOSIS: Osteoporosis based on the lowest T-score value of -3.2 in the femoral neck applying World Health Organization criteria. Decided to start on Prolia and received 1st dose of Prolia 12/2024. Here for Prolia injection today. No fx since last visit. Toleraing Prolia ok [facility] Medical History Osteoporosis Ataxia GERD (gastroesophageal reflux disease) Pharyngoesophageal dysphagia Hypothyroid HTN (hypertension) GERD (gastroesophageal reflux disease) IBS (irritable bowel syndrome) Vertigo Surgical History History of pubovaginal sling Hx of blepharoplasty Hx of parotidectomy History of esophagogastroduodenoscopy (EGD) Hx of colonoscopy H/O: hysterectomy H/O eye surgery Family History Father Family history of heart disease Mother Family history of hypertension Family history of heart disease Sister Lung cancer Social History Alcohol intake: never Patient Tobacco Use Status: Former Tobacco user Years Smoked: Smoked 1 pack a day for 15-20 years, quit 30 years ago Physical Exam Vital Signs: Last Vital Signs Pulse 60 06/28/25 08:35 BP 152/72 H 06/28/25 08:35 Pulse Ox 93 06/28/25 08:35 Oxygen Delivery Method Room Air 06/28/25 08:35 BMI result Body Mass Index 31.3 Office Meds Prolia 60 mg/mL subcutaneous syringe Performing Provider: Tunde Brizuela MD Performing Location: [facility] Administered by: Bonnie Amado RN on 06/28/25 09:07 Dose Route Admin Location Dispensed Lot Number Expiration Date [facility] Band Edger 60 mg subcut left upper arm 1 mL [id number] 12/11/27 77773-806-31 AM GEN Total Dispensed Waste 1 mL 0 % Comments: No adverse reactions reported from previous injection. Pt tolerated injection well. Pt scheduled in 6 months for next appt. No further questions at this time. Assessment & Plan Assessment & Plan (1) Osteoporosis: Code(s): M81.0 - Age-related osteoporosis without current pathological fracture Category: Medical Plan: 74-year-old white female with a history of osteoporosis. secondary causes have been ruled out . Started on Prolia 12/2024 Plan is to continue the Prolia. Due for next DEXA 04/2026 Orders: Orders AMB Denosumab Injection Practice Supplied Today M81.0 - Age-related osteoporosis without current pathological fracture Coding Level of Care Code Est Pt Level 3 (58252) Diagnoses Osteoporosis M81.0
--- OUTSIDE RECORDS SUMMARY | 2025-06-28 10:10 | XMS_ITS | Encounter Summary ---
Author Organization [employer] Address [address] [facility] [address] [place] [address] Care Team Providers Care Apprentice Electrician Name Role Phone Janett Hoyt MD Primary Care Provider +1- [phone] Reason for Visit * Reason Comments Med Refill Encounter Details Date Type Department Care Team (Late Contact Info) Description 04/08/2023 Refill [facility] MED & PEDS [address] [place] [address] Janett Hoyt MD [address] [place] [address] Social History Tobacco Use Types Packs/Day Years [...] Description 07/14/2025 10:45 AM EDT Office Visit [facility] MED & PEDS [address] [place] [address] Janett Hoyt MD [address] [place] [address] 08/16/2025 11:00 AM EST Clinical Support [facility] MED & PEDS [address] [place] [address] Kaylen Townsend, KENISHA [address] [place] [address] documented as of this encounter Visit Diagnoses Not on filedocumented in this encounter Additional Health Concerns Assessment Noted Time PHQ-9 Depression Total Score: 0 12/03/19 23 9:31 AM EST documented as of this encounter Care Teams Apprentice Electrician Relationship Specialty Start Date End Date Janett Hoyt MD [address] [place] [address] PCP - General Internal Medicine 02/26/19 documented as of this encounter
--- OUTSIDE RECORDS SUMMARY | 2025-06-28 10:10 | XMS_ITS | Encounter Summary ---
Author Organization [employer] Address [address] [facility] 7t [place] [address] Care Team Providers Care Regulatory Compliance Specialist Name Role Phone Janett Hoyt MD Primary Care Provider +1- [phone] Encounter Details Date Type Department Care Team ([facility] st Contact Info) Description 07/28/2023 Orders Only [facility] MED & PEDS [address] [place] [address] Janett Hoyt MD [address] [place] [address] Social History Tobacco Use Types Packs/Day Years [...] 07/14/2025 10:45 AM EDT Office Visit [facility] MED & PEDS [address] [place] [address] Janett Hoyt MD [address] [place] [address] 08/16/2025 11:00 AM EST Clinical Support [facility] MED & PEDS [address] [place] [address] Kaylen Townsend RN [address] [place] [address] documented as of this encounter Procedures Procedure Name Priority Date/Time Associated Diagnosis Comments CULTURE, URINE, ROUTINE Routine 07/28/2023 10:15 AM EDT documented in this encounter Results * Culture, Urine, Routine (07/28/2023 10:15 AM EDT) Urine Urine specimen obtained by clean catch procedure / Unknown 07/28/2023 10:15 AM EDT 07/28/2023 5:45 PM EDT Comment:[facility] LABS - 07/30/2023 7:42 AM EDT Klebsiella pneumoniae Quant > 100,000 cfu/mL Klebsiella pneumoniae: Ampicillin >=32(R) Klebsiella pneumoniae: Ceftriaxone <=0.25(S) Klebsiella pneumoniae: Gentamicin <=1(S) Klebsiella pneumoniae: Levofloxacin <=0.12(S) Klebsiella pneumoniae: Nitrofurantoin 64(I) Klebsiella pneumoniae: Trimethoprim/Sulfamethoxazole <=20(S) Specimen Source: Urine clean catch us Anabelle Larose MD LAB MICROBIOLOGY - GENERAL OR DERABLES Final Result [facility] [address] [place] [address] [phone] documented in this encounter Visit Diagnoses Not on filedocumented in this encounter Additional Health Concerns Assessment Noted Time PHQ-9 Depression Total Score: 0 12/03/19 23 9:31 AM EST documented as of this encounter Care Teams Regulatory Compliance Specialist Relationship Specialty Start Date End Date Janett Hoyt MD [address] [place] [address] PCP - General Internal Medicine 02/26/19 documented as of this encounter
--- OUTSIDE RECORDS SUMMARY | 2025-06-28 10:10 | XMS_ITS | Encounter Summary ---
Author Organization [employer] Address [address] [facility] 7t [place] [address] Care Team Providers Care Monogram Technician Name Role Phone Janett Hoyt MD Primary Care Provider +1- [phone] Encounter Details Date Type Department Care Team ([facility] st Contact Info) Description 02/02/2025 Orders Only [facility] CHC MED & PEDS [address] [place] [address] Janett Hoyt MD [address] [place], [place] [id number] Primary hypertension (Primary Dx) Social History Tobacco [...] Description 07/14/2025 10:45 AM EDT Office Visit [facility] MED & PEDS [address] [place] [address] Janett Hoyt MD [address] [place] [address] 08/16/2025 11:00 AM EST Clinical Support [facility] MED & PEDS [address] [place] [address] Kaylen Townsend, KENISHA [address] [place] [address] documented as of this encounter Visit Diagnoses Diagnosis Primary hypertension- Primary Unspecified essential hypertension documented in this encounter Additional Health Concerns Assessment Noted Time PHQ-9 Depression Total Score: 0 10/27/19 25 2:31 PM EST documented as of this encounter Care Teams Monogram Technician Relationship Specialty Start Date End Date Janett Hoyt MD [address] [place] [address] PCP - General Internal Medicine 02/26/19 documented as of this encounter
--- OUTSIDE RECORDS SUMMARY | 2025-06-28 10:11 | XMS_ITS | Clinical Summary ---
Author Organization [facility] Address [address] [place] [address] Care Team Providers Care Education Counselor Name Role Phone Janett Hoyt MD Primary Care Provider +1 -[phone] Surgical History Surgery Date Site/Laterality Comments BLADDER SUSPENSION PROCEDURE: HISTORICAL BLADDER SUSPENSION OTHER SURGICAL HISTORY PROCEDURE: [place] STAB PHLEBT VARICOSE VEINS 1 XTR 10-20 STAB INCS EYE SURGERY PROCEDURE: HISTORICAL EYE SURGERY; COMMENT: starbismus OTHER SURGICAL HISTORY PROCEDURE: AK RHINOPLASTY PRIMARY W/MAJOR SEPTAL REPAIR OTHER SURGICAL HISTORY PROCEDURE: HISTORICAL SUPRACERVICAL HYSTERECTOMY WITH BSO; COMMENT: BSO, fibroid uterus OTHER SURGICAL HISTORY 08/18/2002 PROCEDURE: (UGI) CONTRAST X-RAY OF UPPER GI TRACT; COMMENT: Normal COLONOSCOPY 12/04/2009 PROCEDURE: HISTORICAL COLONOSCOPY; COMMENT: Dr Stanley - normal colon to cecum. Repeat colonoscopy in 10 years. OTHER SURGICAL HISTORY 1982 PROCEDURE: AK PRTL THYROID LOBECTOMY UNI W/WO ISTHMUSECTOMY; COMMENT: left side - due to recurrent cysts EYE SURGERY 08/05/2014 PROCEDURE: AK TRABECULOPLASTY BY LASER SURGERY; COMMENT: right eye; iridotomy EYE SURGERY 08/19/2014 PROCEDURE: AK TRABECULOPLASTY BY LASER SURGERY; COMMENT: left eye OTHER SURGICAL HISTORY Right PROCEDURE: HISTORY OTHER; COMMENT: surgery for ptosis, [facility] VARICOSE VEIN SURGERY 2010 PROCEDURE: AK LIGJ DIVJ &/EXCJ VARICOSE VEIN CLUSTER 1 LEG; COMMENT: laser surgery; Dr. Ernandez BREAST BIOPSY Right PROCEDURE: BX BREAST; PERC NEEDLE CORE W/IMAG GUID; COMMENT: benign UPPER GASTROINTESTINAL ENDOSCOPY 06/16/2018 PROCEDURE: AK UPPER GI ENDOSCOPY PERFORMED; COMMENT: normal on PPI rx. UPPER GASTROINTESTINAL ENDOSCOPY 04/03/2015 PROCEDURE: AK UPPER GI ENDOSCOPY PERFORMED; COMMENT: normal Medical [...] Status Comments Brother Father 49yo suicide Mother [place], lung cancer , ulcers Mother's side Sister [...] (2 - Td or Tdap) 12/21/2022 12/21/2012 RSV Immunization Adult Patients (1 - 1-dose 75+ series) 2024 Depression Screening 10/13/2024 COVID-19 Vaccine ( - 2023- season) 2025 Influenza Vaccine (#1) 2025 8, 06/29/2017, 07/04/2016, [...] (World Health Organization Fracture Risk Assessment) [facility] Department of Internal Medicine recommends using [...] alternative screening schedule based on mary Lui., [facility] October 31, 2011 for patients with [...] years. (WorldHealth Organization Fracture Risk Assessment) [facility] Department of Internal Medicine recommendsusing National [...] alternative screening schedule based on [facility] Lui., [facility] for patients with osteopenia (based [...] Documents on File Type Date Recorded Patient Customer Account Manager Expl anation Health Care Decision (hx) 05/13/2019 AD CACERES DIRECTIVE Health Care Decision (hx) 05/13/2019 AD CACERES DIRECTIVE Health Care Decision (hx) 05/13/2019 AD CACERES DIRECTIVE Health Care Decision (hx) 05/13/2019 AD CACERES DIRECTIVE Health Care Decision (hx) 05/13/2019 AD CACERES DIRECTIVE Health Care Decision (hx) 05/13/2019 MICHELLE CACERES DIRECTIVE Care Teams Education Counselor Relationship Specialty Start Date End Date Janett Hoyt MD [address] [place] [address] PCP - General Internal Medicine 05/31/21
--- OUTSIDE RECORDS SUMMARY | 2025-06-28 10:11 | XMS_ITS | Encounter Summary ---
Author Organization [employer] Address [address] [facility] [address] [place] [address] Care Team Providers Care Certified Family Mediator Name Role Phone Janett Hoyt MD Primary Care Provider +1- [phone] Encounter Details Date Type Department Care Team (Late st Contact Info) Description 06/28/2024 Orders Only [facility] CHC MED & PEDS [address] [place] [address] Janett Hoyt MD [address] [place] [address] Social History Tobacco Use Types Packs/Day Years [...] Description 07/14/2025 10:45 AM EDT Office Visit [facility] MED & PEDS [address] [place] [address] Janett Hoyt MD [address] [place] [address] 08/16/2025 11:00 AM EST Clinical Support [facility] MED & PEDS [address] [place] [address] Kaylen Townsend, KENISHA [address] [place] [address] documented as of this encounter Visit Diagnoses Not on filedocumented in this encounter Additional Health Concerns Assessment Noted Time PHQ-9 Depression Total Score: 0 12/03/19 23 9:31 AM EST documented as of this encounter Care Teams Certified Family Mediator Relationship Specialty Start Date End Date Janett Hoyt MD [address] [place] [address] PCP - General Internal Medicine 02/26/19 documented as of this encounter
--- OUTSIDE RECORDS SUMMARY | 2025-06-28 10:11 | XMS_ITS | Encounter Summary ---
Author Organization [employer] Address [address] [facility] [address] [place] [address] Care Team Providers Care Furnace Liner Name Role Phone Janett Hoyt MD Primary Care Provider +1- [phone] Encounter Details Date Type Department Care Team (Late st Contact Info) Description 03/30/2024 Orders Only [facility] CHC MED & PEDS [address] [place] [address] Janett Hoyt MD [address] [place] [address] Social History Tobacco Use Types Packs/Day Years [...] 10:45 AM EDT Office Visit [facility] MED & PEDS [address] [place] [address] Janett Hoyt MD [address] [place] [address] 08/16/2025 11:00 AM EST Clinical Support [facility] MED & PEDS [address] [place] [address] Kaylen Townsend RN [address] [place] [address] documented as of this encounter Visit Diagnoses Not on filedocumented in this encounter Additional Health Concerns Assessment Noted Time PHQ-9 Depression Total Score: 0 12/03/19 23 9:31 AM EST documented as of this encounter Care Teams Furnace Liner Relationship Specialty Start Date End Date Janett Hoyt MD [address] [place] [address] PCP - General Internal Medicine 02/26/19 documented as of this encounter
--- OUTSIDE RECORDS SUMMARY | 2025-06-28 10:11 | XMS_ITS | Clinical Summary ---
Author Organization [facility] Address [address] [place] [phone] Phone Care Team Providers Care Induction Heating Equipment Setter Name Role Phone Sammie Hardin MD Primary [...] VACCINES (1 of 2) 1999 OSTEOPOROSIS SCREENING INITIAL (ONE-TIME) 2014 PNEUMOCOCCAL VACCINES (50+ years) (2 of 2 - PCV) 09/28/2015 09/28/2014 COVID-19 VACCINE (2 - 2023- season) 2024 12/07/2020 RSV VACCINE (1 - 1-dose 75+ series) 2024 INFLUENZA VACCINE (#1) 2025 0, 06/28/2019, 06/28/2018, Additional history exists Adult Td,Tdap Booster 06/28/2029 06/28/2019, 013 HEPATITIS A VACCINES Aged Out No long [...] file Insurance MEDICARE PART A & B iRx Reminder MEDICARE PART A & B [employer] MEDICARE PART A & B [employer] MEDICARE PART A & B Member Subscriber Plan / Payer (Ef fective 2014-Present) Name:Franny Tejeda Member ID:[id number] Relation to Subscriber:Self Name:Franny Tejeda Subscriber ID:[id number] Payer ID:[id number] Group ID:Not on file Type:Medicare Address: [employer] [address] [employer] MEDICARE PART A & B [employer] MEDICARE PART A & B [employer] MEDICARE PART A & B [employer] MEDICARE PART A & B iRx Reminder MEDICARE PART A & B iRx Reminder Care Teams Induction Heating Equipment Setter Relationship Specialty Start Date End Date Sammie Hardin MD [address] [place] [phone] PCP - General 12/12/15 Additional Source Comments The information contained in this document represents components of the legal health record. It is not the complete legal health record.[facility]
--- OUTSIDE RECORDS SUMMARY | 2025-06-28 10:11 | XMS_ITS | Encounter Summary ---
Author Organization [employer] Address [address] [facility] 7t [place] [address] Care Team Providers Care Drafter Geological Name Role Phone Janett Hoyt MD Primary Care Provider [phone]- [phone] Encounter Details Date Type Department Care Team (Late st Contact Info) Description 04/14/2024 Orders Only [facility] MED & PEDS [address] [place], [place] [phone] Janett Hoyt MD [address] [place], [place] [phone] Primary hypertension (Primary Dx) Social History Tobacco [...] the past 12 months, has t he [employer], gas, oil or water company threatened to [...] [facility] MED [facility] PED[facility] [address] [place] [address] Janett Hoyt MD [address] [place] [address] 08/16/2025 11:00 AM EST Clinical Support [facility] [address] [place] [address] Kaylen Townsend, KENISHA [address] [place] [address] documented as of this encounter Visit Diagnoses Diagnosis Primary hypertension- Primary Unspecified essential hypertension documented in this encounter Additional Health Concerns Assessment Noted Time PHQ-9 Depression Total Score: 0 12/03/19 23 9:31 AM EST documented as of this encounter Care Teams Drafter Geological Relationship Specialty Start Date End Date Janett Hoyt MD [address] [place] [address] PCP - General Internal Medicine 02/26/19 documented as of this encounter
--- OUTSIDE RECORDS SUMMARY | 2025-06-28 10:11 | XMS_ITS | Clinical Summary ---
Author Organization [employer] Address [address] [facility] 7t [place] [address] Care Team Providers Care Classics Teacher Name Role Phone Janett Hoyt MD [...] THREE TIMES DAILY NEEDED 100 g 1 Active celecoxib (CeleBREX) 200 MG capsuleIndication s:Right [...] available. 2 each 2 025 2025 Active dilTIAZem SR (Cardizem SR) 60 MG [...] 11/02/2019 Overview (12/20/2022): Seeing Dr. Laurie Orozco ([facility]). Inflammatory labs 10/19/19 negative. 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/2018 [...] Encounters Date Type Department Care Team Description 06/21/2025 Refill [facility] MED & PEDS [address] [place] [address] Kaylen Townsend, KENISHA Multiple joint pain 06/21/2025 Telephone [facility] MED & PEDS [address] [place] [address] Janett Hoyt MD Med Refill 06/09/2025 Orders Only GENERIC EXTERNAL DATA DEPARTMENT Provider, Generic External Data 05/26/2025 Refill [facility] [place] [address] Janett Hoyt MD Primary hypertension 05/23/2025 Refill [facility] MED & PEDS [address] [facility] [place] [address] Janett Hoyt MD Multiple joint pain 05/04/2025 Orders Only [facility] External Provider, [facility] 04/22/2025 Refill [facility] [address] [facility] [place] [address] Janett Hoyt MD Primary hypertension 04/18/2025 Refill [facility] MED & PEDS [address] [facility] [place] [address] Janett Hoyt MD Multiple joint pain 04/13/2025 11:00 AM EDT Clinical Support [facility] MED & PEDS [address] [place] [address] Kaylen Townsend, KENISHA 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 04/13/2025 Refill [facility] MED & PEDS [address] [place] [address] Kaylen Townsend, KENISHA Multiple joint pain 04/13/2025 Travel 04/12/2025 Refill [facility] MED & PEDS [address] [place] [address] Janett Hoyt MD Primary hypertension 03/30/2025 Telephone [facility] MED & PEDS [address] [place] [address] Janett Hoyt MD Med Refill 03/28/2025 Refill [facility] MED & PEDS [address] [place] [address] Janett Hoyt MD from Last 3 Months Immunizations Immunization Administration [...] 10:45 AM EDT Office Visit [facility] MED & PEDS [address] [place] [address] Janett Hoyt MD [address] [place] [address] 08/16/2025 11:00 AM EST Clinical Support [facility] MED & PEDS [address] [place] [address] Kaylen Townsend, KENISHA [address] [place] [address] Health Maintenance Due Date Last Done Comments CT Colonography 1950 FIT DNA/Cologuard 1950 FIT 1950 FOBT 1950 Sigmoidoscopy 1950 Alcohol/Substance Use Screening 1961 Hepatitis C Screening 1967 SDOH Screening 06/02/2025 06/02/2024 COVID-19 Vaccine ( season) 2025 07/21/2024, 08/09/2023, 07/12/2022, Additional history exists Influenza Vaccine (#1) 2025 , 06/30/2023, 07/08/2022, Additional history exists Depression Screening 10/27/2025 10/27/2024, 10/27/19 Tobacco Screening 03/16/2026 03/16/2025 Lipid Panel 11/03/2028 11/03/2023, 02/10/2022, 02/08/2022, Additional history exists DTaP/Tdap/Td Vaccines (3 [...] DRUG SCREEN Routine 04/13/2025 11:21 AM EDT USP (current) use of opiate analgesic LIPID PANEL, STANDARD Routine 11/03/2023 9:33 AM EST Primary hypertension from Last 3 Months or Most Recently Relevant to Health Maintenance Results * (ABNORMAL) Basic Metabolic Panel (06/09/2025 12:15 PM EDT) Sodium 140 135 - 145 mmol/L [facility] Potassium 4.2 3.3 - 5.1 mmol/L [facility] Chloride 106 96 - 108 mmol/L [facility] Carbon Dioxide 27 22 - 29 mmol/L [facility] Anion Gap 11(L) 12 - 20 [facility] Urea Nitrogen (BUN) 19(H) 9 - 16 mg/dL [facility] Creatinine, Serum 0.88 0.5 - 1.4 mg/dL [facility] Estimated Glomerular Filt Rate >60 [facility] Comment:Chronic Kidney Disea se: Estimated GFR < 60 mL/min/1.07x1Kovzqv Kidney Disease: Estimated GFR < 15 mL/min/1.73m2 Glucose 90 60 - 115 mg/dL [facility] Calcium 9.1 8.4 - 10.2 mg/dL [facility] 06/09/2025 12:1 5 PM EDT 06/09/2025 12:15 PM EDT us Generic External Data Provider LAB BLOOD ORDERAB LES Final Result [facility] [address] [place] [phone] * BI Mammogram Screening Tomosynthesis Bilateral (05/12/2025 7:45 AM EDT) Anatomical Region Laterality Modality Breast Bilateral Mammography 05/12/2025 7:45 AM EDT Narrative 05/23/2025 11:06 AM EDT [address] [place] [address] Mammography Report Signed Patient: Franny Tejeda MR#: [id number] 84 : 1950 Acct:[id number] Age/Sex: 74 / F ADM Date: 05/12/25 Loc: HO.MAMMO Attending Dr: Janett Hoyt MD Ordering Physician: Janett Hoyt MD Results: 2 Benign Findings Date of Service: 05/12/25 Follow Up: 1 Year From Orig [facility] Mammogram Procedure(s): MM tomosynthesis screening BI Accession Number(s): [id number] cc: Janett Hoyt MD EXAMINATION: MM SCREENING [...] OV> 05/23/25 1104 DD/ 0745 TD/TT: 05/12/25 075 Welt Butter Hand: Procedure Note Donotuseinterpreter, Image - 05/23/[address] [place] [address] Mammography Report Signed Patient: Franny Tejeda MMR#: [id number] [birth year] : 1950cct:[id number] Age/Sex: 74 / FADM Date: 05/12/25 Loc: HO.MAMMO Attending Dr: Janett Hoyt MD Ordering Physician: Janett Hoyt MDResults: 2 Benign Findings Date of Service: 05/12/25Follow Up: 1 Year From Orig ina Mammogram Procedure(s): MM tomosynthesis screening BI Accession Number(s): [id number] cc: Janett Hoyt MD EXAMINATION: MM SCREENING [...] 05/23/25 1104 DD/ 0745 TD/TT: 05/12/25 0755 Welt Butter Hand: us Janett Hoyt MD IMG BI PROCEDURES Final Res ult * US Abdomen Limited (05/04/2025 9:55 PM EDT) Anatomical Region Laterality Modality Abdomen Ultrasound 05/04/2025 9:55 PM EDT Narrative 05/04/2025 9:56 PM EDT [facility] [place] [facility] [place] [address] Ultrasound Report Signed Patient: Franny Tejeda MR#: [id number] [birth year] : 1950 Acct:[id number] Age/Sex: 74 / F ADM Date: 05/04/25 Loc: HO.HMGCX Attending Dr: Valerie PATTON Ordering Physician: Valerie Miller Date of Service: 05/04/25 Procedure(s): US abdomen limited Accession Number(s): [id number] cc: Janett Hoyt MD; Valerie Miller CLINICAL [...] in OV> 05/04/252155 DD/ 54 TD/TT: 05/04/252154 Welt Butter Hand: Procedure Note Donotuseinterpreter, Image - 05/04/2025 [facility] [place] [address] [place] [address] [place] [address] Ultrasound Report Signed Patient: Franny Tejeda MMR#: [id number] [birth year] : 1950cct:[id number] Age/Sex: 74 / FADM Date: 05/04/25 Loc: HO.HMGCX Attending Dr: Valerie PATTON Ordering Physician: Valerie Miller Date of Service: 05/04/25 Procedure(s): US abdomen limited Accession Number(s): [id number] cc: Janett Hoyt MD; PaulValerie ANP-C CLINICAL HISTORY: R10.33 - Periumbilical pain --- [...] in OV> 05/04/252155 DD/ 54 TD/TT: 05/04/252154 Welt Butter Hand: [facility] External Provider IMG US PROCEDURES Edited [...] 11:21 AM EDT Internal Pass Control Lot# [id number] Exp: 08-12-26 Janett Hoyt MD POINT OF CARE TEST ENTER/ED IT ORDERABLES Final Result * Lipid Panel, Standard (11/03/2023 9:33 AM EST) Triglycerides 71 <150 mg/dL [facility] Comment:Desirable Triglyceri de: less than 150 mg/dLBorderline High Triglyceride 150-199 mg/dLHigh Triglyceride: 200-499 mg/dLVery High Triglyceride: greater than or equal to 5OO mg/dL Cholesterol 163 <200 mg/dL [facility] Comment:Desirable Cholestero l: less than 200 mg/dLBorderline High Cholesterol: 200-239 mg/dLHigh Cholesterol: greater than 239 mg/dL LDL Cholesterol Calculated 88 <100 mg/dL [facility] Comment:Desirable LDL: less than 100 mg/dLNear Optimal/Above Optimal LDL: 110- 129 mg/dLBorderline High LDL: 130-159 mg/dLHigh LDL: 160-189 mg/dLVery High LDL: greater than or equal to 190 mg/dL HDL Cholesterol 61 >40 mg/dL [facility] Comment:Desirable HDL: great er than 40 mg/dL Note: This HDL assay may give artificially low results in patients with liver disease. Blood Venous blood specimen / Unknown 11/03/2023 9:33 AM EST 11/03/2023 2:26 PM EST us Janett Hoyt MD LAB BLOOD ORDERABLES Final Result [facility] [address] [place] [address] [phone] from Last 3 Months or Most Recently Relevant to Health Maintenance Insurance [place] [address] [place] [id number] [facility] FULL Care Teams Classics Teacher Relationship Specialty Start Date End Date Janett Hoyt MD [address] [place] [address] FLOR Diallo PCP - General Internal Medicine 02/26/19
--- OUTSIDE RECORDS SUMMARY | 2025-06-28 10:11 | XMS_ITS | Encounter Summary ---
Author Organization [employer] Address [address] [facility] 7t [place] [address] Care Team Providers Care Crop Adjuster Name Role Phone Janett Hoyt MD Primary Care Provider +1- [phone] Encounter Details Date Type Department Care Team (Late st Contact Info) Description 04/29/2024 Orders Only [facility] MED & PEDS [address] [place], [place] [phone] Janett Hoyt MD [address] [place], [place] [phone] Primary hypertension (Primary Dx); Other osteoporosis without [...] AM EDT Office Visit [facility] MED & PEDS [address] [place] [address] Janett Hoyt MD [address] [place] [address] 08/16/2025 11:00 AM EST Clinical Support [facility] MED & PEDS [address] [place] [address] Kaylen Townsend, RN [address] [place] [address] documented as of this encounter Visit Diagnoses Diagnosis Primary hypertension- Primary Unspecified essential hypertension Other osteoporosis without current pathological fracture documented in this encounter Additional Health Concerns Assessment Noted Time PHQ-9 Depression Total Score: 0 12/03/19 23 9:31 AM EST documented as of this encounter Care Teams Crop Adjuster Relationship Specialty Start Date End Date Janett Hoyt MD [address] [place] [address] PCP - General Internal Medicine 02/26/19 documented as of this encounter
== END 2025-06-28 08:52 | disposition home or self-care (01) ==
LOC: HO.ENCR 08:32
PROVIDERS: PCP Internal Medicine; Visit Provider Internal Medicine Endocrinology, Diabetes & Metabolism
DX: M81.0 Age-related osteoporosis without current pathological fracture (principal)
CPT/HCPCS: 99213

== ENCOUNTER → 2025-06-28 08:31 | Outpatient (BNVA) | payer MEDICARE, MEDICAID, SELFPAY | PROVIDERS: PCP Internal Medicine; Visit Provider Internal Medicine Endocrinology, Diabetes & Metabolism | DX: M81.0 Age-related osteoporosis without current pathological fracture (principal); Z90.710 Acquired absence of both cervix and uterus | CPT/HCPCS: 96372; 99212; J0897 ==

== ENCOUNTER 2025-07-14 11:21 | Outpatient (REF) | payer MEDICARE, MEDICAID, SELFPAY ==
--- OUTSIDE RECORDS SUMMARY | 2025-07-14 10:45 | XMS_ITS | Encounter Summary ---
Author Organization [employer] Address [address] [facility] [address] [place] [address] Care Team Providers Care Biology Internship Name Role Phone Janett Hoyt MD Primary Care Provider [phone] Reason for Referral * Consultation (Routine) - Pending Review Specialty Diagnoses / Procedures Referred By Blanka moore Referred To Contact Vascular Surgery Diagnoses Varicose veins of bilateral lower extremities with other complications Janett Hoyt MD [address] [place] [address] Phone: tel: fax: Keanu Arzate MD [address] [place] [address] Drive [address] [place] [address] Phone: tel: fax: Referral ID Status Reason Start Date Expiration Date Visits Requested Visits Authorized [id number] Pending Review Specialty Services Required 07/14/2025 07/14/2026 1 1 Reason for Visit * Reason Comments Extended office visit Encounter Details Date Type Department Care Team (Latest Contact Info) Description 07/14/2025 10:45 AM EDT Office Visit [facility] & PEDS [address], [place] [phone] Janett Hoyt MD [address] [place], [place] [phone] Varicose veins of bilateral lower extremities with other complications (Primary Dx); Multiple joint pain; Primary hypertension; Hypercholesterolemia Social History Tobacco Use Types Packs/Day Years [...] housing situation today? I have [address] 07/07/[address] you li ve. Do you have problems with any of the following? None of the above 07/07/2025 Food Insecurity Answer Date Recorded Within the past 12 months, y ou worried that your food would run out before you got money to buy more: Never True 07/07/2025 Within the past 12 months,th e food you bought just didn't last and you didn't have enough money to get more: Never True Transportation Answer Date Recorded In the past 12 months, has l ack of transportation kept you from medical appts, meetings, work or from getting things needed for daily living? No 07/07/2025 Utilities Answer Date Recorded In the past 12 months, has t he electric, gas, oil or water company threatened to shut off services in your home? No 07/07/2025 Depression Answer Date Recorded Patient Health Questionnaire-2 Score 0 10/27/2024 Internet Access Answer Date Recorded Internet Access Q1 Yes 07/07/2025 Internet Access Q2 Not on file 07/07/2025 Comments No Sex and Gender Information Value Date Recorded Sex Assigned at Female 08/12/2022 10:18 AM EDT Legal Sex Female 10:18 AM EDT Gender Identity Choose not to disclose 10:18 AM EDT Sexual Orientation Choose not to disclose 2021 10:18 AM EDT documented as of this encounter Last Filed Vital Signs Vital Sign Reading Time Taken Comments Blood Pressure 152/74 07/14/2025 10:39 AM EDT Pulse 68 07/14/2025 10:39 AM EDT Temperature 36.2 C (97.2 F) 07/14/2025 10:39 AM EDT Respiratory Rate 20 07/14/2025 10:39 AM EDT Oxygen Saturation 94% 07/14/2025 10:39 AM EDT Inhaled Oxygen Concentration - - Weight 77.1 kg (170 lb) 07/14/2025 10:39 AM EDT Height 152.4 cm (5') 07/14/2025 10:39 AM EDT Body Mass Index 33.2 07/14/2025 10:39 AM EDT documented in this encounter Progress Notes * Janett Hoyt MD - 07/14/2025 10:45 AM EDT SUBJECTIVE Franny Tejeda is a 74 y.o. adult who presents for Extended office visit. HPI 1) H/o varicose veins. S/p surgery in 2010. Pt has noticed a swelling and recurrence of the dilatedveins associated w/ b/l lower limb discomfort. She is not wearing compression stockings. 2) H/o Osteoporotis. Intolerant to Alendronate. No h/o pathologic fracture. Started on Prolia whichis well tolerated so far. 3) H/o Osteoarthritis. Using tramadol 50 mg 2 times a day w/ insufficient pain control. No fever orother constitutional symptoms. 4)H/o Hypercholesterolemia. On a low chol diet. Pt needs a repeat lipid panel. 5)H/o hypertension. On losartan 100 mg daily. Pt is compliant to her medication. No side effect. BPis uncontrolled at home. Problem List[1] Allergies[2] Medications Ordered Prior to Encounter[3] Review of Systems Constitutional: Negative for diaphoresis and fatigue. HENT: Negative for ear discharge, ear pain and facial swelling. Eyes: Negative for pain and itching. Respiratory: Negative for cough, choking and shortness of breath. Gastrointestinal: Negative for abdominal pain, anal bleeding and blood in stool. Musculoskeletal: Positive for arthralgias. Neurological: H/o peripheral neuropathy OBJECTIVE Vitals: 07/14/25 1039 BP: (!) 152/74 BP Location: Left arm Patient Position: Sitting BP Cuff Size: Adult long Pulse: 68 Resp: 20 Temp: 97.2 ??F (36.2 ??C) TempSrc: Oral SpO2: 94% Weight: 170 lb (77.1 kg) Height: 5' (1.524 m) Physical Exam Constitutional: General: Franny is not in acute distress. Appearance: Normal appearance. Franny is obese. Franny is not ill-appearing, toxic-appearing or diaphoretic. HENT: Right Ear: There is no impacted cerumen. Left Ear: There is no impacted cerumen. Nose: No congestion or rhinorrhea. Cardiovascular: Rate and Rhythm: Normal rate. Pulmonary: Effort: Pulmonary effort is normal. Abdominal: Palpations: Abdomen is soft. Musculoskeletal: Cervical back: Normal range of motion. Skin: Comments: Edema of the lower limbs bilaterally with presence of multiple varicose veins Neurological: General: No focal deficit present. Mental Status: Franny is alert. Gait: Gait abnormal. Psychiatric: Mood and Affect: Mood normal. Assessment/Plan Assessment/Plan Diagnoses and all orders for this visit: Varicose veins of bilateral lower extremities with other complications Comments: Leg elevation Compression stockings Vascular surgery evaluation Orders: - Referral to Vascular Surgery; Future Multiple joint pain Comments: Tramadol dose increased to 50 mg tid prn. Pt is aware to use w/ caution Fall precautions discussed particularly advise to use a gait aid. Orders: - traMADol (Ultram) 50 MG tablet; Take 1 tablet (50 mg) by mouth every 8 (eight) hours if needed for severe pain. - CBC auto differential; Future - Comprehensive Metabolic Panel; Future - Lipid Panel, Standard; Future - TSH with Reflex to Free T4; Future - Hepatitis C Antibody with Reflex to HCV, RNA, Quantitative, Real-Time PCR; Future Primary hypertension Comments: Uncontrolled Pt is not interested in adding any new medication for now DASH diet reinforced. Orders: - Comprehensive Metabolic Panel; Future - TSH with Reflex to Free T4; Future Hypercholesterolemia Comments: Lipid panel. Pt will contacted w/ results Low chol diet recommended. Orders: - Lipid Panel, Standard; Future - TSH with Reflex to Free T4; Future [1] Patient Active Problem List Diagnosis Hypertension Hypercholesterolemia [...] Vertigo Long-term current use of opiate analgesic [2] Allergies Allergen Reactions Amlodipine Dizziness Nitrofurantoin Other Panic attack Sulfa Antibiotics Other anxiety [3] Current Outpatient Medications on File Prior to Visit Medication Sig Dispense Refill amLODIPine (Norvasc) 5 MG tablet Take 1 tablet (5 mg) by mouth Once per day. 30 tablet 11 Calcium-Vitamin D-Vitamin K 500-100-40 MG-UNT-MCG chewable tablet Chew. celecoxib (CeleBREX) 200 MG capsule TAKE ONE CAPSULE BY MOUTH EVERY MORNING 30 capsule 3 cholecalciferol (Vitamin D-3) 25 MCG (1000 UT) tablet Take 1 tablet (25 mcg) by mouth Once per day.30 tablet 11 Diclofenac Sodium 1 % gel APPLY 2 GRAM'S TO AFFECTED AREA(s) THREE TIMES DAILY NEEDED 100 g 1 dilTIAZem SR (Cardizem SR) 60 MG 12 hr capsule TAKE ONE CAPSULE BY MOUTH TWICE DAILY 60 capsule 2 DULoxetine (Cymbalta) [address] capsule Take 1 capsule (20 mg) by mouth 2 times daily. Do not crush or chew. 60 capsule 11 Elastic Bandages & Supports (Medical Compression Stockings) misc 15-20 mm/Hg. Knee high. Dx : venous insufficiency ( Toe less please ) 1 each 0 guaiFENesin (Mucinex) 600 MG 12 hr tablet Take 2 tablets (1,200 mg) by mouth 2 times daily. Do not crush, chew, or split. 120 tablet 11 levothyroxine (Synthroid, Levoxyl) 100 MCG tablet TAKE ONE TABLET BY MOUTH EVERY MORNING 30 tablet 5 Linzess 145 MCG capsule Take 145 mcg by mouth in the morning. losartan (Cozaar) 100 MG tablet TAKE ONE TABLET DAILY 30 tablet 11 meclizine (Antivert) 25 MG tablet TAKE ONE TABLET AT BEDTIME 40 tablet 3 methocarbamol (Robaxin) 500 MG tablet TAKE 1 TABLET BY MOUTH 4 TIMES A DAY NEEDED FOR SPASM *NC NON FORMULARY* naloxone (Narcan) 4 mg/0.1 mL nasal spray Administer 1 spray (4 mg) into affected nostril(s) if needed for opioid reversal. May repeat every 2-3 minutes if needed, alternating nostrils, until medicalassistance becomes available. 2 each 2 rosuvastatin (Crestor) 20 MG tablet TAKE ONE TABLET DAILY 30 tablet 11 traMADol (Ultram) 50 MG tablet Take 1 tablet (50 mg) by mouth every 8 (eight) hours if needed for severe pain. 30 tablet 0 venlafaxine XR (Effexor XR) 37.5 MG 24 hr capsule TAKE ONE CAPSULE BY MOUTH EVERY MORNING 90 capsule 3 [DISCONTINUED] nortriptyline (Pamelor) 25 MG capsule Take 1 capsule (25 mg) by mouth at bedtime. 30capsule 11 No current facility-administered medications on file prior to visit. documented in this encounter Plan of Treatment Upcoming Encounters Date Type Department Care Team (Late st Contact Info) Description 08/16/2025 11:00 AM EST Clinical Support [facility] MED & PEDS [address] [place] [address] Kaylen Townsend RN [address] [place] [address] Scheduled Orders Name Type Priority Associated Diagnoses Orde r Schedule CBC auto differential Lab Routine Multiple joint pain Expected: 07/14/2025 (Approximate), Expires: 07/14/2026 Comprehensive Metabolic Panel Lab Routine Multiple joint pain Primary hypertension Expected: 07/14/2025 (Approximate), Expires: 07/14/2026 Lipid Panel, Standard Lab Routine Multiple joint pain Hypercholesterolemia Expected: 07/14/2025 (Approximate), Expires: 07/14/2026 TSH with Reflex to Free T4 Lab Routine Multiple joint pain Primary hypertension Hypercholesterolemia Expected: 07/14/2025 (Approximate), Expires: 07/14/2026 Hepatitis C Antibody with Reflex to HCV, RNA, Quantitative, Real-Time PCR Lab Routine Multiple joint pain Expected: 07/14/2025, Expires: 07/14/2026 Scheduled Referrals Name Type Priority Associated Diagnoses Orde r Schedule Referral to Vascular Surgery Outpatient Referral Routine Varicose veins of bilateral lower extremities with other complications Expected: 07/14/2025 (Approximate), Expires: 07/14/2026 documented as of this encounter Visit Diagnoses Diagnosis Varicose veins of bilateral lower extremities with other complications- Primary Multiple joint pain Pain in joint, multiple sites Primary hypertension Unspecified essential hypertension Hypercholesterolemia Pure hypercholesterolemia documented in this encounter Additional Health Concerns Assessment Noted Time PHQ-9 Depression Total Score: 0 10/27/19 25 2:31 PM EST documented as of this encounter Care Teams Biology Internship Relationship Specialty Start Date End Date Janett Hoyt MD [address] [place] [address] PCP - General Internal Medicine 02/26/19 documented as of this encounter
--- OUTSIDE RECORDS SUMMARY | 2025-07-14 13:15 | XMS_ITS | Clinical Summary ---
Author Organization [facility] Address [address] [place] [address] Care Team Providers Care Arc Welding Machine Operator Name Role Phone Janett Hoyt MD Primary Care Provider [phone] Surgical History Surgery Date Site/Laterality Comments BLADDER [...] Status Comments Brother Father 49yo suicide Mother [place], lung cancer , ulcers Mother's side Sister [...] Health Maintenance Due Date Last Done Comments Colorectal Cancer Screening: Colonoscopy 1950 Zoster Vaccines (1 of 2) 1999 Pneumococcal Vaccine: 50+ Years (2 of 2 - PCV) 09/28/2015 09/28/2014 Cholesterol Screening (Lipid Panel) 09/15/2022 Falls Risk Assessment 09/15/2022 Hepatitis C [...] (World Health Organization Fracture Risk Assessment) [facility] Department of Internal Medicine recommends using [...] alternative screening schedule based on mary Lui., [facility] October 31, 2011 for patients with osteopenia [...] years. (WorldHealth Organization Fracture Risk Assessment) [facility] Department of Internal Medicine recommendsusing National [...] alternative screening schedule based on mary Lui., [facility] for patients with osteopenia (based on [...] Documents on File Type Date Recorded Patient Cake Former Expl anation Health Care Decision (hx) 05/13/2019 AD CACERES DIRECTIVE Health Care Decision (hx) 05/13/2019 AD CACERES DIRECTIVE Health Care Decision (hx) 05/13/2019 AD CACERES DIRECTIVE Health Care Decision (hx) 05/13/2019 AD CACERES DIRECTIVE Health Care Decision (hx) 05/13/2019 AD CACERES DIRECTIVE Health Care Decision (hx) 05/13/2019 MICHELLE CACERES DIRECTIVE Care Teams Arc Welding Machine Operator Relationship Specialty Start Date End Date Janett Hoyt MD [address] [place] [address] PCP - General Internal Medicine 05/31/21
--- OUTSIDE RECORDS SUMMARY | 2025-07-14 13:15 | XMS_ITS | Encounter Summary ---
Author Organization [employer] Address [address] [place] [address] Care Team Providers Care Assistant Director Of Security Name Role Phone Janett Hoyt MD Primary Care Provider [phone] Encounter Details Date Type Department Care Team (Latest Contact Info) Description 07/14/2025 Travel Social History Tobacco Use Types Packs/Day [...] [facility] st Contact Info) Description 08/16/2025 11:00 AM EST Clinical Support [facility] MED & PEDS [address] [place] [address] Kaylen Townsend, KENISHA [address] [place] [address] documented as of this encounter Visit Diagnoses Not on filedocumented in this encounter Additional Health Concerns Assessment Noted Time PHQ-9 Depression Total Score: 0 10/27/19 25 2:31 PM EST documented as of this encounter Care Teams Assistant Director Of Security Relationship Specialty Start Date End Date Janett Hoyt MD [address] [place] [address] PCP - General Internal Medicine 02/26/19 documented as of this encounter
--- OUTSIDE RECORDS SUMMARY | 2025-07-14 13:15 | XMS_ITS | Clinical Summary ---
Author Organization [employer] Address 75 [facility] 7t [place] [address] Care Team Providers Care Post Production Assistant Name Role Phone Janett Hoyt MD [...] less please ) 1 each 023 Active cholecalciferol (Vitamin D-3) 25 MCG [...] BY MOUTH EVERY MORNING 30 tablet 5 Active amLODIPine (Norvasc) 5 MG tabletIndications :Primary hypertension Take 1 tablet (5 mg) by mouth Once per day. 30 tablet 11 025 2025 Active Diclofenac Sodium 1 % gelIndications:Ac chito right ankle pain APPLY 2 GRAM'S TO AFFECTED AREA(s) THREE TIMES DAILY NEEDED 100 g 1 025 Active guaiFENesin (Mucinex) 600 MG 12 hr tabletIndications :Acute recurrent frontal sinusitis Take 2 tablets (1,200 mg) by mouth 2 times daily. Do not crush, chew, or split. 120 tablet 025 2025 Active losartan (Cozaar) 100 MG tabletIndications :Primary hypertension TAKE ONE TABLET DAILY 30 tablet 025 Active venlafaxine XR (Effexor XR) 37.5 MG 24 hr capsule TAKE ONE CAPSULE BY MOUTH EVERY MORNING 90 capsule 3 025 Active rosuvastatin (Crestor) 20 MG tabletIndications :Primary hypertension TAKE ONE TABLET DAILY 30 tablet 025 Active naloxone (Narcan) 4 mg/0.1 mL nasal [...] TWICE DAILY 60 capsule 2 025 Active celecoxib (CeleBREX) 200 MG capsuleIndication s:Right upper quadrant pain TAKE ONE CAPSULE BY MOUTH EVERY MORNING 30 capsule 3 025 Active traMADol (Ultram) 50 MG tabletIndications :Multiple joint pain Take 1 tablet (50 mg) by mouth every 8 (eight) hours if needed for severe pain. 84 tablet 025 Active nortriptyline (Pamelor) 25 MG capsuleIndication s:Adjustment insomnia Take 1 capsule (25 mg) by mouth at bedtime. 30 capsule 11 023 10/02/ 2025 Discontinued(T herapy completed) celecoxib (CeleBREX) 200 MG capsuleIndication s:Right upper quadrant pain TAKE ONE CAPSULE BY MOUTH EVERY MORNING 30 capsule 3 025 2024 Discontinued traMADol (Ultram) 50 MG tabletIndications :Multiple joint [...] 11/02/2019 Overview (12/20/2022): Seeing Dr. Laurie Orozco ([facility]). Inflammatory labs 10/19/19 negative. 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/2018 [...] Encounters Date Type Department Care Team Description 07/14/2025 10:45 AM EDT Office Visit [facility] MED & PEDS [address] [place] [address] Janett Hoyt MD Varicose veins of bilateral lower extremities with other complications (Primary Dx); Multiple joint pain; Primary hypertension; Hypercholesterolemia 07/14/2025 Travel 07/13/2025 Telephone [facility] MED & [facility] [address] [place] [address] Janett Hoyt MD Chart Prep 07/07/2025 Patient Outreach [facility] [address] [place] [address] Janett Hoyt MD Pre-visit Planning (SDOH screening negative and Tobacco screening negative) 07/07/2025 Telephone [facility] MED & [facility] [address] [place] [address] Janett Hoyt MD Med Refill 07/03/2025 Refill [facility] [address] [place] [address] Janett Hoyt MD Right upper quadrant pain 06/21/2025 Refill [facility] [address] [place] [address] Kaylen Townsend, KENISHA Multiple joint pain 06/21/2025 Telephone [facility] MED [facility]ED[facility] [address] [place] [address] Janett Hoyt MD Med Refill 06/09/2025 Orders Only GENERIC EXTERNAL DATA DEPARTMENT Provider, Generic External Data 05/26/2025 Refill [facility] [address] [place] [address] Janett Hoyt MD Primary hypertension 05/23/2025 Refill [facility] [address] [place] [address] Janett Hoyt MD Multiple joint pain 05/04/2025 Orders Only [facility] External Provider, [facility] 04/22/2025 Refill [facility] [address] [place] [address] Janett Hoyt MD Primary hypertension 04/18/2025 Refill [facility] [address] [place] [address] Janett Hoyt MD Multiple joint pain 04/13/2025 11:00 AM EDT Clinical Support [facility] [address] [place] [address] Kaylen Townsend, RN alf (current) use of opiate analgesic 04/13/2025 Refill [facility] [address] [place] [address] Kaylen Townsend, KENISHA Multiple joint pain 04/13/2025 Travel from Last 3 Months Immunizations Immunization Administration [...] Mass Index 33.2 07/14/2025 10:39 AM EDT Plan of Treatment Upcoming Encounters Date Type Department Care Team ([facility] st Contact Info) Description 08/16/2025 11:00 AM EST Clinical Support [facility] [address] [place] [address] Kaylen Townsend, RN [address] [place] [address] Health Maintenance Due Date Last Done Comments CT Colonography 1950 FIT DNA/Cologuard 1949 FIT 1949 FOBT 1950 Sigmoidoscopy 1950 Alcohol/Substance Use Screening 1961 Hepatitis C Screening 1967 Influenza Vaccine (#1) 2025 , 06/30/2023, 07/08/2022, Additional history exists Depression Screening 10/27/2025 10/27/2024, 10/27/19 SDOH Screening 07/07/2026 07/07/2025 COVID-19 Vaccine ( season) 2026 07/21/2024, 08/09/2023, 07/12/2022, Additional history exists Postponed from 06/13/2025 (Patient Refused) Tobacco Screening 07/14/2026 07/14/2025 Lipid Panel 11/03/2028 11/03/2023, 11/14, 02/08/2022, Additional [...] DRUG SCREEN Routine 04/13/2025 11:21 AM EDT alf (current) use of opiate analgesic LIPID PANEL, STANDARD Routine 11/03/2023 9:33 AM EST Primary hypertension from Last 3 Months or Most Recently Relevant to Health Maintenance Results * (ABNORMAL) Basic Metabolic Panel (06/09/2025 12:15 PM EDT) Sodium 140 135 - 145 mmol/L [facility] Potassium 4.2 3.3 - 5.1 mmol/L [facility] Chloride 106 96 - 108 mmol/L [facility] Carbon Dioxide 27 22 - 29 mmol/L [facility] Anion Gap 11(L) 12 - 20 [facility] Urea Nitrogen (BUN) 19(H) 9 - 16 mg/dL [facility] Creatinine, Serum 0.88 0.5 - 1.4 mg/dL [facility] Estimated Glomerular Filt Rate >60 [facility] Comment:Chronic Kidney Disea se: Estimated GFR < 60 mL/min/1.25h5Asfbcg Kidney Disease: Estimated GFR < 15 mL/min/1.73m2 Glucose 90 60 - 115 mg/dL [facility] Calcium 9.1 8.4 - 10.2 mg/dL [facility] 06/09/2025 12:1 5 PM EDT 06/09/2025 12:15 PM EDT us Generic External Data Provider LAB BLOOD ORDERAB LES Final Result [facility] [address] [place] [phone] [phone] * BI Mammogram Screening Tomosynthesis Bilateral (05/12/2025 7:45 AM EDT) Anatomical Region Laterality Modality Breast Bilateral Mammography 05/12/2025 7:45 AM EDT Narrative 05/23/2025 11:06 AM EDT [address] [place] [address] Mammography Report Signed Patient: Franny Tejeda MR#: [id number] 84 : 1950 Acct:[id number] Age/Sex: 74 / F ADM Date: 05/12/25 Loc: HO.MAMMO Attending Dr: Janett Hoyt MD Ordering Physician: Janett Hoyt MD Results: 2 Benign Findings Date of Service: 05/12/25 Follow Up: 1 Year From [facility] Mammogram Procedure(s): MM tomosynthesis screening BI Accession Number(s): [id number] cc: Janett Hoyt MD EXAMINATION: MM SCREENING [...] 05/23/25 1104 DD/ 0745 TD/TT: 05/12/25 0755 Casing Sewer: Procedure Note Donotuseinterpreter, Image - 05/23/2025 [facility] [address] [place], [place] [address] Mammography Report Signed Patient: Franny Tejeda MMR#: [id number] [birth year] : 1950cct:[id number] Age/Sex: 74 / FADM Date: 05/12/25 Loc: HO.MAMMO Attending Dr: Janett Hoyt MD Ordering Physician: Janett Hoyt MDResults: 2 Benign Findings Date of Service: 05/12/25Follow Up: 1 Year From Orig ina Mammogram Procedure(s): MM tomosynthesis screening BI Accession Number(s): [id number] cc: Janett Hoyt MD EXAMINATION: MM SCREENING [...] 05/23/25 1104 DD/ 0745 TD/TT: 05/12/25 0755 Casing Sewer: us Janett Hoyt MD IMG BI PROCEDURES Final Res ult * US Abdomen Limited (05/04/2025 9:55 PM EDT) Anatomical Region Laterality Modality Abdomen Ultrasound 05/04/2025 9:55 PM EDT Narrative 05/04/2025 9:56 PM EDT [facility] [address] [place] [address] [place] [address] Ultrasound Report Signed Patient: Franny Tejeda MR#: [id number] 84 : 1950 Acct:[id number] Age/Sex: 74 / F ADM Date: 05/04/25 Loc: HO.HMGCX Attending Dr: Valerie PATTON Ordering Physician: Valerie Miller Date of Service: 05/04/25 Procedure(s): US abdomen limited Accession Number(s): [id number] cc: Janett Hoyt MD; Valerie Miller CLINICAL [...] in OV> 05/04/252155 DD/ 54 TD/TT: 05/04/252154 Casing Sewer: Procedure Note Omar, Image - 05/04/2025 [facility] [place] [address] Ultrasound Report Signed Patient: Franny Tejeda [facility]#: [id number] [birth year] : [birth year]Acct:[id number] Age/Sex: 74 / FADM Date: 05/04/25 Loc: HO.HMGCX Attending Dr: Valerie VASQUEZ-C Ordering Physician: Valerie Miller Date of Service: 05/04/25 Procedure(s): US abdomen limited Accession Number(s): [id number] cc: Janett Hoyt MD; Valerie Miller CLINICAL [...] in OV> 05/04/252155 DD/ 54 TD/TT: 05/04/252154 Casing Sewer: [facility] External Provider IMG US PROCEDURES Edited [...] Unknown 04/13/2025 11:21 AM EDT Narrative Kaylen Townsend, RN - 04/13/2025 11:21 AM EDT Internal Pass Control Lot# [id number] Exp: 08-12-26 us Janett Hoyt MD POINT OF CARE TEST ENTER/ED IT ORDERABLES Final Result * Lipid Panel, Standard (11/03/2023 9:33 AM EST) Triglycerides 71 <150 mg/dL [facility] Comment:Desirable Triglyceri de: less than 150 mg/dLBorderline High Triglyceride 150-199 mg/dLHigh Triglyceride: 200-499 mg/dLVery High Triglyceride: greater than or equal to 5OO mg/dL Cholesterol 163 <200 mg/dL [facility] Comment:Desirable Cholestero l: less than 200 mg/dLBorderline High Cholesterol: 200-239 mg/dLHigh Cholesterol: greater than 239 mg/dL LDL Cholesterol Calculated 88 <100 mg/dL [facility] Comment:Desirable LDL: less than 100 mg/dLNear Optimal/Above Optimal LDL: 110- 129 mg/dLBorderline High LDL: 130-159 mg/dLHigh LDL: 160-189 mg/dLVery High LDL: greater than or equal to 190 mg/dL HDL Cholesterol 61 >40 mg/dL [facility] Comment:Desirable HDL: great er than 40 mg/dL Note: This HDL assay may give artificially low results in patients with liver disease. Blood Venous blood specimen / Unknown 11/03/2023 9:33 AM EST 11/03/2023 2:26 PM EST us Janett Hoyt MD LAB BLOOD ORDERABLES Final Result [facility] [address] [place] [phone] from Last 3 Months or Most Recently Relevant to Health Maintenance Insurance MEDICARE [facility] SENIOR BUY-IN/MSP Care Teams Post Production Assistant Relationship Specialty Start Date End Date Janett Hoyt MD [address] [place] [address] PCP - General Internal Medicine 02/26/19
--- OUTSIDE RECORDS SUMMARY | 2025-07-14 13:15 | XMS_ITS | Encounter Summary ---
Author Organization [employer] Address 75 [facility] 7t [place] [address] Care Team Providers Care Explosive Ordnance Technician Name Role Phone Janett Hoyt MD Primary Care Provider +1- [phone] Encounter Details Date Type Department Care Team ([facility] st Contact Info) Description 07/28/2023 Orders Only [facility] & [facility]EDS [address] [place] [address] Janett Hoyt MD [address] [place] [address] Social History Tobacco Use Types Packs/Day Years [...] Description 08/16/2025 11:00 AM EST Clinical Support [facility] PED[facility] [address] [place] [address] Kaylen Townsend RN [address] [place] [address] documented as of this encounter Procedures Procedure Name Priority Date/Time Associated Diagnosis Comments CULTURE, URINE, ROUTINE Routine 07/28/2023 10:15 AM EDT documented in this encounter Results * Culture, Urine, Routine (07/28/2023 10:15 AM EDT) Urine Urine specimen obtained by clean catch procedure / Unknown 07/28/2023 10:15 AM EDT 07/28/2023 5:45 PM EDT Comment:[facility] - 07/30/2023 7:42 AM EDT Klebsiella pneumoniae Quant > 100,000 cfu/mL Klebsiella pneumoniae: Ampicillin >=32(R) Klebsiella pneumoniae: Ceftriaxone <=0.25(S) Klebsiella pneumoniae: Gentamicin <=1(S) Klebsiella pneumoniae: Levofloxacin <=0.12(S) Klebsiella pneumoniae: Nitrofurantoin 64(I) Klebsiella pneumoniae: Trimethoprim/Sulfamethoxazole <=20(S) Specimen Source: Urine clean catch us Anabelle Larose MD LAB MICROBIOLOGY - GENERAL OR DERABLES Final Result [facility] [address] [place] [phone] [phone] documented in this encounter Visit Diagnoses Not on filedocumented in this encounter Additional Health Concerns Assessment Noted Time PHQ-9 Depression Total Score: 0 12/03/19 23 9:31 AM EST documented as of this encounter Care Teams Explosive Ordnance Technician Relationship Specialty Start Date End Date Janett Hoyt MD [address] [place] [address] PCP - General Internal Medicine 02/26/19 documented as of this encounter
--- OUTSIDE RECORDS SUMMARY | 2025-07-14 13:15 | XMS_ITS | Encounter Summary ---
Author Organization [employer] Address 75 [facility] 7t [place] [address] Care Team Providers Care De Icer Element Winder Name Role Phone Janett Hoyt MD Primary Care Provider [phone]- [phone] Encounter Details Date Type Department Care Team ([facility] st Contact Info) Description 02/02/2025 Orders Only [facility] MED & PEDS [address] [place] [address] Janett Hoyt MD [address] [place], [place] [phone] Primary hypertension (Primary Dx) Social History Tobacco [...] Upcoming Encounters Date Type Department Care Team ([facility] st Contact Info) Description 08/16/2025 11:00 AM EST Clinical Support [facility] MED & PEDS [address] [place] [address] Kaylen Townsend, KENISHA [address] [place] [address] documented as of this encounter Visit Diagnoses Diagnosis Primary hypertension- Primary Unspecified essential hypertension documented in this encounter Additional Health Concerns Assessment Noted Time PHQ-9 Depression Total Score: 0 10/27/19 25 2:31 PM EST documented as of this encounter Care Teams De Icer Element Winder Relationship Specialty Start Date End Date Janett Hoyt MD [address] [place] [address] PCP - General Internal Medicine 02/26/19 documented as of this encounter
--- OUTSIDE RECORDS SUMMARY | 2025-07-14 13:15 | XMS_ITS | Encounter Summary ---
Author Organization [employer] Address 75 [facility] 7t [place] [address] Care Team Providers Care Integrated Circuit Ic Layout Designer Name Role Phone Janett Hoyt MD Primary Care Provider +1- [phone] Encounter Details Date Type Department Care Team (Late st Contact Info) Description 04/29/2024 Orders Only [facility] MED & PEDS [address] [place], [place] [phone] Janett Hoyt MD [address] [place], [place] [phone] Primary hypertension (Primary Dx); Other osteoporosis without [...] Description 08/16/2025 11:00 AM EST Clinical Support [facility] [address] [place] [address] Kaylen Townsend, KENISHA [address] [place] [address] documented as of this encounter Visit Diagnoses Diagnosis Primary hypertension- Primary Unspecified essential hypertension Other osteoporosis without current pathological fracture documented in this encounter Additional Health Concerns Assessment Noted Time PHQ-9 Depression Total Score: 0 12/03/19 23 9:31 AM EST documented as of this encounter Care Teams Integrated Circuit Ic Layout Designer Relationship Specialty Start Date End Date Janett Hoyt MD [address] [place] [address] PCP - General Internal Medicine 02/26/19 documented as of this encounter
--- OUTSIDE RECORDS SUMMARY | 2025-07-14 13:15 | XMS_ITS | Encounter Summary ---
Author Organization [employer] Address 75 [facility] 7t [place] [address] Care Team Providers Care Mill Washer Name Role Phone Janett Hoyt MD Primary Care Provider +1- [phone] Encounter Details Date Type Department Care Team (Late st Contact Info) Description 03/30/2024 Orders Only [facility] MED & PEDS [address] [place] [address] Janett Hoyt MD [address] [place] [address] Social History Tobacco Use Types Packs/Day Years [...] Description 08/16/2025 11:00 AM EST Clinical Support [facility] PED[facility] [address] [place] [address] Kaylen Townsend RN [address] [place] [address] documented as of this encounter Visit Diagnoses Not on filedocumented in this encounter Additional Health Concerns Assessment Noted Time PHQ-9 Depression Total Score: 0 12/03/19 23 9:31 AM EST documented as of this encounter Care Teams Mill Washer Relationship Specialty Start Date End Date Janett Hoyt MD [address] [place] [address] PCP - General Internal Medicine 02/26/19 documented as of this encounter
--- OUTSIDE RECORDS SUMMARY | 2025-07-14 13:15 | XMS_ITS | Encounter Summary ---
Author Organization [employer] Address 75 [facility] 7t [place] [address] Care Team Providers Care Filament Maker Name Role Phone Janett Hoyt MD Primary Care Provider +1- [phone] Encounter Details Date Type Department Care Team (Late st Contact Info) Description 06/28/2024 Orders Only [facility] MED & PEDS [address] [place] [address] Janett Hoyt MD [address] [place] [address] Social History Tobacco Use Types Packs/Day Years [...] 11:00 AM EST Clinical Support [facility] MED & P[facility] [address] [place] [address] Kaylen Townsend, RN [address] [place] [address] documented as of this encounter Visit Diagnoses Not on filedocumented in this encounter Additional Health Concerns Assessment Noted Time PHQ-9 Depression Total Score: 0 12/03/19 23 9:31 AM EST documented as of this encounter Care Teams Filament Maker Relationship Specialty Start Date End Date Janett Hoyt MD [address] [place] [address] PCP - General Internal Medicine 02/26/19 documented as of this encounter
--- OUTSIDE RECORDS SUMMARY | 2025-07-14 13:15 | XMS_ITS | Encounter Summary ---
Author Organization [employer] Address 75 [facility] 7t [place] [address] Care Team Providers Care Customer Services Coordinator Name Role Phone Janett Hoyt MD Primary Care Provider +1- [phone] Encounter Details Date Type Department Care Team (Late st Contact Info) Description 04/14/2024 Orders Only [facility] MED & PEDS [address] [place], [place] [phone] Janett Hoyt MD [address] [place], [place] [phone] Primary hypertension (Primary Dx) Social History Tobacco [...] the past 12 months, has t he [employer], gas, oil or water company threatened to [...] 11:00 AM EST Clinical Support [facility] MED & PEDS [address] [place] [address] Kaylen Townsend, KENISHA [address] [place] [address] documented as of this encounter Visit Diagnoses Diagnosis Primary hypertension- Primary Unspecified essential hypertension documented in this encounter Additional Health Concerns Assessment Noted Time PHQ-9 Depression Total Score: 0 12/03/19 23 9:31 AM EST documented as of this encounter Care Teams Customer Services Coordinator Relationship Specialty Start Date End Date Janett Hoyt MD [address] [place] [address] PCP - General Internal Medicine 02/26/19 documented as of this encounter
--- OUTSIDE RECORDS SUMMARY | 2025-07-14 13:15 | XMS_ITS | Encounter Summary ---
Author Organization [employer] Address 75 [facility] 7t [place] [address] Care Team Providers Care Fibreglass Gun Hand Name Role Phone Janett Hoyt MD Primary Care Provider +1- [phone] Reason for Visit * Reason Onset Date Comments Chart Prep 07/13/2025 Encounter Details Date Type Department Care Team ([facility] st Contact Info) Description 07/13/2025 Telephone [facility] MED & PEDS [address] [place] [address] Janett Hoyt MD [address] [place] [address] Chart Prep Social History Tobacco Use Types Packs/Day Years [...] encounter Miscellaneous Notes * Telephone Encounter - Tamiko Enriquez [place] - 07/13/2025 9:53 AM EDT Chart Prep Labs: not applicable Images: done Referrals: complete Vaccines due: Covid and Flu Screenings: not applicable Overdue care gaps: SBIRT and PHQ-9 documented in this encounter Plan of Treatment Upcoming Encounters Date Type Department Care Team (Late st Contact Info) Description 08/16/2025 11:00 AM EST Clinical Support [facility] MED & PEDS [address] [place] [address] Kaylen Townsend RN [address] [place] [address] documented as of this encounter Visit Diagnoses Not on filedocumented in this encounter Additional Health Concerns Assessment Noted Time PHQ-9 Depression Total Score: 0 10/27/19 25 2:31 PM EST documented as of this encounter Care Teams Fibreglass Gun Hand Relationship Specialty Start Date End Date Janett Hoyt MD [address] [place] [address] PCP - General Internal Medicine 02/26/19 documented as of this encounter
--- OUTSIDE RECORDS SUMMARY | 2025-07-14 13:15 | XMS_ITS | Clinical Summary ---
Author Organization [facility] Address [address] [place] [phone] Phone Care Team Providers Care Concrete Pointer Name Role Phone Sammie Hardin MD Primary [...] (2 of 2 - PCV) 09/28/2015 09/28/2014 RSV VACCINE (1 - 1-dose 75+ series) 2024 INFLUENZA VACCINE (#1) 2025 , 06/28/2019, 06/28/2018, Additional history exists COVID-19 VACCINE ( season) 2025 12/07/2020 Adult Td,Tdap Booster 06/28/2029 06/28/2019, 013 HEPATITIS [...] file Insurance MEDICARE PART A & B [employer] MEDICARE PART A & B [employer] LIMITED MEDICARE PART A & B [employer] LIMITED MEDICARE PART A & B Member Subscriber Plan / Payer (Ef fective 2014-Present) Name:Franny Tejeda Member ID:[id number] Relation to Subscriber:Self Name:Franny Tejeda Subscriber ID:[id number] Payer ID:[id number] Group ID:Not on file Type:Medicare Address: [employer] [address] [employer] LIMITED MEDICARE PART A & B [employer] LIMITED MEDICARE PART A & B [employer] LIMITED MEDICARE PART A & B [employer] LIMITED MEDICARE PART A & B [employer] MEDICARE PART A & B [employer] Care Teams Concrete Pointer Relationship Specialty Start Date End Date Sammie Hardin MD [address] [place] [address] PCP - General 12/12/15 Additional Source Comments The information contained in this document represents components of the legal health record. It is not the complete legal health record.[facility]
--- OUTSIDE RECORDS SUMMARY | 2025-07-14 13:15 | XMS_ITS | Encounter Summary ---
Author Organization [employer] Address 75 [facility] 7t [place] [address] Care Team Providers Care Grocery Cashier Name Role Phone Janett Hoyt MD Primary Care Provider +1- [phone] Reason for Visit * Reason Comments Med Refill Encounter Details Date Type Department Care Team (Late Contact Info) Description 04/08/2023 Refill [facility] MED & PEDS [address] [place] [address] Janett Hoyt MD [address] [place] [address] Social History Tobacco Use Types Packs/Day Years [...] Department Care Team (Late Contact Info) Description 08/16/2025 11:00 AM EST Clinical Support [facility] P[facility] [address] [place] [address] Kaylen Townsend, KENISHA [address] [place] [address] documented as of this encounter Visit Diagnoses Not on filedocumented in this encounter Additional Health Concerns Assessment Noted Time PHQ-9 Depression Total Score: 0 12/03/19 23 9:31 AM EST documented as of this encounter Care Teams Grocery Cashier Relationship Specialty Start Date End Date Janett Hoyt MD [address] [place] [address] PCP - General Internal Medicine 02/26/19 documented as of this encounter
[2025-07-14 14:31] LABS: MANUAL DIFF FLAG NO
[2025-07-14 14:41] LABS: Hematocrit 40.7 % (37.0-47.0); Hemoglobin 13.7 g/dl (12.0-16.0); Imm Gran Abs Auto 0.01 X10*3/uL (0.00-0.03); Imm Gran Pct Auto 0.2 % (0.0-0.4); Lymphocytes Absolute Auto 1.9 X10*3/uL (1.2-4.9); Mean Corpuscular HGB Conc 33.7 g/dl (31.0-35.0); Mean Corpuscular Hemoglobin 30.8 pg (27.0-33.0); Mean Corpuscular Volume 91.5 fL (80.0-98.0); NRBC Abs Auto 0.000 X10*3/uL (0.0-0.012); NRBC Pct Auto 0.0 /100WBC (0.0-0.2); Platelet Count 190 X10*3/uL (160-400); Red Blood Count 4.45 X10*6/uL (4.20-5.50); White Blood Count 6.3 X10*3/uL (4.8-10.8)
[2025-07-14 15:26] LABS: Alanine Aminotransferase 16 U/L (0-31); Albumin Level 4.1 g/dL (3.5-5.0); Alkaline Phosphatase 72 U/L (39-117); Anion Gap 9 (12-20); Aspartate Amino Transferase 25 U/L (5-31); Blood Urea Nitrogen 20 mg/dL (9-16); Calcium 8.6 mg/dL (8.4-10.2); Carbon Dioxide 29 mmol/L (22-29); Chloride 109 mmol/L (96-108); Cholesterol 125 mg/dL (<200); Estimated Glomerular Filt Rate > 60; HDL Cholesterol 56 mg/dL (>40); Potassium 4.5 mmol/L (3.3-5.1); Sodium 142 mmol/L (135-145); Total Protein 6.4 g/dL (6.5-8.0); Triglycerides 57 mg/dL (<150)
[2025-07-15 05:33] LABS: ~HepC Num1 0.11 S/CO (0.00-0.79); ~Hepatitis C Antibody Nonreactive (Nonreactive)
== END 2025-07-14 11:22 | disposition home or self-care (01) ==
LOC: HO.CHCLDS 11:21
PROVIDERS: Visit Provider Internal Medicine
DX: Z11.59 Encounter for screening for other viral diseases (principal); I10 Essential (primary) hypertension; M25.50 Pain in unspecified joint; E78.00 Pure hypercholesterolemia, unspecified
CPT/HCPCS: 36415; 80053; 80061; 84443; 85025; 86803

== ENCOUNTER 2025-08-23 10:02 | Outpatient (AMB) | payer MEDICARE, MEDICAID, SELFPAY ==
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
--- OUTSIDE RECORDS SUMMARY | 2025-08-23 11:27 | XMS_ITS | Encounter Summary ---
Author Organization [employer] Address [address] [facility] 7t [place] [address] Care Team Providers Care Rotary Operator Name Role Phone Janett Hoyt MD Primary Care Provider +1- [phone] Encounter Details Date Type Department Care Team ([facility] st Contact Info) Description 02/02/2025 Orders Only [facility] CHC MED & PEDS [address] [place] [address] Janett Hoyt MD [address] [place], [place] [phone] Primary hypertension (Primary Dx) Social History Tobacco [...] Upcoming Encounters Date Type Department Care Team ([facility] st Contact Info) Description 12/13/2025 11:00 AM EST Clinical Support [facility] MED & PEDS [address] [place] [address] Kaylen Townsend, KENISHA [address] [place] [address] documented as of this encounter Visit Diagnoses Diagnosis Primary hypertension- Primary Unspecified essential hypertension documented in this encounter Additional Health Concerns Assessment Noted Time PHQ-9 Depression Total Score: 0 10/27/19 25 2:31 PM EST documented as of this encounter Care Teams Rotary Operator Relationship Specialty Start Date End Date Janett Hoyt MD [address] [place] [address] PCP - General Internal Medicine 02/26/19 documented as of this encounter
--- OUTSIDE RECORDS SUMMARY | 2025-08-23 11:27 | XMS_ITS | Encounter Summary ---
Author Organization [employer] Address [address] [facility] 7t [place] [address] Care Team Providers Care New Business Clerk Name Role Phone Janett Hoyt MD Primary Care Provider +1- [phone] Reason for Visit * Reason Comments Med Refill Encounter Details Date Type Department Care Team (Late Contact Info) Description 04/08/2023 Refill [facility] MED & PEDS [address] [place] [address] Janett Hoyt MD [address] [place] [address] Social History Tobacco Use Types Packs/Day Years [...] Department Care Team (Late Contact Info) Description 12/13/2025 11:00 AM EST Clinical Support [facility] MED & PEDS [address] [place] [address] Kaylen Townsend, KENISHA [address] [place] [address] documented as of this encounter Visit Diagnoses Not on filedocumented in this encounter Additional Health Concerns Assessment Noted Time PHQ-9 Depression Total Score: 0 12/03/19 23 9:31 AM EST documented as of this encounter Care Teams New Business Clerk Relationship Specialty Start Date End Date Janett Hoyt MD [address] [place] [address] PCP - General Internal Medicine 02/26/19 documented as of this encounter
--- OUTSIDE RECORDS SUMMARY | 2025-08-23 11:27 | XMS_ITS | Encounter Summary ---
Author Organization [employer] Address [address] [facility] [address] [place] [address] Care Team Providers Care Field Representatives Director Name Role Phone Janett Hoyt MD Primary Care Provider +1- [phone] Encounter Details Date Type Department Care Team ([facility] st Contact Info) Description 07/28/2023 Orders Only [facility] CHC MED & PEDS [address] [place] [address] Janett Hoyt MD [address] [place] [address] Social History Tobacco Use Types Packs/Day Years [...] Care Team (Late st Contact Info) Description 12/13/2025 11:00 AM EST Clinical Support [facility] MED & PEDS [address] [place] [address] Kaylen Townsend RN [address] [place] [address] documented as of this encounter Procedures Procedure Name Priority Date/Time Associated Diagnosis Comments CULTURE, URINE, ROUTINE Routine 07/28/2023 10:15 AM EDT documented in this encounter Results * Culture, Urine, Routine (07/28/2023 10:15 AM EDT) Urine Urine specimen obtained by clean catch procedure / Unknown 07/28/2023 10:15 AM EDT 07/28/2023 5:45 PM EDT Comment:[facility] LABS - 07/30/2023 7:42 AM EDT Klebsiella pneumoniae Quant > 100,000 cfu/mL Klebsiella pneumoniae: Ampicillin >=32(R) Klebsiella pneumoniae: Ceftriaxone <=0.25(S) Klebsiella pneumoniae: Gentamicin <=1(S) Klebsiella pneumoniae: Levofloxacin <=0.12(S) Klebsiella pneumoniae: Nitrofurantoin 64(I) Klebsiella pneumoniae: Trimethoprim/Sulfamethoxazole <=20(S) Specimen Source: Urine clean catch us Anabelle Larose MD LAB MICROBIOLOGY - GENERAL OR DERABLES Final Result [facility] [address] [place] [phone] [phone] documented in this encounter Visit Diagnoses Not on filedocumented in this encounter Additional Health Concerns Assessment Noted Time PHQ-9 Depression Total Score: 0 12/03/19 23 9:31 AM EST documented as of this encounter Care Teams Field Representatives Director Relationship Specialty Start Date End Date Janett Hoyt MD [address] [place] [address] PCP - General Internal Medicine 02/26/19 documented as of this encounter
--- OUTSIDE RECORDS SUMMARY | 2025-08-23 11:28 | XMS_ITS | Encounter Summary ---
Author Organization [employer] Address [address] [facility] 7t [place] [address] Care Team Providers Care Roofer Vinyl Coating Name Role Phone Janett Hoyt MD Primary Care Provider +1- [phone] Encounter Details Date Type Department Care Team (Late st Contact Info) Description 03/30/2024 Orders Only [facility] CHC MED & PEDS [address] [place] [address] Janett Hoyt MD [address] [place] [address] Social History Tobacco Use Types Packs/Day Years [...] Description 12/13/2025 11:00 AM EST Clinical Support [facility] MED & PEDS [address] [place] [address] Kaylen Townsend RN [address] [place] [address] documented as of this encounter Visit Diagnoses Not on filedocumented in this encounter Additional Health Concerns Assessment Noted Time PHQ-9 Depression Total Score: 0 12/03/19 23 9:31 AM EST documented as of this encounter Care Teams Roofer Vinyl Coating Relationship Specialty Start Date End Date Janett Hoyt MD [address] [place] [address] PCP - General Internal Medicine 02/26/19 documented as of this encounter
--- OUTSIDE RECORDS SUMMARY | 2025-08-23 11:28 | XMS_ITS | Encounter Summary ---
Author Organization [employer] Address [address] [facility] 7[address] [place] [address] Care Team Providers Care Stained Glass Artist Name Role Phone Janett Hoyt MD Primary Care Provider +1- [phone] Encounter Details Date Type Department Care Team (Late st Contact Info) Description 04/29/2024 Orders Only [facility] CHC MED & PEDS [address] [place], [place] [phone] Janett Hoyt MD [address] [place], [place] [phone] Primary hypertension (Primary Dx); Other osteoporosis without [...] Description 12/13/2025 11:00 AM EST Clinical Support [facility] CHC MED & PEDS [address] [place] [address] Kaylen Townsend, KENISHA [address] [place] [address] documented as of this encounter Visit Diagnoses Diagnosis Primary hypertension- Primary Unspecified essential hypertension Other osteoporosis without current pathological fracture documented in this encounter Additional Health Concerns Assessment Noted Time PHQ-9 Depression Total Score: 0 12/03/19 23 9:31 AM EST documented as of this encounter Care Teams Stained Glass Artist Relationship Specialty Start Date End Date Janett Hoyt MD [address] [place] [address] PCP - General Internal Medicine 02/26/19 documented as of this encounter
--- OUTSIDE RECORDS SUMMARY | 2025-08-23 11:28 | XMS_ITS | Encounter Summary ---
Author Organization [employer] Address [address] [facility] 7[address] [place] [address] Care Team Providers Care Industrial Hygiene Manager Name Role Phone Janett Hoyt MD Primary Care Provider +1- [phone] Encounter Details Date Type Department Care Team (Late st Contact Info) Description 04/14/[address] [facility] CHC MED & PEDS [address] [place], [place] [phone] Janett Hoyt MD [address] [place], [place] [phone] Primary hypertension (Primary Dx) Social History Tobacco [...] the past 12 months, has t he [employer], gas, oil or water company threatened to [...] Description 12/13/2025 11:00 AM EST Clinical Support [facility] MED & PEDS [address] [place] [address] Kaylen Townsend, KENISHA [address] [place] [address] documented as of this encounter Visit Diagnoses Diagnosis Primary hypertension- Primary Unspecified essential hypertension documented in this encounter Additional Health Concerns Assessment Noted Time PHQ-9 Depression Total Score: 0 12/03/19 23 9:31 AM EST documented as of this encounter Care Teams Industrial Hygiene Manager Relationship Specialty Start Date End Date Janett Hoyt MD [address] [place] [address] PCP - General Internal Medicine 02/26/19 documented as of this encounter
--- OUTSIDE RECORDS SUMMARY | 2025-08-23 11:28 | XMS_ITS | Clinical Summary ---
Author Organization [facility] Address [address] [place] [address] Phone Care Team Providers Care Vertica Architect Name Role Phone Sammie Hardin MD Primary [...] patient's age to complete this topic IPV VACCINES Aged Out No longer eligi ble based on patient's age to complete this topic MENINGOCOCCAL VACCINES (ACWY) Aged Out No longer eligible based on patient's age to complete this topic MENINGOCOCCAL VACCINES (B) Aged Out N o longer eligible based on patient's age to complete this topic Medical Devices Not on file Insurance MEDICARE PART A & B [employer] MEDICARE PART A & B [employer] MEDICARE PART A & B [employer] MEDICARE PART A & B [employer] MEDICARE PART A & B [employer] MEDICARE PART A & B [employer] MEDICARE PART A & B [employer] MEDICARE PART A & B [employer] MEDICARE PART A & B [employer] Care Teams Vertica Architect Relationship Specialty Start Date End Date Sammie Hardin MD [address] [place] [address] PCP - General 12/12/15 Additional Source Comments The information contained in this document represents components of the legal health record. It is not the complete legal health record.[facility]
--- OUTSIDE RECORDS SUMMARY | 2025-08-23 11:28 | XMS_ITS | Clinical Summary ---
Author Organization [facility] Address [address] [place] [address] Care Team Providers Care Vehicle Calibration Engineer Name Role Phone Janett Hoyt MD Primary Care Provider [phone] -[phone] Surgical History Surgery Date Site/Laterality Comments BLADDER [...] Status Comments Brother Father 49yo suicide Mother [place], lung cancer , ulcers Mother's side Sister [...] Depression Screening 10/13/2024 COVID-19 Vaccine ( - 2024- season) 2025 Influenza Vaccine (#1) 2025 8, [...] (World Health Organization Fracture Risk Assessment) [facility] Department of Internal Medicine recommends [...] alternative screening schedule based on mary Lui., [facility] October 31, 2011 for patients [...] years. (WorldHealth Organization Fracture Risk Assessment) [facility] Department of Internal Medicine recommendsusing [...] alternative screening schedule based on [facility] Lui[facility] for patients with osteopenia [...] Documents on File Type Date Recorded Patient Industrial Psychologist Expl anation Health Care Decision (hx) 05/13/2019 AD CACERES DIRECTIVE Health Care Decision (hx) 05/13/2019 AD CACERES DIRECTIVE Health Care Decision (hx) 05/13/2019 AD CACERES DIRECTIVE Health Care Decision (hx) 05/13/2019 AD CACERES DIRECTIVE Health Care Decision (hx) 05/13/2019 AD CACERES DIRECTIVE Health Care Decision (hx) 05/13/2019 MICHELLE CACERES DIRECTIVE Care Teams Vehicle Calibration Engineer Relationship Specialty Start Date End Date Janett Hoyt MD [address] [place] [address] PCP - General Internal Medicine 05/31/21
--- OUTSIDE RECORDS SUMMARY | 2025-08-23 11:28 | XMS_ITS | Encounter Summary ---
Author Organization [employer] Address [address] [facility] 7t [place] [address] Care Team Providers Care Planimeter Operator Name Role Phone Janett Hoyt MD Primary Care Provider +1- [phone] Reason for Visit * Reason Comments Med Refill Encounter Details Date Type Department Care Team ([facility] st Contact Info) Description 08/21/2025 Refill [facility] CHC MED & PEDS [address] [place] [address] Janett Hoyt MD [address] [place] [address] Primary hypertension Social History Tobacco Use Types [...] Upcoming Encounters Date Type Department Care Team ([facility] st Contact Info) Description 12/13/2025 11:00 AM EST Clinical Support [facility] CHC MED & PEDS [address] [place] [address] Kaylen Townsend, RN [address] [place] [address] documented as of this encounter Visit Diagnoses Diagnosis Primary hypertension Unspecified essential hypertension documented in this encounter Additional Health Concerns Assessment Noted Time PHQ-9 Depression Total Score: 0 10/27/19 25 2:31 PM EST documented as of this encounter Care Teams Planimeter Operator Relationship Specialty Start Date End Date Janett Hoyt MD [address] [place] [address] PCP - General Internal Medicine 02/26/19 documented as of this encounter
--- OUTSIDE RECORDS SUMMARY | 2025-08-23 11:28 | XMS_ITS | Encounter Summary ---
Author Organization [employer] Address [address] [facility] [facility] [address] [place] [address] Care Team Providers Care Commercial Pest Control Representative Name Role Phone Janett Hoyt MD Primary Care Provider [phone] Encounter Details Date Type Department Care Team (Late st Contact Info) Description 06/28/2024 Orders Only [facility] [address] [place] [address] Janett Hoyt MD [address] [place] [address] Social History Tobacco Use Types Packs/Day Years [...] Description 12/13/2025 11:00 AM EST Clinical Support [facility] MED [facility] [address] [place] [address] Kaylen Townsend, RN [address] [place] [address] documented as of this encounter Visit Diagnoses Not on filedocumented in this encounter Additional Health Concerns Assessment Noted Time PHQ-9 Depression Total Score: 0 12/03/19 23 9:31 AM EST documented as of this encounter Care Teams Commercial Pest Control Representative Relationship Specialty Start Date End Date Janett Hoyt MD [address] [place] [address] PCP - General Internal Medicine 02/26/19 documented as of this encounter
--- OUTSIDE RECORDS SUMMARY | 2025-08-23 11:28 | XMS_ITS | Clinical Summary ---
Author Organization [employer] Address [address] [facility] [address] [place] [address] Care Team Providers Care Founder And Ceo Name Role Phone Janett Hoyt MD Primary [...] crush or chew. 60 capsule 11 024 Active meclizine (Antivert) 25 MG tabletIndications :Vertigo TAKE ONE TABLET AT BEDTIME 40 tablet 3 024 Active amLODIPine (Norvasc) 5 MG tabletIndications :Primary hypertension Take 1 tablet (5 mg) by mouth Once per day. 30 tablet 11 025 2025 Active Diclofenac Sodium 1 % gelIndications:Ac otoe-[place] right ankle pain APPLY 2 GRAM'S TO AFFECTED AREA(s) THREE TIMES DAILY NEEDED 100 g 1 Active guaiFENesin (Mucinex) 600 MG 12 hr tabletIndications :Acute recurrent frontal sinusitis Take 2 tablets (1,200 mg) by mouth 2 times daily. Do not crush, chew, or split. 120 tablet 025 2025 Active losartan (Cozaar) 100 MG tabletIndications :Primary hypertension TAKE ONE TABLET DAILY 30 tablet 11 Active venlafaxine XR (Effexor XR) 37.5 MG 24 hr capsule TAKE ONE CAPSULE BY MOUTH EVERY MORNING 90 capsule 3 Active rosuvastatin (Crestor) 20 MG tabletIndications :Primary hypertension TAKE ONE TABLET DAILY 30 tablet Active naloxone (Narcan) 4 mg/0.1 mL nasal spray Administer 1 spray (4 mg) into affected nostril(s) if needed for opioid reversal. May repeat every 2-3 minutes if needed, alternating nostrils, until medical assistance becomes available. 2 each 2 025 2025 Active celecoxib (CeleBREX) 200 MG capsuleIndication s:Right upper quadrant pain TAKE ONE CAPSULE BY MOUTH EVERY MORNING 30 capsule 3 Active levothyroxine (Synthroid, Levoxyl) 100 MCG tabletIndications :Other specified hypothyroidism TAKE ONE TABLET BY MOUTH EVERY MORNING 30 tablet 5 Active traMADol (Ultram) 50 MG tabletIndications :Multiple joint pain Take 1 tablet (50 mg) by mouth every 8 (eight) hours if needed for severe pain. 84 tablet Active dilTIAZem SR (Cardizem SR) 60 MG 12 hr capsuleIndication s:Primary hypertension TAKE ONE CAPSULE BY MOUTH TWICE DAILY 60 capsule 2 Active dilTIAZem SR (Cardizem SR) 60 MG 12 hr capsuleIndication s:Primary hypertension TAKE ONE CAPSULE BY MOUTH TWICE DAILY 60 capsule 2 025 2024 Discontinued traMADol (Ultram) 50 MG tabletIndications :Multiple joint pain Take 1 tablet (50 mg) by mouth every 8 (eight) hours if needed for severe pain. 84 tablet 025 2024 Discontinued(R eorder (will not trigger notification to Pharmacy)) Active Problems Problem Noted Date Diagnosed Date Long-term current use of opiate analgesic 2024 Anxiety 12/20/2022 COVID-19 12/20/2022 Migraine 12/20/2022 Vertigo 12/20/2022 Hypertension 09/30/2022 Hypercholesterolemia 09/30/2022 Insomnia 09/30/2022 Hypothyroid 09/30/2022 IBS (irritable bowel syndrome) 09/30/2022 GERD (gastroesophageal reflux disease) Multiple joint pain 11/02/2019 Overview (12/20/2022): Seeing Dr. Laurie Orozco ([facility] [place] Inflammatory labs 10/19/19 negative. 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) 08/16/2025 Refill [facility] [address] [place] [address] Kaylen Townsend, RN Multiple joint pain 08/16/2025 Travel 07/19/2025 Telephone [facility] [address] [place] [address] Janett Hoyt MD Med Refill 07/16/2025 Refill [facility] [address] [place] [address] Janett Hoyt MD Other specified hypothyroidism 07/15/2025 Results Follow-Up [facility] [address] [place] [phone] Don Jones RN CBC auto differential, Comprehensive Metabolic Panel, Lipid Panel, Standard, TSH with Reflex to Free T4 07/14/2025 10:45 AM EDT Office Visit [facility] [address] [place] [address] Janett Hoyt MD Varicose veins of bilateral lower extremities with other complications (Primary Dx); Multiple joint pain; Primary hypertension; Hypercholesterolemia 07/14/2025 Travel 07/13/2025 Telephone [facility] [address] [place] [address] Janett Hoyt MD Chart Prep 07/07/2025 Patient Outreach [facility] [address] [place] [phone] Janett Hoyt MD Pre-visit Planning (SDOH screening negative and Tobacco screening negative) 07/07/2025 Telephone [facility] [address] [place] [address] Janett Hoyt MD Med Refill 07/03/2025 Refill [facility] [address] [place] [address] Janett Hoyt MD Right upper quadrant pain 06/21/2025 Refill [facility] [address], [place] [phone] Kaylen Townsend, RN Multiple joint pain 06/21/2025 Telephone [facility] [address] [place] [address] Janett Hoyt MD Med Refill 06/09/2025 Orders Only GENERIC EXTERNAL DATA DEPARTMENT Provider, Generic External Data 05/26/2025 Refill [facility] [address] [place] [address] Janett Hoyt MD Primary hypertension 05/23/2025 Refill [facility] [address] [place] [address] Janett Hoyt MD Multiple joint pain from Last 3 Months Immunizations Immunization Administration [...] Description 12/13/2025 11:00 AM EST Clinical Support [facility] [address] [place] [address] Kaylen Townsend, RN [address] [place] [address] Health Maintenance Due Date Last Done Comments CT Colonography 1949 FIT DNA/Cologuard 1949 FIT 1949 FOBT 1950 Sigmoidoscopy 1949 Alcohol/Substance Use Screening 1961 Depression Screening 10/27/2025 10/27/2024, 10/27/19 SDOH Screening 07/07/2026 07/07/2025 Tobacco Screening 07/14/2026 07/14/2025 DTaP/Tdap/Td Vaccines (3 - Td or Tdap) 06/28/2029 06/28/2019, 12/21/2012 Colonoscopy 01/02/2030 Colorectal Cancer Screening 01/02/2030 Lipid Panel 07/14/2030 07/14/2025, 10/14, 12/03/2022, Additional history exists Zoster Vaccines Completed 09/21/2021, 07/20/2021 Pneumococcal Vaccine: 50+ Years Completed 03/04/2022, 09/28/2014 RSV Patients and Patients Aged 60 years or older Completed 08/10/2024 Hepatitis C Screening Completed 07/14/2025 COVID-19 Vaccine Completed 07/16/2025, 06/2024, 08/09/2023, Additional history exists Influenza Vaccine Completed 07/16/2025, , 06/30/2023, Additional history exists HIB Vaccines Aged Out No longer eligi [...] Comments POCT YVETTE-14 URINE DRUG SCREEN Routine 08/16/2025 11:13 AM EST FDC (current) use of opiate analgesic HEPATITIS C AB W/REFL TO HCV RNA, QN, PCR Routine 07/14/2025 11:23 AM EDT Multiple joint pain TSH W/REFLEX TO FT4 Routine 07/14/2025 1 1:23 AM EDT Multiple joint pain Primary hypertension Hypercholesterolemia LIPID PANEL, STANDARD Routine 07/14/2025 11:23 AM EDT Multiple joint pain Hypercholesterolemia COMPREHENSIVE METABOLIC PANEL Routine 07/14/2025 11:23 AM EDT Multiple joint pain Primary hypertension CBC WITH AUTO DIFFERENTIAL Routine 07/14/2025 11:23 AM EDT Multiple joint pain BASIC METABOLIC PANEL Routine 06/09/2025 12:15 PM EDT from Last 3 Months Results * POCT YVETTE-14 Urine Drug Screen (08/16/2025 11:13 AM EST) THC Negative Negative Cocaine Screen, Urine Negative [...] obtained by clean catch procedure / Unknown 08/16/2025 11:13 AM EST Narrative Kaylen Townsend RN - 08/16/2025 11:13 AM EST . Internal Pass Control Lot# [id number] Exp: 08-12-26 us Janett Hoyt MD POINT OF CARE TEST ENTER/ED IT ORDERABLES Final Result * TSH with Reflex to Free T4 (07/14/2025 11:23 AM EDT) TSH reflex Free T4 0.58 0.32 - 4.0 uIU/mL [facility] Blood Venous blood specimen / Unknown 07/14/2025 11:23 AM EDT 07/14/2025 2:27 PM EDT Janett Hoyt MD LAB BLOOD ORDERABLES Final Result Performing Organization Address City/State/[facility] Co de Phone Number [facility] [address] [place] [phone] * CBC auto differential (07/14/2025 11:23 AM EDT) Pathologist [facility] White Blood Count 6.3 4.8 - 10.8 X10*3/uL [facility] Red Blood Count 4.45 4.20 - 5.50 X10*6/uL [facility] Hemoglobin 13.7 12.0 - 16.0 g/dl [facility] Hematocrit 40.7 37.0 - 47.0 % [facility] Mean Corpuscular Volume 91.5 80.0 - 98.0 fL [facility] Mean Corpuscular Hemoglobin 30.8 27.0 - 33.0 pg [facility] Mean Corpuscular HGB Conc 33.7 31.0 - 35.0 g/dl [facility] Red Cell Distribution Width 13.2 11.0 - 16.0 % [facility] Platelet Count 190 160 - 400 X10*3/uL [facility] Mean Platelet Volume 12.3 9.4 - 12.3 fL [facility] Neutrophils Percent Auto 58.9 45 - 73 % [facility] Imm Gran Pct Auto 0.2 0.0 - 0.4 % [facility] Lymphocytes Percent Auto 29.8 20 - 40 % [facility] Monocytes Percent Auto 7.6 2 - 11 % [facility] Eosinophils Percent Auto 2.9 0 - 4 % [facility] Basophils Percent Auto 0.6 0 - 2 % [facility] NRBC Pct Auto 0.0 0.0 - 0.2 /100WBC [facility] Neutrophils Absolute Auto 3.7 2.0 - 8.3 x10*3/uL [facility] Imm Gran Abs Auto 0.01 0.00 - 0.03 X10*3/uL [facility] Lymphocytes Absolute Auto 1.9 1.2 - 4.9 X10*3/uL [facility] Monocytes Absolute Auto 0.5 0.1 - 1.2 X10*3/uL [facility] Eosinophils Absolute Auto 0.2 0.0 - 0.4 X10*3/uL [facility] Basophils Absolute Auto 0.0 0.0 - 0.2 X10*3/uL [facility] NRBC Abs Auto 0.000 0.0 - 0.012 X10*3/uL [facility] Blood Venous blood specimen / Unknown 07/14/2025 11:23 AM EDT 07/14/2025 2:27 PM EDT Janett Hoyt MD LAB BLOOD ORDERABLES Final Result [facility] [address] [place] [phone] * Hepatitis C Antibody with Reflex to HCV, RNA, Quantitative, Real-Time PCR (07/14/2025 11:23 AM EDT) Hepatitis C Antibody Nonreactive Nonreactive [facility] Comment:Antibodies to HCV no t detected; does not exclude early acuteHCV infection. Blood Venous blood specimen / Unknown 07/14/2025 11:23 AM EDT 07/14/2025 2:27 PM EDT Janett Hoyt MD LAB BLOOD ORDERABLES Final Result Performing Organization Address [facility] Co de Phone Number [facility] [address] [place] [address] [phone] * Lipid Panel, Standard (07/14/2025 11:23 AM EDT) Triglycerides 57 <150 mg/dL [facility] Comment:Desirable Triglyceri de: less than 150 mg/dLBorderline High Triglyceride 150-199 mg/dLHigh Triglyceride: 200-499 mg/dLVery High Triglyceride: greater than or equal to 5OO mg/dL Cholesterol 125 <200 mg/dL [facility] Comment:Desirable Cholestero l: less than 200 mg/dLBorderline High Cholesterol: 200-239 mg/dLHigh Cholesterol: greater than 239 mg/dL LDL Cholesterol Calculated 58 <100 mg/dL [facility] Comment:Desirable LDL: less than 100 mg/dLNear Optimal/Above Optimal LDL: 110- 129 mg/dLBorderline High LDL: 130-159 mg/dLHigh LDL: 160-189 mg/dLVery High LDL: greater than or equal to 190 mg/dL HDL Cholesterol 56 >40 mg/dL [facility] Comment:Desirable HDL: great er than 40 mg/dL Note: This HDL assay may give artificially low results in patients with liver disease. Blood Venous blood specimen / Unknown 07/14/2025 11:23 AM EDT 07/14/2025 2:27 PM EDT Janett Hoyt MD LAB BLOOD ORDERABLES Final Result Performing Organization Address [facility]/ZIP Co de Phone Number [facility] [address] [place] [address] [phone] * (ABNORMAL) Comprehensive Metabolic Panel (07/14/2025 11:23 AM EDT) Sodium 142 135 - 145 mmol/L [facility] Potassium 4.5 3.3 - 5.1 mmol/L [facility] Chloride 109(H) 96 - 108 mmol/L [facility] Carbon Dioxide 29 22 - 29 mmol/L [facility] Anion Gap 9(L) 12 - 20 [facility] Urea Nitrogen (BUN) 20(H) 9 - 16 mg/dL [facility] Creatinine, Serum 0.80 0.5 - 1.4 mg/dL [facility] Estimated Glomerular Filt Rate >60 [facility] Comment:Chronic Kidney Disea se: Estimated GFR < 60 mL/min/[id number] Kidney Disease: Estimated GFR < 15 mL/min/1.73m2 Glucose 90 60 - 115 mg/dL [facility] Calcium 8.6 8.4 - 10.2 mg/dL [facility] Bilirubin, Total 0.6 0.0 - 1.0 mg/dL [facility] Aspartate Amino Transferase 25 5 - 31 U/L [facility] Alanine Aminotransferase 16 0 - 31 U/L [facility] Total Protein 6.4(L) 6.5 - 8.0 g/dL [facility] Albumin Level 4.1 3.5 - 5.0 g/dL [facility] Alkaline Phosphatase 72 39 - 117 U/L [facility] Blood Venous blood specimen / Unknown 07/14/2025 11:23 AM EDT 07/14/2025 2:27 PM EDT us Janett Hoyt MD LAB BLOOD ORDERABLES Final Result [facility] [address] [place] [phone] * (ABNORMAL) Basic Metabolic Panel (06/09/2025 12:15 PM EDT) Sodium 140 135 - 145 mmol/L [facility] Potassium 4.2 3.3 - 5.1 mmol/L [facility] Chloride 106 96 - 108 mmol/L [facility] Carbon Dioxide 27 22 - 29 mmol/L [facility] Anion Gap 11(L) 12 - 20 [facility] Urea Nitrogen (BUN) 19(H) 9 - 16 mg/dL [facility] Creatinine, Serum 0.88 0.5 - 1.4 mg/dL [facility] Estimated Glomerular Filt Rate >60 [facility] Comment:Chronic Kidney Disea se: Estimated GFR < 60 mL/min/[id number] Kidney Disease: Estimated GFR < 15 mL/min/1.73m2 Glucose 90 60 - 115 mg/dL [facility] Calcium 9.1 8.4 - 10.2 mg/dL [facility] 06/09/2025 12:1 5 PM EDT 06/09/2025 12:15 PM EDT us Generic External Data Provider LAB BLOOD ORDERAB LES Final Result Performing Organization Address City/State/[facility] Co de Phone Number [facility] [address] [place] [address] [phone] from Last 3 [place] [id number] [facility] SENIOR BUY-IN/MSP Care Teams Founder And Ceo Relationship Specialty Start Date End Date Janett Hoyt MD [address] [place] [address] [place] [address] PCP - General Internal Medicine 02/26/19
== END 2025-08-23 10:27 | disposition home or self-care (01) ==
LOC: HO.HSM 10:02
PROVIDERS: PCP Internal Medicine; Referring Provider Internal Medicine; Visit Provider Registered Nurse
DX: G56.03 Carpal tunnel syndrome, bilateral upper limbs (principal); G25.81 Restless legs syndrome; G43.909 Migraine, unspecified, not intractable, without status migrainosus; G44.209 Tension-type headache, unspecified, not intractable; G62.9 Polyneuropathy, unspecified; R42 Dizziness and giddiness; I67.89 Other cerebrovascular disease
CPT/HCPCS: 99214

== ENCOUNTER → 2025-08-23 10:02 | Outpatient (BNVA) | payer MEDICARE, MEDICAID, SELFPAY | PROVIDERS: PCP Internal Medicine; Referring Provider Internal Medicine; Visit Provider Registered Nurse | DX: G56.03 Carpal tunnel syndrome, bilateral upper limbs (principal); G43.909 Migraine, unspecified, not intractable, without status migrainosus; G62.9 Polyneuropathy, unspecified; R42 Dizziness and giddiness; I67.89 Other cerebrovascular disease | CPT/HCPCS: 99212 ==